=== PATIENT | male | born 1970 | race Two or more races ===

== ENCOUNTER 2016-06-21 02:04 | Inpatient (IN) | payer MEDICAID ==
[2016-06-21] VITALS (11 sets, daily range): BP systolic 110–124; BP diastolic 68–83
[~2016-06-21] VITALS: Ht 167.6 cm; Wt 63.5 kg
[2016-06-21] MEDS: 1/2NS w/KCl 20mEq 1000ml 1,000 ML IV SCH
[~2016-06-21 02:04] MED LIST: NKM
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
[2016-06-21] MEDS ORDERED: HYDROmorphone 1mg/ml Carpuject IVP ONE ×2 (02:15→05:00)
[2016-06-21 03:02] LABS: APPEARANCE,URINE CLEAR; KETONES,URINE NEGATIVE (NEGATIVE); LEUKOCYTE ESTERASE ,URINE 1+ (NEGATIVE); NITRITE,URINE NEGATIVE (NEGATIVE); PH,URINE 6.5 (4.5-8.0); PROTEIN,URINE NEGATIVE (NEGATIVE); UROBILINOGEN,URINE 1 MG/DL (0.0-1.0)
[2016-06-21 03:04] LABS: MEAN CORPUSCULAR HEMOGLOBIN 33.1 PG (27.0-31.0); MEAN CORPUSCULAR HGB CONC 32.8 G/DL (32.0-36.0); MEAN CORPUSCULAR VOLUME 101 FL (80-99); MEAN PLATELET VOLUME 11.9 FL (6.5-10.1); PLATELET COUNT 83 K/UL (150-450); RED BLOOD COUNT 3.77 M/UL (4.70-6.10); WHITE BLOOD COUNT 7.6 K/UL (4.8-10.8)
[2016-06-21 03:16] LABS: BACTERIA,URINE FEW /HPF; RBC,URINE 0-2 /HPF (0 - 0); SQUAMOUS EPITHELIAL CELL,UR FEW /LPF (NONE/OCC); WBC,URINE 0-2 /HPF (0 - 0)
[2016-06-21 03:20] LABS: ALANINE AMINOTRANSFERASE 172 U/L (3-41); ALBUMIN/GLOBULIN RATIO 1.2 (1.0-2.7); ANION GAP 17 (5-15); ASPARTATE AMINO TRANSFERASE 348 U/L (5-40); CALCIUM 9.2 mg/dL (8.6-10.2); CARBON DIOXIDE 24 mEQ/L (20-30); CHLORIDE 91 mEQ/L (98-107); CREATININE 0.7 mg/dL (0.7-1.2); GLOMERULAR FILTRATION RATE > 60 mL/min (>60); HEMOLYSIS 6; LIPASE 56 U/L (< 60); POTASSIUM 3.3 mEQ/L (3.4-4.9); SODIUM 132 mEQ/L (135-145); TOTAL PROTEIN 7.3 g/dL (6.6-8.7)
[2016-06-21 03:21] LABS: TROPONIN I < 0.30 ng/mL (<=0.30)
[2016-06-21 03:48] LABS: CKMB 5.5 ng/mL (< 6.7)
[2016-06-21 06:00] LABS: BAND NEUTROPHILS % (MANUAL) 6 % (0-8); LYMPHOCYTES % (MANUAL) 19 % (20-45); NEUTROPHILS % (MANUAL) 72 % (45-75); TOTAL CELLS COUNTED 100
[2016-06-21 06:01] LABS: BASOPHILS % (MANUAL) 0 % (0-2); EOSINOPHILS % (MANUAL) 0 % (0-3); PLATELET ESTIMATE DECREASED; PLATELET MORPHOLOGY NORMAL
--- NOTE | 2016-06-21 10:48 | Diagnostic Imaging Report ---
Indication: Chest pain Technique: One view of the chest Comparison: none Findings: There is a moderate to large right pneumothorax. There are fractures of the seventh and eighth and 9 ribs. Is extensive right chest wall and neck subcutaneous emphysema. There is some parenchymal opacity in the right lung base, probably atelectatic lung. Left lung and pleural space are clear. Heart size is normal Impression: Moderate to large right pneumothorax Right basilar pulmonary parenchymal opacity, probably atelectatic lung Multiple right rib fractures This agrees with the preliminary interpretation provided by the emergency room physician
--- NOTE | 2016-06-21 10:52 | Diagnostic Imaging Report ---
Indication: Pneumothorax, status post chest tube placement Technique: One view of the chest Comparison: 3 hours earlier Findings: Interim placement of a right-sided chest tube, tip projecting over the right pulmonary hilum. The lung is mostly reexpanded, although there is still probably some pneumothorax at the right lateral lung base. Opacity at the right lung base is again noted. The left lung and pleural space remain clear. Heart size is upper limits normal. There is increased right chest wall and supraclavicular subcutaneous emphysema. Pneumomediastinum documented on recent CT scan is not clearly evident on plain radiograph Impression: Satisfactory chest tube placement, with significant reexpansion of the right lung and decreased right pneumothorax Increasing right chest wall and supraclavicular subcutaneous emphysema Right basilar pulmonary parenchymal opacity most likely reflects residual atelectatic lung; consolidation, contusion, or reexpansion pulmonary edema also possibilities.
[2016-06-21] MEDS ORDERED: LORazepam 1mg tab ORAL PRN ×2 (11:45→23:45)
[2016-06-21] MEDS: HYDROmorphone 1mg/ml Carpuject IVP PRN ×2 (12:04→19:45)
[2016-06-21] MEDS ORDERED: 1/2NS w/KCl 20mEq 1000ml 1,000 ML IV SCH (12:30)
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
[2016-06-21 14:10] LABS: PROTHROMBIN TIME 9.7 SEC (9.30-11.50)
--- NOTE | 2016-06-21 17:12 | General Progress Note ---
Assessment/Plan Assessment/Plan GI Consult Dictated Thank you Katarzyna Toledo MD Subjective Allergies: Coded Allergies: No Known Allergies (Unverified , 06/21/16) Objective Last 24 Hour Vital Signs Date Time Temp Pulse Resp B/P Pulse Ox O2 Delivery O2 Flow Rate FiO2 06/21/16 16:17 100.0 100 20 116/74 92 Room Air 06/21/16 12:00 100.0 84 18 124/72 96 Nasal Cannula 2.0 06/21/16 08:39 99.3 89 20 121/71 92 Room Air 06/21/16 08:23 97.9 92 20 110/75 96 Nasal Cannula 2.0 06/21/16 08:02 92 20 110/75 96 Nasal Cannula 2.0 06/21/16 06:52 97.9 87 18 122/72 96 Nasal Cannula 2.0 87 06/21/16 06:08 97.7 93 18 117/68 97 Nasal Cannula 2.0 93 06/21/16 05:28 98.5 06/21/16 05:07 97.7 94 18 118/75 96 Nasal Cannula 2.0 94 06/21/16 04:06 98.5 103 17 113/70 96 Nasal Cannula 2.0 103 06/21/16 03:15 98.8 06/21/16 03:05 98.8 107 18 113/70 95 Nasal Cannula 2.0 107 06/21/16 03:03 107 18 Nasal Cannula 2.0 06/21/16 02:20 98.8 107 29 119/81 92 Room Air 06/21/16 02:01 134 16 134/91 95 Room Air Intake and Output 06/20/16 06/21/16 19:00 07:00 Intake Total 1000 ml Balance 1000 ml IV Total 1000 ml # Voids 2 Laboratory Tests 06/21/16 02:30: Urine Color Yellow, Urine Appearance Clear, Urine pH 6.5, Urine Specific [place] 1.005, Urine Protein Negative, Urine Glucose (UA) Negative, Urine Ketones Negative, Urine Occult Blood Negative, Urine Nitrite Negative, Urine Bilirubin Negative, Urine Urobilinogen 1H, Urine Leukocyte Esterase 1+H, Urine RBC 0-2H, Urine WBC 0-2, Urine Squamous Epithelial Cells Few, Urine Bacteria Few , Urine Opiates Screen Negative, Urine Barbiturates Screen Negative, Phencyclidine (PCP) Screen Negative, Urine Amphetamines Screen Negative, Urine Benzodiazepines Screen Negative, Urine Cocaine Screen Negative, Urine Marijuana (THC) Screen Negative 06/21/16 02:48: White Blood Count 7.6, Red Blood Count 3.77L, Hemoglobin 12.5L, Hematocrit 38.0L , Mean Corpuscular Volume 101H, Mean Corpuscular Hemoglobin 33.1H, Mean Corpuscular Hemoglobin Concent 32.8, Red Cell Distribution Width 12.0, Platelet Count 83L, Mean Platelet Volume 11.9H, Neutrophils (%) (Auto) , Lymphocytes (%) (Auto) , Monocytes (%) (Auto) , Eosinophils (%) (Auto) , Basophils (%) (Auto) , Differential Total Cells Counted 100, Neutrophils % (Manual) 72, Lymphocytes % ( Manual) 19L, Monocytes % (Manual) 3, Eosinophils % (Manual) 0, Basophils % ( Manual) 0, Band Neutrophils 6, Platelet Estimate DecreasedL, Platelet Morphology Normal, Red Blood Cell Morphology Normal, D-Dimer 3802H, Sodium Level 132L, Potassium Level 3.3L, Chloride Level 91L, Carbon Dioxide Level 24, Anion Gap 17H, Blood Urea Nitrogen 8, Creatinine 0.7, Estimat Glomerular Filtration Rate > 60, Glucose Level 113H, Calcium Level 9.2, Total Bilirubin 2.3H, Direct Bilirubin 1.0H, Aspartate Amino Transf (AST/SGOT) 348H, Alanine Aminotransferase (ALT/SGPT) 172H, Alkaline Phosphatase 261H, Total Creatine Kinase 1230H, Creatine Kinase MB 5.5, Creatine Kinase MB Relative Index 0.4, Troponin I < 0.30, Total Protein 7.3, Albumin 4.0, Globulin 3.3, Albumin/ Globulin Ratio 1.2, Lipase 56 06/21/16 13:40: Prothrombin Time 9.7, Prothromb Time International Ratio 1.0, Vitamin B12 Level 1506H, Folate [Pending], Hepatitis A IgM Antibody [Pending], Hepatitis B Surface Antigen [Pending], Hepatitis B Core IgM Antibody [Pending], Hepatitis C Antibody [Pending], HIV (1&2) Antibody Rapid Negative Height (Feet): 5 Height (Inches): 6.00 Weight (Pounds): 140 VIOLETTAGAYATHRI NICHOLE Jun 21, 2016 17:12
[2016-06-21 20:53] LABS: ABG PCO2 47.8 mmHg (35.0-45.0)
[2016-06-21 20:54] LABS: ABG ALLEN TEST POSITIVE; ABG BASE EXCESS 0.1
[2016-06-21] MEDS ORDERED: Heparin 5000 units/ml inj SUBQ SCH (21:00)
[2016-06-21] MEDS ORDERED: HYDROmorphone 1mg/ml Carpuject IVP PRN (23:45)
[2016-06-22] VITALS (20 sets, daily range): BP systolic 92–150; BP diastolic 40–99
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
--- NOTE | 2016-06-22 03:17 | Consultation ---
DATE OF CONSULTATION: 06/21/2016 NOTE: POOR AUDIO QUALITY HEMATOLOGY/ONCOLOGY CONSULTATION CONSULTING PHYSICIAN: Cirilo Mueller M.D. REQUESTING PHYSICIAN: Kavin Soto M.D. REASON FOR CONSULTATION: Evaluation of thrombocytopenia. IDENTIFYING DATA: Dear Dr. Kavin Soot, The patient is a pleasant 45-year-old male with unknown past medical history and currently without records. At this time presents to [facility] with chest pain, per the patient acute onset component with radiation to his back. He had a CT scan completed, which showed multiple rib fractures. In addition, the patient has elevated D-dimer as well as anemia, platelet count 83,000. Therefore, hematology service was consulted for further evaluation and treatment of thrombocytopenia as well as a component of anemia, hemoglobin 12.4 and elevated D-dimer which is above 3000. PAST MEDICAL HISTORY: None noted. PAST SURGICAL HISTORY: None noted. ALLERGIES: No known drug allergies. SOCIAL HISTORY: The patient does smoke, but no alcohol. No illicit drug use. FAMILY HISTORY: Noncontributory. REVIEW OF SYSTEMS: Constitutional: No fever, chills, or night sweats. Skin: No rashes, lumps, or itching. HEENT: No headache or vision changes. Breasts: No lumps, pain, or discharge. Pulmonary: No cough, sputum, or shortness of breath. Cardiovascular: He does have a history of chest pain. No tightness or palpitations. Gastrointestinal: No nausea, vomiting, or diarrhea. Genitourinary: No dysuria, frequency, or urgency. Musculoskeletal: No joint swelling, muscle pain, trauma. Neurological: No dizziness, fainting, seizures. PHYSICAL EXAMINATION: VITAL SIGNS: Temperature 99.3 degrees Fahrenheit, pulse 89, respiratory rate 20, blood pressure 121/71, and pulse oximetry 97% on room air. GENERAL: No acute distress. PULMONARY: Decreased breath sounds. CARDIOVASCULAR: Regular rate. No murmurs, gallops, or rubs. GASTROINTESTINAL: Soft, nontender, and nondistended. EXTREMITIES: There is 1+ edema. LABORATORY DATA: Platelet count 83,000, MCV 101, hemoglobin 12.5, and hematocrit 38. BUN , creatinine 0.7. AST 53 and ALT 172. . D-dimer 3800. IMPRESSION: 1. Elevated D-dimer concerning for liver disease given the patient with thrombocytopenia as well as elevated AST and ALT. 2. Spontaneous pneumothorax, also contributing to D-dimer elevation. 3. Thrombocytopenia likely secondary to liver cirrhosis. We will need to consider ultrasound. 4. Thrombocytopenia, rule out infection. 5. Anemia secondary to chronic disease. 6. . 7. Chest pain, rule out acute coronary syndrome. RECOMMENDATIONS: 1. Monitor counts. 2. Transfuse as needed. 3. . 4. DVT prophylaxis with heparin. 5. GI prophylaxis with . 6. We will obtain ultrasound of the abdomen to confirm if the patient has cirrhosis. 7. HIV and hepatitis panel has been ordered. 8. Thrombocytopenia workup including hepatitis panel, coagulations, ultrasound of the abdomen, folic acid and B12. 9. Discussed with staff. Thank you, Dr. Kavin Soto, for this kind referral. Please do not hesitate to contact me with any further questions. Cirilo Mueller M.D. DR: Ion JOB#: [id number] CC:
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
[2016-06-22] MEDS ORDERED: LORazepam Inj 2mg/ml 1ml IV PRN (05:00)
[2016-06-22] MEDS ORDERED: Haloperidol 5mg/ml Inj IM ONE (05:30)
[2016-06-22] MEDS ORDERED: LORazepam Inj 2mg/ml 1ml IV ONE ×3 (05:30→12:00)
[2016-06-22] MEDS: 1/2NS w/KCl 20mEq 1000ml 1,000 ML IV SCH ×2 (06:31)
--- NOTE | 2016-06-22 06:33 | Emergency Room Report ---
Physical Exam Vital Signs Date Time Temp Pulse Resp B/P Pulse Ox O2 Delivery O2 Flow Rate FiO2 06/21/16 02:01 134 16 134/91 95 Room Air 06/21/16 02:20 98.8 06/21/16 03:03 2.0 06/21/16 20:11 32 Medical Decision Making Diagnostic Impression: Primary Impression: Spontaneous pneumothorax Additional Impressions: Abnormal LFTs Multiple rib fractures involving four or more ribs ER Course Patient was admitted for spontaneous pneumothorax with multiple fractures of unknown duration. He had a chest tube placed by me. I was called to evaluate the patient because he's been very agitated. Per nursing staff his been diaphoretic, tachycardic and agitated for several hours now. Ativan 1 mg not helping. Patient complaining of not feeling well and generalized pain. Also difficulty breathing. On exam lungs have good extension. Trachea not deviated. Rhonchorous breath sound the right side. He still has subcutaneous air but much less than yesterday. Chest tube still working. I gave patient sedation with Haldol and Ativan. I asked for repeat chest x-ray. Patient was transferred to the ICU. His chest x-ray, interpreted by me, showed good inflation of the right lung. No pneumothorax. Decreased subcutaneous air. Decision-making: This patient probably had some withdrawal from his alcohol drugs. He appeared to be very agitated. Calm down with Ativan and Haldol. No evidence of worsening pneumothorax or tension pneumothorax. We'll continue with sedation. Last Vital Signs Date Time Temp Pulse Resp B/P Pulse Ox O2 Delivery O2 Flow Rate FiO2 06/22/16 04:00 176 28 131/99 99 Non-Rebreather 06/22/16 00:00 97.9 06/21/16 23:46 15.0 100 Disposition: ADMITTED INPATIENT Condition: Serious Referrals: NOT CHOSEN MASOOD/,REFERRING (PCP) ADINA RODRIGUEZ M.D. Jun 22, 2016 06:33
[2016-06-22 07:24] LABS: MEAN CORPUSCULAR HEMOGLOBIN 35.3 PG (27.0-31.0); MEAN CORPUSCULAR HGB CONC 34.9 G/DL (32.0-36.0); MEAN CORPUSCULAR VOLUME 101 FL (80-99); MEAN PLATELET VOLUME 7.1 FL (6.5-10.1); PLATELET COUNT 84 K/UL (150-450); RED BLOOD COUNT 2.95 M/UL (4.70-6.10); RED CELL DISTRIBUTION WIDTH 11.9 % (11.6-14.8); WHITE BLOOD COUNT 8.5 K/UL (4.8-10.8)
[2016-06-22 07:43] LABS: PSA TOTAL 0.2 ng/mL (< 2.0)
[2016-06-22 07:56] LABS: ALANINE AMINOTRANSFERASE 106 U/L (3-41); ALBUMIN/GLOBULIN RATIO 1.2 (1.0-2.7); ANION GAP 19 (5-15); ASPARTATE AMINO TRANSFERASE 170 U/L (5-40); CALCIUM 8.3 mg/dL (8.6-10.2); CARBON DIOXIDE 25 mEQ/L (20-30); CHLORIDE 91 mEQ/L (98-107); CHOLESTEROL 155 mg/dL (< 200); CHOLESTEROL/HDL RATIO 2.6 (3.3-4.4); CREATININE 0.7 mg/dL (0.7-1.2); GLOMERULAR FILTRATION RATE > 60 mL/min (>60); HEMOLYSIS 10; LDL CHOLESTEROL (CALC.) 79 mg/dL (60-99); MAGNESIUM 1.6 mg/dL (1.7-2.5); POTASSIUM 3.1 mEQ/L (3.4-4.9); SODIUM 135 mEQ/L (135-145)
[2016-06-22 08:02] LABS: HEMOGLOBIN A1C 4.9 % (< 6.0)
[2016-06-22 08:12] LABS: BILIRUBIN,DIRECT 1.1 mg/dL (0.1-0.3)
[2016-06-22] MEDS: Folic Acid 1 MG, Magnesium Sulfate 2,000 MG, Multivitamin - 12 Injection 10 ML in NS w/... IV SCH (08:23)
[2016-06-22] MEDS: LORazepam Inj 2mg/ml 1ml IV PRN ×8 (08:24→23:45)
[2016-06-22 08:39] LABS: ABG ALLEN TEST POSITIVE; ABG BASE EXCESS 1.4; ABG PCO2 46.4 mmHg (35.0-45.0)
[2016-06-22 10:25] LABS: BAND NEUTROPHILS % (MANUAL) 5 % (0-8); BASOPHILS % (MANUAL) 0 % (0-2); EOSINOPHILS % (MANUAL) 0 % (0-3); HYPOCHROMASIA 1+; LYMPHOCYTES % (MANUAL) 4 % (20-45); MACROCYTES 1+; NEUTROPHILS % (MANUAL) 84 % (45-75); PLATELET ESTIMATE DECREASED; PLATELET MORPHOLOGY NORMAL; TOTAL CELLS COUNTED 100
--- NOTE | 2016-06-22 12:06 | GI Progress Note ---
Assessment/Plan Problems: (1) ETOH abuse ICD Codes: F10.10 - Alcohol abuse, uncomplicated SNOMED: 75499415, 60811919 (2) Multiple rib fractures involving four or more ribs ICD Codes: S22.49XA - Multiple fractures of ribs, unspecified side, initial encounter for closed fracture SNOMED: 3683715 (3) Abnormal LFTs ICD Codes: R79.89 - Other specified abnormal findings of blood chemistry SNOMED: 149509262 Status: unchanged Status Narrative Discussed with Dr. Krueger. Assessment/Plan anemia work up fu abdominal U/S >> Hepatomegaly with fatty infiltration, Cholelithiasis fu hep panel banana bag ppi add on - ammonia level discriminant function negative >> defer glucosteroid therapy monitor LFTs monitor H&H, transfuse prn fu labs Subjective Subjective limited Objective Last 24 Hour Vital Signs Date Time Temp Pulse Resp B/P Pulse Ox O2 Delivery O2 Flow Rate FiO2 06/22/16 11:00 94 26 112/75 100 Non-Rebreather 100 06/22/16 10:00 110 25 105/68 100 Non-Rebreather 15.0 100 06/22/16 09:00 86 18 102/64 100 Non-Rebreather 15.0 100 06/22/16 08:00 97.7 113 24 108/70 99 Non-Rebreather 15.0 100 06/22/16 08:00 86 06/22/16 07:07 Non-Rebreather 15.0 100 06/22/16 07:07 99 Non-Rebreather 15.0 100 06/22/16 06:30 101 20 92/40 99 Non-Rebreather 06/22/16 06:00 97.6 150 28 150/88 99 Non-Rebreather 06/22/16 04:00 176 28 131/99 99 Non-Rebreather 06/22/16 00:00 94 06/22/16 00:00 97.9 87 18 114/73 97 Room Air 06/21/16 23:46 Non-Rebreather 15.0 100 06/21/16 23:45 96 Non-Rebreather 15.0 100 06/21/16 20:25 97.7 110 20 112/83 97 Room Air 06/21/16 20:11 Nasal Cannula 3.0 32 06/21/16 20:11 95 Nasal Cannula 3.0 32 1/2/17 16:17 100.0 100 20 116/74 92 Room Air 06/21/16 12:00 100.0 84 18 124/72 96 Nasal Cannula 2.0 Intake and Output 06/21/16 06/22/16 18:59 06:59 Intake Total 690 ml 780 ml Output Total 10 ml 10 ml Balance 680 ml 770 ml Intake Oral 240 ml 480 ml IV Total 450 ml 300 ml Chest Tube Drainage Total 10 ml 10 ml # Voids 1 2 # Bowel Movements 1 Laboratory Tests Test 06/21/16 13:40 06/21/16 20:50 06/22/16 06:20 06/22/16 08:00 Prothrombin Time 9.7 SEC (9.30-11.50) Prothromb Time International Ratio 1.0 (0.9-1.1) Vitamin B12 Level 1506 pg/mL (211-946) H Folate Pending Hepatitis A IgM Antibody Pending Hepatitis B Surface Antigen Pending Hepatitis B Core IgM Antibody Pending Hepatitis C Antibody Pending HIV (1&2) Antibody Rapid Negative (NEGATIVE) Arterial Blood pH 7.355 (7.350-7.450) 7.382 (7.350-7.450) Arterial Blood Partial Pressure CO2 47.8 mmHg (35.0-45.0) H 46.4 mmHg (35.0-45.0) H Arterial Blood Partial Pressure O2 46.1 mmHg (75.0-100.0) 59.7 mmHg (75.0-100.0) L Arterial Blood HCO3 26.1 mmol/L (22.0-26.0) H 27.0 mmol/L (22.0-26.0) H Arterial Blood Oxygen Saturation 79.6 % (92.0-98.0) L 90.4 % (92.0-98.0) L Arterial Blood Base Excess 0.1 1.4 Anatoly Test Positive Positive White Blood Count 8.5 K/UL (4.8-10.8) Red Blood Count 2.95 M/UL (4.70-6.10) L Hemoglobin 10.4 G/DL (14.2-18.0) L Hematocrit 29.9 % (42.0-52.0) L Mean Corpuscular Volume 101 FL (80-99) H Mean Corpuscular Hemoglobin 35.3 PG (27.0-31.0) H Mean Corpuscular Hemoglobin Concent 34.9 G/DL (32.0-36.0) Red Cell Distribution Width 11.9 % (11.6-14.8) Platelet Count 84 K/UL (150-450) L Mean Platelet Volume 7.1 FL (6.5-10.1) Neutrophils (%) (Auto) % (45.0-75.0) Lymphocytes (%) (Auto) % (20.0-45.0) Monocytes (%) (Auto) % (1.0-10.0) Eosinophils (%) (Auto) % (0.0-3.0) Basophils (%) (Auto) % (0.0-2.0) Differential Total Cells Counted 100 Neutrophils % (Manual) 84 % (45-75) H Lymphocytes % (Manual) 4 % (20-45) L Monocytes % (Manual) 7 % (1-10) Eosinophils % (Manual) 0 % (0-3) Basophils % (Manual) 0 % (0-2) Band Neutrophils 5 % (0-8) Platelet Estimate Decreased L Platelet Morphology Normal Hypochromasia 1+ Macrocytosis 1+ Sodium Level 135 mEQ/L (135-145) Potassium Level 3.1 mEQ/L (3.4-4.9) L Chloride Level 91 mEQ/L (98-107) L Carbon Dioxide Level 25 mEQ/L (20-30) Anion Gap 19 (5-15) H Blood Urea Nitrogen 10 mg/dL (7-23) Creatinine 0.7 mg/dL (0.7-1.2) Estimat Glomerular Filtration Rate > 60 mL/min (>60) Glucose Level 128 mg/dL (74-106) H Hemoglobin A1c 4.9 % (< 6.0) Calcium Level 8.3 mg/dL (8.6-10.2) L Magnesium Level 1.6 mg/dL (1.7-2.5) L Total Bilirubin 2.2 mg/dL (0.0-1.2) H Direct Bilirubin 1.1 mg/dL (0.1-0.3) H Aspartate Amino Transf (AST/SGOT) 170 U/L (5-40) H Alanine Aminotransferase (ALT/SGPT) 106 U/L (3-41) H Alkaline Phosphatase 181 U/L (40-129) H Total Protein 6.0 g/dL (6.6-8.7) L Albumin 3.3 g/dL (3.5-5.2) L Globulin 2.7 g/dL Albumin/Globulin Ratio 1.2 (1.0-2.7) Triglycerides Level 84 mg/dL (< 150) Cholesterol Level 155 mg/dL (< 200) LDL Cholesterol 79 mg/dL (60-99) HDL Cholesterol 59 mg/dL (> 60) Cholesterol/HDL Ratio 2.6 (3.3-4.4) L Prostate Specific Antigen 0.2 ng/mL (< 2.0) Thyroid Stimulating Hormone (TSH) 1.060 uIU/mL (0.300-4.500) Height (Feet): 5 Height (Inches): 6.00 Weight (Pounds): 140 General Appearance: alert, agitated, combative, other - on 2 point soft restraints Cardiovascular: tachycardia Respiratory/Chest: other - non rebreather Abdominal Exam: normal bowel sounds, non tender, soft, other - CT to suction Objective Procedure: US ABD Complete Indication:Abdominal pain Findings: The demonstrated part of the pancreas, aorta and IVC, both kidneys, spleen appear unremarkable. Aorta and pancreas are poorly seen. There are gallstones. Sonographic Vanegas's is negative per technologist. The liver is enlarged and echogenic. CBD is 4 mm. There is no biliary ductal dilatation identified. Doppler evaluation of the main portal vein shows patency. There is no ascites. No hydronephrosis seen. Impression: Hepatomegaly with fatty infiltration. Cholelithiasis Pancreas and aorta obscured Deborah Cordero N.P. Jun 22, 2016 12:05
--- NOTE | 2016-06-22 12:12 | Diagnostic Imaging Report ---
Indication: Abnormal breath sounds Comparison: 06/21/2016 A single view chest radiograph was obtained. Findings: Exam is limited by rotation. There is a right chest tube present. Subcutaneous emphysema noted. No definite pneumothorax appreciated. The heart appears enlarged. Impression: Stable appearance
--- NOTE | 2016-06-22 19:02 | Pulmonolgy Critical Care Note ---
Critical Care - Asmt/Plan Problems: (1) Alcohol withdrawal (2) Subcutaneous emphysema (3) Spontaneous pneumothorax (4) Multiple rib fractures involving four or more ribs Assessment & Plan: Acuity unknown, patient denies recent hx but poor historian (5) Abnormal LFTs (6) ETOH abuse (7) Tachycardia (8) D-dimer, elevated Assessment & Plan: S/P negative Duplex, VQ pending (9) Thrombocytopenia Respiratory: other - CT to C[facility], Monitor CT O/P, monitor SQ emphyema, supplemental O2, thoracic surgery consulted (Dr. 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, GI, other - Heme-onc Discussed with: nurses, consultants Critical Care - Objective Last 24 Hour Vital Signs Date Time Temp Pulse Resp B/P Pulse Ox O2 Delivery O2 Flow Rate FiO2 06/22/16 18:00 96 21 103/64 99 Non-Rebreather 100 06/22/16 17:00 112 28 109/70 97 Non-Rebreather 100 06/22/16 16:00 113 06/22/16 16:00 98.1 113 25 118/59 99 Non-Rebreather 100 06/22/16 15:00 135 32 104/70 96 Non-Rebreather 100 06/22/16 14:00 142 25 122/75 95 Non-Rebreather 100 06/22/16 13:00 75 17 102/61 100 Non-Rebreather 100 06/22/16 12:00 119 06/22/16 12:00 97.5 98 21 112/79 100 Non-Rebreather 100 06/22/16 11:00 94 26 112/75 100 Non-Rebreather 100 06/22/16 10:00 110 25 105/68 100 Non-Rebreather 15.0 100 06/22/16 09:00 86 18 102/64 100 Non-Rebreather 15.0 100 06/22/16 08:00 97.7 113 24 108/70 99 Non-Rebreather 15.0 100 06/22/16 08:00 86 06/22/16 07:07 Non-Rebreather 15.0 100 06/22/16 07:07 99 Non-Rebreather 15.0 100 06/22/16 06:30 101 20 92/40 99 Non-Rebreather 06/22/16 06:00 97.6 150 28 150/88 99 Non-Rebreather 06/22/16 04:00 176 28 131/99 99 Non-Rebreather 06/22/16 00:00 94 06/22/16 00:00 97.9 87 18 114/73 97 Room Air 06/21/16 23:46 Non-Rebreather 15.0 100 06/21/16 23:45 96 Non-Rebreather 15.0 100 06/21/16 20:25 97.7 110 20 112/83 97 Room Air 06/21/16 20:11 Nasal Cannula 3.0 32 06/21/16 20:11 95 Nasal Cannula 3.0 32 Status: somnolent Condition: improving HEENT: atraumatic, normocephalic Neck: full ROM Lungs: other - SQ emphysema R > L, + CT Heart: HR/BP stable Abdomen: soft, non-tender, active bowel sounds Extremities: no C/C/E Blood Sugars: BS controlled Critical Care - Subjective ROS Limited/Unobtainable: Yes ICU Day: 1 Interval Events: Agitated overnight, transferred to ICU, better with Ativan, was in ST earlier, now resting AFVSS, Abd U/S reviewed, NH3- normal CXR without PTX, + CT Small air leak Condition: improving IV Access: peripheral EKG Rhythm: Sinus Tachycardia FI02: 100 Sputum Amount: None Fluids: 1/[id number]@ 75, S/P Banana bag I&O: Intake and Output 06/21/16 06/22/16 19:00 07:00 Intake Total 690 ml 780 ml Output Total 10 ml 10 ml Balance 680 ml 770 ml Intake Oral 240 ml 480 ml IV Total 450 ml 300 ml Output Urine Total 0 ml Chest Tube Drainage Total 10 ml 10 ml # Voids 1 2 # Bowel Movements 1 Subjective: Resting now CXR: No PTX, + CT, + SQ emphysema Labs: Laboratory Tests Test 06/21/16 20:50 06/22/16 06:20 06/22/16 08:00 06/22/16 14:20 Arterial Blood pH 7.355 (7.350-7.450) 7.382 (7.350-7.450) Arterial Blood Partial Pressure CO2 47.8 mmHg (35.0-45.0) H 46.4 mmHg (35.0-45.0) H Arterial Blood Partial Pressure O2 46.1 mmHg (75.0-100.0) 59.7 mmHg (75.0-100.0) L Arterial Blood HCO3 26.1 mmol/L (22.0-26.0) H 27.0 mmol/L (22.0-26.0) H Arterial Blood Oxygen Saturation 79.6 % (92.0-98.0) L 90.4 % (92.0-98.0) L Arterial Blood Base Excess 0.1 1.4 Anatoly Test Positive Positive White Blood Count 8.5 K/UL (4.8-10.8) Red Blood Count 2.95 M/UL (4.70-6.10) L Hemoglobin 10.4 G/DL (14.2-18.0) L Hematocrit 29.9 % (42.0-52.0) L Mean Corpuscular Volume 101 FL (80-99) H Mean Corpuscular Hemoglobin 35.3 PG (27.0-31.0) H Mean Corpuscular Hemoglobin Concent 34.9 G/DL (32.0-36.0) Red Cell Distribution Width 11.9 % (11.6-14.8) Platelet Count 84 K/UL (150-450) L Mean Platelet Volume 7.1 FL (6.5-10.1) Neutrophils (%) (Auto) % (45.0-75.0) Lymphocytes (%) (Auto) % (20.0-45.0) Monocytes (%) (Auto) % (1.0-10.0) Eosinophils (%) (Auto) % (0.0-3.0) Basophils (%) (Auto) % (0.0-2.0) Differential Total Cells Counted 100 Neutrophils % (Manual) 84 % (45-75) H Lymphocytes % (Manual) 4 % (20-45) L Monocytes % (Manual) 7 % (1-10) Eosinophils % (Manual) 0 % (0-3) Basophils % (Manual) 0 % (0-2) Band Neutrophils 5 % (0-8) Platelet Estimate Decreased L Platelet Morphology Normal Hypochromasia 1+ Macrocytosis 1+ Sodium Level 135 mEQ/L (135-145) Potassium Level 3.1 mEQ/L (3.4-4.9) L Chloride Level 91 mEQ/L (98-107) L Carbon Dioxide Level 25 mEQ/L (20-30) Anion Gap 19 (5-15) H Blood Urea Nitrogen 10 mg/dL (7-23) Creatinine 0.7 mg/dL (0.7-1.2) Estimat Glomerular Filtration Rate > 60 mL/min (>60) Glucose Level 128 mg/dL (74-106) H Hemoglobin A1c 4.9 % (< 6.0) Calcium Level 8.3 mg/dL (8.6-10.2) L Magnesium Level 1.6 mg/dL (1.7-2.5) L Total Bilirubin 2.2 mg/dL (0.0-1.2) H Direct Bilirubin 1.1 mg/dL (0.1-0.3) H Aspartate Amino Transf (AST/SGOT) 170 U/L (5-40) H Alanine Aminotransferase (ALT/SGPT) 106 U/L (3-41) H Alkaline Phosphatase 181 U/L (40-129) H Total Protein 6.0 g/dL (6.6-8.7) L Albumin 3.3 g/dL (3.5-5.2) L Globulin 2.7 g/dL Albumin/Globulin Ratio 1.2 (1.0-2.7) Triglycerides Level 84 mg/dL (< 150) Cholesterol Level 155 mg/dL (< 200) LDL Cholesterol 79 mg/dL (60-99) HDL Cholesterol 59 mg/dL (> 60) Cholesterol/HDL Ratio 2.6 (3.3-4.4) L Prostate Specific Antigen 0.2 ng/mL (< 2.0) Thyroid Stimulating Hormone (TSH) 1.060 uIU/mL (0.300-4.500) Ammonia 32 umol/L (16-60) EUGENIO RODRÍGUEZ M.D. Jun 22, 2016 19:02
[2016-06-22] MEDS: chlordiazePOXIDE 25mg Cap ORAL SCH (21:59)
--- NOTE | 2016-06-22 22:40 | Nephrology Progress Note ---
Assessment/Plan Problem List: (1) ETOH abuse (2) Multiple rib fractures involving four or more ribs (3) Abnormal LFTs (4) Spontaneous pneumothorax (5) Subcutaneous emphysema (6) D-dimer, elevated (7) Thrombocytopenia (8) Hypokalemia Assessment: being repleted. (9) Hyponatremia Assessment: corrected. Plan GI, Pulm following. Pending CT surgery consult. cont CT and pulm hygiene. Subjective Subjective in ICU. + R CT Objective Objective Last 24 Hour Vital Signs Date Time Temp Pulse Resp B/P Pulse Ox O2 Delivery O2 Flow Rate FiO2 06/22/16 22:00 100 17 119/71 100 Non-Rebreather 15.0 100 06/22/16 21:00 98.1 80 17 98/67 100 Non-Rebreather 15.0 100 06/22/16 20:00 93 22 110/65 100 Non-Rebreather 100 06/22/16 20:00 93 06/22/16 19:03 Non-Rebreather 15.0 100 06/22/16 19:02 98 Non-Rebreather 15.0 100 06/22/16 19:00 97 22 105/68 100 Non-Rebreather 100 06/22/16 18:00 96 21 103/64 99 Non-Rebreather 100 06/22/16 17:00 112 28 109/70 97 Non-Rebreather 100 06/22/16 16:00 113 06/22/16 16:00 98.1 113 25 118/59 99 Non-Rebreather 100 06/22/16 15:00 135 32 104/70 96 Non-Rebreather 100 06/22/16 14:00 142 25 122/75 95 Non-Rebreather 100 06/22/16 13:00 75 17 102/61 100 Non-Rebreather 100 06/22/16 12:00 119 06/22/16 12:00 97.5 98 21 112/79 100 Non-Rebreather 100 06/22/16 11:00 94 26 112/75 100 Non-Rebreather 100 06/22/16 10:00 110 25 105/68 100 Non-Rebreather 15.0 100 06/22/16 09:00 86 18 102/64 100 Non-Rebreather 15.0 100 06/22/16 08:00 97.7 113 24 108/70 99 Non-Rebreather 15.0 100 06/22/16 08:00 86 06/22/16 07:07 Non-Rebreather 15.0 100 06/22/16 07:07 99 Non-Rebreather 15.0 100 06/22/16 06:30 101 20 92/40 99 Non-Rebreather 06/22/16 06:00 97.6 150 28 150/88 99 Non-Rebreather 06/22/16 04:00 176 28 131/99 99 Non-Rebreather 06/22/16 00:00 94 06/22/16 00:00 97.9 87 18 114/73 97 Room Air 06/21/16 23:46 Non-Rebreather 15.0 100 06/21/16 23:45 96 Non-Rebreather 15.0 100 Intake and Output 06/21/16 06/22/16 19:00 07:00 Intake Total 690 ml 780 ml Output Total 10 ml 10 ml Balance 680 ml 770 ml Intake Oral 240 ml 480 ml IV Total 450 ml 300 ml Output Urine Total 0 ml Chest Tube Drainage Total 10 ml 10 ml # Voids 1 2 # Bowel Movements 1 Laboratory Tests 06/22/16 06:20: White Blood Count 8.5, Red Blood Count 2.95L, Hemoglobin 10.4L, Hematocrit 29.9L , Mean Corpuscular Volume 101H, Mean Corpuscular Hemoglobin 35.3H, Mean Corpuscular Hemoglobin Concent 34.9, Red Cell Distribution Width 11.9, Platelet Count 84L, Mean Platelet Volume 7.1, Neutrophils (%) (Auto) , Lymphocytes (%) ( Auto) , Monocytes (%) (Auto) , Eosinophils (%) (Auto) , Basophils (%) (Auto) , Differential Total Cells Counted 100, Neutrophils % (Manual) 84H, Lymphocytes % (Manual) 4L, Monocytes % (Manual) 7, Eosinophils % (Manual) 0, Basophils % ( Manual) 0, Band Neutrophils 5, Platelet Estimate DecreasedL, Platelet Morphology Normal, Hypochromasia 1+, Macrocytosis 1+, Sodium Level 135, Potassium Level 3.1L, Chloride Level 91L, Carbon Dioxide Level 25, Anion Gap 19H , Blood Urea Nitrogen 10, Creatinine 0.7, Estimat Glomerular Filtration Rate > 60, Glucose Level 128H, Hemoglobin A1c 4.9, Calcium Level 8.3L, Magnesium Level 1.6L, Total Bilirubin 2.2H, Direct Bilirubin 1.1H, Aspartate Amino Transf (AST/ SGOT) 170H, Alanine Aminotransferase (ALT/SGPT) 106H, Alkaline Phosphatase 181H , Total Protein 6.0L, Albumin 3.3L, Globulin 2.7, Albumin/Globulin Ratio 1.2, Triglycerides Level 84, Cholesterol Level 155, LDL Cholesterol 79, HDL Cholesterol 59, Cholesterol/HDL Ratio 2.6L, Prostate Specific Antigen 0.2, Thyroid Stimulating Hormone (TSH) 1.060 06/22/16 08:00: Arterial Blood pH 7.382, Arterial Blood Partial Pressure CO2 46.4H, Arterial Blood Partial Pressure O2 59.7L, Arterial Blood HCO3 27.0H, Arterial Blood Oxygen Saturation 90.4L, Arterial Blood Base Excess 1.4, Anatoly Test Positive 06/22/16 14:20: Ammonia 32 Height (Feet): 5 Height (Inches): 6.00 Weight (Pounds): 140 General Appearance: no apparent distress Cardiovascular: normal rate, regular rhythm Respiratory/Chest: decreased breath sounds Abdomen: non tender, soft Extremities: trace edema CM GABRIEL Jun 22, 2016 22:40
[2016-06-23] VITALS (9 sets, daily range): BP systolic 97–120; BP diastolic 62–85
[2016-06-23] MEDS: LORazepam Inj 2mg/ml 1ml IV PRN ×6 (01:52→16:44)
[2016-06-23 04:49] LABS: BASOPHILS % (AUTO) 1.1 % (0.0-2.0); EOSINOPHILS % (AUTO) 0.5 % (0.0-3.0); LYMPHOCYTES % (AUTO) 15.7 % (20.0-45.0); MEAN CORPUSCULAR HEMOGLOBIN 33.7 PG (27.0-31.0); MEAN CORPUSCULAR HGB CONC 32.6 G/DL (32.0-36.0); MEAN CORPUSCULAR VOLUME 103 FL (80-99); MEAN PLATELET VOLUME 6.5 FL (6.5-10.1); MONOCYTES % (AUTO) 10.1 % (1.0-10.0); NEUTROPHILS % (AUTO) 72.6 % (45.0-75.0); PLATELET COUNT 118 K/UL (150-450); RED CELL DISTRIBUTION WIDTH 12.3 % (11.6-14.8); WHITE BLOOD COUNT 6.8 K/UL (4.8-10.8)
[2016-06-23 05:05] LABS: HEMOLYSIS 2; IRON 21 ug/dL (59-158); TOTAL IRON BINDING CAPACITY 113 ug/dL (250-400)
[2016-06-23 05:08] LABS: ANION GAP 14 (5-15); CALCIUM 8.6 mg/dL (8.6-10.2); CARBON DIOXIDE 27 mEQ/L (20-30); CHLORIDE 92 mEQ/L (98-107); CREATININE 0.5 mg/dL (0.7-1.2); GLOMERULAR FILTRATION RATE > 60 mL/min (>60); HEMOLYSIS 1; MAGNESIUM 2.2 mg/dL (1.7-2.5); PHOSPHORUS 2.2 mg/dL (2.5-4.8); POTASSIUM 4.5 mEQ/L (3.4-4.9); SODIUM 133 mEQ/L (135-145)
[2016-06-23 05:10] LABS: PROTHROMBIN TIME 9.9 SEC (9.30-11.50)
[2016-06-23 05:15] LABS: FERRITIN 1518 ng/mL (10-230)
[2016-06-23 07:37] LABS: FOLIC ACID 17.9 ng/mL (3.1-17.5)
[2016-06-23] MEDS: chlordiazePOXIDE 25mg Cap ORAL SCH ×2 (08:30→17:08)
--- NOTE | 2016-06-23 08:31 | Cardiology Report ---
APPROVED REPORT EKG Measurement Heart [id number] Sinus tachycardia Left axis deviation Abnormal ECG
[2016-06-23] MEDS: Folic Acid 1 MG, Magnesium Sulfate 2,000 MG, Multivitamin - 12 Injection 10 ML in NS w/... IV SCH (09:00)
[2016-06-23 09:51] LABS: TOTAL PROTEIN 6.4 g/dL (6.6-8.7)
--- NOTE | 2016-06-23 10:58 | GI Progress Note ---
Assessment/Plan Problems: (1) ETOH abuse ICD Codes: F10.10 - Alcohol abuse, uncomplicated SNOMED: 08085170, 86452766 (2) Multiple rib fractures involving four or more ribs ICD Codes: S22.49XA - Multiple fractures of ribs, unspecified side, initial encounter for closed fracture SNOMED: 3608443 (3) Abnormal LFTs ICD Codes: R79.89 - Other specified abnormal findings of blood chemistry SNOMED: 661135979 Status: unchanged Status Narrative Discussed with Dr. Krueger. Assessment/Plan fu abdominal U/S >> Hepatomegaly with fatty infiltration, Cholelithiasis hep panel negative banana bag ppi ammonia level >> wnl OB stool uncollected discriminant function negative >> defer glucosteroid therapy monitor LFTs monitor H&H, transfuse prn fu labs Subjective Subjective limited Objective Last 24 Hour Vital Signs Date Time Temp Pulse Resp B/P Pulse Ox O2 Delivery O2 Flow Rate FiO2 06/23/16 08:00 107 06/23/16 08:00 98.4 120 26 97/66 95 Non-Rebreather 14.0 06/23/16 04:00 94 06/23/16 04:00 103 25 116/64 100 Non-Rebreather 15.0 100 06/23/16 03:00 84 25 100/63 100 Non-Rebreather 15.0 100 06/23/16 02:00 105 25 109/75 100 Non-Rebreather 15.0 100 06/23/16 01:00 90 17 108/85 100 Non-Rebreather 15.0 100 06/23/16 00:00 110 06/23/16 00:00 115 17 120/81 100 Non-Rebreather 15.0 100 06/22/16 23:00 100 17 112/83 100 Non-Rebreather 15.0 100 06/22/16 22:00 100 17 119/71 100 Non-Rebreather 15.0 100 06/22/16 21:00 98.1 80 17 98/67 100 Non-Rebreather 15.0 100 06/22/16 20:00 93 22 110/65 100 Non-Rebreather 100 06/22/16 20:00 93 06/22/16 19:03 Non-Rebreather 15.0 100 06/22/16 19:02 98 Non-Rebreather 15.0 100 06/22/16 19:00 97 22 105/68 100 Non-Rebreather 100 06/22/16 18:00 96 21 103/64 99 Non-Rebreather 100 06/22/16 17:00 112 28 109/70 97 Non-Rebreather 100 06/22/16 16:00 113 06/22/16 16:00 98.1 113 25 118/59 99 Non-Rebreather 100 06/22/16 15:00 135 32 104/70 96 Non-Rebreather 100 06/22/16 14:00 142 25 122/75 95 Non-Rebreather 100 06/22/16 13:00 75 17 102/61 100 Non-Rebreather 100 06/22/16 12:00 119 06/22/16 12:00 97.5 98 21 112/79 100 Non-Rebreather 100 06/22/16 11:00 94 26 112/75 100 Non-Rebreather 100 Intake and Output 06/22/16 06/23/16 19:00 07:00 Intake Total 1351 ml 225 ml Output Total 555 ml 500 ml Balance 796 ml -275 ml Intake Oral 0 ml 0 ml IV Total 1351 ml 225 ml Output Urine Total 550 ml 500 ml Chest Tube Drainage Total 5 ml # Voids 1 Laboratory Tests Test 06/22/16 14:20 06/23/16 04:25 Ammonia 32 umol/L (16-60) White Blood Count 6.8 K/UL (4.8-10.8) Red Blood Count 3.20 M/UL (4.70-6.10) L Hemoglobin 10.8 G/DL (14.2-18.0) L Hematocrit 33.0 % (42.0-52.0) L Mean Corpuscular Volume 103 FL (80-99) H Mean Corpuscular Hemoglobin 33.7 PG (27.0-31.0) H Mean Corpuscular Hemoglobin Concent 32.6 G/DL (32.0-36.0) Red Cell Distribution Width 12.3 % (11.6-14.8) Platelet Count 118 K/UL (150-450) L Mean Platelet Volume 6.5 FL (6.5-10.1) Neutrophils (%) (Auto) 72.6 % (45.0-75.0) Lymphocytes (%) (Auto) 15.7 % (20.0-45.0) L Monocytes (%) (Auto) 10.1 % (1.0-10.0) H Eosinophils (%) (Auto) 0.5 % (0.0-3.0) Basophils (%) (Auto) 1.1 % (0.0-2.0) Reticulocyte Count 2.4 % (0.0-2.0) H Prothrombin Time 9.9 SEC (9.30-11.50) Prothromb Time International Ratio 1.0 (0.9-1.1) Activated Partial Thromboplast Time 27 SEC (23-33) Sodium Level 133 mEQ/L (135-145) L Potassium Level 4.5 mEQ/L (3.4-4.9) Chloride Level 92 mEQ/L (98-107) L Carbon Dioxide Level 27 mEQ/L (20-30) Anion Gap 14 (5-15) Blood Urea Nitrogen 4 mg/dL (7-23) L Creatinine 0.5 mg/dL (0.7-1.2) L Estimat Glomerular Filtration Rate > 60 mL/min (>60) Glucose Level 93 mg/dL (74-106) Calcium Level 8.6 mg/dL (8.6-10.2) Phosphorus Level 2.2 mg/dL (2.5-4.8) L Magnesium Level 2.2 mg/dL (1.7-2.5) Iron Level 21 ug/dL (59-158) L Total Iron Binding Capacity 113 ug/dL (250-400) L Percent Iron Saturation 19 % (15-50) Unsaturated Iron Binding 92 ug/dL (112-346) L Ferritin 1518 ng/mL (10-230) H Total Bilirubin 2.0 mg/dL (0.0-1.2) H Direct Bilirubin 1.0 mg/dL (0.1-0.3) H Aspartate Amino Transf (AST/SGOT) 251 U/L (5-40) H Alanine Aminotransferase (ALT/SGPT) 136 U/L (3-41) H Alkaline Phosphatase 221 U/L (40-129) H Total Protein 6.4 g/dL (6.6-8.7) L Albumin 3.9 g/dL (3.5-5.2) Height (Feet): 5 Height (Inches): 6.00 Weight (Pounds): 140 General Appearance: lethargic, confused Cardiovascular: tachycardia Respiratory/Chest: other - non rebreather Abdominal Exam: soft Objective Procedure: US ABD Complete Indication:Abdominal pain Findings: The demonstrated part of the pancreas, aorta and IVC, both kidneys, spleen appear unremarkable. Aorta and pancreas are poorly seen. There are gallstones. Sonographic Vanegas's is negative per technologist. The liver is enlarged and echogenic. CBD is 4 mm. There is no biliary ductal dilatation identified. Doppler evaluation of the main portal vein shows patency. There is no ascites. No hydronephrosis seen. Impression: Hepatomegaly with fatty infiltration. Cholelithiasis Pancreas and aorta obscured Deborah Cordero N.P. Jun 23, 2016 10:58
--- NOTE | 2016-06-23 11:26 | Nephrology Progress Note ---
Assessment/Plan Problem List: (1) Spontaneous pneumothorax (2) Abnormal LFTs (3) Multiple rib fractures involving four or more ribs (4) Thrombocytopenia (5) D-dimer, elevated Plan Pulmo f/u GI f/u Hematology F/U Hyponatremia - continue IVF Agitation - Continue ativan PRN Tachycardia - will notify cardio for consult Monitor neuro status Subjective ROS Limited/Unobtainable: Yes Subjective In bed, agitated Objective Objective Last 24 Hour Vital Signs Date Time Temp Pulse Resp B/P Pulse Ox O2 Delivery O2 Flow Rate FiO2 06/23/16 08:00 107 06/23/16 08:00 98.4 120 26 97/66 95 Non-Rebreather 14.0 06/23/16 04:00 94 06/23/16 04:00 103 25 116/64 100 Non-Rebreather 15.0 100 06/23/16 03:00 84 25 100/63 100 Non-Rebreather 15.0 100 06/23/16 02:00 105 25 109/75 100 Non-Rebreather 15.0 100 06/23/16 01:00 90 17 108/85 100 Non-Rebreather 15.0 100 06/23/16 00:00 110 06/23/16 00:00 115 17 120/81 100 Non-Rebreather 15.0 100 06/22/16 23:00 100 17 112/83 100 Non-Rebreather 15.0 100 06/22/16 22:00 100 17 119/71 100 Non-Rebreather 15.0 100 06/22/16 21:00 98.1 80 17 98/67 100 Non-Rebreather 15.0 100 06/22/16 20:00 93 22 110/65 100 Non-Rebreather 100 06/22/16 20:00 93 06/22/16 19:03 Non-Rebreather 15.0 100 06/22/16 19:02 98 Non-Rebreather 15.0 100 06/22/16 19:00 97 22 105/68 100 Non-Rebreather 100 06/22/16 18:00 96 21 103/64 99 Non-Rebreather 100 06/22/16 17:00 112 28 109/70 97 Non-Rebreather 100 06/22/16 16:00 113 06/22/16 16:00 98.1 113 25 118/59 99 Non-Rebreather 100 06/22/16 15:00 135 32 104/70 96 Non-Rebreather 100 06/22/16 14:00 142 25 122/75 95 Non-Rebreather 100 06/22/16 13:00 75 17 102/61 100 Non-Rebreather 100 06/22/16 12:00 119 06/22/16 12:00 97.5 98 21 112/79 100 Non-Rebreather 100 Intake and Output 06/22/16 06/23/16 19:00 07:00 Intake Total 1351 ml 225 ml Output Total 555 ml 500 ml Balance 796 ml -275 ml Intake Oral 0 ml 0 ml IV Total 1351 ml 225 ml Output Urine Total 550 ml 500 ml Chest Tube Drainage Total 5 ml # Voids 1 Laboratory Tests 06/22/16 14:20: Ammonia 32 06/23/16 04:25: White Blood Count 6.8, Red Blood Count 3.20L, Hemoglobin 10.8L, Hematocrit 33.0L , Mean Corpuscular Volume 103H, Mean Corpuscular Hemoglobin 33.7H, Mean Corpuscular Hemoglobin Concent 32.6, Red Cell Distribution Width 12.3, Platelet Count 118L, Mean Platelet Volume 6.5, Neutrophils (%) (Auto) 72.6, Lymphocytes ( %) (Auto) 15.7L, Monocytes (%) (Auto) 10.1H, Eosinophils (%) (Auto) 0.5, Basophils (%) (Auto) 1.1, Reticulocyte Count 2.4H, Prothrombin Time 9.9, Prothromb Time International Ratio 1.0, Activated Partial Thromboplast Time 27, Sodium Level 133L, Potassium Level 4.5, Chloride Level 92L, Carbon Dioxide Level 27, Anion Gap 14, Blood Urea Nitrogen 4L, Creatinine 0.5L, Estimat Glomerular Filtration Rate > 60, Glucose Level 93, Calcium Level 8.6, Phosphorus Level 2.2L, Magnesium Level 2.2, Iron Level 21L, Total Iron Binding Capacity 113L, Percent Iron Saturation 19, Unsaturated Iron Binding 92L, Ferritin 1518H, Total Bilirubin 2.0H, Direct Bilirubin 1.0H, Aspartate Amino Transf (AST/SGOT) 251H, Alanine Aminotransferase (ALT/SGPT) 136H, Alkaline Phosphatase 221H, Total Protein 6.4L, Albumin 3.9 Height (Feet): 5 Height (Inches): 6.00 Weight (Pounds): 140 General Appearance: confused, agitated EENT: normal ENT inspection, TMs normal Neck: normal alignment, supple Cardiovascular: tachycardia Respiratory/Chest: other - chest tube Abdomen: soft, no organomegaly, no mass Extremities: normal inspection, normal capillary refill Neurologic: disoriented Pilar Newman N.P. Jun 23, 2016 11:26
[2016-06-23] MEDS ORDERED: Haloperidol 5mg/ml Inj IVPB PRN (13:00)
[2016-06-23] MEDS ORDERED: 1/2NS w/KCl 20mEq 1000ml 1,000 ML IV SCH (13:00)
--- NOTE | 2016-06-23 13:13 | Pulmonology Progress Note ---
Assessment/Plan Problems: (1) Spontaneous pneumothorax (2) Liver cirrhosis (3) Alcohol withdrawal (4) Subcutaneous emphysema (5) Seizure Assessment/Plan covering for dr Moon repeat cxr thoracic called check ammonia level Haldol for agitation check ammonia level decrease IVF to 50 cc.hour, pt is eating a full diet Subjective ROS Limited/Unobtainable: No Interval Events: awake, confused, on retrains Allergies: Coded Allergies: No Known Allergies (Unverified , 06/21/16) Objective Last 24 Hour Vital Signs Date Time Temp Pulse Resp B/P Pulse Ox O2 Delivery O2 Flow Rate FiO2 06/23/16 12:00 98.4 114 24 114/76 100 Non-Rebreather 14.0 06/23/16 12:00 102 06/23/16 08:00 107 06/23/16 08:00 98.4 120 26 97/66 95 Non-Rebreather 14.0 06/23/16 04:00 94 06/23/16 04:00 103 25 116/64 100 Non-Rebreather 15.0 100 06/23/16 03:00 84 25 100/63 100 Non-Rebreather 15.0 100 06/23/16 02:00 105 25 109/75 100 Non-Rebreather 15.0 100 06/23/16 01:00 90 17 108/85 100 Non-Rebreather 15.0 100 06/23/16 00:00 110 06/23/16 00:00 115 17 120/81 100 Non-Rebreather 15.0 100 06/22/16 23:00 100 17 112/83 100 Non-Rebreather 15.0 100 06/22/16 22:00 100 17 119/71 100 Non-Rebreather 15.0 100 06/22/16 21:00 98.1 80 17 98/67 100 Non-Rebreather 15.0 100 06/22/16 20:00 93 22 110/65 100 Non-Rebreather 100 06/22/16 20:00 93 06/22/16 19:03 Non-Rebreather 15.0 100 06/22/16 19:02 98 Non-Rebreather 15.0 100 06/22/16 19:00 97 22 105/68 100 Non-Rebreather 100 06/22/16 18:00 96 21 103/64 99 Non-Rebreather 100 06/22/16 17:00 112 28 109/70 97 Non-Rebreather 100 06/22/16 16:00 113 06/22/16 16:00 98.1 113 25 118/59 99 Non-Rebreather 100 06/22/16 15:00 135 32 104/70 96 Non-Rebreather 100 06/22/16 14:00 142 25 122/75 95 Non-Rebreather 100 Intake and Output 06/22/16 06/23/16 19:00 07:00 Intake Total 1351 ml 225 ml Output Total 555 ml 500 ml Balance 796 ml -275 ml Intake Oral 0 ml 0 ml IV Total 1351 ml 225 ml Output Urine Total 550 ml 500 ml Chest Tube Drainage Total 5 ml # Voids 1 General Appearance: cachetic HEENT: normocephalic, atraumatic Respiratory/Chest: chest wall non-tender, lungs clear Cardiovascular: normal peripheral pulses, normal rate Abdomen: normal bowel sounds Extremities: no cyanosis Skin: no rash Neurologic/Psychiatric: marketing writer II-XII grossly normal Laboratory Tests 06/22/16 14:20: Ammonia 32 06/23/16 04:25: White Blood Count 6.8, Red Blood Count 3.20L, Hemoglobin 10.8L, Hematocrit 33.0L , Mean Corpuscular Volume 103H, Mean Corpuscular Hemoglobin 33.7H, Mean Corpuscular Hemoglobin Concent 32.6, Red Cell Distribution Width 12.3, Platelet Count 118L, Mean Platelet Volume 6.5, Neutrophils (%) (Auto) 72.6, Lymphocytes ( %) (Auto) 15.7L, Monocytes (%) (Auto) 10.1H, Eosinophils (%) (Auto) 0.5, Basophils (%) (Auto) 1.1, Reticulocyte Count 2.4H, Prothrombin Time 9.9, Prothromb Time International Ratio 1.0, Activated Partial Thromboplast Time 27, Sodium Level 133L, Potassium Level 4.5, Chloride Level 92L, Carbon Dioxide Level 27, Anion Gap 14, Blood Urea Nitrogen 4L, Creatinine 0.5L, Estimat Glomerular Filtration Rate > 60, Glucose Level 93, Calcium Level 8.6, Phosphorus Level 2.2L, Magnesium Level 2.2, Iron Level 21L, Total Iron Binding Capacity 113L, Percent Iron Saturation 19, Unsaturated Iron Binding 92L, Ferritin 1518H, Total Bilirubin 2.0H, Direct Bilirubin 1.0H, Aspartate Amino Transf (AST/SGOT) 251H, Alanine Aminotransferase (ALT/SGPT) 136H, Alkaline Phosphatase 221H, Total Protein 6.4L, Albumin 3.9 Current Medications Medications (Trade) Dose Ordered Sig/Evan Route PRN Reason Start Time Stop Time Status Last Admin Dose Admin Acetaminophen (Tylenol) 650 mg Q6H PRN ORAL Mild Pain/Temp > 100.5 06/22/16 01:45 07/22/16 01:44 Chlordiazepoxide (Librium) 75 mg BID ORAL 06/22/16 21:00 06/29/16 20:59 06/23/16 08:30 Dextrose (Dextrose 50%) STAT PRN IV Hypoglycemia 06/22/16 11:45 07/22/16 11:44 Folic Acid 1 mg/ Magnesium Sulfate 2000 mg/ Multivitamins 10 ml/Sodium Chloride 1,014.2 ml @ 125 mls/ hr Q24H IV 06/22/16 09:00 07/22/16 08:59 06/23/16 09:00 Haloperidol Lactate (Haldol) 5 mg Q6H PRN IVPB Agitation 06/23/16 13:00 07/23/16 12:59 UNV Hydromorphone HCl (Dilaudid) 1 mg Q4H PRN IVP Moderate Pain (Pain Scale 4-6) 06/21/16 23:45 06/28/16 23:44 06/22/16 02:08 Lactulose (Cephulac) 20 gm FOUR TIMES A DAY ORAL 06/23/16 13:00 07/23/16 12:59 UNV Lorazepam (Ativan) 1 mg Q4H PRN ORAL For Anxiety 06/21/16 23:45 06/28/16 23:44 06/22/16 00:53 Lorazepam 2 mg 2 mg Q2H PRN IV For Anxiety 06/22/16 08:41 06/29/16 08:40 06/23/16 12:15 Ondansetron HCl (Zofran) 4 mg Q6H PRN IVP Nausea & Vomiting 06/21/16 23:45 07/21/16 23:44 Pantoprazole (Protonix) 40 mg ACBREAKFAST ORAL 06/22/16 06:30 07/22/16 06:29 06/23/16 05:40 Sodium (0.45%NS w/KCl 20mEq 1000ml) 1,000 ml @ 75 mls/hr [id number] IV 06/21/16 23:30 07/21/16 23:29 06/22/16 06:31 Thiamine HCl/ Sodium Chloride (Vitamin B1/ Sodium Chloride 100ml bag) 101 ml @ 100 mls/hr Q24H IVPB 06/22/16 09:00 07/22/16 08:59 06/23/16 09:00 JONNATHAN WEBBER Jun 23, 2016 13:12
--- NOTE | 2016-06-23 15:30 | Cardiology Report ---
APPROVED REPORT EXAM: Two-dimensional and M-mode echocardiogram with Doppler and color Doppler. INDICATION SOB M-Mode DIMENSIONS IVSd0.5 (0.7-1.1cm)Left Atrium (MM)2.4 (1.6-4.0cm) LVDd4.7 (3.5-5.6cm)Aortic Root2.8 (2.0-3.7cm) PWd1.1 (0.7-1.1cm)Aortic Cusp Exc.1.8 (1.5-2.0cm) LVDs3.1 (2.5-4.0cm) PWs0.9 cm Technically difficult study due to poor acoustic windows. Patient on restrains. Normal left ventricular chamber size, systolic function and wall motion. Left ventricular ejection fraction estimated to be 60-65%. No evidence of left ventricular hypertrophy. No evidence of pericardial fat or effusion. Mild right atrial and right ventricular enlargement by 2D. Left cardiac chamber sizes are within normal limits. Focal aortic valve sclerosis with adequate cusp excursion Thickened mitral valve leaflets with normal excursion. Mitral annulus and aortic root calcification. Pulmonic valve not well visualized. Normal tricuspid valve structure. IVC is normal in size with physiologic collapse. A color flow and spectral Doppler study was performed and revealed: No aortic regurgitation. No mitral regurgitation. Left ventricular diastolic dysfunction garde 1. No tricuspid regurgitation. Tricuspid systolic velocities suggests peak right ventricular systolic pressure of 18 mmHg
--- NOTE | 2016-06-23 15:33 | Cardiac Electrophysiology PN ---
Subjective Subjective [id number] Objective Last 24 Hour Vital Signs Date Time Temp Pulse Resp B/P Pulse Ox O2 Delivery O2 Flow Rate FiO2 06/23/16 12:00 98.4 114 24 114/76 100 Non-Rebreather 14.0 06/23/16 12:00 102 06/23/16 08:00 107 06/23/16 08:00 98.4 120 26 97/66 95 Non-Rebreather 14.0 06/23/16 04:00 94 06/23/16 04:00 103 25 116/64 100 Non-Rebreather 15.0 100 06/23/16 03:00 84 25 100/63 100 Non-Rebreather 15.0 100 06/23/16 02:00 105 25 109/75 100 Non-Rebreather 15.0 100 06/23/16 01:00 90 17 108/85 100 Non-Rebreather 15.0 100 06/23/16 00:00 110 06/23/16 00:00 115 17 120/81 100 Non-Rebreather 15.0 100 06/22/16 23:00 100 17 112/83 100 Non-Rebreather 15.0 100 06/22/16 22:00 100 17 119/71 100 Non-Rebreather 15.0 100 06/22/16 21:00 98.1 80 17 98/67 100 Non-Rebreather 15.0 100 06/22/16 20:00 93 22 110/65 100 Non-Rebreather 100 06/22/16 20:00 93 06/22/16 19:03 Non-Rebreather 15.0 100 06/22/16 19:02 98 Non-Rebreather 15.0 100 06/22/16 19:00 97 22 105/68 100 Non-Rebreather 100 06/22/16 18:00 96 21 103/64 99 Non-Rebreather 100 06/22/16 17:00 112 28 109/70 97 Non-Rebreather 100 06/22/16 16:00 113 06/22/16 16:00 98.1 113 25 118/59 99 Non-Rebreather 100 Intake and Output 06/22/16 06/23/16 19:00 07:00 Intake Total 1351 ml 225 ml Output Total 555 ml 500 ml Balance 796 ml -275 ml Intake Oral 0 ml 0 ml IV Total 1351 ml 225 ml Output Urine Total 550 ml 500 ml Chest Tube Drainage Total 5 ml # Voids 1 Laboratory Tests Test 06/23/16 04:25 06/23/16 14:00 White Blood Count 6.8 K/UL (4.8-10.8) Red Blood Count 3.20 M/UL (4.70-6.10) L Hemoglobin 10.8 G/DL (14.2-18.0) L Hematocrit 33.0 % (42.0-52.0) L Mean Corpuscular Volume 103 FL (80-99) H Mean Corpuscular Hemoglobin 33.7 PG (27.0-31.0) H Mean Corpuscular Hemoglobin Concent 32.6 G/DL (32.0-36.0) Red Cell Distribution Width 12.3 % (11.6-14.8) Platelet Count 118 K/UL (150-450) L Mean Platelet Volume 6.5 FL (6.5-10.1) Neutrophils (%) (Auto) 72.6 % (45.0-75.0) Lymphocytes (%) (Auto) 15.7 % (20.0-45.0) L Monocytes (%) (Auto) 10.1 % (1.0-10.0) H Eosinophils (%) (Auto) 0.5 % (0.0-3.0) Basophils (%) (Auto) 1.1 % (0.0-2.0) Reticulocyte Count 2.4 % (0.0-2.0) H Prothrombin Time 9.9 SEC (9.30-11.50) Prothromb Time International Ratio 1.0 (0.9-1.1) Activated Partial Thromboplast Time 27 SEC (23-33) Sodium Level 133 mEQ/L (135-145) L Potassium Level 4.5 mEQ/L (3.4-4.9) Chloride Level 92 mEQ/L (98-107) L Carbon Dioxide Level 27 mEQ/L (20-30) Anion Gap 14 (5-15) Blood Urea Nitrogen 4 mg/dL (7-23) L Creatinine 0.5 mg/dL (0.7-1.2) L Estimat Glomerular Filtration Rate > 60 mL/min (>60) Glucose Level 93 mg/dL (74-106) Calcium Level 8.6 mg/dL (8.6-10.2) Phosphorus Level 2.2 mg/dL (2.5-4.8) L Magnesium Level 2.2 mg/dL (1.7-2.5) Iron Level 21 ug/dL (59-158) L Total Iron Binding Capacity 113 ug/dL (250-400) L Percent Iron Saturation 19 % (15-50) Unsaturated Iron Binding 92 ug/dL (112-346) L Ferritin 1518 ng/mL (10-230) H Total Bilirubin 2.0 mg/dL (0.0-1.2) H Direct Bilirubin 1.0 mg/dL (0.1-0.3) H Aspartate Amino Transf (AST/SGOT) 251 U/L (5-40) H Alanine Aminotransferase (ALT/SGPT) 136 U/L (3-41) H Alkaline Phosphatase 221 U/L (40-129) H Total Protein 6.4 g/dL (6.6-8.7) L Albumin 3.9 g/dL (3.5-5.2) Ammonia 47 umol/L (16-60) IRENA MELLO Jun 23, 2016 15:33
[2016-06-23] MEDS: Lactulose 20gm/30ml UDC ORAL SCH ×2 (16:43→21:35)
[2016-06-23] MEDS ORDERED: Tubing IV Secondary IV ONE (17:17)
--- NOTE | 2016-06-23 21:38 | Consultation ---
DATE OF CONSULTATION: 06/23/2016 CARDIOLOGY CONSULTATION CONSULTING PHYSICIAN: Ifeanyi Goss M.D. REFERRING PHYSICIAN: Kavin Soto M.D. REASON FOR CONSULTATION: Tachycardia and pneumothorax. HISTORY OF PRESENT ILLNESS: The patient is a 45-year-old gentleman with known past medical history, who was brought to [facility] for chest pain with radiation to his back. CT scan showed multiple rib fractures in addition to anemia and D-dimer as well as pneumothorax. The patient subsequently underwent chest tube placement and was admitted to telemetry floor. A Cardiology consultation was obtained for further evaluation and management. PAST MEDICAL HISTORY: Unknown. MEDICATIONS AT HOME: Unknown. FAMILY HISTORY: Unknown. SOCIAL HISTORY: Unknown. REVIEW OF SYSTEMS: Cannot be obtained as the patient is quite confused and agitated. PHYSICAL EXAMINATION: VITAL SIGNS: Show blood pressure of 114/76, pulse 102, and respiration is 18. HEAD AND NECK: Shows no JVD. LUNGS: Decreased breath sounds with coarse rhonchi. He has a chest tube on the right side. CARDIOVASCULAR: Shows tachycardic S1-S2 with no gallop or murmur. ABDOMEN: Soft. EXTREMITIES: Have no pitting edema. LABORATORY DATA: White count of 6.8, hemoglobin 10.9, hematocrit 33, and platelet of 180,000. His sodium 130, potassium 4.5, BUN 40, creatinine 0.5, and glucose of 93. His total bilirubin is 2. is 1. AST is 251. ALT is 136. His urine toxicology is negative. His INR is 1. D-dimer is 3800. ASSESSMENT AND PLAN: 1. Tachycardia due to shortness of breath. He has had pneumothorax. 2. Atrial fibrillation due to sinus tract. The patient had agitation of significant role. 3. Pneumothorax status post chest tube placement. Etiology is not clear. 4. Status post multiple rib fractures. 5. emphysema. The patient's echocardiogram also shows ejection fraction of 60% to 65% with no left ventricular hypertrophy and no pericardial effusion. Thank you very much, Dr. Soto, for allowing me to participate in the care of this patient. Please do not hesitate to contact me for any questions regarding my evaluation. Ifeanyi Goss M.D. DR: JAIME JOB#: [id number] CC:
[2016-06-24] VITALS: BP 123/90
[2016-06-24] MEDS ORDERED: LORazepam 1mg tab ORAL PRN (00:44)
[2016-06-24] MEDS ORDERED: LORazepam Inj 2mg/ml 1ml IV PRN (00:45)
[2016-06-24] MEDS ORDERED: 1/2NS w/KCl 20mEq 1000ml 1,000 ML IV SCH (01:00)
[2016-06-24] MEDS ORDERED: Haloperidol 5mg/ml Inj IVPB PRN (01:00)
[2016-06-24 04:00] VITALS: BP 103/58
[2016-06-24 07:06] LABS: BASOPHILS % (AUTO) 2.1 % (0.0-2.0); EOSINOPHILS % (AUTO) 0.3 % (0.0-3.0); LYMPHOCYTES % (AUTO) 16.5 % (20.0-45.0); MEAN CORPUSCULAR HEMOGLOBIN 34.2 PG (27.0-31.0); MEAN CORPUSCULAR HGB CONC 33.1 G/DL (32.0-36.0); MEAN CORPUSCULAR VOLUME 103 FL (80-99); MEAN PLATELET VOLUME 6.2 FL (6.5-10.1); MONOCYTES % (AUTO) 17.8 % (1.0-10.0); NEUTROPHILS % (AUTO) 63.4 % (45.0-75.0); PLATELET COUNT 169 K/UL (150-450); RED BLOOD COUNT 3.34 M/UL (4.70-6.10); RED CELL DISTRIBUTION WIDTH 11.9 % (11.6-14.8); WHITE BLOOD COUNT 6.4 K/UL (4.8-10.8)
[2016-06-24 07:18] LABS: ALANINE AMINOTRANSFERASE 108 U/L (3-41); ALBUMIN/GLOBULIN RATIO 0.8 (1.0-2.7); ANION GAP 11 (5-15); ASPARTATE AMINO TRANSFERASE 163 U/L (5-40); CALCIUM 8.7 mg/dL (8.6-10.2); CARBON DIOXIDE 26 mEQ/L (20-30); CHLORIDE 97 mEQ/L (98-107); CREATININE 0.6 mg/dL (0.7-1.2); GLOMERULAR FILTRATION RATE > 60 mL/min (>60); HEMOLYSIS 0; POTASSIUM 3.9 mEQ/L (3.4-4.9); SODIUM 134 mEQ/L (135-145); TOTAL PROTEIN 6.5 g/dL (6.6-8.7)
[2016-06-24 08:04] VITALS: BP 102/62
[2016-06-24] MEDS: chlordiazePOXIDE 25mg Cap ORAL SCH ×2 (10:04→18:31)
[2016-06-24] MEDS: Lactulose 20gm/30ml UDC ORAL SCH ×4 (10:04→21:51)
[2016-06-24] MEDS: Folic Acid 1 MG, Magnesium Sulfate 2,000 MG, Multivitamin - 12 Injection 10 ML in NS w/... IV SCH (10:04)
--- NOTE | 2016-06-24 11:34 | GI Progress Note ---
Assessment/Plan Problems: (1) ETOH abuse ICD Codes: F10.10 - Alcohol abuse, uncomplicated SNOMED: 25950113, 83369129 (2) Multiple rib fractures involving four or more ribs ICD Codes: S22.49XA - Multiple fractures of ribs, unspecified side, initial encounter for closed fracture SNOMED: 7045673 (3) Abnormal LFTs ICD Codes: R79.89 - Other specified abnormal findings of blood chemistry SNOMED: 265931423 Status: stable, progressing Status Narrative Discussed with Dr. Krueger. Assessment/Plan fu abdominal U/S >> Hepatomegaly with fatty infiltration, Cholelithiasis hep panel negative banana bag ppi ammonia level >> wnl OB stool uncollected discriminant function negative >> defer glucosteroid therapy monitor LFTs monitor H&H, transfuse prn fu labs Subjective Subjective limited Objective Last 24 Hour Vital Signs Date Time Temp Pulse Resp B/P Pulse Ox O2 Delivery O2 Flow Rate FiO2 06/24/16 09:55 Nasal Cannula 2.0 28 06/24/16 09:55 98 Nasal Cannula 2.0 28 06/24/16 08:04 98.6 98 20 102/62 94 Room Air 06/24/16 04:00 98.4 53 18 103/58 98 Venturi Mask 10.0 06/24/16 00:00 98.6 69 18 123/90 94 Venturi Mask 10.0 06/23/16 20:00 98.1 81 25 104/66 100 Simple Mask 06/23/16 20:00 121 06/23/16 19:00 96 Non-Rebreather 15.0 100 06/23/16 19:00 Non-Rebreather 15.0 100 06/23/16 16:00 101 06/23/16 16:00 97.2 72 20 100/62 94 Simple Mask 06/23/16 12:00 98.4 114 24 114/76 100 Non-Rebreather 14.0 06/23/16 12:00 102 Intake and Output 06/23/16 06/24/16 19:00 07:00 Intake Total 550 ml 350 ml Output Total 1650 ml 950 ml Balance -1100 ml -600 ml Intake Oral 400 ml 150 ml IV Total 150 ml 200 ml Output Urine Total 1650 ml 950 ml # Bowel Movements 1 Laboratory Tests Test 06/23/16 14:00 06/24/16 06:30 Ammonia 47 umol/L (16-60) White Blood Count 6.4 K/UL (4.8-10.8) Red Blood Count 3.34 M/UL (4.70-6.10) L Hemoglobin 11.4 G/DL (14.2-18.0) L Hematocrit 34.5 % (42.0-52.0) L Mean Corpuscular Volume 103 FL (80-99) H Mean Corpuscular Hemoglobin 34.2 PG (27.0-31.0) H Mean Corpuscular Hemoglobin Concent 33.1 G/DL (32.0-36.0) Red Cell Distribution Width 11.9 % (11.6-14.8) Platelet Count 169 K/UL (150-450) Mean Platelet Volume 6.2 FL (6.5-10.1) L Neutrophils (%) (Auto) 63.4 % (45.0-75.0) Lymphocytes (%) (Auto) 16.5 % (20.0-45.0) L Monocytes (%) (Auto) 17.8 % (1.0-10.0) H Eosinophils (%) (Auto) 0.3 % (0.0-3.0) Basophils (%) (Auto) 2.1 % (0.0-2.0) H Sodium Level 134 mEQ/L (135-145) L Potassium Level 3.9 mEQ/L (3.4-4.9) Chloride Level 97 mEQ/L (98-107) L Carbon Dioxide Level 26 mEQ/L (20-30) Anion Gap 11 (5-15) Blood Urea Nitrogen 6 mg/dL (7-23) L Creatinine 0.6 mg/dL (0.7-1.2) L Estimat Glomerular Filtration Rate > 60 mL/min (>60) Glucose Level 112 mg/dL (74-106) H Calcium Level 8.7 mg/dL (8.6-10.2) Total Bilirubin 2.0 mg/dL (0.0-1.2) H Direct Bilirubin 1.0 mg/dL (0.1-0.3) H Aspartate Amino Transf (AST/SGOT) 163 U/L (5-40) H Alanine Aminotransferase (ALT/SGPT) 108 U/L (3-41) H Alkaline Phosphatase 207 U/L (40-129) H Total Protein 6.5 g/dL (6.6-8.7) L Albumin 3.0 g/dL (3.5-5.2) L Globulin 3.5 g/dL Albumin/Globulin Ratio 0.8 (1.0-2.7) L Height (Feet): 5 Height (Inches): 6.00 Weight (Pounds): 140 General Appearance: no apparent distress, alert, other - more calm today Cardiovascular: normal rate Respiratory/Chest: normal breath sounds, no respiratory distress Abdominal Exam: normal bowel sounds, non tender, soft Objective Procedure: US ABD Complete Indication:Abdominal pain Findings: The demonstrated part of the pancreas, aorta and IVC, both kidneys, spleen appear unremarkable. Aorta and pancreas are poorly seen. There are gallstones. Sonographic Vanegas's is negative per technologist. The liver is enlarged and echogenic. CBD is 4 mm. There is no biliary ductal dilatation identified. Doppler evaluation of the main portal vein shows patency. There is no ascites. No hydronephrosis seen. Impression: Hepatomegaly with fatty infiltration. Cholelithiasis Pancreas and aorta obscured Deborah Cordero N.P. Jun 24, 2016 11:33
[2016-06-24 11:40] VITALS: BP 99/61
--- NOTE | 2016-06-24 12:02 | Diagnostic Imaging Report ---
Indications: DYSPNEA Technique: Portal AP chest Findings: Comparison: 06/22/2016 Chest tube remains within the right pleural space. No pneumothorax pleural effusion identified. Right chest wall and neck base subcutaneous emphysema has significantly decreased. Multiple right rib fractures again noted. Right lung clear. Linear and patchy opacities have developed in the left lung base. No left pleural abnormality demonstrated. Cardiomediastinal silhouette unremarkable. IMPRESSION: Right chest tube remains in place; no pneumothorax Decrease in right-sided subcutaneous emphysema Development of linear and patchy opacities left lung base may represent atelectasis, pulmonary contusion, pneumonia, or a combination multiple right rib fractures
--- NOTE | 2016-06-24 12:02 | Nephrology Progress Note ---
Assessment/Plan Problem List: (1) ETOH abuse (2) Multiple rib fractures involving four or more ribs (3) Abnormal LFTs Assessment: improving slowly (4) Spontaneous pneumothorax (5) Subcutaneous emphysema (6) D-dimer, elevated (7) Thrombocytopenia (8) Hypokalemia Assessment: being repleted. (9) Hyponatremia Assessment: corrected. Plan GI, Pulm following. Pending CT surgery consult. cont CT and pulm hygiene. d/c IVF. patient eating well. Subjective Subjective transferred to [place]. CT in place. Objective Objective Last 24 Hour Vital Signs Date Time Temp Pulse Resp B/P Pulse Ox O2 Delivery O2 Flow Rate FiO2 06/24/16 11:40 97.7 109 18 99/61 94 Simple Mask 10.0 06/24/16 09:55 Nasal Cannula 2.0 28 06/24/16 09:55 98 Nasal Cannula 2.0 28 06/24/16 08:04 98.6 98 20 102/62 94 Room Air 06/24/16 04:00 98.4 53 18 103/58 98 Venturi Mask 10.0 06/24/16 00:00 98.6 69 18 123/90 94 Venturi Mask 10.0 06/23/16 20:00 98.1 81 25 104/66 100 Simple Mask 06/23/16 20:00 121 06/23/16 19:00 96 Non-Rebreather 15.0 100 06/23/16 19:00 Non-Rebreather 15.0 100 06/23/16 16:00 101 06/23/16 16:00 97.2 72 20 100/62 94 Simple Mask Intake and Output 06/23/16 06/24/16 19:00 07:00 Intake Total 550 ml 350 ml Output Total 1650 ml 950 ml Balance -1100 ml -600 ml Intake Oral 400 ml 150 ml IV Total 150 ml 200 ml Output Urine Total 1650 ml 950 ml # Bowel Movements 1 Laboratory Tests 06/23/16 14:00: Ammonia 47 06/24/16 06:30: White Blood Count 6.4, Red Blood Count 3.34L, Hemoglobin 11.4L, Hematocrit 34.5L , Mean Corpuscular Volume 103H, Mean Corpuscular Hemoglobin 34.2H, Mean Corpuscular Hemoglobin Concent 33.1, Red Cell Distribution Width 11.9, Platelet Count 169, Mean Platelet Volume 6.2L, Neutrophils (%) (Auto) 63.4, Lymphocytes ( %) (Auto) 16.5L, Monocytes (%) (Auto) 17.8H, Eosinophils (%) (Auto) 0.3, Basophils (%) (Auto) 2.1H, Sodium Level 134L, Potassium Level 3.9, Chloride Level 97L, Carbon Dioxide Level 26, Anion Gap 11, Blood Urea Nitrogen 6L, Creatinine 0.6L, Estimat Glomerular Filtration Rate > 60, Glucose Level 112H, Calcium Level 8.7, Total Bilirubin 2.0H, Direct Bilirubin 1.0H, Aspartate Amino Transf (AST/SGOT) 163H, Alanine Aminotransferase (ALT/SGPT) 108H, Alkaline Phosphatase 207H, Total Protein 6.5L, Albumin 3.0L, Globulin 3.5, Albumin/ Globulin Ratio 0.8L Height (Feet): 5 Height (Inches): 6.00 Weight (Pounds): 140 General Appearance: no apparent distress Cardiovascular: normal rate, regular rhythm Respiratory/Chest: decreased breath sounds Abdomen: non tender, soft Extremities: trace edema Neurologic: alert CM GABRIEL Jun 24, 2016 12:02
[2016-06-24 16:00] VITALS: BP 89/54
--- NOTE | 2016-06-24 16:15 | General Progress Note ---
Assessment/Plan Assessment/Plan IMPRESSION: 1. Elevated D-dimer concerning for liver disease given the patient with thrombocytopenia as well as elevated AST and ALT. 2/2 liver disease 2. Spontaneous pneumothorax, being evaluated by pulm 3. Thrombocytopenia likely secondary to liver cirrhosis. Now improved 4. Thrombocytopenia, rule out infection. 5. Anemia secondary to chronic disease. 6. ETOH abuse 7. Chest pain, rule out acute coronary syndrome. RECOMMENDATIONS: 1. Monitor counts. 2. Transfuse as needed. 3. Hgb goal is >7.5 4. DVT prophylaxis with heparin. 5. GI prophylaxis with PPI 6. Abd US reviewed - shows cholethiasis. 7. HIV and hepatitis panel are negative 8. Discussed with staff. Thank you, Cirilo Mueller MD Subjective Constitutional: Reports: no symptoms HEENT: Reports: no symptoms Cardiovascular: Reports: no symptoms Respiratory: Reports: no symptoms Gastrointestinal/Abdominal: Reports: poor appetite Genitourinary: Reports: no symptoms Neurologic/Psychiatric: Reports: no symptoms Endocrine: Reports: no symptoms Hematologic/Lymphatic: Reports: anemia Allergies: Coded Allergies: No Known Allergies (Unverified , 06/21/16) Subjective Stable, no events, not bleeding Objective Last 24 Hour Vital Signs Date Time Temp Pulse Resp B/P Pulse Ox O2 Delivery O2 Flow Rate FiO2 06/24/16 11:40 97.7 109 18 99/61 94 Simple Mask 10.0 06/24/16 09:55 Nasal Cannula 2.0 28 06/24/16 09:55 98 Nasal Cannula 2.0 28 06/24/16 08:04 98.6 98 20 102/62 94 Room Air 06/24/16 04:00 98.4 53 18 103/58 98 Venturi Mask 10.0 06/24/16 00:00 98.6 69 18 123/90 94 Venturi Mask 10.0 06/23/16 20:00 98.1 81 25 104/66 100 Simple Mask 06/23/16 20:00 121 06/23/16 19:00 96 Non-Rebreather 15.0 100 06/23/16 19:00 Non-Rebreather 15.0 100 Intake and Output 06/23/16 06/24/16 19:00 07:00 Intake Total 550 ml 350 ml Output Total 1650 ml 950 ml Balance -1100 ml -600 ml Intake Oral 400 ml 150 ml IV Total 150 ml 200 ml Output Urine Total 1650 ml 950 ml # Bowel Movements 1 Laboratory Tests 06/24/16 06:30: White Blood Count 6.4, Red Blood Count 3.34L, Hemoglobin 11.4L, Hematocrit 34.5L , Mean Corpuscular Volume 103H, Mean Corpuscular Hemoglobin 34.2H, Mean Corpuscular Hemoglobin Concent 33.1, Red Cell Distribution Width 11.9, Platelet Count 169, Mean Platelet Volume 6.2L, Neutrophils (%) (Auto) 63.4, Lymphocytes ( %) (Auto) 16.5L, Monocytes (%) (Auto) 17.8H, Eosinophils (%) (Auto) 0.3, Basophils (%) (Auto) 2.1H, Sodium Level 134L, Potassium Level 3.9, Chloride Level 97L, Carbon Dioxide Level 26, Anion Gap 11, Blood Urea Nitrogen 6L, Creatinine 0.6L, Estimat Glomerular Filtration Rate > 60, Glucose Level 112H, Calcium Level 8.7, Total Bilirubin 2.0H, Direct Bilirubin 1.0H, Aspartate Amino Transf (AST/SGOT) 163H, Alanine Aminotransferase (ALT/SGPT) 108H, Alkaline Phosphatase 207H, Total Protein 6.5L, Albumin 3.0L, Globulin 3.5, Albumin/ Globulin Ratio 0.8L Height (Feet): 5 Height (Inches): 6.00 Weight (Pounds): 140 General Appearance: no apparent distress EENT: TMs normal Neck: normal alignment Cardiovascular: regular rhythm Respiratory/Chest: lungs clear Abdomen: normal bowel sounds Extremities: non-tender Edema: 1+ Leg (L), 1+ Leg (R) Edema: mild edema Neurologic: alert Skin: warm/dry Cirilo Mueller Jun 24, 2016 16:15
--- NOTE | 2016-06-24 16:22 | Pulmonology Progress Note ---
Assessment/Plan Problems: (1) Spontaneous pneumothorax (2) Liver cirrhosis (3) Alcohol withdrawal (4) Subcutaneous emphysema (5) Seizure Assessment/Plan covering for dr Moon repeat cxr shows no pneumothorax general surgeon called check ammonia level Haldol for agitation check ammonia level IVF to 50 cc.hour, pt is eating a full diet Subjective ROS Limited/Unobtainable: No Constitutional: Reports: no symptoms HEENT: Repors: no symptoms Respiratory: Reports: no symptoms Allergies: Coded Allergies: No Known Allergies (Unverified , 06/21/16) Objective Last 24 Hour Vital Signs Date Time Temp Pulse Resp B/P Pulse Ox O2 Delivery O2 Flow Rate FiO2 06/24/16 11:40 97.7 109 18 99/61 94 Simple Mask 10.0 06/24/16 09:55 Nasal Cannula 2.0 28 06/24/16 09:55 98 Nasal Cannula 2.0 28 06/24/16 08:04 98.6 98 20 102/62 94 Room Air 06/24/16 04:00 98.4 53 18 103/58 98 Venturi Mask 10.0 06/24/16 00:00 98.6 69 18 123/90 94 Venturi Mask 10.0 06/23/16 20:00 98.1 81 25 104/66 100 Simple Mask 06/23/16 20:00 121 06/23/16 19:00 96 Non-Rebreather 15.0 100 06/23/16 19:00 Non-Rebreather 15.0 100 Intake and Output 06/23/16 06/24/16 19:00 07:00 Intake Total 550 ml 350 ml Output Total 1650 ml 950 ml Balance -1100 ml -600 ml Intake Oral 400 ml 150 ml IV Total 150 ml 200 ml Output Urine Total 1650 ml 950 ml # Bowel Movements 1 General Appearance: cachetic HEENT: normocephalic, atraumatic Respiratory/Chest: chest wall non-tender, lungs clear Cardiovascular: normal peripheral pulses, normal rate Abdomen: normal bowel sounds, soft, non tender Extremities: no cyanosis Neurologic/Psychiatric: button buttonhole marker II-XII grossly normal Lymphatic: no neck adenopathy Laboratory Tests 06/24/16 06:30: White Blood Count 6.4, Red Blood Count 3.34L, Hemoglobin 11.4L, Hematocrit 34.5L , Mean Corpuscular Volume 103H, Mean Corpuscular Hemoglobin 34.2H, Mean Corpuscular Hemoglobin Concent 33.1, Red Cell Distribution Width 11.9, Platelet Count 169, Mean Platelet Volume 6.2L, Neutrophils (%) (Auto) 63.4, Lymphocytes ( %) (Auto) 16.5L, Monocytes (%) (Auto) 17.8H, Eosinophils (%) (Auto) 0.3, Basophils (%) (Auto) 2.1H, Sodium Level 134L, Potassium Level 3.9, Chloride Level 97L, Carbon Dioxide Level 26, Anion Gap 11, Blood Urea Nitrogen 6L, Creatinine 0.6L, Estimat Glomerular Filtration Rate > 60, Glucose Level 112H, Calcium Level 8.7, Total Bilirubin 2.0H, Direct Bilirubin 1.0H, Aspartate Amino Transf (AST/SGOT) 163H, Alanine Aminotransferase (ALT/SGPT) 108H, Alkaline Phosphatase 207H, Total Protein 6.5L, Albumin 3.0L, Globulin 3.5, Albumin/ Globulin Ratio 0.8L Current Medications Medications (Trade) Dose Ordered Sig/Evan Route PRN Reason Start Time Stop Time Status Last Admin Dose Admin Acetaminophen (Tylenol) 650 mg Q6H PRN ORAL Mild Pain/Temp > 100.5 06/24/16 00:41 07/24/16 00:40 Chlordiazepoxide (Librium) 75 mg BID ORAL 06/24/16 09:00 07/01/16 08:59 06/24/16 10:04 Dextrose (Dextrose 50%) STAT PRN IV Hypoglycemia 06/24/16 00:42 07/24/16 00:41 Folic Acid 1 mg/ Magnesium Sulfate 2000 mg/ Multivitamins 10 ml/Sodium Chloride 1,014.2 ml @ 125 mls/ hr Q24H IV 06/24/16 09:00 07/24/16 08:59 06/24/16 10:04 Haloperidol Lactate (Haldol) 5 mg Q6H PRN IVPB Agitation 06/24/16 01:00 07/24/16 00:59 Hydromorphone HCl (Dilaudid) 1 mg Q4H PRN IVP Moderate Pain (Pain Scale 4-6) 06/24/16 00:43 07/01/16 00:42 Lactulose (Cephulac) 20 gm FOUR TIMES A DAY ORAL 06/24/16 09:00 07/24/16 08:59 06/24/16 14:00 Lorazepam (Ativan 2mg/ml 1ml) 2 mg Q2H PRN IV For Anxiety 06/24/16 00:45 07/01/16 00:44 06/24/16 02:10 Lorazepam (Ativan) 1 mg Q4H PRN ORAL For Anxiety 06/24/16 00:44 07/01/16 00:43 Ondansetron HCl (Zofran) 4 mg Q6H PRN IVP Nausea & Vomiting 06/24/16 00:45 07/24/16 00:44 Pantoprazole (Protonix) 40 mg ACBREAKFAST ORAL 06/24/16 06:30 07/24/16 06:29 Thiamine HCl/ Sodium Chloride (Vitamin B1/ Sodium Chloride 100ml bag) 101 ml @ 100 mls/hr Q24H IVPB 06/24/16 09:00 07/24/16 08:59 06/24/16 14:00 JONNATHAN WEBBER Jun 24, 2016 16:22
--- NOTE | 2016-06-24 18:05 | Cardiac Electrophysiology PN ---
Assessment/Plan Assessment/Plan 1. Tachycardia due to shortness of breath. He has had pneumothorax. 2. Atrial fibrillation due to sinus tract. The patient had agitation of significant role. 3. Spontaneous Pneumothorax status post chest tube placement. 4. Status post multiple rib fractures.? cause of Pneumo 5. SQ emphysema. The patient's echocardiogram also shows ejection fraction of 60% to 65% with no left ventricular hypertrophy and no pericardial effusion. 6. Liver cirrhosis 7. ETOH withdrawal DFW Dr Coulter Subjective Subjective Confused but off restraints with chest tube in. Objective Last 24 Hour Vital Signs Date Time Temp Pulse Resp B/P Pulse Ox O2 Delivery O2 Flow Rate FiO2 06/24/16 16:00 97.7 100 20 89/54 91 Ambu-Bag 10.0 06/24/16 11:40 97.7 109 18 99/61 94 Simple Mask 10.0 06/24/16 09:55 Nasal Cannula 2.0 28 06/24/16 09:55 98 Nasal Cannula 2.0 28 06/24/16 08:04 98.6 98 20 102/62 94 Room Air 06/24/16 04:00 98.4 53 18 103/58 98 Venturi Mask 10.0 06/24/16 00:00 98.6 69 18 123/90 94 Venturi Mask 10.0 06/23/16 20:00 98.1 81 25 104/66 100 Simple Mask 06/23/16 20:00 121 06/23/16 19:00 96 Non-Rebreather 15.0 100 06/23/16 19:00 Non-Rebreather 15.0 100 Intake and Output 06/23/16 06/24/16 19:00 07:00 Intake Total 550 ml 350 ml Output Total 1650 ml 950 ml Balance -1100 ml -600 ml Intake Oral 400 ml 150 ml IV Total 150 ml 200 ml Output Urine Total 1650 ml 950 ml # Bowel Movements 1 Laboratory Tests Test 06/24/16 06:30 White Blood Count 6.4 K/UL (4.8-10.8) Red Blood Count 3.34 M/UL (4.70-6.10) L Hemoglobin 11.4 G/DL (14.2-18.0) L Hematocrit 34.5 % (42.0-52.0) L Mean Corpuscular Volume 103 FL (80-99) H Mean Corpuscular Hemoglobin 34.2 PG (27.0-31.0) H Mean Corpuscular Hemoglobin Concent 33.1 G/DL (32.0-36.0) Red Cell Distribution Width 11.9 % (11.6-14.8) Platelet Count 169 K/UL (150-450) Mean Platelet Volume 6.2 FL (6.5-10.1) L Neutrophils (%) (Auto) 63.4 % (45.0-75.0) Lymphocytes (%) (Auto) 16.5 % (20.0-45.0) L Monocytes (%) (Auto) 17.8 % (1.0-10.0) H Eosinophils (%) (Auto) 0.3 % (0.0-3.0) Basophils (%) (Auto) 2.1 % (0.0-2.0) H Sodium Level 134 mEQ/L (135-145) L Potassium Level 3.9 mEQ/L (3.4-4.9) Chloride Level 97 mEQ/L (98-107) L Carbon Dioxide Level 26 mEQ/L (20-30) Anion Gap 11 (5-15) Blood Urea Nitrogen 6 mg/dL (7-23) L Creatinine 0.6 mg/dL (0.7-1.2) L Estimat Glomerular Filtration Rate > 60 mL/min (>60) Glucose Level 112 mg/dL (74-106) H Calcium Level 8.7 mg/dL (8.6-10.2) Total Bilirubin 2.0 mg/dL (0.0-1.2) H Direct Bilirubin 1.0 mg/dL (0.1-0.3) H Aspartate Amino Transf (AST/SGOT) 163 U/L (5-40) H Alanine Aminotransferase (ALT/SGPT) 108 U/L (3-41) H Alkaline Phosphatase 207 U/L (40-129) H Total Protein 6.5 g/dL (6.6-8.7) L Albumin 3.0 g/dL (3.5-5.2) L Globulin 3.5 g/dL Albumin/Globulin Ratio 0.8 (1.0-2.7) L Objective HEAD AND NECK: Shows no JVD. LUNGS: Decreased breath sounds with coarse rhonchi. He has a chest tube on the right side. CARDIOVASCULAR: Shows tachycardic S1-S2 with no gallop or murmur. ABDOMEN: Soft. EXTREMITIES: Have no pitting edema. IRENA MELLO Jun 24, 2016 18:05
[2016-06-24 19:00] VITALS: BP 99/58
[2016-06-24] MEDS ORDERED: Sterile Water Irrig 1000ml IRRIG ONE (22:35)
[2016-06-24] MEDS ORDERED: Tubing IV Secondary IV ONE (22:35)
[2016-06-25] VITALS: BP 99/64
[2016-06-25] MEDS: HYDROmorphone 1mg/ml Carpuject IVP PRN ×2 (02:40→16:00)
[2016-06-25 04:00] VITALS: BP 102/65
[2016-06-25 06:04] LABS: BASOPHILS % (AUTO) 1.9 % (0.0-2.0); EOSINOPHILS % (AUTO) 1.4 % (0.0-3.0); LYMPHOCYTES % (AUTO) 15.4 % (20.0-45.0); MEAN CORPUSCULAR HEMOGLOBIN 33.1 PG (27.0-31.0); MEAN CORPUSCULAR VOLUME 103 FL (80-99); MEAN PLATELET VOLUME 5.9 FL (6.5-10.1); MONOCYTES % (AUTO) 16.1 % (1.0-10.0); NEUTROPHILS % (AUTO) 65.2 % (45.0-75.0); PLATELET COUNT 235 K/UL (150-450); RED BLOOD COUNT 3.13 M/UL (4.70-6.10); RED CELL DISTRIBUTION WIDTH 11.9 % (11.6-14.8); WHITE BLOOD COUNT 7.6 K/UL (4.8-10.8)
[2016-06-25 06:23] LABS: ALANINE AMINOTRANSFERASE 91 U/L (3-41); ALBUMIN/GLOBULIN RATIO 0.9 (1.0-2.7); ANION GAP 13 (5-15); ASPARTATE AMINO TRANSFERASE 96 U/L (5-40); CALCIUM 8.5 mg/dL (8.6-10.2); CARBON DIOXIDE 24 mEQ/L (20-30); CHLORIDE 102 mEQ/L (98-107); CREATININE 0.5 mg/dL (0.7-1.2); GLOMERULAR FILTRATION RATE > 60 mL/min (>60); HEMOLYSIS 0; POTASSIUM 3.9 mEQ/L (3.4-4.9); SODIUM 139 mEQ/L (135-145); TOTAL PROTEIN 6.1 g/dL (6.6-8.7)
[2016-06-25 06:53] LABS: AMMONIA 48 umol/L (16-60)
[2016-06-25 07:22] VITALS: BP 95/60
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
[2016-06-25] MEDS: Lactulose 20gm/30ml UDC ORAL SCH ×2 (08:19→18:26)
[2016-06-25] MEDS: chlordiazePOXIDE 25mg Cap ORAL SCH ×2 (08:19→18:26)
[2016-06-25] MEDS: Folic Acid 1 MG, Magnesium Sulfate 2,000 MG, Multivitamin - 12 Injection 10 ML in NS w/... IV SCH (08:19)
[2016-06-25 08:33] LABS: BILIRUBIN,DIRECT 0.6 mg/dL (0.1-0.3)
--- NOTE | 2016-06-25 09:21 | Cardiac Electrophysiology PN ---
Assessment/Plan Assessment/Plan 1. Sinus tachycardia due to shortness of breath due to pneumothorax.HR better after chest tube. The patient's echocardiogram also shows ejection fraction of 60% to 65% with no left ventricular hypertrophy and no pericardial effusion. 2. Atrial fibrillation, transient. Resolved. Now off tele. 3. Pneumothorax status post chest tube placement. 4. Status post multiple rib fractures.Likely cause of Pneumo 5. SQ emphysema. 6. Liver cirrhosis 7. ETOH withdrawal DW Dr Coulter Subjective Subjective More alert still has the chest tube in.Off tele. Objective Last 24 Hour Vital Signs Date Time Temp Pulse Resp B/P Pulse Ox O2 Delivery O2 Flow Rate FiO2 06/25/16 07:22 97.7 94 16 95/60 99 Simple Mask 06/25/16 04:00 99.1 91 18 102/65 100 Venturi Mask 10.0 06/25/16 00:00 98.1 84 18 99/64 98 Venturi Mask 10.0 06/24/16 19:00 99.0 97 20 99/58 94 Ambu-Bag 10.0 06/24/16 19:00 Non-Rebreather 15.0 100 06/24/16 19:00 96 Non-Rebreather 15.0 100 06/24/16 16:00 97.7 100 20 89/54 91 Ambu-Bag 10.0 06/24/16 11:40 97.7 109 18 99/61 94 Simple Mask 10.0 06/24/16 09:55 Nasal Cannula 2.0 28 06/24/16 09:55 98 Nasal Cannula 2.0 28 Intake and Output 06/24/16 06/25/16 18:59 06:59 Intake Total 200 ml 120 ml Balance 200 ml 120 ml Intake Oral 200 ml 120 ml # Voids 4 # Bowel Movements 1 Laboratory Tests Test 06/25/16 05:35 White Blood Count 7.6 K/UL (4.8-10.8) Red Blood Count 3.13 M/UL (4.70-6.10) L Hemoglobin 10.3 G/DL (14.2-18.0) L Hematocrit 32.3 % (42.0-52.0) L Mean Corpuscular Volume 103 FL (80-99) H Mean Corpuscular Hemoglobin 33.1 PG (27.0-31.0) H Mean Corpuscular Hemoglobin Concent 32.0 G/DL (32.0-36.0) Red Cell Distribution Width 11.9 % (11.6-14.8) Platelet Count 235 K/UL (150-450) Mean Platelet Volume 5.9 FL (6.5-10.1) L Neutrophils (%) (Auto) 65.2 % (45.0-75.0) Lymphocytes (%) (Auto) 15.4 % (20.0-45.0) L Monocytes (%) (Auto) 16.1 % (1.0-10.0) H Eosinophils (%) (Auto) 1.4 % (0.0-3.0) Basophils (%) (Auto) 1.9 % (0.0-2.0) Sodium Level 139 mEQ/L (135-145) Potassium Level 3.9 mEQ/L (3.4-4.9) Chloride Level 102 mEQ/L (98-107) Carbon Dioxide Level 24 mEQ/L (20-30) Anion Gap 13 (5-15) Blood Urea Nitrogen 8 mg/dL (7-23) Creatinine 0.5 mg/dL (0.7-1.2) L Estimat Glomerular Filtration Rate > 60 mL/min (>60) Glucose Level 108 mg/dL (74-106) H Calcium Level 8.5 mg/dL (8.6-10.2) L Total Bilirubin 1.3 mg/dL (0.0-1.2) H Direct Bilirubin 0.6 mg/dL (0.1-0.3) H Aspartate Amino Transf (AST/SGOT) 96 U/L (5-40) H Alanine Aminotransferase (ALT/SGPT) 91 U/L (3-41) H Alkaline Phosphatase 175 U/L (40-129) H Ammonia 48 umol/L (16-60) Total Protein 6.1 g/dL (6.6-8.7) L Albumin 2.9 g/dL (3.5-5.2) L Globulin 3.2 g/dL Albumin/Globulin Ratio 0.9 (1.0-2.7) L Objective HEAD AND NECK: Shows no JVD. LUNGS: Decreased breath sounds with coarse rhonchi. He has a chest tube on the right side. CARDIOVASCULAR: Shows tachycardic S1-S2 with no gallop or murmur. ABDOMEN: Soft. EXTREMITIES: Have no pitting edema. IRENA MELLO Jun 25, 2016 09:21
--- NOTE | 2016-06-25 09:44 | Diagnostic Imaging Report ---
Indication: PNEUMOTX, shortness of breath Technique: One view of the chest Comparison: 06/24/2016 Findings: Again demonstrated is a right-sided chest tube. There is less optimal on the current exam. Hazy opacities at both lung bases probably reflect crowding of the vascular structures. There is a band of atelectasis at the left lateral lung base No definite pneumothorax. There is minimal if any residual subcutaneous emphysema in the right chest wall. Right rib fractures are again demonstrated Impression: Bilateral basilar hazy opacities, probably crowding of vascular structures, but developing patchy infiltrates not completely excludable. Correlate with clinical findings and recommend followup chest radiographs as indicated Right chest tube remains in place. There is decreasing subcutaneous emphysema and no gross pneumothorax
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
--- NOTE | 2016-06-25 11:17 | GI Progress Note ---
Assessment/Plan Problems: (1) ETOH abuse ICD Codes: F10.10 - Alcohol abuse, uncomplicated SNOMED: 50866234, 94214785 (2) Multiple rib fractures involving four or more ribs ICD Codes: S22.49XA - Multiple fractures of ribs, unspecified side, initial encounter for closed fracture SNOMED: 6562459 (3) Abnormal LFTs ICD Codes: R79.89 - Other specified abnormal findings of blood chemistry SNOMED: 053072525 (4) Liver cirrhosis ICD Codes: K74.60 - Unspecified cirrhosis of liver SNOMED: 24605204 (5) Alcohol withdrawal ICD Codes: F10.239 - Alcohol dependence with withdrawal, unspecified SNOMED: 975302449 (6) Thrombocytopenia ICD Codes: D69.6 - Thrombocytopenia, unspecified SNOMED: 992501841 Status: progressing Status Narrative Discussed with Dr. Krueger. Assessment/Plan fu abdominal U/S >> Hepatomegaly with fatty infiltration, Cholelithiasis hep panel negative banana bag ppi ammonia level >> wnl OB stool uncollected discriminant function negative >> defer glucosteroid therapy monitor LFTs monitor H&H, transfuse prn fu labs Subjective Subjective limited Objective Last 24 Hour Vital Signs Date Time Temp Pulse Resp B/P Pulse Ox O2 Delivery O2 Flow Rate FiO2 06/25/16 07:22 97.7 94 16 95/60 99 Simple Mask 06/25/16 04:00 99.1 91 18 102/65 100 Venturi Mask 10.0 06/25/16 00:00 98.1 84 18 99/64 98 Venturi Mask 10.0 06/24/16 19:00 99.0 97 20 99/58 94 Ambu-Bag 10.0 06/24/16 19:00 Non-Rebreather 15.0 100 06/24/16 19:00 96 Non-Rebreather 15.0 100 06/24/16 16:00 97.7 100 20 89/54 91 Ambu-Bag 10.0 06/24/16 11:40 97.7 109 18 99/61 94 Simple Mask 10.0 Intake and Output 06/24/16 06/25/16 19:00 07:00 Intake Total 200 ml 120 ml Balance 200 ml 120 ml Intake Oral 200 ml 120 ml # Voids 4 # Bowel Movements 1 Laboratory Tests Test 06/25/16 05:35 White Blood Count 7.6 K/UL (4.8-10.8) Red Blood Count 3.13 M/UL (4.70-6.10) L Hemoglobin 10.3 G/DL (14.2-18.0) L Hematocrit 32.3 % (42.0-52.0) L Mean Corpuscular Volume 103 FL (80-99) H Mean Corpuscular Hemoglobin 33.1 PG (27.0-31.0) H Mean Corpuscular Hemoglobin Concent 32.0 G/DL (32.0-36.0) Red Cell Distribution Width 11.9 % (11.6-14.8) Platelet Count 235 K/UL (150-450) Mean Platelet Volume 5.9 FL (6.5-10.1) L Neutrophils (%) (Auto) 65.2 % (45.0-75.0) Lymphocytes (%) (Auto) 15.4 % (20.0-45.0) L Monocytes (%) (Auto) 16.1 % (1.0-10.0) H Eosinophils (%) (Auto) 1.4 % (0.0-3.0) Basophils (%) (Auto) 1.9 % (0.0-2.0) Sodium Level 139 mEQ/L (135-145) Potassium Level 3.9 mEQ/L (3.4-4.9) Chloride Level 102 mEQ/L (98-107) Carbon Dioxide Level 24 mEQ/L (20-30) Anion Gap 13 (5-15) Blood Urea Nitrogen 8 mg/dL (7-23) Creatinine 0.5 mg/dL (0.7-1.2) L Estimat Glomerular Filtration Rate > 60 mL/min (>60) Glucose Level 108 mg/dL (74-106) H Calcium Level 8.5 mg/dL (8.6-10.2) L Total Bilirubin 1.3 mg/dL (0.0-1.2) H Direct Bilirubin 0.6 mg/dL (0.1-0.3) H Aspartate Amino Transf (AST/SGOT) 96 U/L (5-40) H Alanine Aminotransferase (ALT/SGPT) 91 U/L (3-41) H Alkaline Phosphatase 175 U/L (40-129) H Ammonia 48 umol/L (16-60) Total Protein 6.1 g/dL (6.6-8.7) L Albumin 2.9 g/dL (3.5-5.2) L Globulin 3.2 g/dL Albumin/Globulin Ratio 0.9 (1.0-2.7) L Height (Feet): 5 Height (Inches): 6.00 Weight (Pounds): 140 General Appearance: no apparent distress Cardiovascular: normal rate Respiratory/Chest: other Abdominal Exam: normal bowel sounds, non tender, soft Objective Procedure: US ABD Complete Indication:Abdominal pain Findings: The demonstrated part of the pancreas, aorta and IVC, both kidneys, spleen appear unremarkable. Aorta and pancreas are poorly seen. There are gallstones. Sonographic Vanegas's is negative per technologist. The liver is enlarged and echogenic. CBD is 4 mm. There is no biliary ductal dilatation identified. Doppler evaluation of the main portal vein shows patency. There is no ascites. No hydronephrosis seen. Impression: Hepatomegaly with fatty infiltration. Cholelithiasis Pancreas and aorta obscured Deborah Cordero N.P. Jun 25, 2016 11:17
[2016-06-25 11:25] VITALS: BP 101/58
[2016-06-25 15:57] VITALS: BP 100/62
[2016-06-25 19:00] VITALS: BP 111/68
[2016-06-26] VITALS: BP 111/74
[2016-06-26] MEDS: HYDROmorphone 1mg/ml Carpuject IVP PRN ×2 (03:12→18:05)
[2016-06-26 04:00] VITALS: BP 102/60
[2016-06-26 07:52] LABS: BASOPHILS % (AUTO) 1.4 % (0.0-2.0); EOSINOPHILS % (AUTO) 0.6 % (0.0-3.0); LYMPHOCYTES % (AUTO) 11.4 % (20.0-45.0); MEAN CORPUSCULAR HEMOGLOBIN 33.8 PG (27.0-31.0); MEAN CORPUSCULAR HGB CONC 33.7 G/DL (32.0-36.0); MEAN CORPUSCULAR VOLUME 101 FL (80-99); MEAN PLATELET VOLUME 6.2 FL (6.5-10.1); MONOCYTES % (AUTO) 13.3 % (1.0-10.0); NEUTROPHILS % (AUTO) 73.3 % (45.0-75.0); PLATELET COUNT 311 K/UL (150-450); RED BLOOD COUNT 3.09 M/UL (4.70-6.10); RED CELL DISTRIBUTION WIDTH 12.2 % (11.6-14.8); WHITE BLOOD COUNT 9.3 K/UL (4.8-10.8)
[2016-06-26 07:56] VITALS: BP 98/58
[2016-06-26 08:52] LABS: ALANINE AMINOTRANSFERASE 71 U/L (3-41); ALBUMIN/GLOBULIN RATIO 0.8 (1.0-2.7); ANION GAP 14 (5-15); ASPARTATE AMINO TRANSFERASE 65 U/L (5-40); CALCIUM 8.7 mg/dL (8.6-10.2); CARBON DIOXIDE 26 mEQ/L (20-30); CHLORIDE 93 mEQ/L (98-107); CREATININE 0.5 mg/dL (0.7-1.2); GLOMERULAR FILTRATION RATE > 60 mL/min (>60); HEMOLYSIS 4; POTASSIUM 4.3 mEQ/L (3.4-4.9); SODIUM 133 mEQ/L (135-145); TOTAL PROTEIN 6.2 g/dL (6.6-8.7)
--- NOTE | 2016-06-26 09:28 | General Progress Note ---
Assessment/Plan Assessment/Plan IMPRESSION: 1. Elevated D-dimer concerning for liver disease given the patient with thrombocytopenia as well as elevated AST and ALT. 2/2 liver disease 2. Spontaneous pneumothorax, being evaluated by pulm 3. Thrombocytopenia likely secondary to liver cirrhosis. Now improved 4. Thrombocytopenia, rule out infection 5. Anemia secondary to chronic disease 6. ETOH abuse 7. Chest pain, rule out acute coronary syndrome. RECOMMENDATIONS: 1. Monitor counts. 2. Transfuse as needed. 3. Hgb goal is >7.0 4. DVT prophylaxis with heparin. 5. GI prophylaxis with PPI 6. Alcohol cessation recommended, via AA potentially 7. HIV and hepatitis panel are negative 8. Discussed with staff. Thank you, Lee Mueller MD Subjective Constitutional: Reports: no symptoms HEENT: Reports: no symptoms Cardiovascular: Reports: no symptoms Respiratory: Reports: no symptoms Genitourinary: Reports: no symptoms Neurologic/Psychiatric: Reports: no symptoms Endocrine: Reports: no symptoms Hematologic/Lymphatic: Reports: anemia Allergies: Coded Allergies: No Known Allergies (Unverified , 06/21/16) Subjective stable not bleeding, calm Objective Last 24 Hour Vital Signs Date Time Temp Pulse Resp B/P Pulse Ox O2 Delivery O2 Flow Rate FiO2 06/26/16 07:56 98.2 96 21 98/58 97 Nasal Cannula 4.0 06/26/16 04:00 99.5 96 18 102/60 96 Nasal Cannula 4.0 06/26/16 00:00 98.2 100 18 111/74 93 Nasal Cannula 4.0 06/25/16 19:00 99.7 92 18 111/68 97 Nasal Cannula 5.0 06/25/16 17:05 99.1 06/25/16 15:57 101.7 96 20 100/62 95 Nasal Cannula 5.0 06/25/16 11:25 98.1 105 20 101/58 92 Nasal Cannula 06/25/16 10:40 94 Nasal Cannula 3.0 32 06/25/16 10:40 Nasal Cannula 3.0 32 Intake and Output 06/25/16 06/26/16 19:00 07:00 Intake Total 900 ml 240 ml Output Total 400 ml 1300 ml Balance 500 ml -1060 ml Intake Oral 900 ml 240 ml Output Urine Total 400 ml 1300 ml # Voids 2 Laboratory Tests 06/26/16 05:35: White Blood Count 9.3, Red Blood Count 3.09L, Hemoglobin 10.4L, Hematocrit 31.0L , Mean Corpuscular Volume 101H, Mean Corpuscular Hemoglobin 33.8H, Mean Corpuscular Hemoglobin Concent 33.7, Red Cell Distribution Width 12.2, Platelet Count 311, Mean Platelet Volume 6.2L, Neutrophils (%) (Auto) 73.3, Lymphocytes ( %) (Auto) 11.4L, Monocytes (%) (Auto) 13.3H, Eosinophils (%) (Auto) 0.6, Basophils (%) (Auto) 1.4, Sodium Level 133L, Potassium Level 4.3, Chloride Level 93L, Carbon Dioxide Level 26, Anion Gap 14, Blood Urea Nitrogen 7, Creatinine 0.5L, Estimat Glomerular Filtration Rate > 60, Glucose Level 117H, Calcium Level 8.7, Total Bilirubin 1.0, Aspartate Amino Transf (AST/SGOT) 65H, Alanine Aminotransferase (ALT/SGPT) 71H, Alkaline Phosphatase 160H, Total Protein 6.2L, Albumin 2.9L, Globulin 3.3, Albumin/Globulin Ratio 0.8L Height (Feet): 5 Height (Inches): 6.00 Weight (Pounds): 140 General Appearance: no apparent distress EENT: TMs normal Neck: supple Cardiovascular: regular rhythm Respiratory/Chest: chest wall non-tender Abdomen: non tender Extremities: non-tender Edema: 1+ Leg (L), 1+ Leg (R) Edema: mild edema Neurologic: no motor/sensory deficits Skin: warm/dry LEE MUELLER Jun 26, 2016 09:28
[2016-06-26] MEDS: Lactulose 20gm/30ml UDC ORAL SCH ×2 (09:36→18:05)
[2016-06-26] MEDS: Folic Acid 1 MG, Magnesium Sulfate 2,000 MG, Multivitamin - 12 Injection 10 ML in NS w/... IV SCH (09:37)
[2016-06-26] MEDS: chlordiazePOXIDE 25mg Cap ORAL SCH (09:37)
--- NOTE | 2016-06-26 09:51 | Nephrology Progress Note ---
Assessment/Plan Problem List: (1) Spontaneous pneumothorax (2) Liver cirrhosis (3) Seizure (4) Hyponatremia (5) Hypokalemia (6) Alcohol withdrawal (7) ETOH abuse (8) Multiple rib fractures involving four or more ribs Plan f/u pulm recs. Gi following. start PT. Subjective Subjective CT removed yesterday. on NC. Objective Objective Last 24 Hour Vital Signs Date Time Temp Pulse Resp B/P Pulse Ox O2 Delivery O2 Flow Rate FiO2 06/26/16 07:56 98.2 96 21 98/58 97 Nasal Cannula 4.0 06/26/16 04:00 99.5 96 18 102/60 96 Nasal Cannula 4.0 06/26/16 00:00 98.2 100 18 111/74 93 Nasal Cannula 4.0 06/25/16 19:00 99.7 92 18 111/68 97 Nasal Cannula 5.0 06/25/16 17:05 99.1 06/25/16 15:57 101.7 96 20 100/62 95 Nasal Cannula 5.0 06/25/16 11:25 98.1 105 20 101/58 92 Nasal Cannula 06/25/16 10:40 94 Nasal Cannula 3.0 32 06/25/16 10:40 Nasal Cannula 3.0 32 Intake and Output 06/25/16 06/26/16 19:00 07:00 Intake Total 900 ml 240 ml Output Total 400 ml 1300 ml Balance 500 ml -1060 ml Intake Oral 900 ml 240 ml Output Urine Total 400 ml 1300 ml # Voids 2 Laboratory Tests 06/26/16 05:35: White Blood Count 9.3, Red Blood Count 3.09L, Hemoglobin 10.4L, Hematocrit 31.0L , Mean Corpuscular Volume 101H, Mean Corpuscular Hemoglobin 33.8H, Mean Corpuscular Hemoglobin Concent 33.7, Red Cell Distribution Width 12.2, Platelet Count 311, Mean Platelet Volume 6.2L, Neutrophils (%) (Auto) 73.3, Lymphocytes ( %) (Auto) 11.4L, Monocytes (%) (Auto) 13.3H, Eosinophils (%) (Auto) 0.6, Basophils (%) (Auto) 1.4, Sodium Level 133L, Potassium Level 4.3, Chloride Level 93L, Carbon Dioxide Level 26, Anion Gap 14, Blood Urea Nitrogen 7, Creatinine 0.5L, Estimat Glomerular Filtration Rate > 60, Glucose Level 117H, Calcium Level 8.7, Total Bilirubin 1.0, Aspartate Amino Transf (AST/SGOT) 65H, Alanine Aminotransferase (ALT/SGPT) 71H, Alkaline Phosphatase 160H, Total Protein 6.2L, Albumin 2.9L, Globulin 3.3, Albumin/Globulin Ratio 0.8L Height (Feet): 5 Height (Inches): 6.00 Weight (Pounds): 140 General Appearance: no apparent distress Cardiovascular: normal rate, regular rhythm Respiratory/Chest: decreased breath sounds Abdomen: non tender, no organomegaly JUANA VALLE Jun 26, 2016 09:51
[2016-06-26 11:23] VITALS: BP 108/62
--- NOTE | 2016-06-26 13:12 | Cardiac Electrophysiology PN ---
Assessment/Plan Assessment/Plan 1. Sinus tachycardia due to pneumothorax.HR better after chest tube. Echocardiogram shows ejection fraction of 60% to 65% with no left ventricular hypertrophy and no pericardial effusion. 2. Atrial fibrillation, transient. Resolved. Now off tele. 3. Pneumothorax status post chest tube placement. 4. Status post multiple rib fractures.Likely cause of Pneumo 5. SQ emphysema. 6. Liver cirrhosis 7. ETOH withdrawal DW RN Subjective Subjective Still confused and agitated at times. Sitter at bedside. Objective Last 24 Hour Vital Signs Date Time Temp Pulse Resp B/P Pulse Ox O2 Delivery O2 Flow Rate FiO2 06/26/16 11:23 100.2 105 20 108/62 Nasal Cannula 4.0 06/26/16 07:56 98.2 96 21 98/58 97 Nasal Cannula 4.0 06/26/16 04:00 99.5 96 18 102/60 96 Nasal Cannula 4.0 06/26/16 00:00 98.2 100 18 111/74 93 Nasal Cannula 4.0 06/25/16 19:00 99.7 92 18 111/68 97 Nasal Cannula 5.0 06/25/16 17:05 99.1 06/25/16 15:57 101.7 96 20 100/62 95 Nasal Cannula 5.0 Intake and Output 06/25/16 06/26/16 19:00 07:00 Intake Total 900 ml 240 ml Output Total 400 ml 1300 ml Balance 500 ml -1060 ml Intake Oral 900 ml 240 ml Output Urine Total 400 ml 1300 ml # Voids 2 Laboratory Tests Test 06/26/16 05:35 White Blood Count 9.3 K/UL (4.8-10.8) Red Blood Count 3.09 M/UL (4.70-6.10) L Hemoglobin 10.4 G/DL (14.2-18.0) L Hematocrit 31.0 % (42.0-52.0) L Mean Corpuscular Volume 101 FL (80-99) H Mean Corpuscular Hemoglobin 33.8 PG (27.0-31.0) H Mean Corpuscular Hemoglobin Concent 33.7 G/DL (32.0-36.0) Red Cell Distribution Width 12.2 % (11.6-14.8) Platelet Count 311 K/UL (150-450) Mean Platelet Volume 6.2 FL (6.5-10.1) L Neutrophils (%) (Auto) 73.3 % (45.0-75.0) Lymphocytes (%) (Auto) 11.4 % (20.0-45.0) L Monocytes (%) (Auto) 13.3 % (1.0-10.0) H Eosinophils (%) (Auto) 0.6 % (0.0-3.0) Basophils (%) (Auto) 1.4 % (0.0-2.0) Sodium Level 133 mEQ/L (135-145) L Potassium Level 4.3 mEQ/L (3.4-4.9) Chloride Level 93 mEQ/L (98-107) L Carbon Dioxide Level 26 mEQ/L (20-30) Anion Gap 14 (5-15) Blood Urea Nitrogen 7 mg/dL (7-23) Creatinine 0.5 mg/dL (0.7-1.2) L Estimat Glomerular Filtration Rate > 60 mL/min (>60) Glucose Level 117 mg/dL (74-106) H Calcium Level 8.7 mg/dL (8.6-10.2) Total Bilirubin 1.0 mg/dL (0.0-1.2) Aspartate Amino Transf (AST/SGOT) 65 U/L (5-40) H Alanine Aminotransferase (ALT/SGPT) 71 U/L (3-41) H Alkaline Phosphatase 160 U/L (40-129) H Total Protein 6.2 g/dL (6.6-8.7) L Albumin 2.9 g/dL (3.5-5.2) L Globulin 3.3 g/dL Albumin/Globulin Ratio 0.8 (1.0-2.7) L Objective HEAD AND NECK: Shows no JVD. LUNGS: Decreased breath sounds with coarse rhonchi. Chest tube on the right side. CARDIOVASCULAR: Shows tachycardic S1-S2 with no gallop or murmur. ABDOMEN: Soft. EXTREMITIES: Have no pitting edema. IRENA MELLO Jun 26, 2016 13:12
--- NOTE | 2016-06-26 13:37 | Progress Note 2 Sig ---
DATE: 06/25/2016 SUBJECTIVE: The patient is seen in the med/surg unit, in no distress. He is asleep at this time with IV ongoing. He is status post chest tube removal today. No discharge noted. MEDICATIONS: Lactulose, , Protonix, Haldol, Ativan, Zofran, and Dilaudid. OBJECTIVE: VITAL SIGNS: Blood pressure 100/62, heart rate 96, temperature 99.1 degrees, O2 saturation 95% on five liters, and respiration 20. HEAD AND NECK: Normocephalic and atraumatic. Trachea midline. LUNGS: Diminished bilaterally. CARDIOVASCULAR: Regular rate and rhythm. S1 and S2. ABDOMEN: Soft, nontender, and nondistended. EXTREMITIES: No edema. No cyanosis. No clubbing. LABORATORY DATA: CBC, white count 7.6, hemoglobin 10.3, hematocrit 32.3, and platelet count 235,000. BMP, sodium 139, potassium 3.9, chloride 102, bicarbonate 24, BUN 8, creatinine 0.5, and glucose 108. ASSESSMENT: 1. Spontaneous pneumothorax. 2. ETOH abuse. 3. Thrombocytopenia. 4. Anemia. 5. Multiple rib fractures. PLAN: Plan is to monitor counts. Monitor the patient's status. Pulmonology followup. Monitor hemoglobin and hematocrit and transfuse as needed. Hematology followup. Continue medications. Monitor the patient's response to treatments. We will monitor the patient's neurological status. We will follow up with the chest x-ray. Kavin Soto M.D. Pilar Newman DR: Milagros JOB#: [id number] CC:
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
[2016-06-26] MEDS ORDERED: DuoNeb 0.5-3(2.5)mg/3ml neb HHN PRN (15:30)
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
[2016-06-26 16:00] VITALS: BP 110/53
[2016-06-26] MEDS ORDERED: Bisacodyl EC 5mg tab ORAL PRN (17:45)
[2016-06-26 20:00] VITALS: BP 100/66
[2016-06-26] MEDS: DuoNeb 0.5-3(2.5)mg/3ml neb INH SCH (20:48)
[2016-06-27] VITALS: BP 109/60
[2016-06-27] MEDS: HYDROmorphone 1mg/ml Carpuject IVP PRN ×2 (03:18→16:45)
[2016-06-27 04:00] VITALS: BP_SYST 92
[2016-06-27] MEDS: DuoNeb 0.5-3(2.5)mg/3ml neb INH SCH ×3 (07:01→19:35)
[2016-06-27 07:33] LABS: BASOPHILS % (AUTO) 1.5 % (0.0-2.0); EOSINOPHILS % (AUTO) 0.4 % (0.0-3.0); LYMPHOCYTES % (AUTO) 8.9 % (20.0-45.0); MEAN CORPUSCULAR HEMOGLOBIN 32.6 PG (27.0-31.0); MEAN CORPUSCULAR HGB CONC 31.5 G/DL (32.0-36.0); MEAN CORPUSCULAR VOLUME 103 FL (80-99); MEAN PLATELET VOLUME 5.3 FL (6.5-10.1); MONOCYTES % (AUTO) 8.2 % (1.0-10.0); PLATELET COUNT 376 K/UL (150-450); RED BLOOD COUNT 3.13 M/UL (4.70-6.10); RED CELL DISTRIBUTION WIDTH 12.5 % (11.6-14.8); WHITE BLOOD COUNT 15.2 K/UL (4.8-10.8)
[2016-06-27 08:00] VITALS: BP 94/54
[2016-06-27 08:31] LABS: ALANINE AMINOTRANSFERASE 68 U/L (3-41); ALBUMIN/GLOBULIN RATIO 0.8 (1.0-2.7); ANION GAP 12 (5-15); ASPARTATE AMINO TRANSFERASE 63 U/L (5-40); CARBON DIOXIDE 27 mEQ/L (20-30); CHLORIDE 94 mEQ/L (98-107); CREATININE 0.5 mg/dL (0.7-1.2); GLOMERULAR FILTRATION RATE > 60 mL/min (>60); HEMOLYSIS 0; POTASSIUM 4.4 mEQ/L (3.4-4.9); SODIUM 133 mEQ/L (135-145); TOTAL PROTEIN 6.3 g/dL (6.6-8.7)
[2016-06-27] MEDS ORDERED: chlordiazePOXIDE 25mg Cap ORAL SCH (09:00)
[2016-06-27] MEDS: Lactulose 20gm/30ml UDC ORAL SCH ×2 (09:58→17:20)
--- NOTE | 2016-06-27 10:29 | Diagnostic Imaging Report ---
Indication: Chest Pain Comparison: None A single view chest radiograph was obtained. Findings: Multiple rib fractures noted on the right. Hazy right basilar opacity consistent with a pleural effusion. Pulmonary contusion not excluded. There is no pneumothorax seen. Cardiac silhouette is mildly enlarged but stable. Impression: No significant change from one day earlier
--- NOTE | 2016-06-27 10:29 | Diagnostic Imaging Report ---
Indication: Shortness of breath, status post chest tube removal Technique: One view of the chest Comparison: 7 hours earlier Findings: Interim removal of previously demonstrated right-sided chest tube. No gross pneumothorax demonstrated. Multiple right rib fractures are again evident. Right-sided pleural effusion is again demonstrated. Left basilar atelectasis is again demonstrated. Retrocardiac consolidation may also be present. Impression: No evidence of recurrent pneumothorax, post right chest tube removal Persistent small right pleural effusion Other stable findings as noted
--- NOTE | 2016-06-27 10:29 | Diagnostic Imaging Report ---
ndication: Chest pain Technique: IV administration nonionic contrast. Spiral acquisitions obtained from the lung bases to the lung apices. Multiplanar and 3-D reconstructions were generated. Total dose length product 626 mGycm. CTDIvol(s) 12, 12, 18 mGy Comparison: None Findings: There is adequate opacification of the pulmonary arteries. No intraluminal filling defects or other findings to suggest pulmonary embolus are demonstrated. No pulmonary arterial dilatation, or right ventricular dilatation. No thoracic aortic aneurysm or dissection and straight. There is classic branching anatomy of the great neck vessels. There are fractures of the posterior lateral right fifth, sixth, and seventh ribs, and fractures of the medial and posterior lateral right eighth and ninth rib. There is a nondisplaced fracture of the transverse process of T7 on the right. There is a right-sided chest tube, projecting in the anterior hemithorax, tip projected adjacent to the anterior superior mediastinum. Despite this, there is still a right pneumothorax, estimated at 20%. There is trace pleural fluid present. There is extensive right chest wall subcutaneous emphysema, extending beyond the imaging volume into the neck, right arm, and upper abdominal and lumbar subcutaneous soft tissues. There is also contiguous pneumomediastinum, and extra-pleural pneumothorax on the right. There is atelectasis of much of the right middle lobe. There may be a component of consolidation as well. Consolidation and atelectasis are also seen involving the inferior right lower lobe. There is a calcified granuloma within the left upper lobe. Left lung otherwise clear. Left pleural space is clear. The heart size is normal. Esophagus is filled with fluid. No mediastinal or hilar mass or adenopathy. The visualized thyroid is unremarkable. Included portions of the upper abdominal anatomy demonstrate that the liver demonstrates diffuse low attenuation, consistent with diffuse fatty infiltration. It also appears enlarged. Impression: Right chest tube in place. Persistent at least 20% right pneumothorax, despite this Associated right chest wall, abdomen, neck, and mediastinal emphysema Trace right pleural effusion Right lung opacities, predominantly in the right middle lobe but also the right lower lobe, probably mostly reflecting atelectatic change, but infiltrates or contusion also a possibility Multiple right rib fractures, as described Negative for acute pulmonary embolus Evidence of old granulomatous disease in the left lung Enlarged fatty liver Fluid-filled esophagus, nonspecific This agrees with the preliminary interpretation provided overnight by [facility]. The CT scanner at [facility] is accredited by the [employer] and the scans are performed using protocols designed to limit radiation exposure to as low as reasonably achievable to attain images of sufficient resolution adequate for diagnostic evaluation.
--- NOTE | 2016-06-27 10:30 | Diagnostic Imaging Report ---
Indication:Elevated Bun and Creatinine. Technique: Grayscale and duplex Doppler imaging of the kidneys performed. Comparison: None Findings: The size, contour, and echogenicity of both kidneys are within normal limits. There is no hydronephrosis. The IVC and urinary bladder are unremarkable. A both kidneys are between 10 and 11 cm in length. Impression: Negative exam
--- NOTE | 2016-06-27 10:30 | Diagnostic Imaging Report ---
Indication: History of pneumothorax and chest tube. Followup Comparison: Earlier the same day A single view chest radiograph was obtained. Findings: Right chest tube again noted. Tiny right apical pneumothorax is present. Subcutaneous air again noted along the chest wall in the right. Impression: Tiny right apical pneumothorax. No significant change.
[2016-06-27] MEDS: Folic Acid 1 MG, Magnesium Sulfate 2,000 MG, Multivitamin - 12 Injection 10 ML in NS w/... IV SCH (11:16)
--- NOTE | 2016-06-27 11:49 | Diagnostic Imaging Report ---
Indication: History of pneumothorax Comparison: 06/26/16 A single view chest radiograph was obtained. Findings: Hazy right basilar opacity persists. The fractures noted. No pneumothorax seen. Cardiac size is stable. Impression: No chart changer one-day
[2016-06-27 12:00] VITALS: BP 108/65
--- NOTE | 2016-06-27 12:21 | General Progress Note ---
Progress Note Progress Note Pain decreasing No increase in effusion , no SOB CXR same , some right base opacity and likely effusion, several ribs fractured. Nothing surgical at this time CAROLINE SAHA Jun 27, 2016 12:21
--- NOTE | 2016-06-27 12:32 | Pulmonology Progress Note ---
Assessment/Plan Assessment/Plan COVERAGE FOR dr RODRÍGUEZ ASSESSMENT spontaneous PNT, s/p CT placement and subsequent removal SQ emphysema -decreasing possible aspiration PNA alcohol w/drawal s/p multiple rib fractures ( lieky cause of spontaneous PNT) anemia active smoker PLAN OF CARE MS floor CT removed at the bedside by surgeon on 06/25 CXR fup in 6 hrs 06/25 -Bilateral basilar hazy opacities, probably crowding of vascular structures, but developing patchy infiltrates not completely excludable. No gross PNT, decreasing SQ emphysema repeated CXR 06/26 -no PNT , per surgery , if stable - no further surgical interventions required spontaneous PNT likely 2 to multiple rib fractures CXR done 06/27 ( due to fever and congestion, developing opacity on 06/26 CXR ) - Hazy right basilar opacity persists. The rib fractures noted. No pneumothorax seen. 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 ETOH taper further Librium case discussed and evaluated by supervising physician Subjective Allergies: Coded Allergies: No Known Allergies (Unverified , 06/21/16) Subjective weaned to NC, no signs of respiratory distress , leukocytosis today-15.2, afebrile now, fever yesterday afternoon CXR today with hazy opacity, no PNT CT out as of 06/25 by surgeon LFT trending down Objective Last 24 Hour Vital Signs Date Time Temp Pulse Resp B/P Pulse Ox O2 Delivery O2 Flow Rate FiO2 06/27/16 08:00 97.7 105 18 94/54 100 Nasal Cannula 4.0 06/27/16 07:11 97 18 98 Nasal Cannula 4.0 36 06/27/16 07:01 36 06/27/16 07:01 96 18 95 Nasal Cannula 4.0 36 06/27/16 07:00 Nasal Cannula 4.0 36 06/27/16 07:00 95 Nasal Cannula 4.0 36 06/27/16 04:00 99.1 100 18 92/ 93 Nasal Cannula 4.0 06/27/16 00:00 98.4 97 18 109/60 92 Nasal Cannula 4.0 06/26/16 20:48 95 Nasal Cannula 4.0 36 06/26/16 20:48 Nasal Cannula 4.0 36 06/26/16 20:35 104 18 98 Nasal Cannula 4.0 36 06/26/16 20:30 96 18 95 Nasal Cannula 4.0 36 06/26/16 20:30 95 18 Nasal Cannula 4.0 36 06/26/16 20:00 98.6 93 18 100/66 96 Room Air 06/26/16 16:00 99.1 107 20 110/53 94 Nasal Cannula 2.0 06/26/16 14:53 99.9 06/26/16 14:41 101.7 06/26/16 13:22 100.4 Intake and Output 06/26/16 06/27/16 19:00 07:00 Intake Total 450 ml 290 ml Output Total 700 ml Balance -250 ml 290 ml Intake Oral 450 ml 240 ml IV Total 50 ml Output Urine Total 700 ml # Voids 2 Objective General Appearance: WD/WN, no acute distress HEENT: normocephalic, atraumatic, anicteric, mucous membranes moist Respiratory/Chest: no respiratory distress, no accessory muscle use, few isolated rhonchi Cardiovascular: normal rate, regular rhythm - occ mild tachy 100-105, no JVD Abdomen: normal bowel sounds, soft, non tender, non distended Genitourinary: normal external genitalia Extremities: no edema, pedal pulses normal Neurologic/Psychiatric: no motor/sensory deficits, alert, responsive Musculoskeletal: normal muscle bulk Laboratory Tests 06/27/16 05:20: White Blood Count 15.2#H, Red Blood Count 3.13L, Hemoglobin 10.2L, Hematocrit 32.3L, Mean Corpuscular Volume 103H, Mean Corpuscular Hemoglobin 32.6H, Mean Corpuscular Hemoglobin Concent 31.5L, Red Cell Distribution Width 12.5, Platelet Count 376, Mean Platelet Volume 5.3L, Neutrophils (%) (Auto) 81.0H, Lymphocytes (%) (Auto) 8.9L, Monocytes (%) (Auto) 8.2, Eosinophils (%) (Auto) 0.4, Basophils (%) (Auto) 1.5, Sodium Level 133L, Potassium Level 4.4, Chloride Level 94L, Carbon Dioxide Level 27, Anion Gap 12, Blood Urea Nitrogen 8, Creatinine 0.5L, Estimat Glomerular Filtration Rate > 60, Glucose Level 105, Calcium Level 9.0, Total Bilirubin 1.0, Aspartate Amino Transf (AST/SGOT) 63H, Alanine Aminotransferase (ALT/SGPT) 68H, Alkaline Phosphatase 151H, Total Protein 6.3L, Albumin 2.8L, Globulin 3.5, Albumin/Globulin Ratio 0.8L Current Medications Medications (Trade) Dose Ordered Sig/Evan Route PRN Reason Start Time Stop Time Status Last Admin Dose Admin Acetaminophen (Tylenol) 650 mg Q6H PRN ORAL Mild Pain/Temp > 100.5 06/24/16 00:41 07/24/16 00:40 06/26/16 12:23 Albuterol/ Ipratropium (DuoNeb 0.5-3(2.5)mg/3ml) 3 ml Q4HRT PRN HHN sob 06/26/16 15:30 07/01/16 15:29 Albuterol/ Ipratropium (DuoNeb 0.5-3(2.5)mg/3ml) 3 ml TIDRT INH 06/26/16 19:00 07/01/16 18:59 06/27/16 07:01 Bisacodyl (Dulcolax) 5 mg DAILYPRN PRN ORAL Constipation 06/26/16 17:45 07/26/16 17:44 06/26/16 18:05 Cetylpyridinium Chloride 1 lozenge 1 lozenge EVERY HOUR PRN MILADY For Cough 06/26/16 08:15 07/26/16 08:14 Chlordiazepoxide (Librium) 75 mg DAILY ORAL 06/27/16 09:00 07/04/16 08:59 06/27/16 09:58 Dextrose (Dextrose 50%) STAT PRN IV Hypoglycemia 06/24/16 00:42 07/24/16 00:41 Folic Acid 1 mg/ Magnesium Sulfate 2000 mg/ Multivitamins 10 ml/Sodium Chloride 1,014.2 ml @ 125 mls/ hr Q24H IV 06/24/16 09:00 07/24/16 08:59 06/27/16 11:16 Haloperidol Lactate (Haldol) 5 mg Q6H PRN IVPB Agitation 06/24/16 01:00 07/24/16 00:59 Hydromorphone HCl (Dilaudid) 1 mg Q4H PRN IVP Moderate Pain (Pain Scale 4-6) 06/24/16 00:43 07/01/16 00:42 06/27/16 03:18 Lactulose (Cephulac) 20 gm BID ORAL 06/25/16 18:00 07/25/16 17:59 06/27/16 09:58 Lorazepam (Ativan 2mg/ml 1ml) 2 mg Q2H PRN IV For Anxiety 06/24/16 00:45 07/01/16 00:44 06/24/16 02:10 Lorazepam (Ativan) 1 mg Q4H PRN ORAL For Anxiety 06/24/16 00:44 07/01/16 00:43 Ondansetron HCl (Zofran) 4 mg Q6H PRN IVP Nausea & Vomiting 06/24/16 00:45 07/24/16 00:44 Pantoprazole (Protonix) 40 mg ACBREAKFAST ORAL 06/24/16 06:30 07/24/16 06:29 06/27/16 06:15 Piperacillin Sod/ Tazobactam Sod/ Dextrose (Zosyn/D5W 100ml) 100 ml @ 25 mls/hr EVERY 8 HOURS IVPB 06/26/16 22:00 07/01/16 21:59 06/27/16 06:15 Thiamine HCl/ Sodium Chloride (Vitamin B1/ Sodium Chloride 100ml bag) 101 ml @ 100 mls/hr Q24H IVPB 06/24/16 09:00 07/24/16 08:59 06/26/16 09:37 Florentino EstradaClifton Springs [facility] & ClinicArabella Villarreal NP Jun 27, 2016 12:32
--- NOTE | 2016-06-27 13:47 | Cardiac Electrophysiology PN ---
Assessment/Plan Assessment/Plan 1. Sinus tachycardia due to pneumothorax.HR better after chest tube. EF 60% to 65% with no left ventricular hypertrophy and no pericardial effusion. 2. Atrial fibrillation, transient. Resolved. 3. Pneumothorax status post chest tube placement. S/P removal 4. Status post multiple rib fractures.Likely cause of Pneumo 5. SQ emphysema. 6. Liver cirrhosis 7. ETOH withdrawal DW RN Subjective Subjective Feeling better since the chest tube is out. Objective Last 24 Hour Vital Signs Date Time Temp Pulse Resp B/P Pulse Ox O2 Delivery O2 Flow Rate FiO2 06/27/16 12:55 100 18 98 Nasal Cannula 4.0 36 06/27/16 12:50 102 18 96 Nasal Cannula 4.0 36 06/27/16 12:50 36 06/27/16 12:00 99.1 102 108/65 20 Nasal Cannula 4.0 06/27/16 08:00 97.7 105 18 94/54 100 Nasal Cannula 4.0 06/27/16 07:11 97 18 98 Nasal Cannula 4.0 36 06/27/16 07:01 36 06/27/16 07:01 96 18 95 Nasal Cannula 4.0 36 06/27/16 07:00 Nasal Cannula 4.0 36 06/27/16 07:00 95 Nasal Cannula 4.0 36 06/27/16 04:00 99.1 100 18 92/ 93 Nasal Cannula 4.0 06/27/16 00:00 98.4 97 18 109/60 92 Nasal Cannula 4.0 06/26/16 20:48 95 Nasal Cannula 4.0 36 06/26/16 20:48 Nasal Cannula 4.0 36 06/26/16 20:35 104 18 98 Nasal Cannula 4.0 36 06/26/16 20:30 96 18 95 Nasal Cannula 4.0 36 06/26/16 20:30 95 18 Nasal Cannula 4.0 36 06/26/16 20:00 98.6 93 18 100/66 96 Room Air 06/26/16 16:00 99.1 107 20 110/53 94 Nasal Cannula 2.0 06/26/16 14:53 99.9 06/26/16 14:41 101.7 Intake and Output 06/26/16 06/27/16 19:00 07:00 Intake Total 450 ml 290 ml Output Total 700 ml Balance -250 ml 290 ml Intake Oral 450 ml 240 ml IV Total 50 ml Output Urine Total 700 ml # Voids 2 Laboratory Tests Test 06/27/16 05:20 White Blood Count 15.2 K/UL (4.8-10.8) #H Red Blood Count 3.13 M/UL (4.70-6.10) L Hemoglobin 10.2 G/DL (14.2-18.0) L Hematocrit 32.3 % (42.0-52.0) L Mean Corpuscular Volume 103 FL (80-99) H Mean Corpuscular Hemoglobin 32.6 PG (27.0-31.0) H Mean Corpuscular Hemoglobin Concent 31.5 G/DL (32.0-36.0) L Red Cell Distribution Width 12.5 % (11.6-14.8) Platelet Count 376 K/UL (150-450) Mean Platelet Volume 5.3 FL (6.5-10.1) L Neutrophils (%) (Auto) 81.0 % (45.0-75.0) H Lymphocytes (%) (Auto) 8.9 % (20.0-45.0) L Monocytes (%) (Auto) 8.2 % (1.0-10.0) Eosinophils (%) (Auto) 0.4 % (0.0-3.0) Basophils (%) (Auto) 1.5 % (0.0-2.0) Sodium Level 133 mEQ/L (135-145) L Potassium Level 4.4 mEQ/L (3.4-4.9) Chloride Level 94 mEQ/L (98-107) L Carbon Dioxide Level 27 mEQ/L (20-30) Anion Gap 12 (5-15) Blood Urea Nitrogen 8 mg/dL (7-23) Creatinine 0.5 mg/dL (0.7-1.2) L Estimat Glomerular Filtration Rate > 60 mL/min (>60) Glucose Level 105 mg/dL (74-106) Calcium Level 9.0 mg/dL (8.6-10.2) Total Bilirubin 1.0 mg/dL (0.0-1.2) Aspartate Amino Transf (AST/SGOT) 63 U/L (5-40) H Alanine Aminotransferase (ALT/SGPT) 68 U/L (3-41) H Alkaline Phosphatase 151 U/L (40-129) H Total Protein 6.3 g/dL (6.6-8.7) L Albumin 2.8 g/dL (3.5-5.2) L Globulin 3.5 g/dL Albumin/Globulin Ratio 0.8 (1.0-2.7) L Objective HEAD AND NECK: Shows no JVD. LUNGS: Decreased breath sounds with coarse rhonchi. CARDIOVASCULAR: Regular S1-S2 with no gallop or murmur. ABDOMEN: Soft. EXTREMITIES: Have no pitting edema. IRENA MELLO Jun 27, 2016 13:47
--- NOTE | 2016-06-27 13:51 | Nephrology Progress Note ---
Assessment/Plan Problem List: (1) Spontaneous pneumothorax (2) Liver cirrhosis (3) Seizure (4) Hyponatremia (5) Hypokalemia (6) Alcohol withdrawal (7) ETOH abuse (8) Multiple rib fractures involving four or more ribs Plan f/u pulm recs. Gi following. start PT. Subjective Subjective CT removed yesterday. on NC. Objective Objective Last 24 Hour Vital Signs Date Time Temp Pulse Resp B/P Pulse Ox O2 Delivery O2 Flow Rate FiO2 06/27/16 12:55 100 18 98 Nasal Cannula 4.0 36 06/27/16 12:50 102 18 96 Nasal Cannula 4.0 36 06/27/16 12:50 36 06/27/16 12:00 99.1 102 108/65 20 Nasal Cannula 4.0 06/27/16 08:00 97.7 105 18 94/54 100 Nasal Cannula 4.0 06/27/16 07:11 97 18 98 Nasal Cannula 4.0 36 06/27/16 07:01 36 06/27/16 07:01 96 18 95 Nasal Cannula 4.0 36 06/27/16 07:00 Nasal Cannula 4.0 36 06/27/16 07:00 95 Nasal Cannula 4.0 36 06/27/16 04:00 99.1 100 18 92/ 93 Nasal Cannula 4.0 06/27/16 00:00 98.4 97 18 109/60 92 Nasal Cannula 4.0 06/26/16 20:48 95 Nasal Cannula 4.0 36 06/26/16 20:48 Nasal Cannula 4.0 36 06/26/16 20:35 104 18 98 Nasal Cannula 4.0 36 06/26/16 20:30 96 18 95 Nasal Cannula 4.0 36 06/26/16 20:30 95 18 Nasal Cannula 4.0 36 06/26/16 20:00 98.6 93 18 100/66 96 Room Air 06/26/16 16:00 99.1 107 20 110/53 94 Nasal Cannula 2.0 06/26/16 14:53 99.9 06/26/16 14:41 101.7 Intake and Output 06/26/16 06/27/16 19:00 07:00 Intake Total 450 ml 290 ml Output Total 700 ml Balance -250 ml 290 ml Intake Oral 450 ml 240 ml IV Total 50 ml Output Urine Total 700 ml # Voids 2 Laboratory Tests 06/27/16 05:20: White Blood Count 15.2#H, Red Blood Count 3.13L, Hemoglobin 10.2L, Hematocrit 32.3L, Mean Corpuscular Volume 103H, Mean Corpuscular Hemoglobin 32.6H, Mean Corpuscular Hemoglobin Concent 31.5L, Red Cell Distribution Width 12.5, Platelet Count 376, Mean Platelet Volume 5.3L, Neutrophils (%) (Auto) 81.0H, Lymphocytes (%) (Auto) 8.9L, Monocytes (%) (Auto) 8.2, Eosinophils (%) (Auto) 0.4, Basophils (%) (Auto) 1.5, Sodium Level 133L, Potassium Level 4.4, Chloride Level 94L, Carbon Dioxide Level 27, Anion Gap 12, Blood Urea Nitrogen 8, Creatinine 0.5L, Estimat Glomerular Filtration Rate > 60, Glucose Level 105, Calcium Level 9.0, Total Bilirubin 1.0, Aspartate Amino Transf (AST/SGOT) 63H, Alanine Aminotransferase (ALT/SGPT) 68H, Alkaline Phosphatase 151H, Total Protein 6.3L, Albumin 2.8L, Globulin 3.5, Albumin/Globulin Ratio 0.8L Height (Feet): 5 Height (Inches): 6.00 Weight (Pounds): 140 JUANA VALLE Jun 27, 2016 13:51
[2016-06-27 15:43] VITALS: BP 107/59
[2016-06-27 19:56] VITALS: BP 129/69
[2016-06-28] VITALS: BP 115/47
[2016-06-28 04:00] VITALS: BP 112/70
[2016-06-28] MEDS: DuoNeb 0.5-3(2.5)mg/3ml neb INH SCH ×3 (07:12→20:25)
[2016-06-28 08:23] LABS: BASOPHILS % (AUTO) 0.8 % (0.0-2.0); EOSINOPHILS % (AUTO) 0.5 % (0.0-3.0); LYMPHOCYTES % (AUTO) 10.9 % (20.0-45.0); MEAN CORPUSCULAR HEMOGLOBIN 32.5 PG (27.0-31.0); MEAN CORPUSCULAR HGB CONC 31.3 G/DL (32.0-36.0); MEAN CORPUSCULAR VOLUME 104 FL (80-99); MEAN PLATELET VOLUME 5.3 FL (6.5-10.1); MONOCYTES % (AUTO) 6.3 % (1.0-10.0); NEUTROPHILS % (AUTO) 81.5 % (45.0-75.0); PLATELET COUNT 468 K/UL (150-450); RED BLOOD COUNT 2.96 M/UL (4.70-6.10); RED CELL DISTRIBUTION WIDTH 12.6 % (11.6-14.8); WHITE BLOOD COUNT 17.1 K/UL (4.8-10.8)
[2016-06-28 08:31] VITALS: BP 110/76
[2016-06-28 08:44] LABS: ANION GAP 15 (5-15); CALCIUM 8.9 mg/dL (8.6-10.2); CARBON DIOXIDE 26 mEQ/L (20-30); CHLORIDE 93 mEQ/L (98-107); CREATININE 0.5 mg/dL (0.7-1.2); GLOMERULAR FILTRATION RATE > 60 mL/min (>60); HEMOLYSIS 11; POTASSIUM 4.2 mEQ/L (3.4-4.9); SODIUM 134 mEQ/L (135-145)
[2016-06-28] MEDS: chlordiazePOXIDE 25mg Cap ORAL SCH (09:20)
[2016-06-28] MEDS: Lactulose 20gm/30ml UDC ORAL SCH ×2 (09:20→17:44)
[2016-06-28] MEDS: Folic Acid 1 MG, Magnesium Sulfate 2,000 MG, Multivitamin - 12 Injection 10 ML in NS w/... IV SCH (09:58)
[2016-06-28 11:34] VITALS: BP 104/70
--- NOTE | 2016-06-28 11:46 | Diagnostic Imaging Report ---
Indication: Dyspnea Comparison: 06/27/16 A single view chest radiograph was obtained. Findings: No change demonstrated. No pneumothorax seen. Hazy right basilar opacity in noted. Heart is enlarged. Impression: No change from one day earlier
--- NOTE | 2016-06-28 11:49 | GI Progress Note ---
Assessment/Plan Problems: (1) ETOH abuse ICD Codes: F10.10 - Alcohol abuse, uncomplicated SNOMED: 95069317, 31094412 (2) Multiple rib fractures involving four or more ribs ICD Codes: S22.49XA - Multiple fractures of ribs, unspecified side, initial encounter for closed fracture SNOMED: 0380917 (3) Abnormal LFTs ICD Codes: R79.89 - Other specified abnormal findings of blood chemistry SNOMED: 368598725 (4) Liver cirrhosis ICD Codes: K74.60 - Unspecified cirrhosis of liver SNOMED: 75529670 (5) Alcohol withdrawal ICD Codes: F10.239 - Alcohol dependence with withdrawal, unspecified SNOMED: 424482604 (6) Thrombocytopenia ICD Codes: D69.6 - Thrombocytopenia, unspecified SNOMED: 790464744 Status: progressing Status Narrative Discussed with Dr. Krueger. Assessment/Plan fu abdominal U/S >> Hepatomegaly with fatty infiltration, Cholelithiasis hep panel negative ppi ammonia level >> wnl OB stool negative discriminant function negative >> defer glucosteroid therapy monitor LFTs monitor H&H, transfuse prn PT eval fu labs Subjective Subjective limited Objective Last 24 Hour Vital Signs Date Time Temp Pulse Resp B/P Pulse Ox O2 Delivery O2 Flow Rate FiO2 06/28/16 11:34 98.2 109 18 104/70 95 Room Air 06/28/16 08:31 98.2 80 18 110/76 96 Room Air 06/28/16 07:12 102 21 94 Venturi Mask 8.0 40 06/28/16 07:12 Venturi Mask 8.0 40 06/28/16 07:12 40 06/28/16 07:12 94 Venturi Mask 8.0 40 06/28/16 04:00 98.2 102 19 112/70 92 Venturi Mask 06/28/16 00:00 98.4 103 19 115/47 93 Venturi Mask 06/27/16 20:02 Venturi Mask 8.0 40 06/27/16 19:56 97.9 102 22 129/69 97 Nasal Cannula 2.0 06/27/16 19:10 105 18 91 Venturi Mask 8.0 40 06/27/16 19:00 92 Venturi Mask 8.0 40 06/27/16 19:00 101 18 90 Nasal Cannula 4.0 36 06/27/16 15:43 97.9 107 20 107/59 90 Room Air 06/27/16 12:55 100 18 98 Nasal Cannula 4.0 36 06/27/16 12:50 102 18 96 Nasal Cannula 4.0 36 06/27/16 12:50 36 06/27/16 12:00 99.1 102 108/65 20 Nasal Cannula 4.0 Intake and Output 06/27/16 06/28/16 19:00 07:00 Intake Total 1000 ml 220 ml Output Total 600 ml 601 ml Balance 400 ml -381 ml Intake Oral 150 ml 120 ml IV Total 850 ml 100 ml Output Urine Total 600 ml 601 ml # Bowel Movements 1 Laboratory Tests Test 06/27/16 16:15 06/28/16 07:10 Stool Occult Blood Negative (NEGATIVE) White Blood Count 17.1 K/UL (4.8-10.8) H Red Blood Count 2.96 M/UL (4.70-6.10) L Hemoglobin 9.6 G/DL (14.2-18.0) L Hematocrit 30.7 % (42.0-52.0) L Mean Corpuscular Volume 104 FL (80-99) H Mean Corpuscular Hemoglobin 32.5 PG (27.0-31.0) H Mean Corpuscular Hemoglobin Concent 31.3 G/DL (32.0-36.0) L Red Cell Distribution Width 12.6 % (11.6-14.8) Platelet Count 468 K/UL (150-450) H Mean Platelet Volume 5.3 FL (6.5-10.1) L Neutrophils (%) (Auto) 81.5 % (45.0-75.0) H Lymphocytes (%) (Auto) 10.9 % (20.0-45.0) L Monocytes (%) (Auto) 6.3 % (1.0-10.0) Eosinophils (%) (Auto) 0.5 % (0.0-3.0) Basophils (%) (Auto) 0.8 % (0.0-2.0) Sodium Level 134 mEQ/L (135-145) L Potassium Level 4.2 mEQ/L (3.4-4.9) Chloride Level 93 mEQ/L (98-107) L Carbon Dioxide Level 26 mEQ/L (20-30) Anion Gap 15 (5-15) Blood Urea Nitrogen 7 mg/dL (7-23) Creatinine 0.5 mg/dL (0.7-1.2) L Estimat Glomerular Filtration Rate > 60 mL/min (>60) Glucose Level 116 mg/dL (74-106) H Calcium Level 8.9 mg/dL (8.6-10.2) Height (Feet): 5 Height (Inches): 6.00 Weight (Pounds): 140 General Appearance: alert Cardiovascular: tachycardia Respiratory/Chest: normal breath sounds Abdominal Exam: normal bowel sounds, non tender, soft Objective Procedure: US ABD Complete Indication:Abdominal pain Findings: The demonstrated part of the pancreas, aorta and IVC, both kidneys, spleen appear unremarkable. Aorta and pancreas are poorly seen. There are gallstones. Sonographic Vanegas's is negative per technologist. The liver is enlarged and echogenic. CBD is 4 mm. There is no biliary ductal dilatation identified. Doppler evaluation of the main portal vein shows patency. There is no ascites. No hydronephrosis seen. Impression: Hepatomegaly with fatty infiltration. Cholelithiasis Pancreas and aorta obscured Deborah Cordero N.P. Jun 28, 2016 11:49
--- NOTE | 2016-06-28 12:18 | General Progress Note ---
Progress Note Progress Note Afebrile. Awake, alert. Mild pain in rt chest, denies SOB. The CXR shows a rt basilar opacity, unchanged from previous study. WBC is rising to 17.1. There is nothing to add from a surgical standpoint. Paddy Mauro MD Jun 28, 2016 12:18
--- NOTE | 2016-06-28 12:20 | General Progress Note ---
Assessment/Plan Assessment/Plan IMPRESSION: 1. Elevated D-dimer concerning for liver disease given the patient with thrombocytopenia as well as elevated AST and ALT. 2/2 liver disease 2. Spontaneous pneumothorax, being evaluated by pulm 3. Thrombocytopenia likely secondary to liver cirrhosis. Now improved 4. Thrombocytopenia, rule out infection 5. Anemia secondary to chronic disease 6. ETOH abuse 7. Chest pain, rule out acute coronary syndrome. RECOMMENDATIONS: 1. Monitor counts. 2. Transfuse as needed. 3. Hgb goal is >7.0 4. DVT prophylaxis with heparin sq 5. GI prophylaxis with PPI 6. Alcohol cessation recommended, via AA potentially 7. staff. Thank you, Cirilo Mueller MD Subjective Constitutional: Reports: no symptoms HEENT: Reports: no symptoms Cardiovascular: Reports: no symptoms Respiratory: Reports: no symptoms Gastrointestinal/Abdominal: Reports: poor appetite Genitourinary: Reports: no symptoms Neurologic/Psychiatric: Reports: no symptoms Endocrine: Reports: no symptoms Hematologic/Lymphatic: Reports: anemia Allergies: Coded Allergies: No Known Allergies (Unverified , 06/21/16) Subjective Stable, no events, not bleeding overnight Objective Last 24 Hour Vital Signs Date Time Temp Pulse Resp B/P Pulse Ox O2 Delivery O2 Flow Rate FiO2 06/28/16 11:34 98.2 109 18 104/70 95 Room Air 06/28/16 08:31 98.2 80 18 110/76 96 Room Air 06/28/16 07:12 102 21 94 Venturi Mask 8.0 40 06/28/16 07:12 Venturi Mask 8.0 40 06/28/16 07:12 40 06/28/16 07:12 94 Venturi Mask 8.0 40 06/28/16 04:00 98.2 102 19 112/70 92 Venturi Mask 06/28/16 00:00 98.4 103 19 115/47 93 Venturi Mask 06/27/16 20:02 Venturi Mask 8.0 40 06/27/16 19:56 97.9 102 22 129/69 97 Nasal Cannula 2.0 06/27/16 19:10 105 18 91 Venturi Mask 8.0 40 06/27/16 19:00 92 Venturi Mask 8.0 40 06/27/16 19:00 101 18 90 Nasal Cannula 4.0 36 06/27/16 15:43 97.9 107 20 107/59 90 Room Air 06/27/16 12:55 100 18 98 Nasal Cannula 4.0 36 06/27/16 12:50 102 18 96 Nasal Cannula 4.0 36 06/27/16 12:50 36 Intake and Output 06/27/16 06/28/16 19:00 07:00 Intake Total 1000 ml 220 ml Output Total 600 ml 601 ml Balance 400 ml -381 ml Intake Oral 150 ml 120 ml IV Total 850 ml 100 ml Output Urine Total 600 ml 601 ml # Bowel Movements 1 Laboratory Tests 06/27/16 16:15: Stool Occult Blood Negative 06/28/16 07:10: White Blood Count 17.1H, Red Blood Count 2.96L, Hemoglobin 9.6L, Hematocrit 30.7L, Mean Corpuscular Volume 104H, Mean Corpuscular Hemoglobin 32.5H, Mean Corpuscular Hemoglobin Concent 31.3L, Red Cell Distribution Width 12.6, Platelet Count 468H, Mean Platelet Volume 5.3L, Neutrophils (%) (Auto) 81.5H, Lymphocytes (%) (Auto) 10.9L, Monocytes (%) (Auto) 6.3, Eosinophils (%) (Auto) 0.5, Basophils (%) (Auto) 0.8, Sodium Level 134L, Potassium Level 4.2, Chloride Level 93L, Carbon Dioxide Level 26, Anion Gap 15, Blood Urea Nitrogen 7, Creatinine 0.5L, Estimat Glomerular Filtration Rate > 60, Glucose Level 116H, Calcium Level 8.9 Height (Feet): 5 Height (Inches): 6.00 Weight (Pounds): 140 General Appearance: no apparent distress EENT: TMs normal Neck: supple Cardiovascular: regular rhythm Respiratory/Chest: no respiratory distress Abdomen: no mass Extremities: non-tender Edema: 1+ Leg (L), 1+ Leg (R) Edema: mild edema Neurologic: no motor/sensory deficits Skin: warm/dry Cirilo Mueller Jun 28, 2016 12:20
--- NOTE | 2016-06-28 13:31 | GI Progress Note ---
Assessment/Plan Problems: (1) ETOH abuse ICD Codes: F10.10 - Alcohol abuse, uncomplicated SNOMED: 53264514, 40811289 (2) Multiple rib fractures involving four or more ribs ICD Codes: S22.49XA - Multiple fractures of ribs, unspecified side, initial encounter for closed fracture SNOMED: 7596913 (3) Abnormal LFTs ICD Codes: R79.89 - Other specified abnormal findings of blood chemistry SNOMED: 394902378 (4) Liver cirrhosis ICD Codes: K74.60 - Unspecified cirrhosis of liver SNOMED: 74102616 (5) Alcohol withdrawal ICD Codes: F10.239 - Alcohol dependence with withdrawal, unspecified SNOMED: 205616265 (6) Thrombocytopenia ICD Codes: D69.6 - Thrombocytopenia, unspecified SNOMED: 011711295 Status: progressing Status Narrative Discussed with Dr. Krueger. Assessment/Plan abdominal U/S >> Hepatomegaly with fatty infiltration, Cholelithiasis hep panel negative ppi ammonia level >> wnl OB stool uncollected discriminant function negative >> defer glucosteroid therapy monitor LFTs monitor H&H, transfuse prn PT eval fu labs Subjective Subjective limited Objective Last 24 Hour Vital Signs Date Time Temp Pulse Resp B/P Pulse Ox O2 Delivery O2 Flow Rate FiO2 06/28/16 11:34 98.2 109 18 104/70 95 Room Air 06/28/16 08:31 98.2 80 18 110/76 96 Room Air 06/28/16 07:12 102 21 94 Venturi Mask 8.0 40 06/28/16 07:12 Venturi Mask 8.0 40 06/28/16 07:12 40 06/28/16 07:12 94 Venturi Mask 8.0 40 06/28/16 04:00 98.2 102 19 112/70 92 Venturi Mask 06/28/16 00:00 98.4 103 19 115/47 93 Venturi Mask 06/27/16 20:02 Venturi Mask 8.0 40 06/27/16 19:56 97.9 102 22 129/69 97 Nasal Cannula 2.0 06/27/16 19:10 105 18 91 Venturi Mask 8.0 40 06/27/16 19:00 92 Venturi Mask 8.0 40 06/27/16 19:00 101 18 90 Nasal Cannula 4.0 36 06/27/16 15:43 97.9 107 20 107/59 90 Room Air Intake and Output 06/27/16 06/28/16 19:00 07:00 Intake Total 1000 ml 220 ml Output Total 600 ml 601 ml Balance 400 ml -381 ml Intake Oral 150 ml 120 ml IV Total 850 ml 100 ml Output Urine Total 600 ml 601 ml # Bowel Movements 1 Laboratory Tests Test 06/27/16 16:15 06/28/16 07:10 Stool Occult Blood Negative (NEGATIVE) White Blood Count 17.1 K/UL (4.8-10.8) H Red Blood Count 2.96 M/UL (4.70-6.10) L Hemoglobin 9.6 G/DL (14.2-18.0) L Hematocrit 30.7 % (42.0-52.0) L Mean Corpuscular Volume 104 FL (80-99) H Mean Corpuscular Hemoglobin 32.5 PG (27.0-31.0) H Mean Corpuscular Hemoglobin Concent 31.3 G/DL (32.0-36.0) L Red Cell Distribution Width 12.6 % (11.6-14.8) Platelet Count 468 K/UL (150-450) H Mean Platelet Volume 5.3 FL (6.5-10.1) L Neutrophils (%) (Auto) 81.5 % (45.0-75.0) H Lymphocytes (%) (Auto) 10.9 % (20.0-45.0) L Monocytes (%) (Auto) 6.3 % (1.0-10.0) Eosinophils (%) (Auto) 0.5 % (0.0-3.0) Basophils (%) (Auto) 0.8 % (0.0-2.0) Sodium Level 134 mEQ/L (135-145) L Potassium Level 4.2 mEQ/L (3.4-4.9) Chloride Level 93 mEQ/L (98-107) L Carbon Dioxide Level 26 mEQ/L (20-30) Anion Gap 15 (5-15) Blood Urea Nitrogen 7 mg/dL (7-23) Creatinine 0.5 mg/dL (0.7-1.2) L Estimat Glomerular Filtration Rate > 60 mL/min (>60) Glucose Level 116 mg/dL (74-106) H Calcium Level 8.9 mg/dL (8.6-10.2) Height (Feet): 5 Height (Inches): 6.00 Weight (Pounds): 140 General Appearance: no apparent distress, alert Cardiovascular: normal rate Respiratory/Chest: no respiratory distress Abdominal Exam: normal bowel sounds, non tender, soft Objective Procedure: US ABD Complete Indication:Abdominal pain Findings: The demonstrated part of the pancreas, aorta and IVC, both kidneys, spleen appear unremarkable. Aorta and pancreas are poorly seen. There are gallstones. Sonographic Vanegas's is negative per technologist. The liver is enlarged and echogenic. CBD is 4 mm. There is no biliary ductal dilatation identified. Doppler evaluation of the main portal vein shows patency. There is no ascites. No hydronephrosis seen. Impression: Hepatomegaly with fatty infiltration. Cholelithiasis Pancreas and aorta obscured Deborah Cordero N.P. Jun 28, 2016 13:31
[2016-06-28 14:45] LABS: ABG ALLEN TEST POSITIVE; ABG PCO2 35.7 mmHg (35.0-45.0)
--- NOTE | 2016-06-28 15:04 | Nephrology Progress Note ---
Assessment/Plan Problem List: (1) Spontaneous pneumothorax (2) Abnormal LFTs (3) Multiple rib fractures involving four or more ribs (4) Thrombocytopenia (5) D-dimer, elevated (6) Leucocytosis Plan Pulmo f/u GI f/u Hematology F/U Hyponatremia - continue IVF Monitor counts Continue abx Cardio f/u Monitor neuro status AM labs Subjective Constitutional: Denies: chills, diaphoresis, fever, malaise, no symptoms, other , weakness HEENT: Denies: blurred vision, double vision, ear discharge, ear pain, eye pain , mouth pain, mouth swelling, no symptoms, nose congestion, nose pain, other, tearing, throat pain, throat swelling Genitourinary: Denies: burning, discharge, flank pain, frequency, hematuria, incontinence, no symptoms, other, pain, urgency Neurologic/Psychiatric: Denies: anxiety, depressed, emotional problems, headache, no symptoms, numbness, other, paresthesia, pre-existing deficit, seizure, tingling, tremors, weakness Subjective In bed,in no distress, denies discomfort, Objective Objective Last 24 Hour Vital Signs Date Time Temp Pulse Resp B/P Pulse Ox O2 Delivery O2 Flow Rate FiO2 06/28/16 11:34 98.2 109 18 104/70 95 Room Air 06/28/16 08:31 98.2 80 18 110/76 96 Room Air 06/28/16 07:12 102 21 94 Venturi Mask 8.0 40 06/28/16 07:12 Venturi Mask 8.0 40 06/28/16 07:12 40 06/28/16 07:12 94 Venturi Mask 8.0 40 06/28/16 04:00 98.2 102 19 112/70 92 Venturi Mask 06/28/16 00:00 98.4 103 19 115/47 93 Venturi Mask 06/27/16 20:02 Venturi Mask 8.0 40 06/27/16 19:56 97.9 102 22 129/69 97 Nasal Cannula 2.0 06/27/16 19:10 105 18 91 Venturi Mask 8.0 40 06/27/16 19:00 92 Venturi Mask 8.0 40 06/27/16 19:00 101 18 90 Nasal Cannula 4.0 36 06/27/16 15:43 97.9 107 20 107/59 90 Room Air Intake and Output 06/27/16 06/28/16 19:00 07:00 Intake Total 1000 ml 220 ml Output Total 600 ml 601 ml Balance 400 ml -381 ml Intake Oral 150 ml 120 ml IV Total 850 ml 100 ml Output Urine Total 600 ml 601 ml # Bowel Movements 1 Laboratory Tests 06/27/16 16:15: Stool Occult Blood Negative 06/28/16 04:00: Arterial Blood pH 7.471H, Arterial Blood Partial Pressure CO2 35.7, Arterial Blood Partial Pressure O2 54.7L, Arterial Blood HCO3 25.5, Arterial Blood Oxygen Saturation 89.7L, Arterial Blood Base Excess 2.0, Anatloy Test Positive 06/28/16 07:10: White Blood Count 17.1H, Red Blood Count 2.96L, Hemoglobin 9.6L, Hematocrit 30.7L, Mean Corpuscular Volume 104H, Mean Corpuscular Hemoglobin 32.5H, Mean Corpuscular Hemoglobin Concent 31.3L, Red Cell Distribution Width 12.6, Platelet Count 468H, Mean Platelet Volume 5.3L, Neutrophils (%) (Auto) 81.5H, Lymphocytes (%) (Auto) 10.9L, Monocytes (%) (Auto) 6.3, Eosinophils (%) (Auto) 0.5, Basophils (%) (Auto) 0.8, Sodium Level 134L, Potassium Level 4.2, Chloride Level 93L, Carbon Dioxide Level 26, Anion Gap 15, Blood Urea Nitrogen 7, Creatinine 0.5L, Estimat Glomerular Filtration Rate > 60, Glucose Level 116H, Calcium Level 8.9 Height (Feet): 5 Height (Inches): 6.00 Weight (Pounds): 140 General Appearance: alert EENT: normal ENT inspection Neck: normal alignment Cardiovascular: normal rate, regular rhythm, no JVD Respiratory/Chest: lungs clear, normal breath sounds, no respiratory distress Abdomen: non tender, soft, no organomegaly Extremities: normal range of motion Neurologic: alert, oriented x 3, responsive, normal mood/affect Pilar Newman N.P. Jun 28, 2016 15:04
--- NOTE | 2016-06-28 19:04 | Pulmonology Progress Note ---
Assessment/Plan Problems: (1) Spontaneous pneumothorax Assessment & Plan: S/P CT, now removed (2) Subcutaneous emphysema Assessment & Plan: IMPROVED (3) Multiple rib fractures involving four or more ribs Assessment & Plan: Likely chronic (2/2 prior injury), no e/o flail chest (4) Pneumonia (5) Thrombocytopenia Assessment & Plan: ? 2/2 underlying liver disease/cirrhosis RESOLVED (6) Abnormal LFTs Assessment & Plan: 2/2 cirrhosis (7) Leucocytosis (8) D-dimer, elevated (9) Smokes < 1 pack of cigarettes per day (10) ETOH abuse (11) Liver cirrhosis Assessment/Plan -Optimize pulmonary hygiene/mobilize as tolerated -Titrate down O2 -CT chest -Check BNP and repeat D-dimer -Continue Abx (started 06/26), F/U Cx's -TID and PRN DUOnebs -DVT Px: Hep SQ -F/U heme and GI recs -MVI/thiamine/folate Subjective Allergies: Coded Allergies: No Known Allergies (Unverified , 06/21/16) Subjective AFVSS x ST, 2-3L O2 + SOB, + cough, no F/C, no CP Objective Last 24 Hour Vital Signs Date Time Temp Pulse Resp B/P Pulse Ox O2 Delivery O2 Flow Rate FiO2 06/28/16 14:05 106 20 97 Nasal Cannula 3.0 32 06/28/16 13:50 32 06/28/16 13:50 102 18 97 Nasal Cannula 3.0 32 06/28/16 11:34 98.2 109 18 104/70 95 Room Air 06/28/16 08:31 98.2 80 18 110/76 96 Room Air 06/28/16 07:27 110 21 95 Nasal Cannula 3.0 32 06/28/16 07:12 102 21 94 Venturi Mask 8.0 40 06/28/16 07:12 Venturi Mask 8.0 40 06/28/16 07:12 40 06/28/16 07:12 94 Venturi Mask 8.0 40 06/28/16 04:00 98.2 102 19 112/70 92 Venturi Mask 06/28/16 00:00 98.4 103 19 115/47 93 Venturi Mask 06/27/16 20:02 Venturi Mask 8.0 40 06/27/16 19:56 97.9 102 22 129/69 97 Nasal Cannula 2.0 06/27/16 19:10 105 18 91 Venturi Mask 8.0 40 06/27/16 19:00 92 Venturi Mask 8.0 40 06/27/16 19:00 101 18 90 Nasal Cannula 4.0 36 Intake and Output 06/27/16 06/28/16 19:00 07:00 Intake Total 1000 ml 220 ml Output Total 600 ml 601 ml Balance 400 ml -381 ml Intake Oral 150 ml 120 ml IV Total 850 ml 100 ml Output Urine Total 600 ml 601 ml # Bowel Movements 1 General Appearance: WD/WN, no acute distress HEENT: normocephalic, atraumatic, mucous membranes moist Respiratory/Chest: chest wall non-tender, rhonchi - scattered worse @ R base Cardiovascular: normal peripheral pulses, normal rate, regular rhythm Abdomen: normal bowel sounds, soft, non tender, no organomegaly, non distended Extremities: no cyanosis, no clubbing, no edema Microbiology Date/Time Source Procedure Growth Status 06/27/16 12:05 Sputum Expectorated Gram Stain - Final Resulted 06/27/16 12:05 Sputum Expectorated Sputum Culture Pending Resulted Laboratory Tests 06/28/16 04:00: Arterial Blood pH 7.471H, Arterial Blood Partial Pressure CO2 35.7, Arterial Blood Partial Pressure O2 54.7L, Arterial Blood HCO3 25.5, Arterial Blood Oxygen Saturation 89.7L, Arterial Blood Base Excess 2.0, Anatoly Test Positive 06/28/16 07:10: White Blood Count 17.1H, Red Blood Count 2.96L, Hemoglobin 9.6L, Hematocrit 30.7L, Mean Corpuscular Volume 104H, Mean Corpuscular Hemoglobin 32.5H, Mean Corpuscular Hemoglobin Concent 31.3L, Red Cell Distribution Width 12.6, Platelet Count 468H, Mean Platelet Volume 5.3L, Neutrophils (%) (Auto) 81.5H, Lymphocytes (%) (Auto) 10.9L, Monocytes (%) (Auto) 6.3, Eosinophils (%) (Auto) 0.5, Basophils (%) (Auto) 0.8, Sodium Level 134L, Potassium Level 4.2, Chloride Level 93L, Carbon Dioxide Level 26, Anion Gap 15, Blood Urea Nitrogen 7, Creatinine 0.5L, Estimat Glomerular Filtration Rate > 60, Glucose Level 116H, Calcium Level 8.9 Current Medications Medications (Trade) Dose Ordered Sig/Evan Route PRN Reason Start Time Stop Time Status Last Admin Dose Admin Acetaminophen (Tylenol) 650 mg Q6H PRN ORAL Mild Pain/Temp > 100.5 06/24/16 00:41 07/24/16 00:40 06/26/16 12:23 Albuterol/ Ipratropium (DuoNeb 0.5-3(2.5)mg/3ml) 3 ml Q4HRT PRN HHN sob 06/26/16 15:30 07/01/16 15:29 Albuterol/ Ipratropium (DuoNeb 0.5-3(2.5)mg/3ml) 3 ml TIDRT INH 06/26/16 19:00 07/01/16 18:59 06/28/16 13:50 Bisacodyl (Dulcolax) 5 mg DAILYPRN PRN ORAL Constipation 06/26/16 17:45 07/26/16 17:44 06/26/16 18:05 Cetylpyridinium Chloride 1 lozenge 1 lozenge EVERY HOUR PRN MILADY For Cough 06/26/16 08:15 07/26/16 08:14 Chlordiazepoxide 50 mg 50 mg DAILY ORAL 06/28/16 09:00 07/05/16 08:59 06/28/16 09:20 Dextrose (Dextrose 50%) STAT PRN IV Hypoglycemia 06/24/16 00:42 07/24/16 00:41 Folic Acid/ Magnesium Sulfate/ Multivitamins/ Sodium Chloride (Folvite/ Magnesium Sulfate/ M.v.i.-12/NS w/ KCl 20mEq) 1,014.2 ml @ 125 mls/ hr Q24H IV 06/24/16 09:00 07/24/16 08:59 06/28/16 09:58 Haloperidol Lactate (Haldol) 5 mg Q6H PRN IVPB Agitation 06/24/16 01:00 07/24/16 00:59 Hydromorphone HCl (Dilaudid) 1 mg Q4H PRN IVP Moderate Pain (Pain Scale 4-6) 06/24/16 00:43 07/01/16 00:42 06/27/16 16:45 Lactulose (Cephulac) 20 gm BID ORAL 06/25/16 18:00 07/25/16 17:59 06/28/16 17:44 Lorazepam (Ativan 2mg/ml 1ml) 2 mg Q2H PRN IV For Anxiety 06/24/16 00:45 07/01/16 00:44 06/24/16 02:10 Lorazepam (Ativan) 1 mg Q4H PRN ORAL For Anxiety 06/24/16 00:44 07/01/16 00:43 Ondansetron HCl (Zofran) 4 mg Q6H PRN IVP Nausea & Vomiting 06/24/16 00:45 07/24/16 00:44 Pantoprazole (Protonix) 40 mg ACBREAKFAST ORAL 06/24/16 06:30 07/24/16 06:29 06/28/16 06:28 Piperacillin Sod/ Tazobactam Sod/ Dextrose (Zosyn/D5W 100ml) 100 ml @ 25 mls/hr EVERY 8 HOURS IVPB 06/26/16 22:00 07/01/16 21:59 06/28/16 14:54 Thiamine HCl/ Sodium Chloride (Vitamin B1/ Sodium Chloride 100ml bag) 101 ml @ 100 mls/hr Q24H IVPB 06/28/16 12:30 07/28/16 12:29 06/28/16 13:25 EUGENIO RODRÍGUEZ M.D. Jun 28, 2016 19:04
[2016-06-28] MEDS: HYDROmorphone 1mg/ml Carpuject IVP PRN (20:16)
[2016-06-28] MEDS: Heparin 5000 units/ml inj SUBQ SCH (20:17)
[2016-06-28 20:30] VITALS: BP 100/61
[2016-06-29] VITALS (7 sets, daily range): BP systolic 95–116; BP diastolic 59–78
[2016-06-29 07:33] LABS: EOSINOPHILS % (AUTO) 0.5 % (0.0-3.0); LYMPHOCYTES % (AUTO) 10.3 % (20.0-45.0); MEAN CORPUSCULAR HEMOGLOBIN 32.5 PG (27.0-31.0); MEAN CORPUSCULAR HGB CONC 31.3 G/DL (32.0-36.0); MEAN CORPUSCULAR VOLUME 104 FL (80-99); MEAN PLATELET VOLUME 5.4 FL (6.5-10.1); MONOCYTES % (AUTO) 5.8 % (1.0-10.0); NEUTROPHILS % (AUTO) 82.4 % (45.0-75.0); PLATELET COUNT 542 K/UL (150-450); RED BLOOD COUNT 2.96 M/UL (4.70-6.10); RED CELL DISTRIBUTION WIDTH 12.5 % (11.6-14.8); WHITE BLOOD COUNT 13.6 K/UL (4.8-10.8)
[2016-06-29 08:13] LABS: ALANINE AMINOTRANSFERASE 94 U/L (3-41); ALBUMIN/GLOBULIN RATIO 0.6 (1.0-2.7); ANION GAP 15 (5-15); ASPARTATE AMINO TRANSFERASE 96 U/L (5-40); CALCIUM 9.4 mg/dL (8.6-10.2); CARBON DIOXIDE 27 mEQ/L (20-30); CHLORIDE 95 mEQ/L (98-107); CREATININE 0.6 mg/dL (0.7-1.2); GLOMERULAR FILTRATION RATE > 60 mL/min (>60); HEMOLYSIS 5; POTASSIUM 4.1 mEQ/L (3.4-4.9); SODIUM 137 mEQ/L (135-145); TOTAL PROTEIN 6.6 g/dL (6.6-8.7)
[2016-06-29] MEDS: DuoNeb 0.5-3(2.5)mg/3ml neb INH SCH ×3 (08:51→19:28)
--- NOTE | 2016-06-29 09:34 | Pulmonology Progress Note ---
Assessment/Plan Problems: (1) Spontaneous pneumothorax Assessment & Plan: S/P CT, now removed (2) Subcutaneous emphysema Assessment & Plan: IMPROVED (3) Multiple rib fractures involving four or more ribs Assessment & Plan: Likely chronic (2/2 prior injury), no e/o flail chest (4) Pneumonia (5) Thrombocytopenia Assessment & Plan: ? 2/2 underlying liver disease/cirrhosis RESOLVED (6) Abnormal LFTs Assessment & Plan: 2/2 cirrhosis (7) Leucocytosis (8) D-dimer, elevated (9) Smokes < 1 pack of cigarettes per day (10) ETOH abuse (11) Liver cirrhosis Assessment/Plan -Optimize pulmonary hygiene/mobilize as tolerated -Titrate down O2 -CT chest (non-contrast) -Check Duplex given increasing D-dimer, if negative will get VQ -Continue Abx (started 06/26), F/U Cx's - repeat FFWU sent 06/28/09 -TID and PRN DUOnebs -DVT Px: Hep SQ -F/U heme and GI recs -MVI/thiamine/folate Subjective Allergies: Coded Allergies: No Known Allergies (Unverified , 06/21/16) Subjective Tm 101.7, WCt better No CP/SOB/F/C, O2 needs stable Objective Last 24 Hour Vital Signs Date Time Temp Pulse Resp B/P Pulse Ox O2 Delivery O2 Flow Rate FiO2 06/29/16 08:50 96 Venturi Mask 8.0 40 06/29/16 08:50 85 18 99 Venturi Mask 8.0 40 06/29/16 08:50 Venturi Mask 8.0 40 06/29/16 08:50 95 18 98 Venturi Mask 8.0 40 06/29/16 08:00 98.6 95 06/29/16 08:00 98.6 95 20 101/62 96 Room Air 06/29/16 05:28 98.2 06/29/16 04:00 101.7 102 18 110/78 92 Room Air 06/29/16 00:00 99.0 70 19 95/59 93 Venturi Mask 06/28/16 20:30 98.8 103 18 100/61 94 Venturi Mask 06/28/16 19:45 108 20 98 Venturi Mask 8.0 40 06/28/16 19:30 104 20 87 Venturi Mask 8.0 40 06/28/16 19:30 Venturi Mask 8.0 40 06/28/16 19:30 96 Venturi Mask 8.0 40 06/28/16 14:05 106 20 97 Nasal Cannula 3.0 32 06/28/16 13:50 32 06/28/16 13:50 102 18 97 Nasal Cannula 3.0 32 06/28/16 11:34 98.2 109 18 104/70 95 Room Air Intake and Output 06/28/16 06/29/16 19:00 07:00 Intake Total 901 ml 605 ml Output Total 350 ml 650 ml Balance 551 ml -45 ml Intake Oral 300 ml 480 ml IV Total 601 ml 125 ml Output Urine Total 350 ml 650 ml # Voids 1 # Bowel Movements 2 2 General Appearance: no acute distress, cachetic HEENT: normocephalic, atraumatic, anicteric, mucous membranes moist Respiratory/Chest: chest wall non-tender, lungs clear, normal breath sounds, no respiratory distress Cardiovascular: normal peripheral pulses, normal rate, regular rhythm Abdomen: normal bowel sounds, soft, non tender, no organomegaly, non distended , no mass Extremities: no cyanosis, no clubbing, no edema Microbiology Date/Time Source Procedure Growth Status 06/27/16 12:05 Sputum Expectorated Gram Stain - Final Complete 06/27/16 12:05 Sputum Culture - Final Jessenia Albicans Usual Respiratory Clarissa Complete Laboratory Tests 06/28/16 20:10: D-Dimer 5712H, Pro-B-Type Natriuretic Peptide 43 06/29/16 06:05: White Blood Count 13.6H, Red Blood Count 2.96L, Hemoglobin 9.6L, Hematocrit 30.6L, Mean Corpuscular Volume 104H, Mean Corpuscular Hemoglobin 32.5H, Mean Corpuscular Hemoglobin Concent 31.3L, Red Cell Distribution Width 12.5, Platelet Count 542H, Mean Platelet Volume 5.4L, Neutrophils (%) (Auto) 82.4H, Lymphocytes (%) (Auto) 10.3L, Monocytes (%) (Auto) 5.8, Eosinophils (%) (Auto) 0.5, Basophils (%) (Auto) 1.0, Sodium Level 137, Potassium Level 4.1, Chloride Level 95L, Carbon Dioxide Level 27, Anion Gap 15, Blood Urea Nitrogen 9, Creatinine 0.6L, Estimat Glomerular Filtration Rate > 60, Glucose Level 102, Calcium Level 9.4, Total Bilirubin 0.8, Aspartate Amino Transf (AST/SGOT) 96H, Alanine Aminotransferase (ALT/SGPT) 94H, Alkaline Phosphatase 205H, Total Protein 6.6, Albumin 2.7L, Globulin 3.9, Albumin/Globulin Ratio 0.6L Current Medications Medications (Trade) Dose Ordered Sig/Evan Route PRN Reason Start Time Stop Time Status Last Admin Dose Admin Acetaminophen (Tylenol) 650 mg Q6H PRN ORAL Mild Pain/Temp > 100.5 06/24/16 00:41 07/24/16 00:40 06/29/16 04:29 Albuterol/ Ipratropium (DuoNeb 0.5-3(2.5)mg/3ml) 3 ml Q4HRT PRN HHN sob 06/26/16 15:30 07/01/16 15:29 Albuterol/ Ipratropium (DuoNeb 0.5-3(2.5)mg/3ml) 3 ml TIDRT INH 06/26/16 19:00 07/01/16 18:59 06/29/16 08:51 Bisacodyl (Dulcolax) 5 mg DAILYPRN PRN ORAL Constipation 06/26/16 17:45 07/26/16 17:44 06/26/16 18:05 Cetylpyridinium Chloride 1 lozenge 1 lozenge EVERY HOUR PRN MILADY For Cough 06/26/16 08:15 07/26/16 08:14 Chlordiazepoxide 50 mg 50 mg DAILY ORAL 06/28/16 09:00 07/05/16 08:59 06/28/16 09:20 Dextrose (Dextrose 50%) STAT PRN IV Hypoglycemia 06/24/16 00:42 07/24/16 00:41 Folic Acid/ Magnesium Sulfate/ Multivitamins/ Sodium Chloride (Folvite/ Magnesium Sulfate/ M.v.i.-12/NS w/ KCl 20mEq) 1,014.2 ml @ 125 mls/ hr Q24H IV 06/24/16 09:00 07/24/16 08:59 06/28/16 09:58 Haloperidol Lactate (Haldol) 5 mg Q6H PRN IVPB Agitation 06/24/16 01:00 07/24/16 00:59 Heparin Sodium (Porcine) (Heparin 5000 units/ml) 5,000 units EVERY 12 HOURS SUBQ 06/28/16 21:00 07/28/16 20:59 06/28/16 20:17 Hydromorphone HCl (Dilaudid) 1 mg Q4H PRN IVP Moderate Pain (Pain Scale 4-6) 06/24/16 00:43 07/01/16 00:42 06/28/16 20:16 Lactulose (Cephulac) 20 gm BID ORAL 06/25/16 18:00 07/25/16 17:59 06/28/16 17:44 Lorazepam (Ativan 2mg/ml 1ml) 2 mg Q2H PRN IV For Anxiety 06/24/16 00:45 07/01/16 00:44 06/24/16 02:10 Lorazepam (Ativan) 1 mg Q4H PRN ORAL For Anxiety 06/24/16 00:44 07/01/16 00:43 Ondansetron HCl (Zofran) 4 mg Q6H PRN IVP Nausea & Vomiting 06/24/16 00:45 07/24/16 00:44 Pantoprazole (Protonix) 40 mg ACBREAKFAST ORAL 06/24/16 06:30 07/24/16 06:29 06/29/16 06:15 Piperacillin Sod/ Tazobactam Sod/ Dextrose (Zosyn/D5W 100ml) 100 ml @ 25 mls/hr EVERY 8 HOURS IVPB 06/26/16 22:00 07/01/16 21:59 06/29/16 05:26 Thiamine HCl/ Sodium Chloride (Vitamin B1/ Sodium Chloride 100ml bag) 101 ml @ 100 mls/hr Q24H IVPB 06/28/16 12:30 07/28/16 12:29 06/28/16 13:25 EUGENIO RODRÍGUEZ M.D. Jun 29, 2016 09:34
--- NOTE | 2016-06-29 09:39 | Diagnostic Imaging Report ---
Indications: Shortness of breath, pneumothorax, pneumonia, thrombocytopenia, rib fractures Technique: Continuous helical CT imaging of the thorax and upper abdomen was performed with automatic exposure control on a Siemens sensation [address] scanner. Axial, coronal, sagittal images were reconstructed at 5 mm slice thickness. No IV contrast was administered secondary to requesting physician's order, despite no contraindications listed in either submitted clinical data or tech note.. CTDI volume(s): 12.3 mGy Total DLP: 400 mGy-cm Findings: Comparison: Thoracic CT angiogram 06/21/2016 Lack of IV contrast limits evaluation. Right pneumothorax, pneumomediastinum, extensive subcutaneous emphysema have resolved. Right chest tube has been removed. Mild soft tissue swelling and increased attenuation are present in the subcutaneous soft tissues of the right chest wall in region of prior tube site. Extensive parenchymal consolidation has developed in both pulmonary lower lobes with air bronchograms. Associated parenchymal volume loss is present, right greater than left. Subcentimeter pleural-based calcified nodules again noted in the posterior segment of left upper lobe. Right pleural effusion has substantially increased in size now appears loculated. And small left pleural effusion has developed. Heart remains normal in size. No pericardial abnormality. Thoracic esophagus remains mildly distended and fluid-filled to the level of esophagogastric junction. Some fluid also suggested within the distal thoracic esophagus. Scattered arterial mural calcifications again noted. Vascular patency currently indeterminate. 2 cm circumscribed focus of low attenuation now noted in the anterior mediastinal retrosternal fat. No enlarged mediastinal or hilar lymph nodes detected. No new chest wall soft tissue abnormalities demonstrated. Stomach is distended and fluid-filled. Imaged upper abdominal anatomy otherwise unremarkable. Multiple displaced right rib fractures again noted. IMPRESSION: Resolution of right pneumothorax, pneumomediastinum, subcutaneous emphysema with interval removal of right chest tube Development of large loculated right pleural effusion, small nonloculated left pleural effusion. Development of bilateral pulmonary lower lobe parenchymal consolidation--atelectasis versus pneumonia Calcified granuloma left upper lobe Persistent esophageal findings as described. Patient is potentially at risk for aspiration. Stable right rib fractures This correlates with Dr. Vieira's preliminary report.
[2016-06-29] MEDS: Lactulose 20gm/30ml UDC ORAL SCH ×2 (09:42→18:56)
[2016-06-29] MEDS: Heparin 5000 units/ml inj SUBQ SCH ×2 (09:43→21:45)
[2016-06-29] MEDS: chlordiazePOXIDE 25mg Cap ORAL SCH (09:43)
--- NOTE | 2016-06-29 10:56 | GI Progress Note ---
Assessment/Plan Problems: (1) ETOH abuse ICD Codes: F10.10 - Alcohol abuse, uncomplicated SNOMED: 67247026, 97246415 (2) Multiple rib fractures involving four or more ribs ICD Codes: S22.49XA - Multiple fractures of ribs, unspecified side, initial encounter for closed fracture SNOMED: 4195691 (3) Abnormal LFTs ICD Codes: R79.89 - Other specified abnormal findings of blood chemistry SNOMED: 740819847 (4) Liver cirrhosis ICD Codes: K74.60 - Unspecified cirrhosis of liver SNOMED: 98345598 (5) Alcohol withdrawal ICD Codes: F10.239 - Alcohol dependence with withdrawal, unspecified SNOMED: 106052741 (6) Thrombocytopenia ICD Codes: D69.6 - Thrombocytopenia, unspecified SNOMED: 065256943 Status: unchanged Status Narrative Discussed with Dr. Krueger. Assessment/Plan fu abdominal U/S >> Hepatomegaly with fatty infiltration, Cholelithiasis hep panel negative ppi ammonia level >> wnl OB stool negative discriminant function negative >> defer glucosteroid therapy monitor LFTs monitor H&H, transfuse prn PT eval fu labs Subjective Subjective limited Objective Last 24 Hour Vital Signs Date Time Temp Pulse Resp B/P Pulse Ox O2 Delivery O2 Flow Rate FiO2 06/29/16 08:50 96 Venturi Mask 8.0 40 06/29/16 08:50 85 18 99 Venturi Mask 8.0 40 06/29/16 08:50 Venturi Mask 8.0 40 06/29/16 08:50 95 18 98 Venturi Mask 8.0 40 06/29/16 08:00 98.6 95 06/29/16 08:00 98.6 95 20 101/62 96 Room Air 06/29/16 05:28 98.2 06/29/16 04:00 101.7 102 18 110/78 92 Room Air 06/29/16 00:00 99.0 70 19 95/59 93 Venturi Mask 06/28/16 20:30 98.8 103 18 100/61 94 Venturi Mask 06/28/16 19:45 108 20 98 Venturi Mask 8.0 40 06/28/16 19:30 104 20 87 Venturi Mask 8.0 40 06/28/16 19:30 Venturi Mask 8.0 40 06/28/16 19:30 96 Venturi Mask 8.0 40 06/28/16 14:05 106 20 97 Nasal Cannula 3.0 32 06/28/16 13:50 32 06/28/16 13:50 102 18 97 Nasal Cannula 3.0 32 06/28/16 11:34 98.2 109 18 104/70 95 Room Air Intake and Output 06/28/16 06/29/16 19:00 07:00 Intake Total 901 ml 605 ml Output Total 350 ml 650 ml Balance 551 ml -45 ml Intake Oral 300 ml 480 ml IV Total 601 ml 125 ml Output Urine Total 350 ml 650 ml # Voids 1 # Bowel Movements 2 2 Laboratory Tests Test 06/28/16 20:10 06/29/16 06:05 D-Dimer 5712 ng/mL (<500) H Pro-B-Type Natriuretic Peptide 43 pg/mL (0-125) White Blood Count 13.6 K/UL (4.8-10.8) H Red Blood Count 2.96 M/UL (4.70-6.10) L Hemoglobin 9.6 G/DL (14.2-18.0) L Hematocrit 30.6 % (42.0-52.0) L Mean Corpuscular Volume 104 FL (80-99) H Mean Corpuscular Hemoglobin 32.5 PG (27.0-31.0) H Mean Corpuscular Hemoglobin Concent 31.3 G/DL (32.0-36.0) L Red Cell Distribution Width 12.5 % (11.6-14.8) Platelet Count 542 K/UL (150-450) H Mean Platelet Volume 5.4 FL (6.5-10.1) L Neutrophils (%) (Auto) 82.4 % (45.0-75.0) H Lymphocytes (%) (Auto) 10.3 % (20.0-45.0) L Monocytes (%) (Auto) 5.8 % (1.0-10.0) Eosinophils (%) (Auto) 0.5 % (0.0-3.0) Basophils (%) (Auto) 1.0 % (0.0-2.0) Sodium Level 137 mEQ/L (135-145) Potassium Level 4.1 mEQ/L (3.4-4.9) Chloride Level 95 mEQ/L (98-107) L Carbon Dioxide Level 27 mEQ/L (20-30) Anion Gap 15 (5-15) Blood Urea Nitrogen 9 mg/dL (7-23) Creatinine 0.6 mg/dL (0.7-1.2) L Estimat Glomerular Filtration Rate > 60 mL/min (>60) Glucose Level 102 mg/dL (74-106) Calcium Level 9.4 mg/dL (8.6-10.2) Total Bilirubin 0.8 mg/dL (0.0-1.2) Aspartate Amino Transf (AST/SGOT) 96 U/L (5-40) H Alanine Aminotransferase (ALT/SGPT) 94 U/L (3-41) H Alkaline Phosphatase 205 U/L (40-129) H Total Protein 6.6 g/dL (6.6-8.7) Albumin 2.7 g/dL (3.5-5.2) L Globulin 3.9 g/dL Albumin/Globulin Ratio 0.6 (1.0-2.7) L Height (Feet): 5 Height (Inches): 6.00 Weight (Pounds): 140 General Appearance: no apparent distress, alert Cardiovascular: normal rate Respiratory/Chest: other - venturi Abdominal Exam: normal bowel sounds, non tender, soft Objective Procedure: US ABD Complete Indication:Abdominal pain Findings: The demonstrated part of the pancreas, aorta and IVC, both kidneys, spleen appear unremarkable. Aorta and pancreas are poorly seen. There are gallstones. Sonographic Vanegas's is negative per technologist. The liver is enlarged and echogenic. CBD is 4 mm. There is no biliary ductal dilatation identified. Doppler evaluation of the main portal vein shows patency. There is no ascites. No hydronephrosis seen. Impression: Hepatomegaly with fatty infiltration. Cholelithiasis Pancreas and aorta obscured Deborah Cordero N.P. Jun 29, 2016 10:56
--- NOTE | 2016-06-29 11:14 | General Surgery Progress Note ---
General Surgery-Progress Note Subjective Additional Comments patient seen and examined at bedside. doing well. no acute events. Objective Last 24 Hour Vital Signs Date Time Temp Pulse Resp B/P Pulse Ox O2 Delivery O2 Flow Rate FiO2 06/29/16 08:50 96 Venturi Mask 8.0 40 06/29/16 08:50 85 18 99 Venturi Mask 8.0 40 06/29/16 08:50 Venturi Mask 8.0 40 06/29/16 08:50 95 18 98 Venturi Mask 8.0 40 06/29/16 08:00 98.6 95 06/29/16 08:00 98.6 95 20 101/62 96 Room Air 06/29/16 05:28 98.2 06/29/16 04:00 101.7 102 18 110/78 92 Room Air 06/29/16 00:00 99.0 70 19 95/59 93 Venturi Mask 06/28/16 20:30 98.8 103 18 100/61 94 Venturi Mask 06/28/16 19:45 108 20 98 Venturi Mask 8.0 40 06/28/16 19:30 104 20 87 Venturi Mask 8.0 40 06/28/16 19:30 Venturi Mask 8.0 40 06/28/16 19:30 96 Venturi Mask 8.0 40 06/28/16 14:05 106 20 97 Nasal Cannula 3.0 32 06/28/16 13:50 32 06/28/16 13:50 102 18 97 Nasal Cannula 3.0 32 06/28/16 11:34 98.2 109 18 104/70 95 Room Air I&O Intake and Output 06/28/16 06/29/16 19:00 07:00 Intake Total 901 ml 605 ml Output Total 350 ml 650 ml Balance 551 ml -45 ml Intake Oral 300 ml 480 ml IV Total 601 ml 125 ml Output Urine Total 350 ml 650 ml # Voids 1 # Bowel Movements 2 2 Dressing: dry Wound: clean Drains: none Cardiovascular: RSR - sunis tachy Respiratory: decreased breath sounds Abdomen: soft, non-tender Extremities: no tenderness Laboratory Tests Test 06/28/16 20:10 06/29/16 06:05 D-Dimer 5712 ng/mL (<500) H Pro-B-Type Natriuretic Peptide 43 pg/mL (0-125) White Blood Count 13.6 K/UL (4.8-10.8) H Red Blood Count 2.96 M/UL (4.70-6.10) L Hemoglobin 9.6 G/DL (14.2-18.0) L Hematocrit 30.6 % (42.0-52.0) L Mean Corpuscular Volume 104 FL (80-99) H Mean Corpuscular Hemoglobin 32.5 PG (27.0-31.0) H Mean Corpuscular Hemoglobin Concent 31.3 G/DL (32.0-36.0) L Red Cell Distribution Width 12.5 % (11.6-14.8) Platelet Count 542 K/UL (150-450) H Mean Platelet Volume 5.4 FL (6.5-10.1) L Neutrophils (%) (Auto) 82.4 % (45.0-75.0) H Lymphocytes (%) (Auto) 10.3 % (20.0-45.0) L Monocytes (%) (Auto) 5.8 % (1.0-10.0) Eosinophils (%) (Auto) 0.5 % (0.0-3.0) Basophils (%) (Auto) 1.0 % (0.0-2.0) Sodium Level 137 mEQ/L (135-145) Potassium Level 4.1 mEQ/L (3.4-4.9) Chloride Level 95 mEQ/L (98-107) L Carbon Dioxide Level 27 mEQ/L (20-30) Anion Gap 15 (5-15) Blood Urea Nitrogen 9 mg/dL (7-23) Creatinine 0.6 mg/dL (0.7-1.2) L Estimat Glomerular Filtration Rate > 60 mL/min (>60) Glucose Level 102 mg/dL (74-106) Calcium Level 9.4 mg/dL (8.6-10.2) Total Bilirubin 0.8 mg/dL (0.0-1.2) Aspartate Amino Transf (AST/SGOT) 96 U/L (5-40) H Alanine Aminotransferase (ALT/SGPT) 94 U/L (3-41) H Alkaline Phosphatase 205 U/L (40-129) H Total Protein 6.6 g/dL (6.6-8.7) Albumin 2.7 g/dL (3.5-5.2) L Globulin 3.9 g/dL Albumin/Globulin Ratio 0.6 (1.0-2.7) L Plan Problems: (1) Spontaneous pneumothorax Assessment & Plan: 45 year old male with ptx. had chest tube placed in ED. improved and had chest tube removed after resolution of ptx and when minimal output. since has developed a right sided loculated effusion and potential pneumonia. febrile overnight tmax 101.7. leukocytosis trending down. CT chest performed yesterday demonstrated new right sided effusion and RLL consolidation without pneumothorax. No further general surgery management necessary. pending CT surgery input. (2) Multiple rib fractures involving four or more ribs Osvaldo Branham MD Jun 29, 2016 11:14
[2016-06-29] MEDS: Folic Acid 1 MG, Magnesium Sulfate 2,000 MG, Multivitamin - 12 Injection 10 ML in NS w/... IV SCH (11:27)
[2016-06-29 11:53] LABS: APPEARANCE,URINE CLEAR; KETONES,URINE NEGATIVE (NEGATIVE); LEUKOCYTE ESTERASE ,URINE 1+ (NEGATIVE); NITRITE,URINE NEGATIVE (NEGATIVE); PH,URINE 6.5 (4.5-8.0); PROTEIN,URINE 1+ (NEGATIVE); UROBILINOGEN,URINE 4 MG/DL (0.0-1.0)
--- NOTE | 2016-06-29 12:06 | Nephrology Progress Note ---
Assessment/Plan Problem List: (1) ETOH abuse (2) Multiple rib fractures involving four or more ribs (3) Abnormal LFTs Assessment: improving slowly (4) Spontaneous pneumothorax Assessment: resolved. (5) Subcutaneous emphysema (6) D-dimer, elevated (7) Thrombocytopenia (8) Hypokalemia Assessment: being repleted. (9) Hyponatremia Assessment: corrected. (10) Leucocytosis (11) Pneumonia (12) Liver cirrhosis Plan GI and Pulm following. ID consult called with Dr. Sanchez. Currently on empiric Zosyn. May need thoracentesis? Subjective Subjective spiking temp this am. Objective Objective Last 24 Hour Vital Signs Date Time Temp Pulse Resp B/P Pulse Ox O2 Delivery O2 Flow Rate FiO2 06/29/16 08:50 96 Venturi Mask 8.0 40 06/29/16 08:50 85 18 99 Venturi Mask 8.0 40 06/29/16 08:50 Venturi Mask 8.0 40 06/29/16 08:50 95 18 98 Venturi Mask 8.0 40 06/29/16 08:00 98.6 95 06/29/16 08:00 98.6 95 20 101/62 96 Room Air 06/29/16 05:28 98.2 06/29/16 04:00 101.7 102 18 110/78 92 Room Air 06/29/16 00:00 99.0 70 19 95/59 93 Venturi Mask 06/28/16 20:30 98.8 103 18 100/61 94 Venturi Mask 06/28/16 19:45 108 20 98 Venturi Mask 8.0 40 06/28/16 19:30 104 20 87 Venturi Mask 8.0 40 06/28/16 19:30 Venturi Mask 8.0 40 06/28/16 19:30 96 Venturi Mask 8.0 40 06/28/16 14:05 106 20 97 Nasal Cannula 3.0 32 06/28/16 13:50 32 06/28/16 13:50 102 18 97 Nasal Cannula 3.0 32 Intake and Output 06/28/16 06/29/16 19:00 07:00 Intake Total 901 ml 605 ml Output Total 350 ml 650 ml Balance 551 ml -45 ml Intake Oral 300 ml 480 ml IV Total 601 ml 125 ml Output Urine Total 350 ml 650 ml # Voids 1 # Bowel Movements 2 2 Laboratory Tests 06/28/16 20:10: D-Dimer 5712H, Pro-B-Type Natriuretic Peptide 43 06/29/16 06:05: White Blood Count 13.6H, Red Blood Count 2.96L, Hemoglobin 9.6L, Hematocrit 30.6L, Mean Corpuscular Volume 104H, Mean Corpuscular Hemoglobin 32.5H, Mean Corpuscular Hemoglobin Concent 31.3L, Red Cell Distribution Width 12.5, Platelet Count 542H, Mean Platelet Volume 5.4L, Neutrophils (%) (Auto) 82.4H, Lymphocytes (%) (Auto) 10.3L, Monocytes (%) (Auto) 5.8, Eosinophils (%) (Auto) 0.5, Basophils (%) (Auto) 1.0, Sodium Level 137, Potassium Level 4.1, Chloride Level 95L, Carbon Dioxide Level 27, Anion Gap 15, Blood Urea Nitrogen 9, Creatinine 0.6L, Estimat Glomerular Filtration Rate > 60, Glucose Level 102, Calcium Level 9.4, Total Bilirubin 0.8, Aspartate Amino Transf (AST/SGOT) 96H, Alanine Aminotransferase (ALT/SGPT) 94H, Alkaline Phosphatase 205H, Total Protein 6.6, Albumin 2.7L, Globulin 3.9, Albumin/Globulin Ratio 0.6L 06/29/16 11:33: Urine Color Yellow, Urine Appearance Clear, Urine pH 6.5, Urine Specific [place] 1.010, Urine Protein 1+H, Urine Glucose (UA) Negative, Urine Ketones Negative, Urine Occult Blood Negative, Urine Nitrite Negative, Urine Bilirubin Negative, Urine Urobilinogen 4H, Urine Leukocyte Esterase 1+H, Urine RBC [ Pending], Urine WBC [Pending], Urine Squamous Epithelial Cells [Pending], Urine Bacteria [Pending] Height (Feet): 5 Height (Inches): 6.00 Weight (Pounds): 140 General Appearance: no apparent distress Cardiovascular: normal rate, regular rhythm Respiratory/Chest: decreased breath sounds Abdomen: non tender, soft Extremities: non-pitting Neurologic: alert CM GABRIEL Jun 29, 2016 12:06
[2016-06-29 12:10] LABS: RBC,URINE 0-2 /HPF (0 - 0)
[2016-06-29 12:11] LABS: BACTERIA,URINE FEW /HPF; SQUAMOUS EPITHELIAL CELL,UR FEW /LPF (NONE/OCC)
--- NOTE | 2016-06-29 15:08 | Nephrology Progress Note ---
Assessment/Plan Problem List: (1) Spontaneous pneumothorax (2) Abnormal LFTs (3) Multiple rib fractures involving four or more ribs (4) Thrombocytopenia (5) D-dimer, elevated (6) Leucocytosis Plan Fever resolved, will monitor temp, Abx per ID Pulmo f/u Surgery f/u - per rec GI f/u Hematology F/U Hyponatremia - resolved Monitor H&H, transfuse as needed Cardio f/u Monitor neuro status AM labs Subjective Constitutional: Denies: chills, diaphoresis, fever, malaise, no symptoms, other , weakness HEENT: Denies: blurred vision, double vision, ear discharge, ear pain, eye pain , mouth pain, mouth swelling, no symptoms, nose congestion, nose pain, other, tearing, throat pain, throat swelling Genitourinary: Denies: burning, discharge, flank pain, frequency, hematuria, incontinence, no symptoms, other, pain, urgency Neurologic/Psychiatric: Denies: anxiety, depressed, emotional problems, headache, no symptoms, numbness, other, paresthesia, pre-existing deficit, seizure, tingling, tremors, weakness Subjective In bed, in no distress, denies SOB, denies discomfort Objective Objective Last 24 Hour Vital Signs Date Time Temp Pulse Resp B/P Pulse Ox O2 Delivery O2 Flow Rate FiO2 06/29/16 13:42 90 18 98 Venturi Mask 8.0 40 06/29/16 13:42 80 18 98 Venturi Mask 8.0 40 06/29/16 12:00 98.0 88 20 100/62 97 Room Air 06/29/16 08:50 96 Venturi Mask 8.0 40 06/29/16 08:50 85 18 99 Venturi Mask 8.0 40 06/29/16 08:50 Venturi Mask 8.0 40 06/29/16 08:50 95 18 98 Venturi Mask 8.0 40 06/29/16 08:00 98.6 95 06/29/16 08:00 98.6 95 20 101/62 96 Room Air 06/29/16 05:28 98.2 06/29/16 04:00 101.7 102 18 110/78 92 Room Air 06/29/16 00:00 99.0 70 19 95/59 93 Venturi Mask 06/28/16 20:30 98.8 103 18 100/61 94 Venturi Mask 06/28/16 19:45 108 20 98 Venturi Mask 8.0 40 06/28/16 19:30 104 20 87 Venturi Mask 8.0 40 06/28/16 19:30 Venturi Mask 8.0 40 06/28/16 19:30 96 Venturi Mask 8.0 40 Intake and Output 06/28/16 06/29/16 19:00 07:00 Intake Total 901 ml 605 ml Output Total 350 ml 650 ml Balance 551 ml -45 ml Intake Oral 300 ml 480 ml IV Total 601 ml 125 ml Output Urine Total 350 ml 650 ml # Voids 1 # Bowel Movements 2 2 Laboratory Tests 06/28/16 20:10: D-Dimer 5712H, Pro-B-Type Natriuretic Peptide 43 06/29/16 06:05: White Blood Count 13.6H, Red Blood Count 2.96L, Hemoglobin 9.6L, Hematocrit 30.6L, Mean Corpuscular Volume 104H, Mean Corpuscular Hemoglobin 32.5H, Mean Corpuscular Hemoglobin Concent 31.3L, Red Cell Distribution Width 12.5, Platelet Count 542H, Mean Platelet Volume 5.4L, Neutrophils (%) (Auto) 82.4H, Lymphocytes (%) (Auto) 10.3L, Monocytes (%) (Auto) 5.8, Eosinophils (%) (Auto) 0.5, Basophils (%) (Auto) 1.0, Sodium Level 137, Potassium Level 4.1, Chloride Level 95L, Carbon Dioxide Level 27, Anion Gap 15, Blood Urea Nitrogen 9, Creatinine 0.6L, Estimat Glomerular Filtration Rate > 60, Glucose Level 102, Calcium Level 9.4, Total Bilirubin 0.8, Aspartate Amino Transf (AST/SGOT) 96H, Alanine Aminotransferase (ALT/SGPT) 94H, Alkaline Phosphatase 205H, Total Protein 6.6, Albumin 2.7L, Globulin 3.9, Albumin/Globulin Ratio 0.6L 06/29/16 11:33: Urine Color Yellow, Urine Appearance Clear, Urine pH 6.5, Urine Specific [place] 1.010, Urine Protein 1+H, Urine Glucose (UA) Negative, Urine Ketones Negative, Urine Occult Blood Negative, Urine Nitrite Negative, Urine Bilirubin Negative, Urine Urobilinogen 4H, Urine Leukocyte Esterase 1+H, Urine RBC 0-2H, Urine WBC 2-4, Urine Squamous Epithelial Cells Few, Urine Bacteria Few Height (Feet): 5 Height (Inches): 6.00 Weight (Pounds): 140 General Appearance: no apparent distress, alert EENT: PERRL/EOMI, normal ENT inspection Neck: normal alignment, supple, normal inspection Cardiovascular: normal rate, regular rhythm, no JVD Respiratory/Chest: no respiratory distress, decreased breath sounds Abdomen: non tender, soft, no organomegaly, no mass Extremities: normal range of motion Neurologic: alert, oriented x 3, responsive, normal mood/affect Pilar Newman N.P. Jun 29, 2016 15:08
--- NOTE | 2016-06-29 16:24 | Consultation ---
Consult Note Consult Note ID CONSULT: Norma# [id number] Assessment/Plan ASSESSMENT: 45 y/o male with: // Probable HAP r/o empyema, hematoma - SCx NRF, C.albicans=colonizers, repeat SCx pending - CT Chest 06/28: Development of large loculated right pleural effusion, small nonloculated left pleural effusion. Development of bilateral pulmonary lower lobe parenchymal consolidation--atelectasis vs pneumonia // Leukocytosis - improved // Fever - intermittent // SP PTX - chest tube removed - CT Chest 06/28: Resolution of right pneumothorax, pneumomediastinum, subcutaneous emphysema with interval removal of right chest tube // Multiple displaced right rib fractures // Elevated LFTs, m/l EtOH hepatitis - US: hepatomegaly with fatty infiltration, cholelithiasis - negative: hepatitis panel // Thrombocytosis // EtOH, tobacco abuse // Negative HIV // NKDA // Full Code PLAN: - continue zosyn d# 3, add IV vancomycin d# 1 - thoracentesis right r/o empyema, hematoma - f/u repeat cultures - monitor CBC, temperatures - monitor BMP - monitor CXR Thanks! Will follow EMILY BOTELLO Jun 29, 2016 16:23
--- NOTE | 2016-06-29 18:25 | Cardiac Electrophysiology PN ---
Assessment/Plan Assessment/Plan 1. Sinus tachycardia due to pneumothorax.Resolved after chest tube. EF 60% to 65 % with no left ventricular hypertrophy and no pericardial effusion. 2. Atrial fibrillation, transient. Resolved. 3. Pneumothorax status post chest tube placement. S/P removal 4. Status post multiple rib fractures.Likely cause of Pneumo 5. SQ emphysema. 6. Liver cirrhosis 7. ETOH withdrawal. On Banana bag DW RN Subjective Subjective More alert. Sitter still at bedside.No chest pain Objective Last 24 Hour Vital Signs Date Time Temp Pulse Resp B/P Pulse Ox O2 Delivery O2 Flow Rate FiO2 06/29/16 16:00 98.3 92 18 113/71 98 Room Air 06/29/16 13:42 90 18 98 Venturi Mask 8.0 40 06/29/16 13:42 80 18 98 Venturi Mask 8.0 40 06/29/16 12:00 98.0 88 20 100/62 97 Room Air 06/29/16 08:50 96 Venturi Mask 8.0 40 06/29/16 08:50 85 18 99 Venturi Mask 8.0 40 06/29/16 08:50 Venturi Mask 8.0 40 06/29/16 08:50 95 18 98 Venturi Mask 8.0 40 06/29/16 08:00 98.6 95 06/29/16 08:00 98.6 95 20 101/62 96 Room Air 06/29/16 05:28 98.2 06/29/16 04:00 101.7 102 18 110/78 92 Room Air 06/29/16 00:00 99.0 70 19 95/59 93 Venturi Mask 06/28/16 20:30 98.8 103 18 100/61 94 Venturi Mask 06/28/16 19:45 108 20 98 Venturi Mask 8.0 40 06/28/16 19:30 104 20 87 Venturi Mask 8.0 40 06/28/16 19:30 Venturi Mask 8.0 40 06/28/16 19:30 96 Venturi Mask 8.0 40 Intake and Output 06/28/16 06/29/16 19:00 07:00 Intake Total 901 ml 605 ml Output Total 350 ml 650 ml Balance 551 ml -45 ml Intake Oral 300 ml 480 ml IV Total 601 ml 125 ml Output Urine Total 350 ml 650 ml # Voids 1 # Bowel Movements 2 2 Laboratory Tests Test 06/28/16 20:10 06/29/16 06:05 06/29/16 11:33 D-Dimer 5712 ng/mL (<500) H Pro-B-Type Natriuretic Peptide 43 pg/mL (0-125) White Blood Count 13.6 K/UL (4.8-10.8) H Red Blood Count 2.96 M/UL (4.70-6.10) L Hemoglobin 9.6 G/DL (14.2-18.0) L Hematocrit 30.6 % (42.0-52.0) L Mean Corpuscular Volume 104 FL (80-99) H Mean Corpuscular Hemoglobin 32.5 PG (27.0-31.0) H Mean Corpuscular Hemoglobin Concent 31.3 G/DL (32.0-36.0) L Red Cell Distribution Width 12.5 % (11.6-14.8) Platelet Count 542 K/UL (150-450) H Mean Platelet Volume 5.4 FL (6.5-10.1) L Neutrophils (%) (Auto) 82.4 % (45.0-75.0) H Lymphocytes (%) (Auto) 10.3 % (20.0-45.0) L Monocytes (%) (Auto) 5.8 % (1.0-10.0) Eosinophils (%) (Auto) 0.5 % (0.0-3.0) Basophils (%) (Auto) 1.0 % (0.0-2.0) Sodium Level 137 mEQ/L (135-145) Potassium Level 4.1 mEQ/L (3.4-4.9) Chloride Level 95 mEQ/L (98-107) L Carbon Dioxide Level 27 mEQ/L (20-30) Anion Gap 15 (5-15) Blood Urea Nitrogen 9 mg/dL (7-23) Creatinine 0.6 mg/dL (0.7-1.2) L Estimat Glomerular Filtration Rate > 60 mL/min (>60) Glucose Level 102 mg/dL (74-106) Calcium Level 9.4 mg/dL (8.6-10.2) Total Bilirubin 0.8 mg/dL (0.0-1.2) Aspartate Amino Transf (AST/SGOT) 96 U/L (5-40) H Alanine Aminotransferase (ALT/SGPT) 94 U/L (3-41) H Alkaline Phosphatase 205 U/L (40-129) H Total Protein 6.6 g/dL (6.6-8.7) Albumin 2.7 g/dL (3.5-5.2) L Globulin 3.9 g/dL Albumin/Globulin Ratio 0.6 (1.0-2.7) L Urine Color Yellow Urine Appearance Clear Urine pH 6.5 (4.5-8.0) Urine Specific [place] 1.010 (1.005-1.035) Urine Protein 1+ (NEGATIVE) H Urine Glucose (UA) Negative (NEGATIVE) Urine Ketones Negative (NEGATIVE) Urine Occult Blood Negative (NEGATIVE) Urine Nitrite Negative (NEGATIVE) Urine Bilirubin Negative (NEGATIVE) Urine Urobilinogen 4 MG/DL (0.0-1.0) H Urine Leukocyte Esterase 1+ (NEGATIVE) H Urine RBC 0-2 /HPF (0 - 0) H Urine WBC 2-4 /HPF (0 - 0) Urine Squamous Epithelial Cells Few /LPF (NONE/OCC) Urine Bacteria Few /HPF (NONE) Microbiology Date/Time Source Procedure Growth Status 06/27/16 12:05 Sputum Expectorated Gram Stain - Final Complete 06/27/16 12:05 Sputum Culture - Final Jessenia Albicans Usual Respiratory Clarissa Complete Objective HEAD AND NECK: no JVD. LUNGS: Decreased breath sounds with coarse rhonchi. CARDIOVASCULAR: Regular S1-S2 with no gallop or murmur. ABDOMEN: Soft. EXTREMITIES: no pitting edema. IRENA MELLO Jun 29, 2016 18:25
[2016-06-29] MEDS: Vancomycin 1250mg/D5W 250ml IVPB SCH ×2 (18:56)
--- NOTE | 2016-06-29 22:18 | Consultation ---
DATE OF CONSULTATION: 06/29/2016 CONSULTING PHYSICIAN: Mick Lua M.D. REQUESTING PHYSICIAN: Kavin Soto M.D. REASON FOR CONSULTATION: Fever. HISTORY OF PRESENT ILLNESS: This is a 45-year-old male, admitted on 06/21/2016 with chest pain. Chest x-ray showed multiple right-sided rib fractures and pneumothorax. The chest tube was placed and subsequently, it has been removed with resolution of pneumothorax. Hospital course has been complicated by acute leukocytosis and intermittent fevers as well as elevated liver function tests and thrombocytosis. Repeat CT of the chest yesterday showed resolution of the pneumothorax and development of a large loculated right pleural effusion and small non-loculated left pleural effusion as well as bilateral pulmonary lower lobe parenchymal consolidation. On admission, sputum culture grew normal respiratory duane and Jessenia albicans and repeat blood cultures and sputum cultures are pending. He is currently on Zosyn day #3 and ID now consulted to assist in management. PAST MEDICAL HISTORY: None. PAST SURGICAL HISTORY: Chest tube placement. MEDICATIONS: 1. Zosyn day #3. 2. Subcutaneous heparin. 3. Thiamine. 4. Librium. 5. Lactulose. 6. Protonix. ALLERGIES: No known drug allergies. SOCIAL HISTORY: History of alcohol and tobacco abuse. FAMILY HISTORY: Noncontributory. REVIEW OF SYSTEMS: As per history of present illness. Ten systems reviewed. All pertinent positives and negatives noted. PHYSICAL EXAMINATION: GENERAL: He is in no apparent distress. Nontoxic appearing. VITAL SIGNS: Maximum temperature 101.7 degrees, blood pressure 100/62, heart rate in the 80s, respiratory rate 20, and saturating 98% on a Venti mask. HEENT: No thrush. CARDIOVASCULAR: Regular rate and rhythm. No murmurs. PULMONARY: Decreased breath sounds on the right. ABDOMEN: Bowel sounds present. Soft, nondistended, and nontender. EXTREMITIES: No edema. SKIN: No rash. LABORATORY DATA: White blood cell count 13.6 decreased from 17.1 with left shift, hemoglobin 9.6, and platelets 542,000. Sodium 137, potassium 4.1, chloride 95, bicarbonate 27, BUN 9, and creatinine 0.6. AST 96, ALT 94, and alkaline phosphatase 205. Total bilirubin 0.8. Albumin 2.7. Urine drug screen negative. Urinalysis negative. MICROBIOLOGY: 1. On 06/28/2016, sputum culture pending. 2. On 06/29/2016, blood culture pending. 3. On 06/27/2016, sputum culture, 1+ normal respiratory [place] and Jessenia albicans. IMAGING: Reviewed. ASSESSMENT: 1. Probable hospital-acquired pneumonia, rule out empyema and hematoma. Sputum culture is growing normal respiratory [place]ane and Jessenia albicans, which are colonizers. Repeat sputum culture is pending. CT of the chest yesterday showed development of a large loculated right pleural effusion and small non-loculated left pleural effusion and development of bilateral pulmonary lower lobe parenchymal consolidation. 2. Leukocytosis, improved. 3. Fever, intermittent. 4. Status post pneumothorax. Chest tube has now been removed and pneumothorax has resolved on repeat CT of the chest as of yesterday. 5. Multiple displaced right rib fractures. 6. Elevated liver function tests, most likely alcoholic hepatitis. Ultrasound shows hepatomegaly and fatty infiltration and cholelithiasis. Hepatitis panel is negative. 7. Thrombocytosis. 8. Alcohol and tobacco abuse. 9. Negative human immunodeficiency virus. 10. No known drug allergies. 11. Full Code. PLAN: 1. Continue Zosyn day #3 and add IV vancomycin day #1. 2. Thoracentesis, rule out empyema and hematoma. 3. Follow up repeat cultures. 4. Monitor CBC and temperatures. 5. Monitor BMP. 6. Monitor chest x-ray. Thank you. We will follow. Mick Lua M.D. DR: MALU JOB#: [id number] CC: Leticia Kirk M.D. Arash Alborzi, M.D
--- NOTE | 2016-06-29 22:43 | Diagnostic Imaging Report ---
APPROVED REPORT CPT Code: 04733 Present Symptoms Shortness of breath BILATERAL: Imaging reveals a patent deep venous system bilaterally. There is no evidence of thrombus within the femoral, popliteal or tibial segments. The greater saphenous veins are also within normal limits. Doppler indicates normal spontaneous flow within these segments.
[2016-06-30 03:55] VITALS: BP 93/62
[2016-06-30] MEDS: Vancomycin 1250mg/D5W 250ml IVPB SCH ×4 (05:08→20:59)
[2016-06-30 07:11] LABS: BASOPHILS % (AUTO) 1.1 % (0.0-2.0); EOSINOPHILS % (AUTO) 0.5 % (0.0-3.0); LYMPHOCYTES % (AUTO) 10.2 % (20.0-45.0); MEAN CORPUSCULAR HEMOGLOBIN 32.5 PG (27.0-31.0); MEAN CORPUSCULAR HGB CONC 31.2 G/DL (32.0-36.0); MEAN CORPUSCULAR VOLUME 104 FL (80-99); MEAN PLATELET VOLUME 5.4 FL (6.5-10.1); MONOCYTES % (AUTO) 5.7 % (1.0-10.0); NEUTROPHILS % (AUTO) 82.6 % (45.0-75.0); PLATELET COUNT 614 K/UL (150-450); RED BLOOD COUNT 2.88 M/UL (4.70-6.10)
[2016-06-30 07:20] LABS: ALANINE AMINOTRANSFERASE 83 U/L (3-41); ALBUMIN/GLOBULIN RATIO 0.6 (1.0-2.7); ANION GAP 13 (5-15); ASPARTATE AMINO TRANSFERASE 67 U/L (5-40); CALCIUM 8.4 mg/dL (8.6-10.2); CARBON DIOXIDE 25 mEQ/L (20-30); CHLORIDE 99 mEQ/L (98-107); CREATININE 0.5 mg/dL (0.7-1.2); GLOMERULAR FILTRATION RATE > 60 mL/min (>60); HEMOLYSIS 0; POTASSIUM 3.7 mEQ/L (3.4-4.9); SODIUM 137 mEQ/L (135-145); TOTAL PROTEIN 6.2 g/dL (6.6-8.7)
[2016-06-30 08:00] VITALS: BP 105/67
[2016-06-30] MEDS: Lactulose 20gm/30ml UDC ORAL SCH ×2 (08:43→17:45)
[2016-06-30] MEDS: chlordiazePOXIDE 25mg Cap ORAL SCH (08:44)
[2016-06-30] MEDS: Heparin 5000 units/ml inj SUBQ SCH ×2 (08:44→20:59)
[2016-06-30] MEDS: Folic Acid 1 MG, Magnesium Sulfate 2,000 MG, Multivitamin - 12 Injection 10 ML in NS w/... IV SCH (10:00)
--- NOTE | 2016-06-30 10:12 | Cardiac Electrophysiology PN ---
Assessment/Plan Assessment/Plan 1. Sinus tachycardia due to pneumothorax that resolved after chest tube insertion. EF 60% to 65% with no left ventricular hypertrophy and no pericardial effusion. 2. Atrial fibrillation, transient. Resolved. Not hyperthyroid. 3. Pneumothorax status post chest tube placement and then removal 4. Status post multiple rib fractures.Likely cause of Pneumo 5. SQ emphysema. 6. Liver cirrhosis 7. ETOH withdrawal. On Banana bag DW RN Subjective Subjective Alert in NAD. Sitter at bedside.No chest pain or SOB. Off tele. Objective Last 24 Hour Vital Signs Date Time Temp Pulse Resp B/P Pulse Ox O2 Delivery O2 Flow Rate FiO2 06/30/16 08:00 98.2 88 18 105/67 Simple Mask 9.0 06/30/16 06:00 98.2 06/30/16 03:55 98.2 87 18 93/62 94 Venturi Mask 4.0 06/29/16 23:55 97.3 93 18 102/64 96 Venturi Mask 06/29/16 19:31 97 18 96 Venturi Mask 8.0 40 06/29/16 19:30 98 18 96 Venturi Mask 8.0 40 06/29/16 19:30 Venturi Mask 8.0 40 06/29/16 19:29 95 Venturi Mask 8.0 40 06/29/16 19:00 100.2 92 18 116/78 98 Nasal Cannula 9.0 06/29/16 16:00 98.3 92 18 113/71 98 Room Air 06/29/16 13:42 90 18 98 Venturi Mask 8.0 40 06/29/16 13:42 80 18 98 Venturi Mask 8.0 40 06/29/16 12:00 98.0 88 20 100/62 97 Room Air Intake and Output 06/29/16 06/30/16 19:00 07:00 Intake Total 660 ml 1177 ml Output Total 350 ml Balance 310 ml 1177 ml Intake Oral 660 ml 660 ml IV Total 517 ml Output Urine Total 350 ml # Voids 5 # Bowel Movements 6 5 Laboratory Tests Test 06/29/16 11:33 06/30/16 06:20 Urine Color Yellow Urine Appearance Clear Urine pH 6.5 (4.5-8.0) Urine Specific [place] 1.010 (1.005-1.035) Urine Protein 1+ (NEGATIVE) H Urine Glucose (UA) Negative (NEGATIVE) Urine Ketones Negative (NEGATIVE) Urine Occult Blood Negative (NEGATIVE) Urine Nitrite Negative (NEGATIVE) Urine Bilirubin Negative (NEGATIVE) Urine Urobilinogen 4 MG/DL (0.0-1.0) H Urine Leukocyte Esterase 1+ (NEGATIVE) H Urine RBC 0-2 /HPF (0 - 0) H Urine WBC 2-4 /HPF (0 - 0) Urine Squamous Epithelial Cells Few /LPF (NONE/OCC) Urine Bacteria Few /HPF (NONE) White Blood Count 16.0 K/UL (4.8-10.8) H Red Blood Count 2.88 M/UL (4.70-6.10) L Hemoglobin 9.3 G/DL (14.2-18.0) L Hematocrit 30.0 % (42.0-52.0) L Mean Corpuscular Volume 104 FL (80-99) H Mean Corpuscular Hemoglobin 32.5 PG (27.0-31.0) H Mean Corpuscular Hemoglobin Concent 31.2 G/DL (32.0-36.0) L Red Cell Distribution Width 13.0 % (11.6-14.8) Platelet Count 614 K/UL (150-450) H Mean Platelet Volume 5.4 FL (6.5-10.1) L Neutrophils (%) (Auto) 82.6 % (45.0-75.0) H Lymphocytes (%) (Auto) 10.2 % (20.0-45.0) L Monocytes (%) (Auto) 5.7 % (1.0-10.0) Eosinophils (%) (Auto) 0.5 % (0.0-3.0) Basophils (%) (Auto) 1.1 % (0.0-2.0) Sodium Level 137 mEQ/L (135-145) Potassium Level 3.7 mEQ/L (3.4-4.9) Chloride Level 99 mEQ/L (98-107) Carbon Dioxide Level 25 mEQ/L (20-30) Anion Gap 13 (5-15) Blood Urea Nitrogen 6 mg/dL (7-23) L Creatinine 0.5 mg/dL (0.7-1.2) L Estimat Glomerular Filtration Rate > 60 mL/min (>60) Glucose Level 122 mg/dL (74-106) H Calcium Level 8.4 mg/dL (8.6-10.2) L Total Bilirubin 0.7 mg/dL (0.0-1.2) Aspartate Amino Transf (AST/SGOT) 67 U/L (5-40) H Alanine Aminotransferase (ALT/SGPT) 83 U/L (3-41) H Alkaline Phosphatase 205 U/L (40-129) H Total Protein 6.2 g/dL (6.6-8.7) L Albumin 2.5 g/dL (3.5-5.2) L Globulin 3.7 g/dL Albumin/Globulin Ratio 0.6 (1.0-2.7) L Microbiology Date/Time Source Procedure Growth Status 06/29/16 19:30 Sputum Induced Gram Stain Pending Resulted 06/29/16 19:30 Sputum Induced Sputum Culture - Preliminary NO GROWTH Resulted 06/27/16 12:05 Sputum Expectorated Gram Stain - Final Complete 06/27/16 12:05 Sputum Culture - Final Jessenia Albicans Usual Respiratory Clarissa Complete Objective HEAD AND NECK: no JVD. LUNGS: Decreased breath sounds with coarse rhonchi on Right. CARDIOVASCULAR: Regular S1-S2 with no gallop or murmur. ABDOMEN: Soft. EXTREMITIES: no pitting edema. IRENA MELLO Jun 30, 2016 10:12
[2016-06-30 12:00] VITALS: BP 113/67
--- NOTE | 2016-06-30 12:03 | GI Progress Note ---
Assessment/Plan Problems: (1) ETOH abuse ICD Codes: F10.10 - Alcohol abuse, uncomplicated SNOMED: 74507298, 70776943 (2) Multiple rib fractures involving four or more ribs ICD Codes: S22.49XA - Multiple fractures of ribs, unspecified side, initial encounter for closed fracture SNOMED: 2673712 (3) Abnormal LFTs ICD Codes: R79.89 - Other specified abnormal findings of blood chemistry SNOMED: 546776383 (4) Liver cirrhosis ICD Codes: K74.60 - Unspecified cirrhosis of liver SNOMED: 89710432 (5) Alcohol withdrawal ICD Codes: F10.239 - Alcohol dependence with withdrawal, unspecified SNOMED: 716545434 (6) Thrombocytopenia ICD Codes: D69.6 - Thrombocytopenia, unspecified SNOMED: 404520463 Status: stable Status Narrative Discussed with Dr. Krueger. Assessment/Plan symptomatic GI treatment abdominal U/S >> Hepatomegaly with fatty infiltration, Cholelithiasis hep panel negative ppi ammonia level >> wnl OB stool negative discriminant function negative >> defer glucosteroid therapy monitor LFTs monitor H&H, transfuse prn PT eval fu labs Subjective Gastrointestinal/Abdominal: Reports: no symptoms Subjective feels better Objective Last 24 Hour Vital Signs Date Time Temp Pulse Resp B/P Pulse Ox O2 Delivery O2 Flow Rate FiO2 06/30/16 08:00 98.2 88 18 105/67 Simple Mask 9.0 06/30/16 06:00 98.2 06/30/16 03:55 98.2 87 18 93/62 94 Venturi Mask 4.0 06/29/16 23:55 97.3 93 18 102/64 96 Venturi Mask 06/29/16 19:31 97 18 96 Venturi Mask 8.0 40 06/29/16 19:30 98 18 96 Venturi Mask 8.0 40 06/29/16 19:30 Venturi Mask 8.0 40 06/29/16 19:29 95 Venturi Mask 8.0 40 06/29/16 19:00 100.2 92 18 116/78 98 Nasal Cannula 9.0 06/29/16 16:00 98.3 92 18 113/71 98 Room Air 06/29/16 13:42 90 18 98 Venturi Mask 8.0 40 06/29/16 13:42 80 18 98 Venturi Mask 8.0 40 Intake and Output 1/10/17 1/11/17 19:00 07:00 Intake Total 660 ml 1177 ml Output Total 350 ml Balance 310 ml 1177 ml Intake Oral 660 ml 660 ml IV Total 517 ml Output Urine Total 350 ml # Voids 5 # Bowel Movements 6 5 Laboratory Tests Test 06/30/16 06:20 White Blood Count 16.0 K/UL (4.8-10.8) H Red Blood Count 2.88 M/UL (4.70-6.10) L Hemoglobin 9.3 G/DL (14.2-18.0) L Hematocrit 30.0 % (42.0-52.0) L Mean Corpuscular Volume 104 FL (80-99) H Mean Corpuscular Hemoglobin 32.5 PG (27.0-31.0) H Mean Corpuscular Hemoglobin Concent 31.2 G/DL (32.0-36.0) L Red Cell Distribution Width 13.0 % (11.6-14.8) Platelet Count 614 K/UL (150-450) H Mean Platelet Volume 5.4 FL (6.5-10.1) L Neutrophils (%) (Auto) 82.6 % (45.0-75.0) H Lymphocytes (%) (Auto) 10.2 % (20.0-45.0) L Monocytes (%) (Auto) 5.7 % (1.0-10.0) Eosinophils (%) (Auto) 0.5 % (0.0-3.0) Basophils (%) (Auto) 1.1 % (0.0-2.0) Sodium Level 137 mEQ/L (135-145) Potassium Level 3.7 mEQ/L (3.4-4.9) Chloride Level 99 mEQ/L (98-107) Carbon Dioxide Level 25 mEQ/L (20-30) Anion Gap 13 (5-15) Blood Urea Nitrogen 6 mg/dL (7-23) L Creatinine 0.5 mg/dL (0.7-1.2) L Estimat Glomerular Filtration Rate > 60 mL/min (>60) Glucose Level 122 mg/dL (74-106) H Calcium Level 8.4 mg/dL (8.6-10.2) L Total Bilirubin 0.7 mg/dL (0.0-1.2) Aspartate Amino Transf (AST/SGOT) 67 U/L (5-40) H Alanine Aminotransferase (ALT/SGPT) 83 U/L (3-41) H Alkaline Phosphatase 205 U/L (40-129) H Total Protein 6.2 g/dL (6.6-8.7) L Albumin 2.5 g/dL (3.5-5.2) L Globulin 3.7 g/dL Albumin/Globulin Ratio 0.6 (1.0-2.7) L Microbiology Date/Time Source Procedure Growth Status 06/29/16 19:30 Sputum Induced Gram Stain - Final Resulted 06/29/16 19:30 Sputum Induced Sputum Culture - Preliminary NO GROWTH Resulted Height (Feet): 5 Height (Inches): 6.00 Weight (Pounds): 140 General Appearance: no apparent distress, alert Cardiovascular: normal rate Respiratory/Chest: normal breath sounds Abdominal Exam: normal bowel sounds, non tender, soft Extremities: normal range of motion Objective Procedure: US ABD Complete Indication:Abdominal pain Findings: The demonstrated part of the pancreas, aorta and IVC, both kidneys, spleen appear unremarkable. Aorta and pancreas are poorly seen. There are gallstones. Sonographic Vanegas's is negative per technologist. The liver is enlarged and echogenic. CBD is 4 mm. There is no biliary ductal dilatation identified. Doppler evaluation of the main portal vein shows patency. There is no ascites. No hydronephrosis seen. Impression: Hepatomegaly with fatty infiltration. Cholelithiasis Pancreas and aorta obscured Deborah Cordero N.P. Jun 30, 2016 12:03
--- NOTE | 2016-06-30 12:09 | Nephrology Progress Note ---
Assessment/Plan Problem List: (1) Spontaneous pneumothorax (2) Abnormal LFTs (3) Multiple rib fractures involving four or more ribs (4) D-dimer, elevated Plan Thoracentesis- will monitor condition Pulmo f/u Surgery f/u - per rec GI f/u Hematology F/U Hyponatremia - resolved Monitor H&H, transfuse as needed Cardio f/u Monitor neuro status AM labs Subjective Constitutional: Denies: chills, diaphoresis, fever, malaise, no symptoms, other , weakness HEENT: Denies: blurred vision, double vision, ear discharge, ear pain, eye pain , mouth pain, mouth swelling, no symptoms, nose congestion, nose pain, other, tearing, throat pain, throat swelling Genitourinary: Denies: burning, discharge, flank pain, frequency, hematuria, incontinence, no symptoms, other, pain, urgency Neurologic/Psychiatric: Denies: anxiety, depressed, emotional problems, headache, no symptoms, numbness, other, paresthesia, pre-existing deficit, seizure, tingling, tremors, weakness Subjective Being taken down for thoracentesis, denies distress. Objective Objective Last 24 Hour Vital Signs Date Time Temp Pulse Resp B/P Pulse Ox O2 Delivery O2 Flow Rate FiO2 06/30/16 08:00 98.2 88 18 105/67 Simple Mask 9.0 06/30/16 06:00 98.2 06/30/16 03:55 98.2 87 18 93/62 94 Venturi Mask 4.0 06/29/16 23:55 97.3 93 18 102/64 96 Venturi Mask 06/29/16 19:31 97 18 96 Venturi Mask 8.0 40 06/29/16 19:30 98 18 96 Venturi Mask 8.0 40 06/29/16 19:30 Venturi Mask 8.0 40 06/29/16 19:29 95 Venturi Mask 8.0 40 06/29/16 19:00 100.2 92 18 116/78 98 Nasal Cannula 9.0 06/29/16 16:00 98.3 92 18 113/71 98 Room Air 06/29/16 13:42 90 18 98 Venturi Mask 8.0 40 06/29/16 13:42 80 18 98 Venturi Mask 8.0 40 Intake and Output 06/29/16 06/30/16 19:00 07:00 Intake Total 660 ml 1177 ml Output Total 350 ml Balance 310 ml 1177 ml Intake Oral 660 ml 660 ml IV Total 517 ml Output Urine Total 350 ml # Voids 5 # Bowel Movements 6 5 Laboratory Tests 06/30/16 06:20: White Blood Count 16.0H, Red Blood Count 2.88L, Hemoglobin 9.3L, Hematocrit 30.0L, Mean Corpuscular Volume 104H, Mean Corpuscular Hemoglobin 32.5H, Mean Corpuscular Hemoglobin Concent 31.2L, Red Cell Distribution Width 13.0, Platelet Count 614H, Mean Platelet Volume 5.4L, Neutrophils (%) (Auto) 82.6H, Lymphocytes (%) (Auto) 10.2L, Monocytes (%) (Auto) 5.7, Eosinophils (%) (Auto) 0.5, Basophils (%) (Auto) 1.1, Sodium Level 137, Potassium Level 3.7, Chloride Level 99, Carbon Dioxide Level 25, Anion Gap 13, Blood Urea Nitrogen 6L, Creatinine 0.5L, Estimat Glomerular Filtration Rate > 60, Glucose Level 122H, Calcium Level 8.4L, Total Bilirubin 0.7, Aspartate Amino Transf (AST/SGOT) 67H, Alanine Aminotransferase (ALT/SGPT) 83H, Alkaline Phosphatase 205H, Total Protein 6.2L, Albumin 2.5L, Globulin 3.7, Albumin/Globulin Ratio 0.6L Height (Feet): 5 Height (Inches): 6.00 Weight (Pounds): 140 General Appearance: no apparent distress EENT: normal ENT inspection Neck: normal alignment Cardiovascular: normal rate, regular rhythm, no JVD Respiratory/Chest: no respiratory distress, decreased breath sounds Abdomen: non tender, soft, no organomegaly Extremities: normal range of motion, normal inspection, no calf tenderness, normal capillary refill Neurologic: alert, oriented x 3, responsive, normal mood/affect Pilar Newman N.P. Jun 30, 2016 12:09
--- NOTE | 2016-06-30 12:34 | General Progress Note ---
Progress Note Progress Note Afebrile, tremulous, denies any trauma to cause rib fractures and pneumothorax. Now has right lower chest loculated pleural effusion on CAT scan of the chest. Lungs: decreased right breath base sounds. Impression: s/p right lateral rib fractures, pneumothorax, now with sizeable right pleural effusion. Plan: right thoracentesis today. May need thoracic surgery evaluation if effusion returns, which would require Video assisted thoracic surgery and pleurodesis. CAROLINE SAHA Jun 30, 2016 12:34
[2016-06-30] MEDS: DuoNeb 0.5-3(2.5)mg/3ml neb INH SCH ×2 (13:00→20:08)
--- NOTE | 2016-06-30 13:46 | Pulmonology Progress Note ---
Assessment/Plan Problems: (1) Loculated pleural effusion (2) Pneumonia Assessment & Plan: L base infiltrate, likely aspiration + loculated R sided effusion (3) Spontaneous pneumothorax Assessment & Plan: S/P CT, now removed RESOLVED (4) Subcutaneous emphysema Assessment & Plan: RESOLVED (5) Multiple rib fractures involving four or more ribs Assessment & Plan: Likely chronic (2/2 prior injury), no e/o flail chest (6) Thrombocytopenia Assessment & Plan: ? 2/2 underlying liver disease/cirrhosis RESOLVED (7) Abnormal LFTs Assessment & Plan: 2/2 cirrhosis (8) Leucocytosis (9) D-dimer, elevated (10) Smokes < 1 pack of cigarettes per day (11) ETOH abuse (12) Liver cirrhosis Assessment/Plan -Optimize pulmonary hygiene/mobilize as tolerated -Titrate down O2 -STAT THORACENTESIS -F/U surgery recs, will likely need thoracic evaluation, ? VATS -F/U Duplex given increasing D-dimer, if negative will get VQ -Continue Abx per ID, F/U Cx's -TID and PRN DUOnebs -DVT Px: Hep SQ -F/U heme and GI recs -MVI/thiamine/folate Subjective Allergies: Coded Allergies: No Known Allergies (Unverified , 06/21/16) Subjective Tm 100.2, WCt 16, CT with R base infiltrate and L sided loculated effusion, PTX resolved and no SQ gas No CP/SOB/F/C, O2 needs stable Objective Last 24 Hour Vital Signs Date Time Temp Pulse Resp B/P Pulse Ox O2 Delivery O2 Flow Rate FiO2 06/30/16 12:00 98.0 88 18 113/67 Simple Mask 9.0 06/30/16 08:00 98.2 88 18 105/67 Simple Mask 9.0 06/30/16 06:00 98.2 06/30/16 03:55 98.2 87 18 93/62 94 Venturi Mask 4.0 06/29/16 23:55 97.3 93 18 102/64 96 Venturi Mask 06/29/16 19:31 97 18 96 Venturi Mask 8.0 40 06/29/16 19:30 98 18 96 Venturi Mask 8.0 40 06/29/16 19:30 Venturi Mask 8.0 40 06/29/16 19:29 95 Venturi Mask 8.0 40 06/29/16 19:00 100.2 92 18 116/78 98 Nasal Cannula 9.0 06/29/16 16:00 98.3 92 18 113/71 98 Room Air Intake and Output 06/29/16 06/30/16 19:00 07:00 Intake Total 660 ml 1177 ml Output Total 350 ml Balance 310 ml 1177 ml Intake Oral 660 ml 660 ml IV Total 517 ml Output Urine Total 350 ml # Voids 5 # Bowel Movements 6 5 General Appearance: no acute distress, cachetic HEENT: normocephalic, atraumatic, mucous membranes moist Respiratory/Chest: rhonchi - at basese Cardiovascular: normal peripheral pulses, normal rate, regular rhythm Abdomen: normal bowel sounds, soft, non tender, no organomegaly, non distended Extremities: no cyanosis, no clubbing, no edema Microbiology Date/Time Source Procedure Growth Status 06/29/16 19:30 Sputum Induced Gram Stain - Final Resulted 06/29/16 19:30 Sputum Induced Sputum Culture - Preliminary NO GROWTH Resulted Laboratory Tests 06/30/16 06:20: White Blood Count 16.0H, Red Blood Count 2.88L, Hemoglobin 9.3L, Hematocrit 30.0L, Mean Corpuscular Volume 104H, Mean Corpuscular Hemoglobin 32.5H, Mean Corpuscular Hemoglobin Concent 31.2L, Red Cell Distribution Width 13.0, Platelet Count 614H, Mean Platelet Volume 5.4L, Neutrophils (%) (Auto) 82.6H, Lymphocytes (%) (Auto) 10.2L, Monocytes (%) (Auto) 5.7, Eosinophils (%) (Auto) 0.5, Basophils (%) (Auto) 1.1, Sodium Level 137, Potassium Level 3.7, Chloride Level 99, Carbon Dioxide Level 25, Anion Gap 13, Blood Urea Nitrogen 6L, Creatinine 0.5L, Estimat Glomerular Filtration Rate > 60, Glucose Level 122H, Calcium Level 8.4L, Total Bilirubin 0.7, Aspartate Amino Transf (AST/SGOT) 67H, Alanine Aminotransferase (ALT/SGPT) 83H, Alkaline Phosphatase 205H, Total Protein 6.2L, Albumin 2.5L, Globulin 3.7, Albumin/Globulin Ratio 0.6L Current Medications Medications (Trade) Dose Ordered Sig/Evan Route PRN Reason Start Time Stop Time Status Last Admin Dose Admin Acetaminophen (Tylenol) 650 mg Q6H PRN ORAL Mild Pain/Temp > 100.5 06/24/16 00:41 07/24/16 00:40 06/29/16 04:29 Albuterol/ Ipratropium (DuoNeb 0.5-3(2.5)mg/3ml) 3 ml Q4HRT PRN HHN sob 06/26/16 15:30 07/01/16 15:29 Albuterol/ Ipratropium (DuoNeb 0.5-3(2.5)mg/3ml) 3 ml TIDRT INH 06/26/16 19:00 07/01/16 18:59 06/29/16 19:28 Bisacodyl (Dulcolax) 5 mg DAILYPRN PRN ORAL Constipation 06/26/16 17:45 07/26/16 17:44 06/26/16 18:05 Cetylpyridinium Chloride 1 lozenge 1 lozenge EVERY HOUR PRN MILADY For Cough 06/26/16 08:15 07/26/16 08:14 Chlordiazepoxide (Librium) 50 mg DAILY ORAL 06/28/16 09:00 07/05/16 08:59 06/30/16 08:44 Dextrose (Dextrose 50%) STAT PRN IV Hypoglycemia 06/24/16 00:42 07/24/16 00:41 Folic Acid/ Magnesium Sulfate/ Multivitamins/ Sodium Chloride (Folvite/ Magnesium Sulfate/ M.v.i.-12/NS w/ KCl 20mEq) 1,014.2 ml @ 125 mls/ hr Q24H IV 06/24/16 09:00 07/24/16 08:59 06/30/16 10:00 Haloperidol Lactate (Haldol) 5 mg Q6H PRN IVPB Agitation 06/24/16 01:00 07/24/16 00:59 Heparin Sodium (Porcine) (Heparin 5000 units/ml) 5,000 units EVERY 12 HOURS SUBQ 06/28/16 21:00 07/28/16 20:59 06/30/16 08:44 Hydromorphone HCl (Dilaudid) 1 mg Q4H PRN IVP Moderate Pain (Pain Scale 4-6) 06/24/16 00:43 07/01/16 00:42 06/28/16 20:16 Lactulose (Cephulac) 20 gm BID ORAL 06/25/16 18:00 07/25/16 17:59 06/30/16 08:43 Lorazepam (Ativan 2mg/ml 1ml) 2 mg Q2H PRN IV For Anxiety 06/24/16 00:45 07/01/16 00:44 06/24/16 02:10 Lorazepam (Ativan) 1 mg Q4H PRN ORAL For Anxiety 06/24/16 00:44 07/01/16 00:43 Ondansetron HCl (Zofran) 4 mg Q6H PRN IVP Nausea & Vomiting 06/24/16 00:45 07/24/16 00:44 Pantoprazole (Protonix) 40 mg ACBREAKFAST ORAL 06/24/16 06:30 07/24/16 06:29 06/30/16 06:01 Piperacillin Sod/ Tazobactam Sod/ Dextrose (Zosyn/D5W 100ml) 100 ml @ 25 mls/hr EVERY 8 HOURS IVPB 06/26/16 22:00 07/01/16 21:59 06/30/16 06:26 Thiamine HCl/ Sodium Chloride (Vitamin B1/ Sodium Chloride 100ml bag) 101 ml @ 100 mls/hr Q24H IVPB 06/30/16 09:00 07/30/16 08:59 06/30/16 09:59 Vancomycin HCl 1.25 gm/Dextrose 250 ml @ 166.667 mls/hr Q12HR@0600,1800 IVPB 06/29/16 18:00 07/04/16 17:59 06/30/16 05:08 Vancomycin HCl 1 ea 1 ea DAILY PRN MISC Per rx protocol 06/29/16 16:15 07/29/16 16:14 EUGENIO RODRÍGUEZ M.D. Jun 30, 2016 13:45
[2016-06-30 15:00] VITALS: BP 106/72
--- NOTE | 2016-06-30 15:51 | Infectious Diseases Prog Note ---
Assessment/Plan Assessment/Plan ASSESSMENT: 45 y/o male with: // Probable HAP r/o empyema, hematoma - SCx NRF, C.albicans=colonizers, repeat SCx NGTD - SP thoracentesis 06/30 - labs pending - CT Chest 06/28: Development of large loculated right pleural effusion, small nonloculated left pleural effusion. Development of bilateral pulmonary lower lobe parenchymal consolidation--atelectasis vs pneumonia // Leukocytosis - worse today // Fever - afebrile overnight // SP PTX - chest tube removed - CT Chest 06/28: Resolution of right pneumothorax, pneumomediastinum, subcutaneous emphysema with interval removal of right chest tube // Multiple displaced right rib fractures // Elevated LFTs, m/l EtOH hepatitis - US: hepatomegaly with fatty infiltration, cholelithiasis - negative: hepatitis panel // Thrombocytosis // EtOH, tobacco abuse // Negative HIV // NKDA // Full Code PLAN: - continue zosyn d# 4, IV vancomycin d# 2 pending pleural fluid studies - f/u thoracentesis labs - f/u repeat cultures - monitor CBC, temperatures - monitor BMP - monitor CXR Subjective Allergies: Coded Allergies: No Known Allergies (Unverified , 06/21/16) Subjective afebrile overnight SP thoracentesis - labs pending Objective Vital Signs Last 24 Hour Vital Signs Date Time Temp Pulse Resp B/P Pulse Ox O2 Delivery O2 Flow Rate FiO2 06/30/16 15:00 98.1 114 19 106/72 91 Room Air 06/30/16 13:00 Venturi Mask 8.0 40 06/30/16 13:00 Venturi Mask 06/30/16 12:00 98.0 88 18 113/67 Simple Mask 9.0 06/30/16 08:00 98.2 88 18 105/67 Simple Mask 9.0 06/30/16 07:00 96 Venturi Mask 8.0 40 06/30/16 07:00 88 18 97 Venturi Mask 8.0 40 06/30/16 06:00 98.2 06/30/16 03:55 98.2 87 18 93/62 94 Venturi Mask 4.0 06/29/16 23:55 97.3 93 18 102/64 96 Venturi Mask 06/29/16 19:31 97 18 96 Venturi Mask 8.0 40 06/29/16 19:30 98 18 96 Venturi Mask 8.0 40 06/29/16 19:30 Venturi Mask 8.0 40 06/29/16 19:29 95 Venturi Mask 8.0 40 06/29/16 19:00 100.2 92 18 116/78 98 Nasal Cannula 9.0 06/29/16 16:00 98.3 92 18 113/71 98 Room Air Height (Feet): 5 Height (Inches): 6.00 Weight (Pounds): 140 General Appearance: no acute distress Respiratory/Chest: no respiratory distress, decreased breath sounds Cardiovascular: normal rate, regular rhythm Abdomen: normal bowel sounds, soft, non tender, non distended Microbiology Date/Time Source Procedure Growth Status 06/29/16 19:30 Sputum Induced Gram Stain - Final Resulted 06/29/16 19:30 Sputum Induced Sputum Culture - Preliminary NO GROWTH Resulted Laboratory Tests Test 06/30/16 06:20 White Blood Count 16.0 K/UL (4.8-10.8) H Red Blood Count 2.88 M/UL (4.70-6.10) L Hemoglobin 9.3 G/DL (14.2-18.0) L Hematocrit 30.0 % (42.0-52.0) L Mean Corpuscular Volume 104 FL (80-99) H Mean Corpuscular Hemoglobin 32.5 PG (27.0-31.0) H Mean Corpuscular Hemoglobin Concent 31.2 G/DL (32.0-36.0) L Red Cell Distribution Width 13.0 % (11.6-14.8) Platelet Count 614 K/UL (150-450) H Mean Platelet Volume 5.4 FL (6.5-10.1) L Neutrophils (%) (Auto) 82.6 % (45.0-75.0) H Lymphocytes (%) (Auto) 10.2 % (20.0-45.0) L Monocytes (%) (Auto) 5.7 % (1.0-10.0) Eosinophils (%) (Auto) 0.5 % (0.0-3.0) Basophils (%) (Auto) 1.1 % (0.0-2.0) Sodium Level 137 mEQ/L (135-145) Potassium Level 3.7 mEQ/L (3.4-4.9) Chloride Level 99 mEQ/L (98-107) Carbon Dioxide Level 25 mEQ/L (20-30) Anion Gap 13 (5-15) Blood Urea Nitrogen 6 mg/dL (7-23) L Creatinine 0.5 mg/dL (0.7-1.2) L Estimat Glomerular Filtration Rate > 60 mL/min (>60) Glucose Level 122 mg/dL (74-106) H Calcium Level 8.4 mg/dL (8.6-10.2) L Total Bilirubin 0.7 mg/dL (0.0-1.2) Aspartate Amino Transf (AST/SGOT) 67 U/L (5-40) H Alanine Aminotransferase (ALT/SGPT) 83 U/L (3-41) H Alkaline Phosphatase 205 U/L (40-129) H Total Protein 6.2 g/dL (6.6-8.7) L Albumin 2.5 g/dL (3.5-5.2) L Globulin 3.7 g/dL Albumin/Globulin Ratio 0.6 (1.0-2.7) L Current Medications Medications (Trade) Dose Ordered Sig/Evan Route PRN Reason Start Time Stop Time Status Last Admin Dose Admin Acetaminophen (Tylenol) 650 mg Q6H PRN ORAL Mild Pain/Temp > 100.5 06/24/16 00:41 07/24/16 00:40 06/29/16 04:29 Albuterol/ Ipratropium (DuoNeb 0.5-3(2.5)mg/3ml) 3 ml Q4HRT PRN HHN sob 06/26/16 15:30 07/01/16 15:29 Albuterol/ Ipratropium (DuoNeb 0.5-3(2.5)mg/3ml) 3 ml TIDRT INH 06/26/16 19:00 07/01/16 18:59 06/29/16 19:28 Bisacodyl (Dulcolax) 5 mg DAILYPRN PRN ORAL Constipation 06/26/16 17:45 07/26/16 17:44 06/26/16 18:05 Cetylpyridinium Chloride 1 lozenge 1 lozenge EVERY HOUR PRN MILADY For Cough 06/26/16 08:15 07/26/16 08:14 Chlordiazepoxide (Librium) 50 mg DAILY ORAL 06/28/16 09:00 07/05/16 08:59 06/30/16 08:44 Dextrose (Dextrose 50%) STAT PRN IV Hypoglycemia 06/24/16 00:42 07/24/16 00:41 Folic Acid/ Magnesium Sulfate/ Multivitamins/ Sodium Chloride (Folvite/ Magnesium Sulfate/ M.v.i.-12/NS w/ KCl 20mEq) 1,014.2 ml @ 125 mls/ hr Q24H IV 06/24/16 09:00 07/24/16 08:59 06/30/16 10:00 Haloperidol Lactate (Haldol) 5 mg Q6H PRN IVPB Agitation 06/24/16 01:00 07/24/16 00:59 Heparin Sodium (Porcine) (Heparin 5000 units/ml) 5,000 units EVERY 12 HOURS SUBQ 06/28/16 21:00 07/28/16 20:59 06/30/16 08:44 Hydromorphone HCl (Dilaudid) 1 mg Q4H PRN IVP Moderate Pain (Pain Scale 4-6) 06/24/16 00:43 07/01/16 00:42 06/28/16 20:16 Lactulose (Cephulac) 20 gm BID ORAL 06/25/16 18:00 07/25/16 17:59 06/30/16 08:43 Lorazepam (Ativan 2mg/ml 1ml) 2 mg Q2H PRN IV For Anxiety 06/24/16 00:45 07/01/16 00:44 06/24/16 02:10 Lorazepam (Ativan) 1 mg Q4H PRN ORAL For Anxiety 06/24/16 00:44 07/01/16 00:43 Ondansetron HCl (Zofran) 4 mg Q6H PRN IVP Nausea & Vomiting 06/24/16 00:45 07/24/16 00:44 Pantoprazole (Protonix) 40 mg ACBREAKFAST ORAL 06/24/16 06:30 07/24/16 06:29 06/30/16 06:01 Piperacillin Sod/ Tazobactam Sod/ Dextrose (Zosyn/D5W 100ml) 100 ml @ 25 mls/hr EVERY 8 HOURS IVPB 1/7/17 22:00 07/01/16 21:59 06/30/16 06:26 Thiamine HCl/ Sodium Chloride (Vitamin B1/ Sodium Chloride 100ml bag) 101 ml @ 100 mls/hr Q24H IVPB 06/30/16 09:00 07/30/16 08:59 06/30/16 09:59 Vancomycin HCl 1.25 gm/Dextrose 250 ml @ 166.667 mls/hr Q12HR@0600,1800 IVPB 06/29/16 18:00 07/04/16 17:59 06/30/16 05:08 Vancomycin HCl 1 ea 1 ea DAILY PRN MISC Per rx protocol 06/29/16 16:15 07/29/16 16:14 EMILY BOTELLO Jun 30, 2016 15:51
[2016-06-30] MEDS: HYDROmorphone 1mg/ml Carpuject IVP PRN (17:45)
[2016-06-30 19:00] VITALS: BP 94/58
[2016-06-30 22:09] LABS: APPEARANCE, BODY FLUID HAZY; BD FL SOURCE PLEURAL; BD FL VOLUME 24 mL; BODY FLUID NUCLEATED CELLS 1510 /CUMM
[2016-06-30 22:10] LABS: BODY FLUID RBC 1550 /CUMM; MONONUCLEAR WBC 3 %; POLYMORPHONUCLEAR WBC 95 %
[2016-07-01] VITALS: BP 111/74
[2016-07-01 04:00] VITALS: BP 125/81
[2016-07-01] MEDS: DuoNeb 0.5-3(2.5)mg/3ml neb INH SCH ×2 (07:11→13:33)
[2016-07-01 07:29] LABS: ALANINE AMINOTRANSFERASE 68 U/L (3-41); ALBUMIN/GLOBULIN RATIO 0.7 (1.0-2.7); ANION GAP 17 (5-15); ASPARTATE AMINO TRANSFERASE 51 U/L (5-40); CALCIUM 8.9 mg/dL (8.6-10.2); CARBON DIOXIDE 25 mEQ/L (20-30); CHLORIDE 96 mEQ/L (98-107); CREATININE 0.8 mg/dL (0.7-1.2); GLOMERULAR FILTRATION RATE > 60 mL/min (>60); HEMOLYSIS 3; POTASSIUM 3.5 mEQ/L (3.4-4.9); SODIUM 138 mEQ/L (135-145)
[2016-07-01 07:31] LABS: BASOPHILS % (AUTO) 0.9 % (0.0-2.0); EOSINOPHILS % (AUTO) 0.2 % (0.0-3.0); LYMPHOCYTES % (AUTO) 11.1 % (20.0-45.0); MEAN CORPUSCULAR HEMOGLOBIN 32.6 PG (27.0-31.0); MEAN CORPUSCULAR HGB CONC 33.1 G/DL (32.0-36.0); MEAN CORPUSCULAR VOLUME 99 FL (80-99); MEAN PLATELET VOLUME 5.5 FL (6.5-10.1); MONOCYTES % (AUTO) 5.7 % (1.0-10.0); NEUTROPHILS % (AUTO) 82.1 % (45.0-75.0); PLATELET COUNT 678 K/UL (150-450); RED BLOOD COUNT 2.93 M/UL (4.70-6.10); RED CELL DISTRIBUTION WIDTH 12.7 % (11.6-14.8); WHITE BLOOD COUNT 15.6 K/UL (4.8-10.8)
[2016-07-01 08:00] VITALS: BP 100/62
[2016-07-01] MEDS: Vancomycin 1250mg/D5W 250ml IVPB SCH ×4 (09:26→19:53)
[2016-07-01] MEDS: Folic Acid 1 MG, Magnesium Sulfate 2,000 MG, Multivitamin - 12 Injection 10 ML in NS w/... IV SCH (09:27)
[2016-07-01] MEDS: chlordiazePOXIDE 25mg Cap ORAL SCH (09:28)
[2016-07-01] MEDS: Lactulose 20gm/30ml UDC ORAL SCH ×2 (09:28→18:26)
[2016-07-01] MEDS: Heparin 5000 units/ml inj SUBQ SCH ×2 (09:35→22:06)
[2016-07-01 11:49] VITALS: BP 120/81
--- NOTE | 2016-07-01 14:17 | GI Progress Note ---
Assessment/Plan Problems: (1) ETOH abuse ICD Codes: F10.10 - Alcohol abuse, uncomplicated SNOMED: 32588768, 77440586 (2) Multiple rib fractures involving four or more ribs ICD Codes: S22.49XA - Multiple fractures of ribs, unspecified side, initial encounter for closed fracture SNOMED: 8608764 (3) Abnormal LFTs ICD Codes: R79.89 - Other specified abnormal findings of blood chemistry SNOMED: 881714990 (4) Liver cirrhosis ICD Codes: K74.60 - Unspecified cirrhosis of liver SNOMED: 85597890 (5) Alcohol withdrawal ICD Codes: F10.239 - Alcohol dependence with withdrawal, unspecified SNOMED: 057710318 (6) Thrombocytopenia ICD Codes: D69.6 - Thrombocytopenia, unspecified SNOMED: 794374810 Status: progressing Status Narrative Discussed with Dr. Krueger. Assessment/Plan cdiff negative symptomatic GI treatment abdominal U/S >> Hepatomegaly with fatty infiltration, Cholelithiasis hep panel negative ppi ammonia level >> wnl OB stool negative discriminant function negative >> defer glucosteroid therapy monitor LFTs monitor H&H, transfuse prn PT eval fu labs Subjective Gastrointestinal/Abdominal: Reports: no symptoms Subjective feels good. confused >> states he has court date tomorrow, but cannot recall actual date. Objective Last 24 Hour Vital Signs Date Time Temp Pulse Resp B/P Pulse Ox O2 Delivery O2 Flow Rate FiO2 07/01/16 13:43 97 18 96 Room Air 07/01/16 13:32 95 18 93 Room Air 07/01/16 11:49 100.0 94 18 120/81 94 Room Air 94 07/01/16 08:00 98.4 108 18 100/62 98 Room Air 07/01/16 07:21 96 18 96 Room Air 21 07/01/16 07:11 92 Room Air 07/01/16 07:11 87 20 92 Room Air 21 07/01/16 07:10 Room Air 07/01/16 04:00 99.0 93 16 125/81 92 Room Air 07/01/16 00:00 98.4 86 16 111/74 92 Room Air 06/30/16 20:31 94 18 95 Room Air 21 06/30/16 20:11 93 Room Air 06/30/16 20:11 Room Air 06/30/16 20:10 92 20 93 Room Air 21 06/30/16 19:00 98.4 86 16 94/58 92 Room Air 06/30/16 15:00 98.1 114 19 106/72 91 Room Air Intake and Output 06/30/16 07/01/16 19:00 07:00 Intake Total 826 ml 265 ml Output Total 700 ml Balance 126 ml 265 ml Intake Oral 350 ml 240 ml IV Total 476 ml 25 ml Output Urine Total 500 ml Other 200 ml # Voids 5 # Bowel Movements 2 Laboratory Tests Test 06/30/16 18:30 07/01/16 05:25 Body Fluid Source Pending Body Fluid Volume Pending Body Fluid Appearance Hazy Body Fluid RBC 1550 /CUMM Body Fluid Total Nucleated Cells 1510 /CUMM Body Fluid Polynuclear WBCs (%) 95 % Body Fluid Mononuclear WBCs (%) 3 % Body Fluid Mesothelial Cells (%) 2 % Body Fluid Total Protein Pending Body Fluid Lactate Dehydrogenase Pending White Blood Count 15.6 K/UL (4.8-10.8) H Red Blood Count 2.93 M/UL (4.70-6.10) L Hemoglobin 9.6 G/DL (14.2-18.0) L Hematocrit 28.9 % (42.0-52.0) L Mean Corpuscular Volume 99 FL (80-99) Mean Corpuscular Hemoglobin 32.6 PG (27.0-31.0) H Mean Corpuscular Hemoglobin Concent 33.1 G/DL (32.0-36.0) Red Cell Distribution Width 12.7 % (11.6-14.8) Platelet Count 678 K/UL (150-450) H Mean Platelet Volume 5.5 FL (6.5-10.1) L Neutrophils (%) (Auto) 82.1 % (45.0-75.0) H Lymphocytes (%) (Auto) 11.1 % (20.0-45.0) L Monocytes (%) (Auto) 5.7 % (1.0-10.0) Eosinophils (%) (Auto) 0.2 % (0.0-3.0) Basophils (%) (Auto) 0.9 % (0.0-2.0) Sodium Level 138 mEQ/L (135-145) Potassium Level 3.5 mEQ/L (3.4-4.9) Chloride Level 96 mEQ/L (98-107) L Carbon Dioxide Level 25 mEQ/L (20-30) Anion Gap 17 (5-15) H Blood Urea Nitrogen 11 mg/dL (7-23) Creatinine 0.8 mg/dL (0.7-1.2) # Estimat Glomerular Filtration Rate > 60 mL/min (>60) Glucose Level 99 mg/dL (74-106) Calcium Level 8.9 mg/dL (8.6-10.2) Total Bilirubin 0.7 mg/dL (0.0-1.2) Aspartate Amino Transf (AST/SGOT) 51 U/L (5-40) H Alanine Aminotransferase (ALT/SGPT) 68 U/L (3-41) H Alkaline Phosphatase 197 U/L (40-129) H Lactate Dehydrogenase 200 U/L (135-230) Total Protein 6.0 g/dL (6.6-8.7) L Albumin 2.6 g/dL (3.5-5.2) L Globulin 3.4 g/dL Albumin/Globulin Ratio 0.7 (1.0-2.7) L Vancomycin Level Trough 14.0 ug/mL (5.0-12.0) H Height (Feet): 5 Height (Inches): 6.00 Weight (Pounds): 140 General Appearance: alert, confused Cardiovascular: normal rate Respiratory/Chest: normal breath sounds, no respiratory distress Abdominal Exam: normal bowel sounds, non tender, soft Extremities: normal range of motion Objective Procedure: US ABD Complete Indication:Abdominal pain Findings: The demonstrated part of the pancreas, aorta and IVC, both kidneys, spleen appear unremarkable. Aorta and pancreas are poorly seen. There are gallstones. Sonographic Vanegas's is negative per technologist. The liver is enlarged and echogenic. CBD is 4 mm. There is no biliary ductal dilatation identified. Doppler evaluation of the main portal vein shows patency. There is no ascites. No hydronephrosis seen. Impression: Hepatomegaly with fatty infiltration. Cholelithiasis Pancreas and aorta obscured Deborah Cordero N.P. Jul 01, 2016 14:17
--- NOTE | 2016-07-01 15:05 | Infectious Diseases Prog Note ---
Assessment/Plan Assessment/Plan ASSESSMENT: 45 y/o male with: // Probable HAP r/o empyema, hematoma - SCx NRF, C.albicans=colonizers, repeat SCx NGTD - SP thoracentesis 06/30 - Cx pending - CT Chest 06/28: Development of large loculated right pleural effusion, small nonloculated left pleural effusion. Development of bilateral pulmonary lower lobe parenchymal consolidation--atelectasis vs pneumonia // Leukocytosis - improved // Fever - intermittent low grade // SP PTX - chest tube removed - CT Chest 06/28: Resolution of right pneumothorax, pneumomediastinum, subcutaneous emphysema with interval removal of right chest tube // Multiple displaced right rib fractures // Elevated LFTs, m/l EtOH hepatitis - US: hepatomegaly with fatty infiltration, cholelithiasis - negative: hepatitis panel // Thrombocytosis // EtOH, tobacco abuse // Negative HIV // NKDA // Full Code PLAN: - continue zosyn d# 5, IV vancomycin d# 3 pending pleural fluid cultures - consider CT surgery eval - f/u repeat cultures - monitor CBC, temperatures - monitor BMP - monitor CXR Subjective Allergies: Coded Allergies: No Known Allergies (Unverified , 06/21/16) Subjective intermittent low grade fevers Objective Vital Signs Last 24 Hour Vital Signs Date Time Temp Pulse Resp B/P Pulse Ox O2 Delivery O2 Flow Rate FiO2 07/01/16 13:43 97 18 96 Room Air 21 07/01/16 13:32 95 18 93 Room Air 21 07/01/16 11:49 100.0 94 18 120/81 94 Room Air 94 07/01/16 08:00 98.4 108 18 100/62 98 Room Air 07/01/16 07:21 96 18 96 Room Air 21 07/01/16 07:11 92 Room Air 07/01/16 07:11 87 20 92 Room Air 21 07/01/16 07:10 Room Air 07/01/16 04:00 99.0 93 16 125/81 92 Room Air 07/01/16 00:00 98.4 86 16 111/74 92 Room Air 06/30/16 20:31 94 18 95 Room Air 21 06/30/16 20:11 93 Room Air 06/30/16 20:11 Room Air 06/30/16 20:10 92 20 93 Room Air 21 06/30/16 19:00 98.4 86 16 94/58 92 Room Air Height (Feet): 5 Height (Inches): 6.00 Weight (Pounds): 140 General Appearance: no acute distress Respiratory/Chest: no respiratory distress, decreased breath sounds Cardiovascular: normal rate, regular rhythm Abdomen: normal bowel sounds, soft, non tender, non distended Microbiology Date/Time Source Procedure Growth Status 06/29/16 06:05 Blood Blood Culture - Preliminary NO GROWTH AFTER 24 HOURS Resulted 06/29/16 06:00 Blood Blood Culture - Preliminary NO GROWTH AFTER 24 HOURS Resulted 06/29/16 18:30 Other Fluid Gram Stain - Final Resulted 06/29/16 18:30 Other Fluid Body Fluid Culture Pending Resulted 06/29/16 19:30 Sputum Induced Gram Stain - Final Complete 06/29/16 19:30 Sputum Culture - Final Jessenia Albicans Usual Upper Respiratory Clarissa Complete 06/30/16 05:52 Stool Clostridium difficile Toxin Assay - Final Complete Laboratory Tests Test 06/30/16 18:30 07/01/16 05:25 Body Fluid Source Pending Body Fluid Volume Pending Body Fluid Appearance Hazy Body Fluid RBC 1550 /CUMM Body Fluid Total Nucleated Cells 1510 /CUMM Body Fluid Polynuclear WBCs (%) 95 % Body Fluid Mononuclear WBCs (%) 3 % Body Fluid Mesothelial Cells (%) 2 % Body Fluid Total Protein Pending Body Fluid Lactate Dehydrogenase Pending White Blood Count 15.6 K/UL (4.8-10.8) H Red Blood Count 2.93 M/UL (4.70-6.10) L Hemoglobin 9.6 G/DL (14.2-18.0) L Hematocrit 28.9 % (42.0-52.0) L Mean Corpuscular Volume 99 FL (80-99) Mean Corpuscular Hemoglobin 32.6 PG (27.0-31.0) H Mean Corpuscular Hemoglobin Concent 33.1 G/DL (32.0-36.0) Red Cell Distribution Width 12.7 % (11.6-14.8) Platelet Count 678 K/UL (150-450) H Mean Platelet Volume 5.5 FL (6.5-10.1) L Neutrophils (%) (Auto) 82.1 % (45.0-75.0) H Lymphocytes (%) (Auto) 11.1 % (20.0-45.0) L Monocytes (%) (Auto) 5.7 % (1.0-10.0) Eosinophils (%) (Auto) 0.2 % (0.0-3.0) Basophils (%) (Auto) 0.9 % (0.0-2.0) Sodium Level 138 mEQ/L (135-145) Potassium Level 3.5 mEQ/L (3.4-4.9) Chloride Level 96 mEQ/L (98-107) L Carbon Dioxide Level 25 mEQ/L (20-30) Anion Gap 17 (5-15) H Blood Urea Nitrogen 11 mg/dL (7-23) Creatinine 0.8 mg/dL (0.7-1.2) # Estimat Glomerular Filtration Rate > 60 mL/min (>60) Glucose Level 99 mg/dL (74-106) Calcium Level 8.9 mg/dL (8.6-10.2) Total Bilirubin 0.7 mg/dL (0.0-1.2) Aspartate Amino Transf (AST/SGOT) 51 U/L (5-40) H Alanine Aminotransferase (ALT/SGPT) 68 U/L (3-41) H Alkaline Phosphatase 197 U/L (40-129) H Lactate Dehydrogenase 200 U/L (135-230) Total Protein 6.0 g/dL (6.6-8.7) L Albumin 2.6 g/dL (3.5-5.2) L Globulin 3.4 g/dL Albumin/Globulin Ratio 0.7 (1.0-2.7) L Vancomycin Level Trough 14.0 ug/mL (5.0-12.0) H Current Medications Medications (Trade) Dose Ordered Sig/Evan Route PRN Reason Start Time Stop Time Status Last Admin Dose Admin Acetaminophen (Tylenol) 650 mg Q6H PRN ORAL Mild Pain/Temp > 100.5 06/24/16 00:41 07/24/16 00:40 06/29/16 04:29 Albuterol/ Ipratropium (DuoNeb 0.5-3(2.5)mg/3ml) 3 ml Q4HRT PRN HHN sob 06/26/16 15:30 07/01/16 15:29 Albuterol/ Ipratropium (DuoNeb 0.5-3(2.5)mg/3ml) 3 ml TIDRT INH 06/26/16 19:00 07/01/16 18:59 07/01/16 13:33 Bisacodyl (Dulcolax) 5 mg DAILYPRN PRN ORAL Constipation 06/26/16 17:45 07/26/16 17:44 06/26/16 18:05 Cetylpyridinium Chloride 1 lozenge 1 lozenge EVERY HOUR PRN MILADY For Cough 06/26/16 08:15 07/26/16 08:14 Chlordiazepoxide (Librium) 50 mg DAILY ORAL 06/28/16 09:00 07/05/16 08:59 07/01/16 09:28 Dextrose (Dextrose 50%) STAT PRN IV Hypoglycemia 06/24/16 00:42 07/24/16 00:41 Folic Acid/ Magnesium Sulfate/ Multivitamins/ Sodium Chloride (Folvite/ Magnesium Sulfate/ M.v.i.-12/NS w/ KCl 20mEq) 1,014.2 ml @ 125 mls/ hr Q24H IV 06/24/16 09:00 07/24/16 08:59 07/01/16 09:27 Haloperidol Lactate (Haldol) 5 mg Q6H PRN IVPB Agitation 06/24/16 01:00 07/24/16 00:59 Heparin Sodium (Porcine) (Heparin 5000 units/ml) 5,000 units EVERY 12 HOURS SUBQ 06/28/16 21:00 07/28/16 20:59 07/01/16 09:35 Lactulose (Cephulac) 20 gm BID ORAL 06/25/16 18:00 07/25/16 17:59 07/01/16 09:28 Ondansetron HCl (Zofran) 4 mg Q6H PRN IVP Nausea & Vomiting 06/24/16 00:45 07/24/16 00:44 Pantoprazole (Protonix) 40 mg ACBREAKFAST ORAL 06/24/16 06:30 07/24/16 06:29 07/01/16 05:42 Piperacillin Sod/ Tazobactam Sod/ Dextrose (Zosyn/D5W 100ml) 100 ml @ 25 mls/hr EVERY 8 HOURS IVPB 06/26/16 22:00 07/04/16 21:59 07/01/16 13:50 Thiamine HCl/ Sodium Chloride (Vitamin B1/ Sodium Chloride 100ml bag) 101 ml @ 100 mls/hr Q24H IVPB 06/30/16 09:00 07/30/16 08:59 07/01/16 09:28 Vancomycin HCl 1.25 gm/Dextrose 250 ml @ 166.667 mls/hr Q12HR@0600,1800 IVPB 06/29/16 18:00 07/04/16 17:59 07/01/16 09:26 Vancomycin HCl 1 ea 1 ea DAILY PRN MISC Per rx protocol 06/29/16 16:15 07/29/16 16:14 EMILY BOTELLO Jul 01, 2016 15:05
[2016-07-01 15:57] VITALS: BP 112/69
--- NOTE | 2016-07-01 18:32 | Cardiac Electrophysiology PN ---
Assessment/Plan Assessment/Plan 1. Sinus tachycardia due to pneumothorax. Resolved after chest tube insertion. EF 60% to 65% with no left ventricular hypertrophy and no pericardial effusion. 2. Atrial fibrillation, transient. Resolved. Not hyperthyroid. 3. Pneumothorax status post chest tube placement and then removal 4. Status post multiple rib fractures.Likely cause of Pneumo 5. SQ emphysema. 6. Liver cirrhosis 7. ETOH withdrawal. On Banana bag DW RN Subjective Subjective Pleasantly confused in NAD. Sitter at bedside.No chest pain or SOB. Off tele. Objective Last 24 Hour Vital Signs Date Time Temp Pulse Resp B/P Pulse Ox O2 Delivery O2 Flow Rate FiO2 07/01/16 15:57 98.8 98 18 112/69 93 Room Air 07/01/16 13:43 97 18 96 Room Air 21 07/01/16 13:32 95 18 93 Room Air 21 07/01/16 11:49 100.0 94 18 120/81 94 Room Air 94 07/01/16 08:00 98.4 108 18 100/62 98 Room Air 07/01/16 07:21 96 18 96 Room Air 21 07/01/16 07:11 92 Room Air 07/01/16 07:11 87 20 92 Room Air 21 07/01/16 07:10 Room Air 07/01/16 04:00 99.0 93 16 125/81 92 Room Air 07/01/16 00:00 98.4 86 16 111/74 92 Room Air 06/30/16 20:31 94 18 95 Room Air 21 06/30/16 20:11 93 Room Air 06/30/16 20:11 Room Air 06/30/16 20:10 92 20 93 Room Air 21 06/30/16 19:00 98.4 86 16 94/58 92 Room Air Intake and Output 06/30/16 07/01/16 19:00 07:00 Intake Total 826 ml 265 ml Output Total 700 ml Balance 126 ml 265 ml Intake Oral 350 ml 240 ml IV Total 476 ml 25 ml Output Urine Total 500 ml Other 200 ml # Voids 5 # Bowel Movements 2 Laboratory Tests Test 06/30/16 18:30 07/01/16 05:25 Body Fluid Source Pending Body Fluid Volume Pending Body Fluid Appearance Hazy Body Fluid RBC 1550 /CUMM Body Fluid Total Nucleated Cells 1510 /CUMM Body Fluid Polynuclear WBCs (%) 95 % Body Fluid Mononuclear WBCs (%) 3 % Body Fluid Mesothelial Cells (%) 2 % Body Fluid Total Protein Pending Body Fluid Lactate Dehydrogenase Pending White Blood Count 15.6 K/UL (4.8-10.8) H Red Blood Count 2.93 M/UL (4.70-6.10) L Hemoglobin 9.6 G/DL (14.2-18.0) L Hematocrit 28.9 % (42.0-52.0) L Mean Corpuscular Volume 99 FL (80-99) Mean Corpuscular Hemoglobin 32.6 PG (27.0-31.0) H Mean Corpuscular Hemoglobin Concent 33.1 G/DL (32.0-36.0) Red Cell Distribution Width 12.7 % (11.6-14.8) Platelet Count 678 K/UL (150-450) H Mean Platelet Volume 5.5 FL (6.5-10.1) L Neutrophils (%) (Auto) 82.1 % (45.0-75.0) H Lymphocytes (%) (Auto) 11.1 % (20.0-45.0) L Monocytes (%) (Auto) 5.7 % (1.0-10.0) Eosinophils (%) (Auto) 0.2 % (0.0-3.0) Basophils (%) (Auto) 0.9 % (0.0-2.0) Sodium Level 138 mEQ/L (135-145) Potassium Level 3.5 mEQ/L (3.4-4.9) Chloride Level 96 mEQ/L (98-107) L Carbon Dioxide Level 25 mEQ/L (20-30) Anion Gap 17 (5-15) H Blood Urea Nitrogen 11 mg/dL (7-23) Creatinine 0.8 mg/dL (0.7-1.2) # Estimat Glomerular Filtration Rate > 60 mL/min (>60) Glucose Level 99 mg/dL (74-106) Calcium Level 8.9 mg/dL (8.6-10.2) Total Bilirubin 0.7 mg/dL (0.0-1.2) Aspartate Amino Transf (AST/SGOT) 51 U/L (5-40) H Alanine Aminotransferase (ALT/SGPT) 68 U/L (3-41) H Alkaline Phosphatase 197 U/L (40-129) H Lactate Dehydrogenase 200 U/L (135-230) Total Protein 6.0 g/dL (6.6-8.7) L Albumin 2.6 g/dL (3.5-5.2) L Globulin 3.4 g/dL Albumin/Globulin Ratio 0.7 (1.0-2.7) L Vancomycin Level Trough 14.0 ug/mL (5.0-12.0) H Microbiology Date/Time Source Procedure Growth Status 06/29/16 06:05 Blood Blood Culture - Preliminary NO GROWTH AFTER 24 HOURS Resulted 06/29/16 06:00 Blood Blood Culture - Preliminary NO GROWTH AFTER 24 HOURS Resulted 06/29/16 18:30 Other Fluid Gram Stain - Final Resulted 06/29/16 18:30 Other Fluid Body Fluid Culture Pending Resulted 06/29/16 19:30 Sputum Induced Gram Stain - Final Complete 06/29/16 19:30 Sputum Culture - Final Jessenia Albicans Usual Upper Respiratory Clarissa Complete 06/30/16 05:52 Stool Clostridium difficile Toxin Assay - Final Complete Objective HEAD AND NECK: no JVD. LUNGS: Decreased breath sounds with coarse rhonchi on Right. CARDIOVASCULAR: Regular S1-S2 with no gallop or murmur. ABDOMEN: Soft. EXTREMITIES: no pitting edema. IRENA MELLO Jul 01, 2016 18:32
--- NOTE | 2016-07-01 18:38 | Pulmonology Progress Note ---
Assessment/Plan Problems: (1) Loculated pleural effusion (2) Pneumonia Assessment & Plan: L base infiltrate, likely aspiration + loculated R sided effusion (3) Spontaneous pneumothorax Assessment & Plan: S/P CT, now removed RESOLVED (4) Subcutaneous emphysema Assessment & Plan: RESOLVED (5) Multiple rib fractures involving four or more ribs Assessment & Plan: Likely chronic (2/2 prior injury), no e/o flail chest (6) Thrombocytopenia Assessment & Plan: ? 2/2 underlying liver disease/cirrhosis RESOLVED (7) Abnormal LFTs Assessment & Plan: 2/2 cirrhosis (8) Leucocytosis (9) D-dimer, elevated (10) Smokes < 1 pack of cigarettes per day (11) ETOH abuse (12) Liver cirrhosis Assessment/Plan -Optimize pulmonary hygiene/mobilize as tolerated -PRN O2 -F/U PLEURAL FLUID STUDIES -F/U surgery recs, needs thoracic evaluation, ? VATS -F/U VQ -Continue Abx per ID, F/U Cx's -TID and PRN DUOnebs -DVT Px: Hep SQ -F/U heme and GI recs -MVI/thiamine/folate Subjective Allergies: Coded Allergies: No Known Allergies (Unverified , 06/21/16) Subjective Tm 100, WCt slightly improved S/P 200 cc thora, studies pending VSS, on RA now, + CW pain, no SOB + cough with clear phlegm, no rhin/manpreet Objective Last 24 Hour Vital Signs Date Time Temp Pulse Resp B/P Pulse Ox O2 Delivery O2 Flow Rate FiO2 07/01/16 15:57 98.8 98 18 112/69 93 Room Air 07/01/16 13:43 97 18 96 Room Air 21 07/01/16 13:32 95 18 93 Room Air 07/01/16 11:49 100.0 94 18 120/81 94 Room Air 94 07/01/16 08:00 98.4 108 18 100/62 98 Room Air 07/01/16 07:21 96 18 96 Room Air 21 07/01/16 07:11 92 Room Air 07/01/16 07:11 87 20 92 Room Air 21 07/01/16 07:10 Room Air 07/01/16 04:00 99.0 93 16 125/81 92 Room Air 07/01/16 00:00 98.4 86 16 111/74 92 Room Air 06/30/16 20:31 94 18 95 Room Air 21 06/30/16 20:11 93 Room Air 06/30/16 20:11 Room Air 06/30/16 20:10 92 20 93 Room Air 21 06/30/16 19:00 98.4 86 16 94/58 92 Room Air Intake and Output 06/30/16 07/01/16 19:00 07:00 Intake Total 826 ml 265 ml Output Total 700 ml Balance 126 ml 265 ml Intake Oral 350 ml 240 ml IV Total 476 ml 25 ml Output Urine Total 500 ml Other 200 ml # Voids 5 # Bowel Movements 2 General Appearance: no acute distress, cachetic HEENT: normocephalic, atraumatic, anicteric, mucous membranes moist Respiratory/Chest: chest wall non-tender, lungs clear, normal breath sounds Cardiovascular: normal peripheral pulses, normal rate, regular rhythm Abdomen: normal bowel sounds, soft, non tender, no organomegaly, non distended Extremities: no cyanosis, no clubbing, no edema Microbiology Date/Time Source Procedure Growth Status 06/29/16 06:05 Blood Blood Culture - Preliminary NO GROWTH AFTER 24 HOURS Resulted 06/29/16 06:00 Blood Blood Culture - Preliminary NO GROWTH AFTER 24 HOURS Resulted 06/29/16 18:30 Other Fluid Gram Stain - Final Resulted 06/29/16 18:30 Other Fluid Body Fluid Culture Pending Resulted 06/29/16 19:30 Sputum Induced Gram Stain - Final Complete 06/29/16 19:30 Sputum Culture - Final Jessenia Albicans Usual Upper Respiratory Clarissa Complete 06/30/16 05:52 Stool Clostridium difficile Toxin Assay - Final Complete Laboratory Tests 07/01/16 05:25: White Blood Count 15.6H, Red Blood Count 2.93L, Hemoglobin 9.6L, Hematocrit 28.9L, Mean Corpuscular Volume 99, Mean Corpuscular Hemoglobin 32.6H, Mean Corpuscular Hemoglobin Concent 33.1, Red Cell Distribution Width 12.7, Platelet Count 678H, Mean Platelet Volume 5.5L, Neutrophils (%) (Auto) 82.1H, Lymphocytes (%) (Auto) 11.1L, Monocytes (%) (Auto) 5.7, Eosinophils (%) (Auto) 0.2, Basophils (%) (Auto) 0.9, Sodium Level 138, Potassium Level 3.5, Chloride Level 96L, Carbon Dioxide Level 25, Anion Gap 17H, Blood Urea Nitrogen 11, Creatinine 0.8#, Estimat Glomerular Filtration Rate > 60, Glucose Level 99, Calcium Level 8.9, Total Bilirubin 0.7, Aspartate Amino Transf (AST/SGOT) 51H, Alanine Aminotransferase (ALT/SGPT) 68H, Alkaline Phosphatase 197H, Lactate Dehydrogenase 200, Total Protein 6.0L, Albumin 2.6L, Globulin 3.4, Albumin/ Globulin Ratio 0.7L, Vancomycin Level Trough 14.0H Current Medications Medications (Trade) Dose Ordered Sig/Evan Route PRN Reason Start Time Stop Time Status Last Admin Dose Admin Acetaminophen (Tylenol) 650 mg Q6H PRN ORAL Mild Pain/Temp > 100.5 06/24/16 00:41 07/24/16 00:40 06/29/16 04:29 Albuterol/ Ipratropium (DuoNeb 0.5-3(2.5)mg/3ml) 3 ml TIDRT INH 06/26/16 19:00 07/01/16 18:59 07/01/16 13:33 Bisacodyl (Dulcolax) 5 mg DAILYPRN PRN ORAL Constipation 06/26/16 17:45 07/26/16 17:44 06/26/16 18:05 Cetylpyridinium Chloride (Cepacol) 1 lozenge EVERY HOUR PRN MILADY For Cough 06/26/16 08:15 07/26/16 08:14 Chlordiazepoxide (Librium) 50 mg DAILY ORAL 06/28/16 09:00 07/05/16 08:59 07/01/16 09:28 Dextrose (Dextrose 50%) STAT PRN IV Hypoglycemia 06/24/16 00:42 07/24/16 00:41 Folic Acid/ Magnesium Sulfate/ Multivitamins/ Sodium Chloride (Folvite/ Magnesium Sulfate/ M.v.i.-12/NS w/ KCl 20mEq) 1,014.2 ml @ 125 mls/ hr Q24H IV 06/24/16 09:00 07/24/16 08:59 07/01/16 09:27 Haloperidol Lactate (Haldol) 5 mg Q6H PRN IVPB Agitation 06/24/16 01:00 07/24/16 00:59 Future Hold Heparin Sodium (Porcine) (Heparin 5000 units/ml) 5,000 units EVERY 12 HOURS SUBQ 06/28/16 21:00 07/28/16 20:59 07/01/16 09:35 Lactulose (Cephulac) 20 gm BID ORAL 06/25/16 18:00 07/25/16 17:59 07/01/16 18:26 Ondansetron HCl (Zofran) 4 mg Q6H PRN IVP Nausea & Vomiting 06/24/16 00:45 07/24/16 00:44 Pantoprazole (Protonix) 40 mg ACBREAKFAST ORAL 06/24/16 06:30 07/24/16 06:29 07/01/16 05:42 Piperacillin Sod/ Tazobactam Sod 3.375 gm/Dextrose 100 ml @ 25 mls/hr EVERY 8 HOURS IVPB 07/01/16 22:00 07/06/16 21:59 Thiamine HCl 100 mg/Sodium Chloride 101 ml @ 100 mls/hr Q24H IVPB 06/30/16 09:00 07/30/16 08:59 07/01/16 09:28 Vancomycin HCl 1 ea 1 ea DAILY PRN MISC Per rx protocol 06/29/16 16:15 07/29/16 16:14 Vancomycin HCl/ Dextrose (Vancomycin/D5W 250ml) 250 ml @ 166.667 mls/hr Q12HR@0600,1800 IVPB 07/01/16 18:00 07/06/16 17:59 EUGENIO RODRÍGUEZ M.D. Jul 01, 2016 18:38
[2016-07-01 20:29] VITALS: BP 108/70
[2016-07-01] MEDS: HYDROmorphone 1mg/ml Carpuject IVP PRN (22:05)
[2016-07-02] VITALS: BP 103/70
[2016-07-02 04:00] VITALS: BP 94/65
[2016-07-02] MEDS: Vancomycin 1250mg/D5W 250ml IVPB SCH ×2 (05:04)
[2016-07-02] MEDS: HYDROmorphone 1mg/ml Carpuject IVP PRN ×2 (05:25→17:42)
[2016-07-02 06:31] LABS: LYMPHOCYTES % (AUTO) 7.4 % (20.0-45.0); MEAN CORPUSCULAR HEMOGLOBIN 32.4 PG (27.0-31.0); MEAN CORPUSCULAR HGB CONC 32.1 G/DL (32.0-36.0); MEAN CORPUSCULAR VOLUME 101 FL (80-99); MEAN PLATELET VOLUME 5.5 FL (6.5-10.1); MONOCYTES % (AUTO) 7.1 % (1.0-10.0); NEUTROPHILS % (AUTO) 84.4 % (45.0-75.0); PLATELET COUNT 777 K/UL (150-450); RED BLOOD COUNT 2.73 M/UL (4.70-6.10); RED CELL DISTRIBUTION WIDTH 13.3 % (11.6-14.8); WHITE BLOOD COUNT 17.8 K/UL (4.8-10.8)
[2016-07-02] MEDS ORDERED: Zosyn 3.375gm inj ONE (06:43)
[2016-07-02 06:46] LABS: ALBUMIN/GLOBULIN RATIO 0.6 (1.0-2.7); CALCIUM 8.3 mg/dL (8.6-10.2); CREATININE 1.8 mg/dL (0.7-1.2); GLOMERULAR FILTRATION RATE 41.4 mL/min (>60); POTASSIUM 3.8 mEQ/L (3.4-4.9)
[2016-07-02 07:36] LABS: COMMENT,BODY FLUID PATHOLOGIST COMMENT
[2016-07-02 08:15] VITALS: BP 108/55
--- NOTE | 2016-07-02 08:33 | Nephrology Progress Note ---
Assessment/Plan Problem List: (1) ETOH abuse (2) Multiple rib fractures involving four or more ribs (3) Abnormal LFTs Assessment: improving slowly (4) Spontaneous pneumothorax Assessment: resolved. (5) Subcutaneous emphysema (6) D-dimer, elevated (7) Thrombocytopenia (8) Hypokalemia Assessment: being repleted. (9) Hyponatremia Assessment: corrected. (10) Leucocytosis (11) Pneumonia (12) Liver cirrhosis Plan GI and Pulm following. Dr. Sanchez/Dr Lua following. Abx per ID rec. CT surg eval. Subjective Subjective late entry for 07/01 - fever better. Objective Objective Last 24 Hour Vital Signs Date Time Temp Pulse Resp B/P Pulse Ox O2 Delivery O2 Flow Rate FiO2 07/02/16 08:15 97.5 103 19 108/55 95 Nasal Cannula 07/02/16 04:00 97.9 86 18 94/65 92 Room Air 07/02/16 00:00 98.2 94 18 103/70 97 Room Air 07/01/16 22:35 97.0 07/01/16 20:29 97.0 100 20 108/70 100 Room Air 07/01/16 20:09 95 Room Air 07/01/16 20:09 Room Air 07/01/16 15:57 98.8 98 18 112/69 93 Room Air 07/01/16 13:43 97 18 96 Room Air 21 07/01/16 13:32 95 18 93 Room Air 21 07/01/16 11:49 100.0 94 18 120/81 94 Room Air 94 Intake and Output 07/01/16 07/02/16 19:00 07:00 Intake Total 240 ml 406.667 ml Balance 240 ml 406.667 ml Intake Oral 240 ml 240 ml IV Total 166.667 ml # Voids 1 6 # Bowel Movements 1 1 Laboratory Tests 07/02/16 06:00: White Blood Count 17.8H, Red Blood Count 2.73L, Hemoglobin 8.9L, Hematocrit 27.6L, Mean Corpuscular Volume 101H, Mean Corpuscular Hemoglobin 32.4H, Mean Corpuscular Hemoglobin Concent 32.1, Red Cell Distribution Width 13.3, Platelet Count 777H, Mean Platelet Volume 5.5L, Neutrophils (%) (Auto) 84.4H, Lymphocytes (%) (Auto) 7.4L, Monocytes (%) (Auto) 7.1, Eosinophils (%) (Auto) 0.0, Basophils (%) (Auto) 1.0, Sodium Level 139, Potassium Level 3.8, Chloride Level 100, Carbon Dioxide Level 26, Anion Gap 13, Blood Urea Nitrogen 15, Creatinine 1.8#H, Estimat Glomerular Filtration Rate 41.4, Glucose Level 121H, Calcium Level 8.3L, Total Bilirubin 0.8, Aspartate Amino Transf (AST/SGOT) 41H, Alanine Aminotransferase (ALT/SGPT) 53H, Alkaline Phosphatase 186H, Total Protein 6.0L, Albumin 2.3L, Globulin 3.7, Albumin/Globulin Ratio 0.6L Height (Feet): 5 Height (Inches): 6.00 Weight (Pounds): 140 General Appearance: no apparent distress Cardiovascular: normal rate, regular rhythm Respiratory/Chest: decreased breath sounds Abdomen: non tender, soft Extremities: non-pitting CM GABRIEL Jul 02, 2016 08:33
[2016-07-02] MEDS: Lactulose 20gm/30ml UDC ORAL SCH ×2 (08:34→17:36)
[2016-07-02] MEDS: chlordiazePOXIDE 25mg Cap ORAL SCH (08:34)
[2016-07-02] MEDS: Folic Acid 1 MG, Magnesium Sulfate 2,000 MG, Multivitamin - 12 Injection 10 ML in NS w/... IV SCH (08:35)
[2016-07-02] MEDS: Heparin 5000 units/ml inj SUBQ SCH ×2 (08:40→21:22)
--- NOTE | 2016-07-02 11:17 | General Progress Note ---
Assessment/Plan Assessment/Plan IMPRESSION: 1. Elevated D-dimer 2/2 liver disease 2/2 liver disease, etoh use 2. Spontaneous pneumothorax, being followedby pulm 3. Thrombocytopenia hx now better 4. Thrombocytosis 2/2 reactive process from anemia 5. Anemia secondary to chronic disease 6. ETOH abuse 7. Chest pain, rule out acute coronary syndrome. RECOMMENDATIONS: 1. Monitor counts. 2. Transfuse as needed. 3. Hgb goal is >7.0 4. DVT prophylaxis with heparin sq 5. GI prophylaxis with PPI 6. Alcohol cessation recommended 7. staff. Thank you, Cirilo Mueller MD Subjective Constitutional: Reports: no symptoms HEENT: Reports: no symptoms Cardiovascular: Reports: no symptoms Respiratory: Reports: no symptoms Gastrointestinal/Abdominal: Reports: no symptoms Genitourinary: Reports: no symptoms Neurologic/Psychiatric: Reports: no symptoms Endocrine: Reports: no symptoms Hematologic/Lymphatic: Reports: anemia Allergies: Coded Allergies: No Known Allergies (Unverified , 06/21/16) Subjective Stable, no events, not bleeding, no fevers Objective Last 24 Hour Vital Signs Date Time Temp Pulse Resp B/P Pulse Ox O2 Delivery O2 Flow Rate FiO2 07/02/16 08:15 97.5 103 19 108/55 95 Nasal Cannula 07/02/16 04:00 97.9 86 18 94/65 92 Room Air 07/02/16 00:00 98.2 94 18 103/70 97 Room Air 07/01/16 22:35 97.0 07/01/16 20:29 97.0 100 20 108/70 100 Room Air 07/01/16 20:09 95 Room Air 07/01/16 20:09 Room Air 07/01/16 15:57 98.8 98 18 112/69 93 Room Air 07/01/16 13:43 97 18 96 Room Air 21 07/01/16 13:32 95 18 93 Room Air 21 07/01/16 11:49 100.0 94 18 120/81 94 Room Air 94 Intake and Output 07/01/16 07/02/16 19:00 07:00 Intake Total 240 ml 406.667 ml Balance 240 ml 406.667 ml Intake Oral 240 ml 240 ml IV Total 166.667 ml # Voids 1 6 # Bowel Movements 1 1 Laboratory Tests 07/02/16 06:00: White Blood Count 17.8H, Red Blood Count 2.73L, Hemoglobin 8.9L, Hematocrit 27.6L, Mean Corpuscular Volume 101H, Mean Corpuscular Hemoglobin 32.4H, Mean Corpuscular Hemoglobin Concent 32.1, Red Cell Distribution Width 13.3, Platelet Count 777H, Mean Platelet Volume 5.5L, Neutrophils (%) (Auto) 84.4H, Lymphocytes (%) (Auto) 7.4L, Monocytes (%) (Auto) 7.1, Eosinophils (%) (Auto) 0.0, Basophils (%) (Auto) 1.0, Sodium Level 139, Potassium Level 3.8, Chloride Level 100, Carbon Dioxide Level 26, Anion Gap 13, Blood Urea Nitrogen 15, Creatinine 1.8#H, Estimat Glomerular Filtration Rate 41.4, Glucose Level 121H, Calcium Level 8.3L, Total Bilirubin 0.8, Aspartate Amino Transf (AST/SGOT) 41H, Alanine Aminotransferase (ALT/SGPT) 53H, Alkaline Phosphatase 186H, Total Protein 6.0L, Albumin 2.3L, Globulin 3.7, Albumin/Globulin Ratio 0.6L Height (Feet): 5 Height (Inches): 6.00 Weight (Pounds): 140 General Appearance: no apparent distress EENT: TMs normal Neck: supple Cardiovascular: regular rhythm Respiratory/Chest: lungs clear Abdomen: soft Extremities: non-tender Edema: no edema noted Arm (L), no edema noted Arm (R), no edema noted Leg (L), no edema noted Leg (R) Edema: mild edema Neurologic: no motor/sensory deficits Skin: warm/dry Cirilo Mueller Jul 02, 2016 11:17
[2016-07-02 11:36] VITALS: BP 103/68
--- NOTE | 2016-07-02 11:36 | Cardiac Electrophysiology PN ---
Assessment/Plan Assessment/Plan 1. Sinus tachycardia due to pneumothorax. Resolved after chest tube insertion. EF 60% to 65% with no left ventricular hypertrophy and no pericardial effusion. 2. Atrial fibrillation, transient. Resolved. Not hyperthyroid. 3. Pneumothorax status post chest tube placement and then removal 4. Status post multiple rib fractures. 5. SQ emphysema. 6. Liver cirrhosis 7. ETOH withdrawal. On Banana bag. CANDICE RN Subjective Subjective Alert in NAD with sitter at bedside.Right chest wall pain better. Objective Last 24 Hour Vital Signs Date Time Temp Pulse Resp B/P Pulse Ox O2 Delivery O2 Flow Rate FiO2 07/02/16 08:15 97.5 103 19 108/55 95 Nasal Cannula 07/02/16 04:00 97.9 86 18 94/65 92 Room Air 07/02/16 00:00 98.2 94 18 103/70 97 Room Air 07/01/16 22:35 97.0 07/01/16 20:29 97.0 100 20 108/70 100 Room Air 07/01/16 20:09 95 Room Air 07/01/16 20:09 Room Air 07/01/16 15:57 98.8 98 18 112/69 93 Room Air 07/01/16 13:43 97 18 96 Room Air 21 07/01/16 13:32 95 18 93 Room Air 21 07/01/16 11:49 100.0 94 18 120/81 94 Room Air 94 Intake and Output 07/01/16 07/02/16 19:00 07:00 Intake Total 240 ml 406.667 ml Balance 240 ml 406.667 ml Intake Oral 240 ml 240 ml IV Total 166.667 ml # Voids 1 6 # Bowel Movements 1 1 Laboratory Tests Test 07/02/16 06:00 White Blood Count 17.8 K/UL (4.8-10.8) H Red Blood Count 2.73 M/UL (4.70-6.10) L Hemoglobin 8.9 G/DL (14.2-18.0) L Hematocrit 27.6 % (42.0-52.0) L Mean Corpuscular Volume 101 FL (80-99) H Mean Corpuscular Hemoglobin 32.4 PG (27.0-31.0) H Mean Corpuscular Hemoglobin Concent 32.1 G/DL (32.0-36.0) Red Cell Distribution Width 13.3 % (11.6-14.8) Platelet Count 777 K/UL (150-450) H Mean Platelet Volume 5.5 FL (6.5-10.1) L Neutrophils (%) (Auto) 84.4 % (45.0-75.0) H Lymphocytes (%) (Auto) 7.4 % (20.0-45.0) L Monocytes (%) (Auto) 7.1 % (1.0-10.0) Eosinophils (%) (Auto) 0.0 % (0.0-3.0) Basophils (%) (Auto) 1.0 % (0.0-2.0) Sodium Level 139 mEQ/L (135-145) Potassium Level 3.8 mEQ/L (3.4-4.9) Chloride Level 100 mEQ/L (98-107) Carbon Dioxide Level 26 mEQ/L (20-30) Anion Gap 13 (5-15) Blood Urea Nitrogen 15 mg/dL (7-23) Creatinine 1.8 mg/dL (0.7-1.2) #H Estimat Glomerular Filtration Rate 41.4 mL/min (>60) Glucose Level 121 mg/dL (74-106) H Calcium Level 8.3 mg/dL (8.6-10.2) L Total Bilirubin 0.8 mg/dL (0.0-1.2) Aspartate Amino Transf (AST/SGOT) 41 U/L (5-40) H Alanine Aminotransferase (ALT/SGPT) 53 U/L (3-41) H Alkaline Phosphatase 186 U/L (40-129) H Total Protein 6.0 g/dL (6.6-8.7) L Albumin 2.3 g/dL (3.5-5.2) L Globulin 3.7 g/dL Albumin/Globulin Ratio 0.6 (1.0-2.7) L Microbiology Date/Time Source Procedure Growth Status 06/29/16 18:30 Other Fluid Gram Stain - Final Resulted 06/29/16 18:30 Other Fluid Body Fluid Culture - Preliminary NO GROWTH Resulted 06/29/16 19:30 Sputum Induced Gram Stain - Final Complete 06/29/16 19:30 Sputum Culture - Final Jessenia Albicans Usual Upper Respiratory Clarissa Complete 06/30/16 05:52 Stool Clostridium difficile Toxin Assay - Final Complete Objective HEAD AND NECK: no JVD. LUNGS: Decreased breath sounds with coarse rhonchi on Right. CARDIOVASCULAR: Regular S1-S2 with no gallop or murmur. ABDOMEN: Soft. EXTREMITIES: no pitting edema. IRENA MELLO Jul 02, 2016 11:36
--- NOTE | 2016-07-02 13:21 | GI Progress Note ---
Assessment/Plan Problems: (1) ETOH abuse ICD Codes: F10.10 - Alcohol abuse, uncomplicated SNOMED: 41613542, 70911378 (2) Multiple rib fractures involving four or more ribs ICD Codes: S22.49XA - Multiple fractures of ribs, unspecified side, initial encounter for closed fracture SNOMED: 7780041 (3) Abnormal LFTs ICD Codes: R79.89 - Other specified abnormal findings of blood chemistry SNOMED: 289854451 (4) Liver cirrhosis ICD Codes: K74.60 - Unspecified cirrhosis of liver SNOMED: 92839179 (5) Alcohol withdrawal ICD Codes: F10.239 - Alcohol dependence with withdrawal, unspecified SNOMED: 967447502 (6) Thrombocytopenia ICD Codes: D69.6 - Thrombocytopenia, unspecified SNOMED: 148256202 Status: stable Status Narrative Discussed with Dr. Krueger. Assessment/Plan cdiff negative abdominal U/S >> Hepatomegaly with fatty infiltration, Cholelithiasis hep panel negative ammonia level >> wnl OB stool negative discriminant function negative >> defer glucosteroid therapy ------ ok for DC per GI standpoint symptomatic GI treatment ppi monitor LFTs monitor H&H, transfuse prn PT eval fu labs Subjective Subjective denies any GI symptoms confused >> states he has court date tomorrow, but cannot recall actual date. wishes to go home Objective Last 24 Hour Vital Signs Date Time Temp Pulse Resp B/P Pulse Ox O2 Delivery O2 Flow Rate FiO2 07/02/16 11:36 98.7 91 19 103/68 97 Room Air 07/02/16 08:15 97.5 103 19 108/55 95 Nasal Cannula 07/02/16 04:00 97.9 86 18 94/65 92 Room Air 07/02/16 00:00 98.2 94 18 103/70 97 Room Air 07/01/16 22:35 97.0 07/01/16 20:29 97.0 100 20 108/70 100 Room Air 07/01/16 20:09 95 Room Air 07/01/16 20:09 Room Air 07/01/16 15:57 98.8 98 18 112/69 93 Room Air 07/01/16 13:43 97 18 96 Room Air 21 07/01/16 13:32 95 18 93 Room Air 21 Intake and Output 07/01/16 07/02/16 19:00 07:00 Intake Total 240 ml 406.667 ml Balance 240 ml 406.667 ml Intake Oral 240 ml 240 ml IV Total 166.667 ml # Voids 1 6 # Bowel Movements 1 1 Laboratory Tests Test 07/02/16 06:00 White Blood Count 17.8 K/UL (4.8-10.8) H Red Blood Count 2.73 M/UL (4.70-6.10) L Hemoglobin 8.9 G/DL (14.2-18.0) L Hematocrit 27.6 % (42.0-52.0) L Mean Corpuscular Volume 101 FL (80-99) H Mean Corpuscular Hemoglobin 32.4 PG (27.0-31.0) H Mean Corpuscular Hemoglobin Concent 32.1 G/DL (32.0-36.0) Red Cell Distribution Width 13.3 % (11.6-14.8) Platelet Count 777 K/UL (150-450) H Mean Platelet Volume 5.5 FL (6.5-10.1) L Neutrophils (%) (Auto) 84.4 % (45.0-75.0) H Lymphocytes (%) (Auto) 7.4 % (20.0-45.0) L Monocytes (%) (Auto) 7.1 % (1.0-10.0) Eosinophils (%) (Auto) 0.0 % (0.0-3.0) Basophils (%) (Auto) 1.0 % (0.0-2.0) Sodium Level 139 mEQ/L (135-145) Potassium Level 3.8 mEQ/L (3.4-4.9) Chloride Level 100 mEQ/L (98-107) Carbon Dioxide Level 26 mEQ/L (20-30) Anion Gap 13 (5-15) Blood Urea Nitrogen 15 mg/dL (7-23) Creatinine 1.8 mg/dL (0.7-1.2) #H Estimat Glomerular Filtration Rate 41.4 mL/min (>60) Glucose Level 121 mg/dL (74-106) H Calcium Level 8.3 mg/dL (8.6-10.2) L Total Bilirubin 0.8 mg/dL (0.0-1.2) Aspartate Amino Transf (AST/SGOT) 41 U/L (5-40) H Alanine Aminotransferase (ALT/SGPT) 53 U/L (3-41) H Alkaline Phosphatase 186 U/L (40-129) H Total Protein 6.0 g/dL (6.6-8.7) L Albumin 2.3 g/dL (3.5-5.2) L Globulin 3.7 g/dL Albumin/Globulin Ratio 0.6 (1.0-2.7) L Height (Feet): 5 Height (Inches): 6.00 Weight (Pounds): 140 General Appearance: no apparent distress, alert Cardiovascular: normal rate Respiratory/Chest: normal breath sounds, no respiratory distress Abdominal Exam: normal bowel sounds, non tender, soft Extremities: normal range of motion Objective Procedure: US ABD Complete Indication:Abdominal pain Findings: The demonstrated part of the pancreas, aorta and IVC, both kidneys, spleen appear unremarkable. Aorta and pancreas are poorly seen. There are gallstones. Sonographic Vanegas's is negative per technologist. The liver is enlarged and echogenic. CBD is 4 mm. There is no biliary ductal dilatation identified. Doppler evaluation of the main portal vein shows patency. There is no ascites. No hydronephrosis seen. Impression: Hepatomegaly with fatty infiltration. Cholelithiasis Pancreas and aorta obscured Deborah Cordero N.P. Jul 02, 2016 13:21
--- NOTE | 2016-07-02 13:35 | Infectious Diseases Prog Note ---
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 Development of bilateral pulmonary lower lobe parenchymal consolidation--atelectasis vs pneumonia // Leukocytosis - persistent, stable // Fever - intermittent low grade // SP PTX - chest tube removed - CT Chest 06/28: Resolution of right pneumothorax, pneumomediastinum, subcutaneous emphysema with interval removal of right chest tube // Multiple displaced right rib fractures // Elevated LFTs, m/l EtOH hepatitis - US: hepatomegaly with fatty infiltration, cholelithiasis - negative: hepatitis panel // Thrombocytosis // EtOH, tobacco abuse // Negative HIV // NKDA // Full Code PLAN: - continue zosyn d# 6 / 10, IV vancomycin d# 4 - CT surgery eval - f/u final cultures - monitor CBC, temperatures - monitor BMP - monitor CXR Subjective Allergies: Coded Allergies: No Known Allergies (Unverified , 06/21/16) Subjective intermittent low grade fevers awaiting CTS eval Objective Vital Signs Last 24 Hour Vital Signs Date Time Temp Pulse Resp B/P Pulse Ox O2 Delivery O2 Flow Rate FiO2 07/02/16 11:36 98.7 91 19 103/68 97 Room Air 07/02/16 08:15 97.5 103 19 108/55 95 Nasal Cannula 07/02/16 04:00 97.9 86 18 94/65 92 Room Air 07/02/16 00:00 98.2 94 18 103/70 97 Room Air 07/01/16 22:35 97.0 07/01/16 20:29 97.0 100 20 108/70 100 Room Air 07/01/16 20:09 95 Room Air 07/01/16 20:09 Room Air 07/01/16 15:57 98.8 98 18 112/69 93 Room Air 07/01/16 13:43 97 18 96 Room Air 21 Height (Feet): 5 Height (Inches): 6.00 Weight (Pounds): 140 General Appearance: no acute distress Respiratory/Chest: no respiratory distress, decreased breath sounds Cardiovascular: normal rate, regular rhythm Abdomen: normal bowel sounds, soft, non tender, non distended Microbiology Date/Time Source Procedure Growth Status 06/29/16 18:30 Other Fluid Gram Stain - Final Resulted 06/29/16 18:30 Other Fluid Body Fluid Culture - Preliminary NO GROWTH Resulted 06/29/16 19:30 Sputum Induced Gram Stain - Final Complete 06/29/16 19:30 Sputum Culture - Final Jessenia Albicans Usual Upper Respiratory Clarissa Complete 06/30/16 05:52 Stool Clostridium difficile Toxin Assay - Final Complete Laboratory Tests Test 07/02/16 06:00 White Blood Count 17.8 K/UL (4.8-10.8) H Red Blood Count 2.73 M/UL (4.70-6.10) L Hemoglobin 8.9 G/DL (14.2-18.0) L Hematocrit 27.6 % (42.0-52.0) L Mean Corpuscular Volume 101 FL (80-99) H Mean Corpuscular Hemoglobin 32.4 PG (27.0-31.0) H Mean Corpuscular Hemoglobin Concent 32.1 G/DL (32.0-36.0) Red Cell Distribution Width 13.3 % (11.6-14.8) Platelet Count 777 K/UL (150-450) H Mean Platelet Volume 5.5 FL (6.5-10.1) L Neutrophils (%) (Auto) 84.4 % (45.0-75.0) H Lymphocytes (%) (Auto) 7.4 % (20.0-45.0) L Monocytes (%) (Auto) 7.1 % (1.0-10.0) Eosinophils (%) (Auto) 0.0 % (0.0-3.0) Basophils (%) (Auto) 1.0 % (0.0-2.0) Sodium Level 139 mEQ/L (135-145) Potassium Level 3.8 mEQ/L (3.4-4.9) Chloride Level 100 mEQ/L (98-107) Carbon Dioxide Level 26 mEQ/L (20-30) Anion Gap 13 (5-15) Blood Urea Nitrogen 15 mg/dL (7-23) Creatinine 1.8 mg/dL (0.7-1.2) #H Estimat Glomerular Filtration Rate 41.4 mL/min (>60) Glucose Level 121 mg/dL (74-106) H Calcium Level 8.3 mg/dL (8.6-10.2) L Total Bilirubin 0.8 mg/dL (0.0-1.2) Aspartate Amino Transf (AST/SGOT) 41 U/L (5-40) H Alanine Aminotransferase (ALT/SGPT) 53 U/L (3-41) H Alkaline Phosphatase 186 U/L (40-129) H Total Protein 6.0 g/dL (6.6-8.7) L Albumin 2.3 g/dL (3.5-5.2) L Globulin 3.7 g/dL Albumin/Globulin Ratio 0.6 (1.0-2.7) L Current Medications Medications (Trade) Dose Ordered Sig/Evan Route PRN Reason Start Time Stop Time Status Last Admin Dose Admin Acetaminophen (Tylenol) 650 mg Q6H PRN ORAL Mild Pain/Temp > 100.5 06/24/16 00:41 07/24/16 00:40 06/29/16 04:29 Bisacodyl (Dulcolax) 5 mg DAILYPRN PRN ORAL Constipation 06/26/16 17:45 07/26/16 17:44 06/26/16 18:05 Cetylpyridinium Chloride (Cepacol) 1 lozenge EVERY HOUR PRN MILADY For Cough 06/26/16 08:15 07/26/16 08:14 Chlordiazepoxide (Librium) 50 mg DAILY ORAL 06/28/16 09:00 07/05/16 08:59 07/02/16 08:34 Dextrose (Dextrose 50%) STAT PRN IV Hypoglycemia 06/24/16 00:42 07/24/16 00:41 Folic Acid/ Magnesium Sulfate/ Multivitamins/ Sodium Chloride (Folvite/ Magnesium Sulfate/ M.v.i.-12/NS w/ KCl 20mEq) 1,014.2 ml @ 125 mls/ hr Q24H IV 06/24/16 09:00 07/24/16 08:59 07/02/16 08:35 Haloperidol Lactate (Haldol) 5 mg Q6H PRN IVPB Agitation 06/24/16 01:00 07/24/16 00:59 Future Hold Heparin Sodium (Porcine) (Heparin 5000 units/ml) 5,000 units EVERY 12 HOURS SUBQ 06/28/16 21:00 2/8/17 20:59 07/02/16 08:40 Hydromorphone HCl (Dilaudid) 1 mg Q4H PRN IVP Severe Pain (Pain Scale 7-10) 07/01/16 21:45 07/08/16 21:44 07/02/16 05:25 Lactulose (Cephulac) 20 gm BID ORAL 06/25/16 18:00 07/25/16 17:59 07/02/16 08:34 Ondansetron HCl (Zofran) 4 mg Q6H PRN IVP Nausea & Vomiting 06/24/16 00:45 07/24/16 00:44 Pantoprazole (Protonix) 40 mg ACBREAKFAST ORAL 06/24/16 06:30 07/24/16 06:29 07/02/16 06:13 Piperacillin Sod/ Tazobactam Sod 3.375 gm/Dextrose 100 ml @ 25 mls/hr EVERY 8 HOURS IVPB 07/01/16 22:00 07/06/16 21:59 07/02/16 08:35 Thiamine HCl 100 mg/Sodium Chloride 101 ml @ 100 mls/hr Q24H IVPB 06/30/16 09:00 07/30/16 08:59 07/02/16 08:35 Vancomycin HCl 1 ea 1 ea DAILY PRN MISC Per rx protocol 06/29/16 16:15 07/29/16 16:14 Vancomycin HCl/ Dextrose (Vancomycin/D5W 250ml) 250 ml @ 166.667 mls/hr Q12HR@0600,1800 IVPB 07/01/16 18:00 07/06/16 17:59 07/02/16 05:04 EMILY BOTELLO Jul 02, 2016 13:35
--- NOTE | 2016-07-02 15:41 | Pulmonology Progress Note ---
Assessment/Plan Problems: (1) Loculated pleural effusion (2) Pneumonia Assessment & Plan: L base infiltrate, likely aspiration + loculated R sided effusion (3) Spontaneous pneumothorax Assessment & Plan: S/P CT, now removed RESOLVED (4) Subcutaneous emphysema Assessment & Plan: RESOLVED (5) Multiple rib fractures involving four or more ribs Assessment & Plan: Likely chronic (2/2 prior injury), no e/o flail chest (6) Thrombocytopenia Assessment & Plan: ? 2/2 underlying liver disease/cirrhosis RESOLVED (7) Abnormal LFTs Assessment & Plan: 2/2 cirrhosis (8) Leucocytosis (9) D-dimer, elevated (10) Smokes < 1 pack of cigarettes per day (11) ETOH abuse (12) Liver cirrhosis (13) JEFF (acute kidney injury) Assessment/Plan -Optimize pulmonary hygiene/mobilize as tolerated -PRN O2 -F/U PLEURAL FLUID STUDIES - I HAVE CALLED THE LAB SEVERAL TIMES -F/U surgery recs, needs thoracic evaluation, ? VATS - AWAITING REPEAT THORACIC SURGERY EVALUATION -F/U VQ SCAN -Continue Abx per ID, F/U Cx's -TID and PRN DUOnebs -DVT Px: Hep SQ -F/U heme and GI recs -MVI/thiamine/folate -JEFF per renal Subjective Allergies: Coded Allergies: No Known Allergies (Unverified , 06/21/16) Subjective Tm 100, VSS Wct 17, CR 1.8 Pleura fluid LDH and protein not back !!!!!! Feels great, no cough/SOB, no F/C, 100% on RA, no CP Objective Last 24 Hour Vital Signs Date Time Temp Pulse Resp B/P Pulse Ox O2 Delivery O2 Flow Rate FiO2 07/02/16 11:36 98.7 91 19 103/68 97 Room Air 07/02/16 08:15 97.5 103 19 108/55 95 Nasal Cannula 07/02/16 04:00 97.9 86 18 94/65 92 Room Air 07/02/16 00:00 98.2 94 18 103/70 97 Room Air 07/01/16 22:35 97.0 07/01/16 20:29 97.0 100 20 108/70 100 Room Air 07/01/16 20:09 95 Room Air 07/01/16 20:09 Room Air 07/01/16 15:57 98.8 98 18 112/69 93 Room Air Intake and Output 07/01/16 07/02/16 19:00 07:00 Intake Total 240 ml 406.667 ml Balance 240 ml 406.667 ml Intake Oral 240 ml 240 ml IV Total 166.667 ml # Voids 1 6 # Bowel Movements 1 1 General Appearance: WD/WN, no acute distress HEENT: normocephalic, atraumatic, mucous membranes moist Respiratory/Chest: chest wall non-tender, lungs clear, normal breath sounds, no respiratory distress, no accessory muscle use Cardiovascular: normal peripheral pulses, normal rate, regular rhythm Abdomen: normal bowel sounds, soft, non tender, no organomegaly, non distended , no mass Extremities: no cyanosis, no clubbing, no edema Microbiology Date/Time Source Procedure Growth Status 06/29/16 18:30 Other Fluid Gram Stain - Final Resulted 06/29/16 18:30 Other Fluid Body Fluid Culture - Preliminary NO GROWTH Resulted 06/29/16 19:30 Sputum Induced Gram Stain - Final Complete 06/29/16 19:30 Sputum Culture - Final Jessenia Albicans Usual Upper Respiratory Clarissa Complete 06/30/16 05:52 Stool Clostridium difficile Toxin Assay - Final Complete Laboratory Tests 07/02/16 06:00: White Blood Count 17.8H, Red Blood Count 2.73L, Hemoglobin 8.9L, Hematocrit 27.6L, Mean Corpuscular Volume 101H, Mean Corpuscular Hemoglobin 32.4H, Mean Corpuscular Hemoglobin Concent 32.1, Red Cell Distribution Width 13.3, Platelet Count 777H, Mean Platelet Volume 5.5L, Neutrophils (%) (Auto) 84.4H, Lymphocytes (%) (Auto) 7.4L, Monocytes (%) (Auto) 7.1, Eosinophils (%) (Auto) 0.0, Basophils (%) (Auto) 1.0, Sodium Level 139, Potassium Level 3.8, Chloride Level 100, Carbon Dioxide Level 26, Anion Gap 13, Blood Urea Nitrogen 15, Creatinine 1.8#H, Estimat Glomerular Filtration Rate 41.4, Glucose Level 121H, Calcium Level 8.3L, Total Bilirubin 0.8, Aspartate Amino Transf (AST/SGOT) 41H, Alanine Aminotransferase (ALT/SGPT) 53H, Alkaline Phosphatase 186H, Total Protein 6.0L, Albumin 2.3L, Globulin 3.7, Albumin/Globulin Ratio 0.6L Current Medications Medications (Trade) Dose Ordered Sig/Evan Route PRN Reason Start Time Stop Time Status Last Admin Dose Admin Acetaminophen (Tylenol) 650 mg Q6H PRN ORAL Mild Pain/Temp > 100.5 06/24/16 00:41 07/24/16 00:40 06/29/16 04:29 Bisacodyl (Dulcolax) 5 mg DAILYPRN PRN ORAL Constipation 06/26/16 17:45 07/26/16 17:44 06/26/16 18:05 Cetylpyridinium Chloride (Cepacol) 1 lozenge EVERY HOUR PRN MILADY For Cough 06/26/16 08:15 07/26/16 08:14 Chlordiazepoxide (Librium) 50 mg DAILY ORAL 06/28/16 09:00 07/05/16 08:59 07/02/16 08:34 Dextrose (Dextrose 50%) STAT PRN IV Hypoglycemia 06/24/16 00:42 07/24/16 00:41 Folic Acid/ Magnesium Sulfate/ Multivitamins/ Sodium Chloride (Folvite/ Magnesium Sulfate/ M.v.i.-12/NS w/ KCl 20mEq) 1,014.2 ml @ 125 mls/ hr Q24H IV 06/24/16 09:00 07/24/16 08:59 07/02/16 08:35 Haloperidol Lactate (Haldol) 5 mg Q6H PRN IVPB Agitation 06/24/16 01:00 07/24/16 00:59 Future Hold Heparin Sodium (Porcine) (Heparin 5000 units/ml) 5,000 units EVERY 12 HOURS SUBQ 06/28/16 21:00 07/28/16 20:59 07/02/16 08:40 Hydromorphone HCl (Dilaudid) 1 mg Q4H PRN IVP Severe Pain (Pain Scale 7-10) 07/01/16 21:45 07/08/16 21:44 07/02/16 05:25 Lactulose (Cephulac) 20 gm BID ORAL 06/25/16 18:00 07/25/16 17:59 07/02/16 08:34 Ondansetron HCl (Zofran) 4 mg Q6H PRN IVP Nausea & Vomiting 06/24/16 00:45 07/24/16 00:44 Pantoprazole (Protonix) 40 mg ACBREAKFAST ORAL 06/24/16 06:30 07/24/16 06:29 07/02/16 06:13 Piperacillin Sod/ Tazobactam Sod 3.375 gm/Dextrose 100 ml @ 25 mls/hr EVERY 8 HOURS IVPB 07/01/16 22:00 07/06/16 21:59 07/02/16 08:35 Thiamine HCl 100 mg/Sodium Chloride 101 ml @ 100 mls/hr Q24H IVPB 06/30/16 09:00 07/30/16 08:59 07/02/16 08:35 Vancomycin HCl 1 ea 1 ea DAILY PRN MISC Per rx protocol 06/29/16 16:15 07/29/16 16:14 Vancomycin HCl/ Dextrose (Vancomycin/D5W 250ml) 250 ml @ 166.667 mls/hr Q12HR@0600,1800 IVPB 07/01/16 18:00 07/06/16 17:59 07/02/16 05:04 EUGENIO RODRÍGUEZ M.D. Jul 02, 2016 15:41
--- NOTE | 2016-07-02 15:58 | Diagnostic Imaging Report ---
Indication: Chest pain Technique: A ventilation/perfusion scan was performed. Ventilation was performed utilizing 42 mCi of technetium 99m DTPA. Perfusion was performed with 5.6 mCi of technetium 99m-MAA injected intravenously. Lungs were then projected in 8 different projections. Findings: There is significant amount of retained ventilatory agent within the central airway. There are no perfusion or ventilation defects of significance identified. Impression: Low probability for pulmonary embolus
[2016-07-02 16:00] VITALS: BP 116/70
--- NOTE | 2016-07-02 18:00 | Nephrology Progress Note ---
Assessment/Plan Problem List: (1) Spontaneous pneumothorax (2) Abnormal LFTs (3) Multiple rib fractures involving four or more ribs (4) D-dimer, elevated Plan Pulmo f/u- continue neb 02 as needed F/U with Surgery recs GI f/u Hematology F/U Monitor H&H, transfuse as needed Cardio f/u Monitor BUN/cr Monitor neuro status Optimize pulmonary hygiene/mobilize as tolerated Continue Abx per ID DVT prophylaxis: Hep SQ Cont pain management AM labs Subjective Constitutional: Denies: chills, diaphoresis, fever, malaise, no symptoms, other , weakness HEENT: Denies: blurred vision, double vision, ear discharge, ear pain, eye pain , mouth pain, mouth swelling, no symptoms, nose congestion, nose pain, other, tearing, throat pain, throat swelling Genitourinary: Denies: burning, discharge, flank pain, frequency, hematuria, incontinence, no symptoms, other, pain, urgency Neurologic/Psychiatric: Denies: anxiety, depressed, emotional problems, headache, no symptoms, numbness, other, paresthesia, pre-existing deficit, seizure, tingling, tremors, weakness Subjective In bed, having dinner, states that he feels good. Objective Objective Last 24 Hour Vital Signs Date Time Temp Pulse Resp B/P Pulse Ox O2 Delivery O2 Flow Rate FiO2 07/02/16 16:00 98.6 90 20 116/70 90 Room Air 07/02/16 11:36 98.7 91 19 103/68 97 Room Air 07/02/16 08:15 97.5 103 19 108/55 95 Nasal Cannula 07/02/16 04:00 97.9 86 18 94/65 92 Room Air 07/02/16 00:00 98.2 94 18 103/70 97 Room Air 07/01/16 22:35 97.0 07/01/16 20:29 97.0 100 20 108/70 100 Room Air 07/01/16 20:09 95 Room Air 07/01/16 20:09 Room Air Intake and Output 07/01/16 07/02/16 19:00 07:00 Intake Total 240 ml 406.667 ml Balance 240 ml 406.667 ml Intake Oral 240 ml 240 ml IV Total 166.667 ml # Voids 1 6 # Bowel Movements 1 1 Laboratory Tests 07/02/16 06:00: White Blood Count 17.8H, Red Blood Count 2.73L, Hemoglobin 8.9L, Hematocrit 27.6L, Mean Corpuscular Volume 101H, Mean Corpuscular Hemoglobin 32.4H, Mean Corpuscular Hemoglobin Concent 32.1, Red Cell Distribution Width 13.3, Platelet Count 777H, Mean Platelet Volume 5.5L, Neutrophils (%) (Auto) 84.4H, Lymphocytes (%) (Auto) 7.4L, Monocytes (%) (Auto) 7.1, Eosinophils (%) (Auto) 0.0, Basophils (%) (Auto) 1.0, Sodium Level 139, Potassium Level 3.8, Chloride Level 100, Carbon Dioxide Level 26, Anion Gap 13, Blood Urea Nitrogen 15, Creatinine 1.8#H, Estimat Glomerular Filtration Rate 41.4, Glucose Level 121H, Calcium Level 8.3L, Total Bilirubin 0.8, Aspartate Amino Transf (AST/SGOT) 41H, Alanine Aminotransferase (ALT/SGPT) 53H, Alkaline Phosphatase 186H, Total Protein 6.0L, Albumin 2.3L, Globulin 3.7, Albumin/Globulin Ratio 0.6L 07/02/16 16:30: Random Vancomycin Level 27.3 Height (Feet): 5 Height (Inches): 6.00 Weight (Pounds): 140 General Appearance: no apparent distress, alert EENT: normal ENT inspection Neck: normal alignment, supple Cardiovascular: normal rate, regular rhythm Respiratory/Chest: no respiratory distress, decreased breath sounds Abdomen: non tender, soft, no organomegaly Extremities: normal range of motion, non-tender, normal inspection, no calf tenderness, normal capillary refill Neurologic: alert, oriented x 3, responsive, normal mood/affect Pilar Newman N.P. Jul 02, 2016 18:00
[2016-07-02] MEDS ORDERED: Tubing IV Secondary IV ONE (18:21)
[2016-07-02] MEDS ORDERED: D5 1/2NS 1000ml IV ONE (18:21)
[2016-07-02 19:00] VITALS: BP 102/62
[2016-07-03] VITALS: BP 112/74
[2016-07-03] MEDS: HYDROmorphone 1mg/ml Carpuject IVP PRN ×4 (00:50→19:33)
[2016-07-03 04:00] VITALS: BP 99/66
--- NOTE | 2016-07-03 07:10 | General Progress Note ---
Progress Note Progress Note pt followed for right pneumothorax possibly spontaneous. hx off rib fx from previous trauma.. Chest tube placed by ED, was removed by us several days ago .His hospital course prolonged by a right sided effusion. thoracic surgery consult had been requested but apparently not yet seen. pt comfortable VSS wound right axilla healing well. Labs Test 06/30/16 18:30 07/01/16 05:25 07/02/16 06:00 07/02/16 16:30 Body Fluid Source Pleural Body Fluid Volume 24 mL Body Fluid Appearance Hazy Body Fluid RBC 1550 /CUMM Body Fluid Total Nucleated Cells 1510 /CUMM Body Fluid Polynuclear WBCs (%) 95 % Body Fluid Mononuclear WBCs (%) 3 % Body Fluid Mesothelial Cells (%) 2 % Body Fluid Total Protein 3.9 g/dL (.) Body Fluid Comment Pathologist comment White Blood Count 15.6 K/UL (4.8-10.8) 17.8 K/UL (4.8-10.8) Red Blood Count 2.93 M/UL (4.70-6.10) 2.73 M/UL (4.70-6.10) Hemoglobin 9.6 G/DL (14.2-18.0) 8.9 G/DL (14.2-18.0) Hematocrit 28.9 % (42.0-52.0) 27.6 % (42.0-52.0) Mean Corpuscular Volume 99 FL (80-99) 101 FL (80-99) Mean Corpuscular Hemoglobin 32.6 PG (27.0-31.0) 32.4 PG (27.0-31.0) Mean Corpuscular Hemoglobin Concent 33.1 G/DL (32.0-36.0) 32.1 G/DL (32.0-36.0) Red Cell Distribution Width 12.7 % (11.6-14.8) 13.3 % (11.6-14.8) Platelet Count 678 K/UL (150-450) 777 K/UL (150-450) Mean Platelet Volume 5.5 FL (6.5-10.1) 5.5 FL (6.5-10.1) Neutrophils (%) (Auto) 82.1 % (45.0-75.0) 84.4 % (45.0-75.0) Lymphocytes (%) (Auto) 11.1 % (20.0-45.0) 7.4 % (20.0-45.0) Monocytes (%) (Auto) 5.7 % (1.0-10.0) 7.1 % (1.0-10.0) Eosinophils (%) (Auto) 0.2 % (0.0-3.0) 0.0 % (0.0-3.0) Basophils (%) (Auto) 0.9 % (0.0-2.0) 1.0 % (0.0-2.0) Sodium Level 138 mEQ/L (135-145) 139 mEQ/L (135-145) Potassium Level 3.5 mEQ/L (3.4-4.9) 3.8 mEQ/L (3.4-4.9) Chloride Level 96 mEQ/L (98-107) 100 mEQ/L (98-107) Carbon Dioxide Level 25 mEQ/L (20-30) 26 mEQ/L (20-30) Anion Gap 17 (5-15) 13 (5-15) Blood Urea Nitrogen 11 mg/dL (7-23) 15 mg/dL (7-23) Creatinine 0.8 mg/dL (0.7-1.2) 1.8 mg/dL (0.7-1.2) Estimat Glomerular Filtration Rate > 60 mL/min (>60) 41.4 mL/min (>60) Glucose Level 99 mg/dL (74-106) 121 mg/dL (74-106) Calcium Level 8.9 mg/dL (8.6-10.2) 8.3 mg/dL (8.6-10.2) Total Bilirubin 0.7 mg/dL (0.0-1.2) 0.8 mg/dL (0.0-1.2) Aspartate Amino Transf (AST/SGOT) 51 U/L (5-40) 41 U/L (5-40) Alanine Aminotransferase (ALT/SGPT) 68 U/L (3-41) 53 U/L (3-41) Will get followup CXR Alkaline Phosphatase 197 U/L (40-129) 186 U/L (40-129) Lactate Dehydrogenase 200 U/L (135-230) Total Protein 6.0 g/dL (6.6-8.7) 6.0 g/dL (6.6-8.7) Albumin 2.6 g/dL (3.5-5.2) 2.3 g/dL (3.5-5.2) Globulin 3.4 g/dL 3.7 g/dL Albumin/Globulin Ratio 0.7 (1.0-2.7) 0.6 (1.0-2.7) Vancomycin Level Trough 14.0 ug/mL (5.0-12.0) Random Vancomycin Level 27.3 ug/mL Test 07/03/16 06:10 Will get followup cxr REINALDO HOOPER Jul 03, 2016 07:10
[2016-07-03 07:16] LABS: MEAN CORPUSCULAR HEMOGLOBIN 32.8 PG (27.0-31.0); MEAN CORPUSCULAR HGB CONC 32.4 G/DL (32.0-36.0); MEAN CORPUSCULAR VOLUME 101 FL (80-99); MEAN PLATELET VOLUME 5.3 FL (6.5-10.1); PLATELET COUNT 746 K/UL (150-450); RED CELL DISTRIBUTION WIDTH 13.5 % (11.6-14.8); WHITE BLOOD COUNT 17.9 K/UL (4.8-10.8)
[2016-07-03 07:28] LABS: ALBUMIN/GLOBULIN RATIO 0.7 (1.0-2.7); CALCIUM 8.2 mg/dL (8.6-10.2); CREATININE 2.7 mg/dL (0.7-1.2); GLOMERULAR FILTRATION RATE 25.9 mL/min (>60); POTASSIUM 4.1 mEQ/L (3.4-4.9); TOTAL PROTEIN 5.7 g/dL (6.6-8.7)
[2016-07-03 08:04] VITALS: BP 99/62
--- NOTE | 2016-07-03 08:29 | Diagnostic Imaging Report ---
Indications: Pleural effusion Technique: Ultrasound used to localize optimal puncture site. Sterile prepping and draping of the right lower chest performed. Local anesthesia with 1% lidocaine. Dermatotomy made. Puncture of the pleural space using thoracentesis needle. Stylet removed. Catheter placed to vacuum bottle suction. Fluid was aspirated. Patient tolerated procedure well, without immediate complication. The pleural effusion is multiloculated. Findings: Followup sonography demonstrates moderate residual loculated pleural fluid. Followup chest x-ray is pending. Impression: Successful ultrasound-guided right thoracentesis, yielding 200 cc of fluid
[2016-07-03] MEDS: Lactulose 20gm/30ml UDC ORAL SCH ×2 (09:48→17:13)
[2016-07-03] MEDS: chlordiazePOXIDE 25mg Cap ORAL SCH (09:48)
[2016-07-03] MEDS: Folic Acid 1 MG, Magnesium Sulfate 2,000 MG, Multivitamin - 12 Injection 10 ML in NS w/... IV SCH (09:48)
[2016-07-03] MEDS: Heparin 5000 units/ml inj SUBQ SCH ×2 (09:57→21:34)
[2016-07-03 10:52] LABS: BAND NEUTROPHILS % (MANUAL) 0 % (0-8); BASOPHILS % (MANUAL) 0 % (0-2); EOSINOPHILS % (MANUAL) 0 % (0-3); LYMPHOCYTES % (MANUAL) 3 % (20-45); MACROCYTES 1+; NEUTROPHILS % (MANUAL) 93 % (45-75); NUCLEATED RED BLOOD CELLS 1 /100 WBC; PLATELET ESTIMATE INCREASED; TOTAL CELLS COUNTED 100
[2016-07-03 10:53] LABS: ANISOCYTOSIS 1+; HYPOCHROMASIA 2+; PLATELET MORPHOLOGY NORMAL; SPHEROCYTES 1+
[2016-07-03 11:51] VITALS: BP 111/69
--- NOTE | 2016-07-03 13:06 | Nephrology Progress Note ---
Assessment/Plan Problem List: (1) Spontaneous pneumothorax (2) Abnormal LFTs (3) Multiple rib fractures involving four or more ribs (4) D-dimer, elevated (5) Thrombocytosis Plan Pulmo f/u- continue neb 02 as needed F/U with Surgery recs GI f/u Hematology F/U Monitor H&H, transfuse as needed Cardio f/u Monitor BUN/cr - Adequate urine output, creatinine elevated Monitor neuro status Optimize pulmonary hygiene/mobilize as tolerated Continue Abx per ID DVT prophylaxis: Hep SQ Cont pain management AM labs Subjective Constitutional: Denies: chills, diaphoresis, fever, malaise, no symptoms, other , weakness HEENT: Denies: blurred vision, double vision, ear discharge, ear pain, eye pain , mouth pain, mouth swelling, no symptoms, nose congestion, nose pain, other, tearing, throat pain, throat swelling Genitourinary: Denies: burning, discharge, flank pain, frequency, hematuria, incontinence, no symptoms, other, pain, urgency Neurologic/Psychiatric: Denies: anxiety, depressed, emotional problems, headache, no symptoms, numbness, other, paresthesia, pre-existing deficit, seizure, tingling, tremors, weakness Subjective In bed, in no distress, denies discomfort Objective Objective Last 24 Hour Vital Signs Date Time Temp Pulse Resp B/P Pulse Ox O2 Delivery O2 Flow Rate FiO2 07/03/16 11:51 98.8 91 16 111/69 93 07/03/16 09:20 Room Air 21 07/03/16 09:20 97 Room Air 07/03/16 08:04 98.2 57 15 99/62 95 Nasal Cannula 07/03/16 04:00 97.5 80 18 99/66 92 Room Air 07/03/16 00:00 99.0 107 18 112/74 95 Room Air 07/02/16 19:00 Room Air 07/02/16 19:00 97.5 83 20 102/62 90 Room Air 07/02/16 19:00 96 Room Air 07/02/16 18:12 98.6 07/02/16 16:00 98.6 90 20 116/70 90 Room Air Intake and Output 07/02/16 07/03/16 19:00 07:00 Intake Total 1996.667 ml 1834.2 ml Balance 1996.667 ml 1834.2 ml Intake Oral 680 ml 1620 ml IV Total 1317.667 ml 214.2 ml # Voids 4 6 # Bowel Movements 2 Laboratory Tests 07/02/16 16:30: Random Vancomycin Level 27.3 07/03/16 06:10: White Blood Count 17.9H, Red Blood Count 2.60L, Hemoglobin 8.5L, Hematocrit 26.3L, Mean Corpuscular Volume 101H, Mean Corpuscular Hemoglobin 32.8H, Mean Corpuscular Hemoglobin Concent 32.4, Red Cell Distribution Width 13.5, Platelet Count 746H, Mean Platelet Volume 5.3L, Neutrophils (%) (Auto) , Lymphocytes (%) (Auto) , Monocytes (%) (Auto) , Eosinophils (%) (Auto) , Basophils (%) (Auto) , Differential Total Cells Counted 100, Neutrophils % (Manual) 93H, Lymphocytes % (Manual) 3L, Monocytes % (Manual) 4, Eosinophils % (Manual) 0, Basophils % ( Manual) 0, Band Neutrophils 0, Nucleated Red Blood Cells 1, Platelet Estimate IncreasedH, Platelet Morphology Normal, Hypochromasia 2+, Anisocytosis 1+, Macrocytosis 1+, Spherocytes 1+, Sodium Level 138, Potassium Level 4.1, Chloride Level 100, Carbon Dioxide Level 23, Anion Gap 15, Blood Urea Nitrogen 22, Creatinine 2.7H, Estimat Glomerular Filtration Rate 25.9, Glucose Level 107H , Calcium Level 8.2L, Total Bilirubin 0.5, Aspartate Amino Transf (AST/SGOT) 27 , Alanine Aminotransferase (ALT/SGPT) 40, Alkaline Phosphatase 171H, Total Protein 5.7L, Albumin 2.4L, Globulin 3.3, Albumin/Globulin Ratio 0.7L Height (Feet): 5 Height (Inches): 6.00 Weight (Pounds): 140 General Appearance: no apparent distress, alert EENT: normal ENT inspection Neck: normal alignment, supple, normal inspection Cardiovascular: normal rate, regular rhythm Respiratory/Chest: no respiratory distress, decreased breath sounds Abdomen: non tender, soft, no organomegaly Extremities: normal range of motion, non-tender, normal inspection Neurologic: alert, oriented x 3, responsive, normal mood/affect Pilar Newman N.P. Jul 03, 2016 13:06
--- NOTE | 2016-07-03 13:08 | Cardiac Electrophysiology PN ---
Assessment/Plan Assessment/Plan 1. Sinus tachycardia due to pneumothorax. Resolved after chest tube insertion and removal. EF 60% to 65% with no left ventricular hypertrophy and no pericardial effusion. 2. Atrial fibrillation, transient. Resolved. Not hyperthyroid. 3. Pneumothorax status post chest tube placement and then removal 4. Status post multiple rib fractures. 5. SQ emphysema. 6. Liver cirrhosis 7. ETOH withdrawal. On Banana bag. DW RN Subjective Subjective Alert in NAD and right chest wall pain at site of chest tube removal better. Objective Last 24 Hour Vital Signs Date Time Temp Pulse Resp B/P Pulse Ox O2 Delivery O2 Flow Rate FiO2 07/03/16 11:51 98.8 91 16 111/69 93 07/03/16 09:20 Room Air 21 07/03/16 09:20 97 Room Air 07/03/16 08:04 98.2 57 15 99/62 95 Nasal Cannula 07/03/16 04:00 97.5 80 18 99/66 92 Room Air 07/03/16 00:00 99.0 107 18 112/74 95 Room Air 07/02/16 19:00 Room Air 07/02/16 19:00 97.5 83 20 102/62 90 Room Air 07/02/16 19:00 96 Room Air 07/02/16 18:12 98.6 07/02/16 16:00 98.6 90 20 116/70 90 Room Air Intake and Output 07/02/16 07/03/16 19:00 07:00 Intake Total 1997.667 ml 1834.2 ml Balance 1997.667 ml 1834.2 ml Intake Oral 680 ml 1620 ml IV Total 1317.667 ml 214.2 ml # Voids 4 6 # Bowel Movements 2 Laboratory Tests Test 07/02/16 16:30 07/03/16 06:10 Random Vancomycin Level 27.3 ug/mL White Blood Count 17.9 K/UL (4.8-10.8) H Red Blood Count 2.60 M/UL (4.70-6.10) L Hemoglobin 8.5 G/DL (14.2-18.0) L Hematocrit 26.3 % (42.0-52.0) L Mean Corpuscular Volume 101 FL (80-99) H Mean Corpuscular Hemoglobin 32.8 PG (27.0-31.0) H Mean Corpuscular Hemoglobin Concent 32.4 G/DL (32.0-36.0) Red Cell Distribution Width 13.5 % (11.6-14.8) Platelet Count 746 K/UL (150-450) H Mean Platelet Volume 5.3 FL (6.5-10.1) L Neutrophils (%) (Auto) % (45.0-75.0) Lymphocytes (%) (Auto) % (20.0-45.0) Monocytes (%) (Auto) % (1.0-10.0) Eosinophils (%) (Auto) % (0.0-3.0) Basophils (%) (Auto) % (0.0-2.0) Differential Total Cells Counted 100 Neutrophils % (Manual) 93 % (45-75) H Lymphocytes % (Manual) 3 % (20-45) L Monocytes % (Manual) 4 % (1-10) Eosinophils % (Manual) 0 % (0-3) Basophils % (Manual) 0 % (0-2) Band Neutrophils 0 % (0-8) Nucleated Red Blood Cells 1 /100 WBC Platelet Estimate Increased H Platelet Morphology Normal Hypochromasia 2+ Anisocytosis 1+ Macrocytosis 1+ Spherocytes 1+ Sodium Level 138 mEQ/L (135-145) Potassium Level 4.1 mEQ/L (3.4-4.9) Chloride Level 100 mEQ/L (98-107) Carbon Dioxide Level 23 mEQ/L (20-30) Anion Gap 15 (5-15) Blood Urea Nitrogen 22 mg/dL (7-23) Creatinine 2.7 mg/dL (0.7-1.2) H Estimat Glomerular Filtration Rate 25.9 mL/min (>60) Glucose Level 107 mg/dL (74-106) H Calcium Level 8.2 mg/dL (8.6-10.2) L Total Bilirubin 0.5 mg/dL (0.0-1.2) Aspartate Amino Transf (AST/SGOT) 27 U/L (5-40) Alanine Aminotransferase (ALT/SGPT) 40 U/L (3-41) Alkaline Phosphatase 171 U/L (40-129) H Total Protein 5.7 g/dL (6.6-8.7) L Albumin 2.4 g/dL (3.5-5.2) L Globulin 3.3 g/dL Albumin/Globulin Ratio 0.7 (1.0-2.7) L Objective HEAD AND NECK: no JVD. LUNGS: Decreased breath sounds with coarse rhonchi on Right. CARDIOVASCULAR: Regular S1-S2 with no gallop or murmur. ABDOMEN: Soft. EXTREMITIES: no pitting edema. IRENA MELLO Jul 03, 2016 13:08
[2016-07-03 16:28] VITALS: BP 115/62
--- NOTE | 2016-07-03 16:38 | Pulmonology Progress Note ---
Assessment/Plan Assessment/Plan (1) Loculated pleural effusion (2) Pneumonia Assessment & Plan: L base infiltrate, likely aspiration + loculated R sided effusion (3) Spontaneous pneumothorax Assessment & Plan: S/P CT, now removed RESOLVED (4) Subcutaneous emphysema Assessment & Plan: RESOLVED (5) Multiple rib fractures involving four or more ribs Assessment & Plan: Likely chronic (2/2 prior injury), no e/o flail chest (6) Thrombocytopenia Assessment & Plan: ? 2/2 underlying liver disease/cirrhosis RESOLVED (7) Abnormal LFTs Assessment & Plan: 2/2 cirrhosis (8) Leucocytosis (9) D-dimer, elevated (10) Smokes < 1 pack of cigarettes per day (11) ETOH abuse (12) Liver cirrhosis (13) JEFF (acute kidney injury) Assessment/Plan -Optimize pulmonary hygiene/mobilize as tolerated -PRN O2 -F/U PLEURAL FLUID STUDIES - I HAVE CALLED THE LAB SEVERAL TIMES -F/U surgery recs, needs thoracic evaluation, ? VATS - AWAITING REPEAT THORACIC SURGERY EVALUATION -F/U VQ SCAN -Continue Abx per ID, F/U Cx's -TID and PRN DUOnebs -DVT Px: Hep SQ -F/U heme and GI recs -MVI/thiamine/folate -JEFF per renal Subjective Constitutional: Reports: no symptoms Respiratory: Reports: productive cough, shortness of breath Cardiovascular: Reports: chest pain Genitourinary: Reports: no symptoms Psychiatric: Reports: no symptoms Allergies: Coded Allergies: No Known Allergies (Unverified , 06/21/16) Subjective complains of cough phlegm and right sided posterior chest pain no nv ambulating wtih assistance on RA Objective Last 24 Hour Vital Signs Date Time Temp Pulse Resp B/P Pulse Ox O2 Delivery O2 Flow Rate FiO2 07/03/16 16:28 98.1 98 16 115/62 95 Room Air 07/03/16 14:34 98.8 07/03/16 11:51 98.8 91 16 111/69 93 07/03/16 09:20 Room Air 21 07/03/16 09:20 97 Room Air 07/03/16 08:04 98.2 57 15 99/62 95 Nasal Cannula 07/03/16 04:00 97.5 80 18 99/66 92 Room Air 07/03/16 00:00 99.0 107 18 112/74 95 Room Air 07/02/16 19:00 Room Air 07/02/16 19:00 97.5 83 20 102/62 90 Room Air 07/02/16 19:00 96 Room Air Intake and Output 07/02/16 07/03/16 19:00 07:00 Intake Total 1997.667 ml 1834.2 ml Balance 1997.667 ml 1834.2 ml Intake Oral 680 ml 1620 ml IV Total 1317.667 ml 214.2 ml # Voids 4 6 # Bowel Movements 2 General Appearance: WD/WN HEENT: atraumatic Respiratory/Chest: rhonchi Cardiovascular: regular rhythm, regularly irregular Abdomen: no organomegaly, non distended Extremities: no clubbing Skin: no lesions Neurologic/Psychiatric: abnormal gait, alert, oriented x 3 VQ LP Laboratory Tests 07/03/16 06:10: White Blood Count 17.9H, Red Blood Count 2.60L, Hemoglobin 8.5L, Hematocrit 26.3L, Mean Corpuscular Volume 101H, Mean Corpuscular Hemoglobin 32.8H, Mean Corpuscular Hemoglobin Concent 32.4, Red Cell Distribution Width 13.5, Platelet Count 746H, Mean Platelet Volume 5.3L, Neutrophils (%) (Auto) , Lymphocytes (%) (Auto) , Monocytes (%) (Auto) , Eosinophils (%) (Auto) , Basophils (%) (Auto) , Differential Total Cells Counted 100, Neutrophils % (Manual) 93H, Lymphocytes % (Manual) 3L, Monocytes % (Manual) 4, Eosinophils % (Manual) 0, Basophils % ( Manual) 0, Band Neutrophils 0, Nucleated Red Blood Cells 1, Platelet Estimate IncreasedH, Platelet Morphology Normal, Hypochromasia 2+, Anisocytosis 1+, Macrocytosis 1+, Spherocytes 1+, Sodium Level 138, Potassium Level 4.1, Chloride Level 100, Carbon Dioxide Level 23, Anion Gap 15, Blood Urea Nitrogen 22, Creatinine 2.7H, Estimat Glomerular Filtration Rate 25.9, Glucose Level 107H , Calcium Level 8.2L, Total Bilirubin 0.5, Aspartate Amino Transf (AST/SGOT) 27 , Alanine Aminotransferase (ALT/SGPT) 40, Alkaline Phosphatase 171H, Total Protein 5.7L, Albumin 2.4L, Globulin 3.3, Albumin/Globulin Ratio 0.7L 07/03/16 16:29: Random Vancomycin Level [Pending] Current Medications Medications (Trade) Dose Ordered Sig/Evan Route PRN Reason Start Time Stop Time Status Last Admin Dose Admin Acetaminophen (Tylenol) 650 mg Q6H PRN ORAL Mild Pain/Temp > 100.5 06/24/16 00:41 07/24/16 00:40 06/29/16 04:29 Bisacodyl (Dulcolax) 5 mg DAILYPRN PRN ORAL Constipation 06/26/16 17:45 07/26/16 17:44 06/26/16 18:05 Cetylpyridinium Chloride (Cepacol) 1 lozenge EVERY HOUR PRN MILADY For Cough 06/26/16 08:15 07/26/16 08:14 07/03/16 09:49 Chlordiazepoxide (Librium) 50 mg DAILY ORAL 06/28/16 09:00 07/05/16 08:59 07/03/16 09:48 Dextrose (Dextrose 50%) STAT PRN IV Hypoglycemia 06/24/16 00:42 07/24/16 00:41 Folic Acid/ Magnesium Sulfate/ Multivitamins/ Sodium Chloride (Folvite/ Magnesium Sulfate/ M.v.i.-12/NS w/ KCl 20mEq) 1,014.2 ml @ 125 mls/ hr Q24H IV 06/24/16 09:00 07/24/16 08:59 07/03/16 09:48 Haloperidol Lactate (Haldol) 5 mg Q6H PRN IVPB Agitation 06/24/16 01:00 07/24/16 00:59 Future Hold Heparin Sodium (Porcine) (Heparin 5000 units/ml) 5,000 units EVERY 12 HOURS SUBQ 06/28/16 21:00 07/28/16 20:59 07/03/16 09:57 Hydromorphone HCl (Dilaudid) 1 mg Q4H PRN IVP Severe Pain (Pain Scale 7-10) 07/01/16 21:45 07/08/16 21:44 07/03/16 14:04 Lactulose (Cephulac) 20 gm BID ORAL 06/25/16 18:00 07/25/16 17:59 07/03/16 09:48 Ondansetron HCl (Zofran) 4 mg Q6H PRN IVP Nausea & Vomiting 06/24/16 00:45 07/24/16 00:44 Pantoprazole (Protonix) 40 mg ACBREAKFAST ORAL 06/24/16 06:30 07/24/16 06:29 07/03/16 05:47 Piperacillin Sod/ Tazobactam Sod/ Dextrose (Zosyn/D5W 100ml) 100 ml @ 25 mls/hr EVERY 8 HOURS IVPB 07/01/16 22:00 07/06/16 21:59 07/03/16 14:04 Thiamine HCl 100 mg/Sodium Chloride 101 ml @ 100 mls/hr Q24H IVPB 06/30/16 09:00 07/30/16 08:59 07/03/16 09:48 Vancomycin HCl 1 ea 1 ea DAILY PRN MISC Per rx protocol 06/29/16 16:15 07/29/16 16:14 CHRISTOPHE FLEMING DO Jul 03, 2016 16:38
[2016-07-03 20:00] VITALS: BP 119/76
[2016-07-03] MEDS ORDERED: Vancomycin 1250mg/D5W 250ml IVPB ONE ×2 (20:00)
[2016-07-04] VITALS: BP 106/66
[2016-07-04] MEDS: HYDROmorphone 1mg/ml Carpuject IVP PRN ×6 (00:04→22:24)
[2016-07-04 04:00] VITALS: BP 93/60
[2016-07-04 07:47] VITALS: BP 105/67
--- NOTE | 2016-07-04 08:59 | General Progress Note ---
Progress Note Progress Note Pt is sp right pneumothorax with placement of chest tube by ED and removal by us. Etiology appears to have been trauma as he has multiple rib fx on that side but pt is unable to explain what trauma may have caused this. Pts subsequent imaging studies showed pleural effusions and loculated fluid on right. Thoracic surgery consult had been requested but apparently not yet done. CXR yest still shows hazy right basilar opacity (offical radiology reading still pending) Labs Test 07/02/16 16:30 07/03/16 06:10 07/03/16 16:29 Random Vancomycin Level 27.3 ug/mL 16.0 ug/mL White Blood Count 17.9 K/UL (4.8-10.8) Red Blood Count 2.60 M/UL (4.70-6.10) Hemoglobin 8.5 G/DL (14.2-18.0) Hematocrit 26.3 % (42.0-52.0) Mean Corpuscular Volume 101 FL (80-99) Mean Corpuscular Hemoglobin 32.8 PG (27.0-31.0) Mean Corpuscular Hemoglobin Concent 32.4 G/DL (32.0-36.0) Red Cell Distribution Width 13.5 % (11.6-14.8) Platelet Count 746 K/UL (150-450) Mean Platelet Volume 5.3 FL (6.5-10.1) Neutrophils (%) (Auto) % (45.0-75.0) Lymphocytes (%) (Auto) % (20.0-45.0) Monocytes (%) (Auto) % (1.0-10.0) Eosinophils (%) (Auto) % (0.0-3.0) Basophils (%) (Auto) % (0.0-2.0) Differential Total Cells Counted 100 Neutrophils % (Manual) 93 % (45-75) Lymphocytes % (Manual) 3 % (20-45) Monocytes % (Manual) 4 % (1-10) Eosinophils % (Manual) 0 % (0-3) Basophils % (Manual) 0 % (0-2) Band Neutrophils 0 % (0-8) Nucleated Red Blood Cells 1 /100 WBC Platelet Estimate Increased Platelet Morphology Normal Hypochromasia 2+ Anisocytosis 1+ Macrocytosis 1+ Spherocytes 1+ Sodium Level 138 mEQ/L (135-145) Potassium Level 4.1 mEQ/L (3.4-4.9) Chloride Level 100 mEQ/L (98-107) Carbon Dioxide Level 23 mEQ/L (20-30) Anion Gap 15 (5-15) Blood Urea Nitrogen 22 mg/dL (7-23) Creatinine 2.7 mg/dL (0.7-1.2) Estimat Glomerular Filtration Rate 25.9 mL/min (>60) Glucose Level 107 mg/dL (74-106) Calcium Level 8.2 mg/dL (8.6-10.2) Total Bilirubin 0.5 mg/dL (0.0-1.2) Aspartate Amino Transf (AST/SGOT) 27 U/L (5-40) Alanine Aminotransferase (ALT/SGPT) 40 U/L (3-41) Alkaline Phosphatase 171 U/L (40-129) Total Protein 5.7 g/dL (6.6-8.7) Albumin 2.4 g/dL (3.5-5.2) Globulin 3.3 g/dL Albumin/Globulin Ratio 0.7 (1.0-2.7) Surgically stable Will get FU CXR tomorrow REINALDO HOOPER Jul 04, 2016 08:59
[2016-07-04] MEDS: Folic Acid 1 MG, Magnesium Sulfate 2,000 MG, Multivitamin - 12 Injection 10 ML in NS w/... IV SCH (09:16)
[2016-07-04] MEDS: Lactulose 20gm/30ml UDC ORAL SCH ×2 (09:16→18:08)
[2016-07-04] MEDS: chlordiazePOXIDE 25mg Cap ORAL SCH (09:16)
[2016-07-04] MEDS: Heparin 5000 units/ml inj SUBQ SCH ×2 (09:19→21:08)
--- NOTE | 2016-07-04 10:07 | Nephrology Progress Note ---
Assessment/Plan Problem List: (1) Spontaneous pneumothorax (2) Abnormal LFTs (3) Multiple rib fractures involving four or more ribs (4) D-dimer, elevated (5) Thrombocytosis Plan Pulmo f/u- continue neb 02 as needed F/U with Surgery recs GI f/u Hematology F/U Monitor H&H, transfuse as needed Cardio f/u Monitor BUN/cr - Adequate urine output, creatinine elevated -24hr creatinine clearance Monitor neuro status Optimize pulmonary hygiene/mobilize as tolerated Continue Abx per ID DVT prophylaxis: Hep SQ Cont pain management AM labs Subjective Constitutional: Denies: chills, diaphoresis, fever, malaise, no symptoms, other , weakness HEENT: Denies: blurred vision, double vision, ear discharge, ear pain, eye pain , mouth pain, mouth swelling, no symptoms, nose congestion, nose pain, other, tearing, throat pain, throat swelling Genitourinary: Denies: burning, discharge, flank pain, frequency, hematuria, incontinence, no symptoms, other, pain, urgency Neurologic/Psychiatric: Denies: anxiety, depressed, emotional problems, headache, no symptoms, numbness, other, paresthesia, pre-existing deficit, seizure, tingling, tremors, weakness Subjective In bed, in no distress, denies discomfort Objective Objective Last 24 Hour Vital Signs Date Time Temp Pulse Resp B/P Pulse Ox O2 Delivery O2 Flow Rate FiO2 07/04/16 07:51 Room Air 07/04/16 07:50 92 Room Air 07/04/16 07:47 97.7 86 18 105/67 96 Room Air 07/04/16 04:00 98.1 98 18 93/60 95 Room Air 07/04/16 01:27 97.9 07/04/16 00:00 100.8 91 18 106/66 95 Room Air 07/03/16 20:03 100.0 07/03/16 20:00 100.0 97 19 119/76 93 Room Air 07/03/16 19:05 Room Air 21 07/03/16 19:02 96 Room Air 07/03/16 16:28 98.1 98 16 115/62 95 Room Air 07/03/16 11:51 98.8 91 16 111/69 93 Intake and Output 07/03/16 07/04/16 19:00 07:00 Intake Total 2376 ml 1044.2 ml Balance 2376 ml 1044.2 ml Intake Oral 1300 ml 630 ml IV Total 1076 ml 414.2 ml # Voids 3 5 Laboratory Tests 07/03/16 16:29: Random Vancomycin Level 16.0 Height (Feet): 5 Height (Inches): 6.00 Weight (Pounds): 140 General Appearance: no apparent distress, alert EENT: normal ENT inspection Neck: normal alignment, supple Cardiovascular: normal rate, regular rhythm Respiratory/Chest: normal breath sounds, no respiratory distress, decreased breath sounds Abdomen: non tender, soft, no organomegaly, no mass Extremities: normal range of motion, non-tender Neurologic: alert, oriented x 3, responsive, normal mood/affect Pilar Newman N.P. Jul 04, 2016 10:07
--- NOTE | 2016-07-04 10:11 | Infectious Diseases Prog Note ---
Assessment/Plan Assessment/Plan ASSESSMENT: 45 y/o male with: // Probable HAP r/o empyema, hematoma - SCx NRF, C.albicans=colonizers - SP thoracentesis 06/30 - Cx(-) - CT Chest 06/28: Development of large loculated right pleural effusion, small nonloculated left pleural effusion. Development of bilateral pulmonary lower lobe parenchymal consolidation--atelectasis vs pneumonia // Leukocytosis - persistent, stable // Fever - intermittent low grade // SP PTX - chest tube removed - CT Chest 06/28: Resolution of right pneumothorax, pneumomediastinum, subcutaneous emphysema with interval removal of right chest tube // Multiple displaced right rib fractures // Elevated LFTs, m/l EtOH hepatitis - US: hepatomegaly with fatty infiltration, cholelithiasis - negative: hepatitis panel // Thrombocytosis // EtOH, tobacco abuse // Negative HIV // NKDA // Full Code PLAN: - continue zosyn d# 8 / 10, IV vancomycin d# 6 - CT surgery eval - f/u final cultures - monitor CBC, temperatures - monitor BMP - monitor CXR Subjective Allergies: Coded Allergies: No Known Allergies (Unverified , 06/21/16) Subjective intermittent low grade fevers awaiting CTS eval Objective Vital Signs Last 24 Hour Vital Signs Date Time Temp Pulse Resp B/P Pulse Ox O2 Delivery O2 Flow Rate FiO2 07/04/16 07:51 Room Air 07/04/16 07:50 92 Room Air 07/04/16 07:47 97.7 86 18 105/67 96 Room Air 07/04/16 04:00 98.1 98 18 93/60 95 Room Air 07/04/16 01:27 97.9 07/04/16 00:00 100.8 91 18 106/66 95 Room Air 07/03/16 20:03 100.0 07/03/16 20:00 100.0 97 19 119/76 93 Room Air 07/03/16 19:05 Room Air 21 07/03/16 19:02 96 Room Air 07/03/16 16:28 98.1 98 16 115/62 95 Room Air 07/03/16 11:51 98.8 91 16 111/69 93 Height (Feet): 5 Height (Inches): 6.00 Weight (Pounds): 140 General Appearance: no acute distress Respiratory/Chest: no respiratory distress, decreased breath sounds Cardiovascular: normal rate, regular rhythm Abdomen: normal bowel sounds, soft, non tender, non distended Laboratory Tests Test 07/03/16 16:29 Random Vancomycin Level 16.0 ug/mL Current Medications Medications (Trade) Dose Ordered Sig/Evan Route PRN Reason Start Time Stop Time Status Last Admin Dose Admin Acetaminophen (Tylenol) 650 mg Q6H PRN ORAL Mild Pain/Temp > 100.5 06/24/16 00:41 07/24/16 00:40 07/04/16 00:28 Bisacodyl (Dulcolax) 5 mg DAILYPRN PRN ORAL Constipation 06/26/16 17:45 07/26/16 17:44 06/26/16 18:05 Cetylpyridinium Chloride (Cepacol) 1 lozenge EVERY HOUR PRN MILADY For Cough 06/26/16 08:15 07/26/16 08:14 07/03/16 17:13 Chlordiazepoxide (Librium) 50 mg DAILY ORAL 06/28/16 09:00 07/05/16 08:59 07/04/16 09:16 Dextrose (Dextrose 50%) STAT PRN IV Hypoglycemia 06/24/16 00:42 07/24/16 00:41 Folic Acid/ Magnesium Sulfate/ Multivitamins/ Sodium Chloride (Folvite/ Magnesium Sulfate/ M.v.i.-12/NS w/ KCl 20mEq) 1,014.2 ml @ 125 mls/ hr Q24H IV 06/24/16 09:00 07/24/16 08:59 07/04/16 09:16 Haloperidol Lactate (Haldol) 5 mg Q6H PRN IVPB Agitation 06/24/16 01:00 07/24/16 00:59 Future Hold Heparin Sodium (Porcine) (Heparin 5000 units/ml) 5,000 units EVERY 12 HOURS SUBQ 06/28/16 21:00 07/28/16 20:59 07/04/16 09:19 Hydromorphone HCl (Dilaudid) 1 mg Q4H PRN IVP Severe Pain (Pain Scale 7-10) 07/01/16 21:45 07/08/16 21:44 07/04/16 04:20 Lactulose (Cephulac) 20 gm BID ORAL 06/25/16 18:00 07/25/16 17:59 07/04/16 09:16 Ondansetron HCl (Zofran) 4 mg Q6H PRN IVP Nausea & Vomiting 06/24/16 00:45 07/24/16 00:44 Pantoprazole (Protonix) 40 mg ACBREAKFAST ORAL 06/24/16 06:30 07/24/16 06:29 07/04/16 06:15 Piperacillin Sod/ Tazobactam Sod/ Dextrose (Zosyn/D5W 100ml) 100 ml @ 25 mls/hr EVERY 8 HOURS IVPB 07/01/16 22:00 07/06/16 21:59 07/04/16 06:15 Thiamine HCl 100 mg/Sodium Chloride 101 ml @ 100 mls/hr Q24H IVPB 06/30/16 09:00 07/30/16 08:59 07/04/16 09:17 Vancomycin HCl 1 ea 1 ea DAILY PRN MISC Per rx protocol 06/29/16 16:15 07/29/16 16:14 EMILY BOTELLO Jul 04, 2016 10:11
--- NOTE | 2016-07-04 10:39 | Diagnostic Imaging Report ---
Indications: Chest pain, pneumothorax Technique: PA and lateral chest Findings: Comparison: 06/30/16 Hazy opacity persists over the right lung base with blunting of the right costophrenic angle. This corresponds to a large circumscribed pleural-based opacity on lateral view. Linear density persists in the left lung base. No pneumothorax identified. Cardiomediastinal silhouette stable. Multiple rightward fractures again noted. IMPRESSION: Stable right pleural effusion with suggestion of loculation Stable subsegmental atelectasis left lung base No evidence of pneumothorax, unchanged Stable right rib fractures
[2016-07-04 12:00] VITALS: BP 123/80
[2016-07-04 16:07] VITALS: BP 113/68
[2016-07-04 20:00] VITALS: BP 111/69
[2016-07-05] VITALS: BP 102/59
[2016-07-05] MEDS: HYDROmorphone 1mg/ml Carpuject IVP PRN ×2 (02:38→08:28)
[2016-07-05 04:00] VITALS: BP 111/70
[2016-07-05 07:48] LABS: BASOPHILS % (AUTO) 1.2 % (0.0-2.0); EOSINOPHILS % (AUTO) 0.1 % (0.0-3.0); LYMPHOCYTES % (AUTO) 10.6 % (20.0-45.0); MEAN CORPUSCULAR HGB CONC 31.4 G/DL (32.0-36.0); MEAN CORPUSCULAR VOLUME 102 FL (80-99); MEAN PLATELET VOLUME 5.2 FL (6.5-10.1); MONOCYTES % (AUTO) 5.9 % (1.0-10.0); NEUTROPHILS % (AUTO) 82.3 % (45.0-75.0); PLATELET COUNT 778 K/UL (150-450); RED BLOOD COUNT 2.52 M/UL (4.70-6.10); RED CELL DISTRIBUTION WIDTH 14.4 % (11.6-14.8); WHITE BLOOD COUNT 14.1 K/UL (4.8-10.8)
[2016-07-05 07:59] LABS: ALBUMIN/GLOBULIN RATIO 0.6 (1.0-2.7); CALCIUM 8.5 mg/dL (8.6-10.2); CREATININE 2.7 mg/dL (0.7-1.2); GLOMERULAR FILTRATION RATE 25.9 mL/min (>60); POTASSIUM 4.9 mEQ/L (3.4-4.9); TOTAL PROTEIN 6.4 g/dL (6.6-8.7)
[2016-07-05] MEDS: Lactulose 20gm/30ml UDC ORAL SCH ×2 (08:27→18:40)
[2016-07-05] MEDS: Folic Acid 1 MG, Magnesium Sulfate 2,000 MG, Multivitamin - 12 Injection 10 ML in NS w/... IV SCH (08:28)
[2016-07-05] MEDS: Heparin 5000 units/ml inj SUBQ SCH (08:29)
[2016-07-05 08:50] VITALS: BP 113/74
--- NOTE | 2016-07-05 10:21 | GI Progress Note ---
Assessment/Plan Problems: (1) ETOH abuse ICD Codes: F10.10 - Alcohol abuse, uncomplicated SNOMED: 71541561, 44482177 (2) Multiple rib fractures involving four or more ribs ICD Codes: S22.49XA - Multiple fractures of ribs, unspecified side, initial encounter for closed fracture SNOMED: 0646376 (3) Abnormal LFTs ICD Codes: R79.89 - Other specified abnormal findings of blood chemistry SNOMED: 166809792 (4) Liver cirrhosis ICD Codes: K74.60 - Unspecified cirrhosis of liver SNOMED: 78878329 (5) Alcohol withdrawal ICD Codes: F10.239 - Alcohol dependence with withdrawal, unspecified SNOMED: 466128679 (6) Thrombocytopenia ICD Codes: D69.6 - Thrombocytopenia, unspecified SNOMED: 146726764 Status: stable, progressing Status Narrative Discussed with Dr. Krueger. Assessment/Plan cdiff negative abdominal U/S >> Hepatomegaly with fatty infiltration, Cholelithiasis hep panel negative ammonia level >> wnl OB stool negative discriminant function negative >> defer glucosteroid therapy ------ ok for DC per GI standpoint symptomatic GI treatment ppi monitor LFTs monitor H&H, transfuse prn PT eval fu labs Subjective Subjective denies any GI symptoms wishes to go home Objective Last 24 Hour Vital Signs Date Time Temp Pulse Resp B/P Pulse Ox O2 Delivery O2 Flow Rate FiO2 07/05/16 08:50 99.0 73 18 113/74 95 Room Air 07/05/16 04:20 97.9 07/05/16 04:00 101.5 93 18 111/70 94 Room Air 07/05/16 00:00 98.8 87 18 102/59 95 Room Air 07/04/16 22:51 98.4 07/04/16 20:00 98.4 80 18 111/69 96 Room Air 07/04/16 19:30 Room Air 21 07/04/16 19:30 93 Room Air 21 07/04/16 16:07 99.5 84 18 113/68 94 Room Air 07/04/16 12:00 99.3 80 18 123/80 95 Room Air Intake and Output 07/04/16 07/05/16 19:00 07:00 Intake Total 1376 ml 1125 ml Output Total 2100 ml Balance 1376 ml -975 ml Intake Oral 650 ml 400 ml IV Total 726 ml 725 ml Output Urine Total 2100 ml # Voids 1 2 # Bowel Movements 4 1 Laboratory Tests Test 07/05/16 05:15 White Blood Count 14.1 K/UL (4.8-10.8) H Red Blood Count 2.52 M/UL (4.70-6.10) L Hemoglobin 8.0 G/DL (14.2-18.0) L Hematocrit 25.6 % (42.0-52.0) L Mean Corpuscular Volume 102 FL (80-99) H Mean Corpuscular Hemoglobin 32.0 PG (27.0-31.0) H Mean Corpuscular Hemoglobin Concent 31.4 G/DL (32.0-36.0) L Red Cell Distribution Width 14.4 % (11.6-14.8) Platelet Count 778 K/UL (150-450) H Mean Platelet Volume 5.2 FL (6.5-10.1) L Neutrophils (%) (Auto) 82.3 % (45.0-75.0) H Lymphocytes (%) (Auto) 10.6 % (20.0-45.0) L Monocytes (%) (Auto) 5.9 % (1.0-10.0) Eosinophils (%) (Auto) 0.1 % (0.0-3.0) Basophils (%) (Auto) 1.2 % (0.0-2.0) Sodium Level 138 mEQ/L (135-145) Potassium Level 4.9 mEQ/L (3.4-4.9) Chloride Level 100 mEQ/L (98-107) Carbon Dioxide Level 23 mEQ/L (20-30) Anion Gap 15 (5-15) Blood Urea Nitrogen 18 mg/dL (7-23) Creatinine 2.7 mg/dL (0.7-1.2) H Estimat Glomerular Filtration Rate 25.9 mL/min (>60) Glucose Level 89 mg/dL (74-106) Calcium Level 8.5 mg/dL (8.6-10.2) L Total Bilirubin 0.3 mg/dL (0.0-1.2) Aspartate Amino Transf (AST/SGOT) 21 U/L (5-40) Alanine Aminotransferase (ALT/SGPT) 25 U/L (3-41) Alkaline Phosphatase 157 U/L (40-129) H Total Protein 6.4 g/dL (6.6-8.7) L Albumin 2.5 g/dL (3.5-5.2) L Globulin 3.9 g/dL Albumin/Globulin Ratio 0.6 (1.0-2.7) L Random Vancomycin Level 19.1 ug/mL Height (Feet): 5 Height (Inches): 6.00 Weight (Pounds): 140 General Appearance: no apparent distress, alert Cardiovascular: normal rate Respiratory/Chest: normal breath sounds, no respiratory distress Abdominal Exam: normal bowel sounds, non tender, soft Extremities: normal range of motion Objective Procedure: US ABD Complete Indication:Abdominal pain Findings: The demonstrated part of the pancreas, aorta and IVC, both kidneys, spleen appear unremarkable. Aorta and pancreas are poorly seen. There are gallstones. Sonographic Vanegas's is negative per technologist. The liver is enlarged and echogenic. CBD is 4 mm. There is no biliary ductal dilatation identified. Doppler evaluation of the main portal vein shows patency. There is no ascites. No hydronephrosis seen. Impression: Hepatomegaly with fatty infiltration. Cholelithiasis Pancreas and aorta obscured Deborah Cordero N.P. Jul 05, 2016 10:21
--- NOTE | 2016-07-05 10:42 | General Surgery Progress Note ---
General Surgery-Progress Note Subjective Reason for Consult right rib fx and ptx Symptoms: improved Additional Comments patient seen and examined. doing well. mild right sided pain. tolerating oral diet. no respiratory distress but does cough Objective Last 24 Hour Vital Signs Date Time Temp Pulse Resp B/P Pulse Ox O2 Delivery O2 Flow Rate FiO2 07/05/16 08:50 99.0 73 18 113/74 95 Room Air 07/05/16 04:20 97.9 07/05/16 04:00 101.5 93 18 111/70 94 Room Air 07/05/16 00:00 98.8 87 18 102/59 95 Room Air 07/04/16 22:51 98.4 07/04/16 20:00 98.4 80 18 111/69 96 Room Air 07/04/16 19:30 Room Air 21 07/04/16 19:30 93 Room Air 21 07/04/16 16:07 99.5 84 18 113/68 94 Room Air 07/04/16 12:00 99.3 80 18 123/80 95 Room Air I&O Intake and Output 07/04/16 07/05/16 19:00 07:00 Intake Total 1376 ml 1125 ml Output Total 2100 ml Balance 1376 ml -975 ml Intake Oral 650 ml 400 ml IV Total 726 ml 725 ml Output Urine Total 2100 ml # Voids 1 2 # Bowel Movements 4 1 Wound: clean Drains: none Cardiovascular: RSR Respiratory: decreased breath sounds Abdomen: soft, non-tender Extremities: no edema Laboratory Tests Test 07/05/16 05:15 White Blood Count 14.1 K/UL (4.8-10.8) H Red Blood Count 2.52 M/UL (4.70-6.10) L Hemoglobin 8.0 G/DL (14.2-18.0) L Hematocrit 25.6 % (42.0-52.0) L Mean Corpuscular Volume 102 FL (80-99) H Mean Corpuscular Hemoglobin 32.0 PG (27.0-31.0) H Mean Corpuscular Hemoglobin Concent 31.4 G/DL (32.0-36.0) L Red Cell Distribution Width 14.4 % (11.6-14.8) Platelet Count 778 K/UL (150-450) H Mean Platelet Volume 5.2 FL (6.5-10.1) L Neutrophils (%) (Auto) 82.3 % (45.0-75.0) H Lymphocytes (%) (Auto) 10.6 % (20.0-45.0) L Monocytes (%) (Auto) 5.9 % (1.0-10.0) Eosinophils (%) (Auto) 0.1 % (0.0-3.0) Basophils (%) (Auto) 1.2 % (0.0-2.0) Sodium Level 138 mEQ/L (135-145) Potassium Level 4.9 mEQ/L (3.4-4.9) Chloride Level 100 mEQ/L (98-107) Carbon Dioxide Level 23 mEQ/L (20-30) Anion Gap 15 (5-15) Blood Urea Nitrogen 18 mg/dL (7-23) Creatinine 2.7 mg/dL (0.7-1.2) H Estimat Glomerular Filtration Rate 25.9 mL/min (>60) Glucose Level 89 mg/dL (74-106) Calcium Level 8.5 mg/dL (8.6-10.2) L Total Bilirubin 0.3 mg/dL (0.0-1.2) Aspartate Amino Transf (AST/SGOT) 21 U/L (5-40) Alanine Aminotransferase (ALT/SGPT) 25 U/L (3-41) Alkaline Phosphatase 157 U/L (40-129) H Total Protein 6.4 g/dL (6.6-8.7) L Albumin 2.5 g/dL (3.5-5.2) L Globulin 3.9 g/dL Albumin/Globulin Ratio 0.6 (1.0-2.7) L Random Vancomycin Level 19.1 ug/mL Plan Problems: (1) Spontaneous pneumothorax Assessment & Plan: 45 year old male with ptx. had chest tube placed in ED. improved and had chest tube removed after resolution of ptx and when minimal output. since has developed a right sided loculated effusion and potential pneumonia. CT chest performed and demonstrated new right sided effusion and RLL consolidation without pneumothorax. CXR with similar findings. could potentially have a right empyema which may require thoracic surgery intervention. still pending CT surgery consultation. no general surgery intervention currently necessary. (2) Multiple rib fractures involving four or more ribs Osvaldo Branham MD Jul 05, 2016 10:42
--- NOTE | 2016-07-05 12:02 | Cardiac Electrophysiology PN ---
Assessment/Plan Assessment/Plan 1. Sinus tachycardia due to pneumothorax. Resolved after chest tube insertion and removal. EF 60% to 65% with no left ventricular hypertrophy and no pericardial effusion. 2. Atrial fibrillation, transient. Resolved. Not hyperthyroid. 3. Pneumothorax status post chest tube placement and then removal 4. Status post multiple rib fractures. 5. SQ emphysema. 6. Liver cirrhosis 7. ETOH withdrawal. On Banana bag. 8. Recurrent fever. CXR and Chest CT pending. CT surgery eval pending CANDICE RN and Dr Soto. Subjective Subjective Alert in NAD . Still has right chest wall pain. Confused with sitter at bedside. Had fever 101.5 today Objective Last 24 Hour Vital Signs Date Time Temp Pulse Resp B/P Pulse Ox O2 Delivery O2 Flow Rate FiO2 07/05/16 08:50 99.0 73 18 113/74 95 Room Air 07/05/16 04:20 97.9 07/05/16 04:00 101.5 93 18 111/70 94 Room Air 07/05/16 00:00 98.8 87 18 102/59 95 Room Air 07/04/16 22:51 98.4 07/04/16 20:00 98.4 80 18 111/69 96 Room Air 07/04/16 19:30 Room Air 21 07/04/16 19:30 93 Room Air 21 07/04/16 16:07 99.5 84 18 113/68 94 Room Air 07/04/16 12:00 99.3 80 18 123/80 95 Room Air Intake and Output 07/04/16 07/05/16 18:59 06:59 Intake Total 1376 ml 1125 ml Output Total 2100 ml Balance 1376 ml -975 ml Intake Oral 650 ml 400 ml IV Total 726 ml 725 ml Output Urine Total 2100 ml # Voids 1 2 # Bowel Movements 4 1 Laboratory Tests Test 07/05/16 05:15 White Blood Count 14.1 K/UL (4.8-10.8) H Red Blood Count 2.52 M/UL (4.70-6.10) L Hemoglobin 8.0 G/DL (14.2-18.0) L Hematocrit 25.6 % (42.0-52.0) L Mean Corpuscular Volume 102 FL (80-99) H Mean Corpuscular Hemoglobin 32.0 PG (27.0-31.0) H Mean Corpuscular Hemoglobin Concent 31.4 G/DL (32.0-36.0) L Red Cell Distribution Width 14.4 % (11.6-14.8) Platelet Count 778 K/UL (150-450) H Mean Platelet Volume 5.2 FL (6.5-10.1) L Neutrophils (%) (Auto) 82.3 % (45.0-75.0) H Lymphocytes (%) (Auto) 10.6 % (20.0-45.0) L Monocytes (%) (Auto) 5.9 % (1.0-10.0) Eosinophils (%) (Auto) 0.1 % (0.0-3.0) Basophils (%) (Auto) 1.2 % (0.0-2.0) Sodium Level 138 mEQ/L (135-145) Potassium Level 4.9 mEQ/L (3.4-4.9) Chloride Level 100 mEQ/L (98-107) Carbon Dioxide Level 23 mEQ/L (20-30) Anion Gap 15 (5-15) Blood Urea Nitrogen 18 mg/dL (7-23) Creatinine 2.7 mg/dL (0.7-1.2) H Estimat Glomerular Filtration Rate 25.9 mL/min (>60) Glucose Level 89 mg/dL (74-106) Calcium Level 8.5 mg/dL (8.6-10.2) L Total Bilirubin 0.3 mg/dL (0.0-1.2) Aspartate Amino Transf (AST/SGOT) 21 U/L (5-40) Alanine Aminotransferase (ALT/SGPT) 25 U/L (3-41) Alkaline Phosphatase 157 U/L (40-129) H Total Protein 6.4 g/dL (6.6-8.7) L Albumin 2.5 g/dL (3.5-5.2) L Globulin 3.9 g/dL Albumin/Globulin Ratio 0.6 (1.0-2.7) L Random Vancomycin Level 19.1 ug/mL Objective HEAD AND NECK: no JVD. LUNGS: Decreased breath sounds with coarse rhonchi on Right. CARDIOVASCULAR: Regular S1-S2 with no gallop or murmur. ABDOMEN: Soft. EXTREMITIES: no pitting edema. IRENA MELLO Jul 05, 2016 12:02
--- NOTE | 2016-07-05 12:23 | Nephrology Progress Note ---
Assessment/Plan Problem List: (1) Spontaneous pneumothorax (2) Abnormal LFTs (3) Multiple rib fractures involving four or more ribs (4) D-dimer, elevated (5) Thrombocytosis Plan R/O Empyema CT without contrast Thoracic surgeon consult - Dr Gross F/U with Surgery recs Fever resolved - monitor Continue Abx per ID Pulmo f/u- continue neb 02 as needed GI f/u Hematology F/U Monitor H&H, transfuse as needed Cardio f/u Monitor BUN/cr - Adequate urine output, creatinine elevated -24hr creatinine clearance Monitor neuro status Optimize pulmonary hygiene/mobilize as tolerated DVT prophylaxis: Hep SQ Cont pain management AM labs Subjective Constitutional: Reports: chills HEENT: Denies: blurred vision, double vision, ear discharge, ear pain, eye pain , mouth pain, mouth swelling, no symptoms, nose congestion, nose pain, other, tearing, throat pain, throat swelling Genitourinary: Denies: burning, discharge, flank pain, frequency, hematuria, incontinence, no symptoms, other, pain, urgency Neurologic/Psychiatric: Denies: anxiety, depressed, emotional problems, headache, no symptoms, numbness, other, paresthesia, pre-existing deficit, seizure, tingling, tremors, weakness Subjective In bed, in no distress, denies discomfort at this time Objective Objective Last 24 Hour Vital Signs Date Time Temp Pulse Resp B/P Pulse Ox O2 Delivery O2 Flow Rate FiO2 07/05/16 08:50 99.0 73 18 113/74 95 Room Air 07/05/16 04:20 97.9 07/05/16 04:00 101.5 93 18 111/70 94 Room Air 07/05/16 00:00 98.8 87 18 102/59 95 Room Air 07/04/16 22:51 98.4 07/04/16 20:00 98.4 80 18 111/69 96 Room Air 07/04/16 19:30 Room Air 21 07/04/16 19:30 93 Room Air 21 07/04/16 16:07 99.5 84 18 113/68 94 Room Air Intake and Output 07/04/16 07/05/16 19:00 07:00 Intake Total 1376 ml 1125 ml Output Total 2100 ml Balance 1376 ml -975 ml Intake Oral 650 ml 400 ml IV Total 726 ml 725 ml Output Urine Total 2100 ml # Voids 1 2 # Bowel Movements 4 1 Laboratory Tests 07/05/16 05:15: White Blood Count 14.1H, Red Blood Count 2.52L, Hemoglobin 8.0L, Hematocrit 25.6L, Mean Corpuscular Volume 102H, Mean Corpuscular Hemoglobin 32.0H, Mean Corpuscular Hemoglobin Concent 31.4L, Red Cell Distribution Width 14.4, Platelet Count 778H, Mean Platelet Volume 5.2L, Neutrophils (%) (Auto) 82.3H, Lymphocytes (%) (Auto) 10.6L, Monocytes (%) (Auto) 5.9, Eosinophils (%) (Auto) 0.1, Basophils (%) (Auto) 1.2, Sodium Level 138, Potassium Level 4.9, Chloride Level 100, Carbon Dioxide Level 23, Anion Gap 15, Blood Urea Nitrogen 18, Creatinine 2.7H, Estimat Glomerular Filtration Rate 25.9, Glucose Level 89, Calcium Level 8.5L, Total Bilirubin 0.3, Aspartate Amino Transf (AST/SGOT) 21, Alanine Aminotransferase (ALT/SGPT) 25, Alkaline Phosphatase 157H, Total Protein 6.4L, Albumin 2.5L, Globulin 3.9, Albumin/Globulin Ratio 0.6L, Random Vancomycin Level 19.1 Height (Feet): 5 Height (Inches): 6.00 Weight (Pounds): 140 General Appearance: no apparent distress, alert EENT: normal ENT inspection Neck: normal alignment, supple, normal inspection Cardiovascular: normal rate, regular rhythm Respiratory/Chest: normal breath sounds, decreased breath sounds Abdomen: non tender, soft, no organomegaly Extremities: normal range of motion, non-tender, normal inspection, no calf tenderness, normal capillary refill Neurologic: alert, oriented x 3, responsive, normal mood/affect Pilar Newman N.P. Jul 05, 2016 12:23
[2016-07-05 12:33] VITALS: BP 117/99
--- NOTE | 2016-07-05 15:30 | Diagnostic Imaging Report ---
Indications: Diffuse chest pain, status post right tube thoracostomy for pneumothorax, resolved, persistent parenchymal consolidation and right pleural effusion on serial chest radiographs Technique: Continuous helical CT imaging of the thorax and upper abdomen was performed with automatic exposure control on a Siemens sensation [address] scanner. Axial images were reconstructed at 5 mm slice thickness and interval. Coronal images were reconstructed at 5 mm slice thickness. No IV contrast was administered secondary to requesting physician's order, despite no contraindications listed in either submitted clinical data or tech note.. CTDI volume(s): 15 mGy Total DLP: 469 mGy-cm Findings: Comparison: 06/28/2016 Again, lack of IV contrast limits evaluation. Loculated right pleural effusion persists, smaller, but now contains multiple gas bubbles throughout. No evidence of pneumothorax otherwise. Small left pleural effusion persists, also mildly increased. Parenchymal consolidation persists in both lung bases with air bronchograms, mildly improved. Subcentimeter calcified nodule again noted in posterior segment left upper lobe. Heart remains normal in size. No obvious pericardial abnormality. Thoracic aorta and central pulmonary arteries remain nondilated. Vascular patency indeterminate. Again, no obviously enlarged mediastinal or hilar lymph nodes detected. Distention and fluid/food content of the esophagus resolved. Multiple lower right rib fractures again noted, now with some periosteal callus formation. Overlying soft tissues remain mildly swollen. Separate focal swelling and increased attenuation in right lateral chest wall soft tissues at site of previous chest tube unchanged. No new chest wall soft tissue abnormalities are demonstrated. Imaged upper abdominal anatomy remains unremarkable in appearance. IMPRESSION: Persistent loculated right pleural effusion, smaller, now with multiple gas bubbles implying multiloculation and possible infection. Thoracic surgery consultation recommended. Persistent pulmonary bibasal atelectasis versus pneumonia, slightly improved Interval partial healing of right rib fractures No other interval change
[2016-07-05 16:00] VITALS: BP 126/78
--- NOTE | 2016-07-05 16:31 | Infectious Diseases Prog Note ---
Assessment/Plan Assessment/Plan ASSESSMENT: 45 y/o male with: // Probable HAP r/o empyema, hematoma - SCx NRF, C.albicans=colonizers - SP thoracentesis 06/30 - Cx(-) - Repeat CT Chest 07/05: Persistent loculated right pleural effusion, smaller , now with multiple gas bubbles implying multiloculation and possible infection. Thoracic surgery consultation recommended. // Leukocytosis - persistent, improved // Fever - persistent // SP PTX - chest tube removed // Multiple displaced right rib fractures // Elevated LFTs, m/l EtOH hepatitis - US: hepatomegaly with fatty infiltration, cholelithiasis - negative: hepatitis panel // Thrombocytosis // EtOH, tobacco abuse // Negative HIV // NKDA // Full Code PLAN: - continue zosyn d# 9, IV vancomycin d# 7 ( ABX d# ) - failing medical management - need source control, CT surgery eval for VATS - monitor CBC, temperatures - monitor BMP - monitor CXR Subjective Allergies: Coded Allergies: No Known Allergies (Unverified , 06/21/16) Subjective persistent low grade fevers repeat CT noted awaiting CTS eval Objective Vital Signs Last 24 Hour Vital Signs Date Time Temp Pulse Resp B/P Pulse Ox O2 Delivery O2 Flow Rate FiO2 07/05/16 16:00 101.7 87 18 126/78 94 Room Air 07/05/16 12:33 98.2 99 18 117/99 94 Room Air 07/05/16 08:58 99.0 07/05/16 08:50 99.0 73 18 113/74 95 Room Air 07/05/16 04:20 97.9 07/05/16 04:00 101.5 93 18 111/70 94 Room Air 07/05/16 00:00 98.8 87 18 102/59 95 Room Air 07/04/16 20:00 98.4 80 18 111/69 96 Room Air 07/04/16 19:30 Room Air 21 07/04/16 19:30 93 Room Air 21 Height (Feet): 5 Height (Inches): 6.00 Weight (Pounds): 140 General Appearance: no acute distress Respiratory/Chest: no respiratory distress, decreased breath sounds Cardiovascular: normal rate, regular rhythm Abdomen: normal bowel sounds, soft, non tender, non distended Laboratory Tests Test 07/05/16 05:15 White Blood Count 14.1 K/UL (4.8-10.8) H Red Blood Count 2.52 M/UL (4.70-6.10) L Hemoglobin 8.0 G/DL (14.2-18.0) L Hematocrit 25.6 % (42.0-52.0) L Mean Corpuscular Volume 102 FL (80-99) H Mean Corpuscular Hemoglobin 32.0 PG (27.0-31.0) H Mean Corpuscular Hemoglobin Concent 31.4 G/DL (32.0-36.0) L Red Cell Distribution Width 14.4 % (11.6-14.8) Platelet Count 778 K/UL (150-450) H Mean Platelet Volume 5.2 FL (6.5-10.1) L Neutrophils (%) (Auto) 82.3 % (45.0-75.0) H Lymphocytes (%) (Auto) 10.6 % (20.0-45.0) L Monocytes (%) (Auto) 5.9 % (1.0-10.0) Eosinophils (%) (Auto) 0.1 % (0.0-3.0) Basophils (%) (Auto) 1.2 % (0.0-2.0) Sodium Level 138 mEQ/L (135-145) Potassium Level 4.9 mEQ/L (3.4-4.9) Chloride Level 100 mEQ/L (98-107) Carbon Dioxide Level 23 mEQ/L (20-30) Anion Gap 15 (5-15) Blood Urea Nitrogen 18 mg/dL (7-23) Creatinine 2.7 mg/dL (0.7-1.2) H Estimat Glomerular Filtration Rate 25.9 mL/min (>60) Glucose Level 89 mg/dL (74-106) Calcium Level 8.5 mg/dL (8.6-10.2) L Total Bilirubin 0.3 mg/dL (0.0-1.2) Aspartate Amino Transf (AST/SGOT) 21 U/L (5-40) Alanine Aminotransferase (ALT/SGPT) 25 U/L (3-41) Alkaline Phosphatase 157 U/L (40-129) H Total Protein 6.4 g/dL (6.6-8.7) L Albumin 2.5 g/dL (3.5-5.2) L Globulin 3.9 g/dL Albumin/Globulin Ratio 0.6 (1.0-2.7) L Random Vancomycin Level 19.1 ug/mL Current Medications Medications (Trade) Dose Ordered Sig/Evan Route PRN Reason Start Time Stop Time Status Last Admin Dose Admin Acetaminophen (Tylenol) 650 mg Q6H PRN ORAL Mild Pain/Temp > 100.5 06/24/16 00:41 07/24/16 00:40 07/05/16 03:21 Bisacodyl (Dulcolax) 5 mg DAILYPRN PRN ORAL Constipation 06/26/16 17:45 07/26/16 17:44 06/26/16 18:05 Cetylpyridinium Chloride (Cepacol) 1 lozenge EVERY HOUR PRN MILADY For Cough 06/26/16 08:15 07/26/16 08:14 07/03/16 17:13 Dextrose (Dextrose 50%) STAT PRN IV Hypoglycemia 06/24/16 00:42 07/24/16 00:41 Folic Acid/ Magnesium Sulfate/ Multivitamins/ Sodium Chloride (Folvite/ Magnesium Sulfate/ M.v.i.-12/NS w/ KCl 20mEq) 1,014.2 ml @ 125 mls/ hr Q24H IV 06/24/16 09:00 07/24/16 08:59 07/05/16 08:28 Haloperidol Lactate (Haldol) 5 mg Q6H PRN IVPB Agitation 06/24/16 01:00 07/24/16 00:59 Future Hold Heparin Sodium (Porcine) (Heparin 5000 units/ml) 5,000 units EVERY 12 HOURS SUBQ 06/28/16 21:00 07/28/16 20:59 07/05/16 08:29 Hydromorphone HCl (Dilaudid) 1 mg Q4H PRN IVP Severe Pain (Pain Scale 7-10) 07/01/16 21:45 07/08/16 21:44 07/05/16 08:28 Lactulose (Cephulac) 20 gm BID ORAL 06/25/16 18:00 07/25/16 17:59 07/05/16 08:27 Ondansetron HCl (Zofran) 4 mg Q6H PRN IVP Nausea & Vomiting 06/24/16 00:45 07/24/16 00:44 Pantoprazole (Protonix) 40 mg ACBREAKFAST ORAL 06/24/16 06:30 07/24/16 06:29 07/05/16 06:34 Piperacillin Sod/ Tazobactam Sod/ Dextrose (Zosyn/D5W 100ml) 100 ml @ 25 mls/hr EVERY 8 HOURS IVPB 07/01/16 22:00 07/06/16 21:59 07/05/16 14:28 Thiamine HCl 100 mg/Sodium Chloride 101 ml @ 100 mls/hr Q24H IVPB 06/30/16 09:00 07/30/16 08:59 07/05/16 10:15 Vancomycin HCl 1 ea 1 ea DAILY PRN MISC Per rx protocol 06/29/16 16:15 07/29/16 16:14 EMILY BOTELLO Jul 05, 2016 16:31
[2016-07-05] MEDS ORDERED: Vancomycin 1250mg/D5W 250ml IVPB SCH ×2 (18:00)
[2016-07-05 18:07] LABS: CREATININE 2.7 mg/dL (0.7-1.2); GLOMERULAR FILTRATION RATE 25.9 mL/min (>60)
[2016-07-05 18:23] LABS: CREATININE CLEARANCE,URINE 27 mL/min (71-151)
[2016-07-05] MEDS ORDERED: NS 550ML IV ONE (18:44)
[2016-07-05] MEDS ORDERED: Tubing IV Secondary IV ONE (18:44)
--- NOTE | 2016-07-05 18:52 | Pulmonology Progress Note ---
Assessment/Plan Problems: (1) Loculated pleural effusion Assessment & Plan: Loculated R sided effusion, smaller on F/U CT, pleural fluid Cx negative NEEDS TO BE SEEN BY THORACIC SURGERY PEEWEE, WILL LIKELY REQUIRE VATS, IN THE INTERIM WILL ASK IR TO PLACE A STAT CHEST TUBE (2) Pneumonia Assessment & Plan: L base infiltrate, likely aspiration + loculated R sided effusion (3) Spontaneous pneumothorax Assessment & Plan: S/P CT, now removed RESOLVED (4) Subcutaneous emphysema Assessment & Plan: RESOLVED (5) Multiple rib fractures involving four or more ribs Assessment & Plan: Likely chronic (2/2 prior injury), no e/o flail chest (6) Thrombocytopenia Assessment & Plan: ? 2/2 underlying liver disease/cirrhosis RESOLVED (7) Abnormal LFTs Assessment & Plan: 2/2 cirrhosis (8) Leucocytosis (9) D-dimer, elevated (10) Smokes < 1 pack of cigarettes per day (11) ETOH abuse (12) Liver cirrhosis (13) JEFF (acute kidney injury) Assessment & Plan: PROGRESSIVE, BEING WORKED UP BY RENAL Assessment/Plan -Optimize pulmonary hygiene/mobilize as tolerated -PRN O2 -PLEURAL FLUID CX NEGATIVE BUT UNCLEAR WHY LDH, PROTEIN, GLU STILL PENDING - I HAVE CALLED THE LAB SEVERAL TIMES -F/U surgery recs, needs thoracic evaluation, ? VATS - NEEDS TO BE SEEN BY THORACIC SURGERY PEEWEE - IN THE INTERIM WILL ASK IR TO PLACE A STAT CHEST TUBE -Continue Abx per ID -TID and PRN DUOnebs -DVT Px: Hep SQ -F/U heme and GI recs -MVI/thiamine/folate -JEFF per renal Subjective Allergies: Coded Allergies: No Known Allergies (Unverified , 06/21/16) Subjective Weekend events reviewed Tm 100.7, VSS Wct 14, CR 2.7 Pleura fluid LDH and protein not back, Cx was negative Remains Asx and wants to leave AMA Has not been seen by thoracic surgery Objective Last 24 Hour Vital Signs Date Time Temp Pulse Resp B/P Pulse Ox O2 Delivery O2 Flow Rate FiO2 07/05/16 16:00 101.7 87 18 126/78 94 Room Air 07/05/16 12:33 98.2 99 18 117/99 94 Room Air 07/05/16 08:58 99.0 07/05/16 08:50 99.0 73 18 113/74 95 Room Air 07/05/16 04:20 97.9 07/05/16 04:00 101.5 93 18 111/70 94 Room Air 07/05/16 00:00 98.8 87 18 102/59 95 Room Air 07/04/16 20:00 98.4 80 18 111/69 96 Room Air 07/04/16 19:30 Room Air 21 07/04/16 19:30 93 Room Air 21 Intake and Output 07/04/16 07/05/16 18:59 06:59 Intake Total 1376 ml 1125 ml Output Total 2100 ml Balance 1376 ml -975 ml Intake Oral 650 ml 400 ml IV Total 726 ml 725 ml Output Urine Total 2100 ml # Voids 1 2 # Bowel Movements 4 1 General Appearance: WD/WN, no acute distress HEENT: normocephalic, atraumatic, anicteric, mucous membranes moist Respiratory/Chest: chest wall non-tender, lungs clear, normal breath sounds, no respiratory distress, no accessory muscle use Cardiovascular: normal peripheral pulses, normal rate, regular rhythm Abdomen: normal bowel sounds, soft, non tender, no organomegaly, non distended , no mass Extremities: no cyanosis, no clubbing, no edema Laboratory Tests 07/05/16 05:15: White Blood Count 14.1H, Red Blood Count 2.52L, Hemoglobin 8.0L, Hematocrit 25.6L, Mean Corpuscular Volume 102H, Mean Corpuscular Hemoglobin 32.0H, Mean Corpuscular Hemoglobin Concent 31.4L, Red Cell Distribution Width 14.4, Platelet Count 778H, Mean Platelet Volume 5.2L, Neutrophils (%) (Auto) 82.3H, Lymphocytes (%) (Auto) 10.6L, Monocytes (%) (Auto) 5.9, Eosinophils (%) (Auto) 0.1, Basophils (%) (Auto) 1.2, Sodium Level 138, Potassium Level 4.9, Chloride Level 100, Carbon Dioxide Level 23, Anion Gap 15, Blood Urea Nitrogen 18, Creatinine 2.7H, Estimat Glomerular Filtration Rate 25.9, Glucose Level 89, Calcium Level 8.5L, Total Bilirubin 0.3, Aspartate Amino Transf (AST/SGOT) 21, Alanine Aminotransferase (ALT/SGPT) 25, Alkaline Phosphatase 157H, Total Protein 6.4L, Albumin 2.5L, Globulin 3.9, Albumin/Globulin Ratio 0.6L, Random Vancomycin Level 19.1 07/05/16 16:00: Creatinine 2.7H, Estimat Glomerular Filtration Rate 25.9, Urine Collection Time 24, Urine Total Volume 3750, Urine Creatinine 28, Urine Creatinine 24 Hour 1050 , Patient Height Inches (Creat Clear) 66, Patient Weight Pounds (Creat Clear) 140, Creatinine Clearance 27L Current Medications Medications (Trade) Dose Ordered Sig/Evan Route PRN Reason Start Time Stop Time Status Last Admin Dose Admin Acetaminophen (Tylenol) 650 mg Q6H PRN ORAL Mild Pain/Temp > 100.5 06/24/16 00:41 07/24/16 00:40 07/05/16 03:21 Bisacodyl (Dulcolax) 5 mg DAILYPRN PRN ORAL Constipation 06/26/16 17:45 07/26/16 17:44 06/26/16 18:05 Cetylpyridinium Chloride (Cepacol) 1 lozenge EVERY HOUR PRN MILADY For Cough 06/26/16 08:15 07/26/16 08:14 07/03/16 17:13 Dextrose (Dextrose 50%) STAT PRN IV Hypoglycemia 06/24/16 00:42 07/24/16 00:41 Folic Acid/ Magnesium Sulfate/ Multivitamins/ Sodium Chloride (Folvite/ Magnesium Sulfate/ M.v.i.-12/NS w/ KCl 20mEq) 1,014.2 ml @ 125 mls/ hr Q24H IV 06/24/16 09:00 07/24/16 08:59 07/05/16 08:28 Haloperidol Lactate (Haldol) 5 mg Q6H PRN IVPB Agitation 06/24/16 01:00 07/24/16 00:59 Future Hold Heparin Sodium (Porcine) (Heparin 5000 units/ml) 5,000 units EVERY 12 HOURS SUBQ 06/28/16 21:00 07/28/16 20:59 07/05/16 08:29 Hydromorphone HCl 1 mg 1 mg Q4H PRN IVP Severe Pain (Pain Scale 7-10) 07/01/16 21:45 07/08/16 21:44 07/05/16 08:28 Lactulose (Cephulac) 20 gm BID ORAL 06/25/16 18:00 07/25/16 17:59 07/05/16 08:27 Ondansetron HCl (Zofran) 4 mg Q6H PRN IVP Nausea & Vomiting 06/24/16 00:45 07/24/16 00:44 Pantoprazole (Protonix) 40 mg ACBREAKFAST ORAL 06/24/16 06:30 07/24/16 06:29 07/05/16 06:34 Piperacillin Sod/ Tazobactam Sod/ Dextrose (Zosyn/D5W 100ml) 100 ml @ 25 mls/hr EVERY 8 HOURS IVPB 07/01/16 22:00 07/12/16 21:59 07/05/16 14:28 Thiamine HCl 100 mg/Sodium Chloride 101 ml @ 100 mls/hr Q24H IVPB 06/30/16 09:00 07/30/16 08:59 07/05/16 10:15 Vancomycin HCl 1 ea 1 ea DAILY PRN MISC Per rx protocol 06/29/16 16:15 07/29/16 16:14 Vancomycin HCl/ Dextrose (Vancomycin/D5W 250ml) 275 ml @ 183.333 mls/hr Q48H IVPB 07/05/16 18:00 07/10/16 17:59 EUGENIO RODRÍGUEZ M.D. Jul 05, 2016 18:52
--- NOTE | 2016-07-06 13:51 | Discharge Summary ---
Discharge Summary Hospital Course Date of Admission Jun 21, 2016 at 03:50 Date of Discharge Jul 05, 2016 at 18:45 Admitting Diagnosis SPONTANEOUS PNEUMOTHORAX ROBYN Stewart is a 45 year old male who was admitted on Jun 21, 2016 at 03:50 for Spontaneous Pneumothorax Hospital Course dc summary dictated #[id number] Discharge Discharge Disposition Patient signed AMA Discharge Diagnoses: Discharge Instructions Discharge Instructions Special Instructions I have been assigned to complete a D/C Summary on this account. I was not involved in the patient management Arabella Good NP ([place]) Jul 06, 2016 13:51
--- NOTE | 2016-07-06 15:58 | Diagnostic Imaging Report ---
Indications: Shortness of breath, recent history of pneumothorax, followup Technique: Portable AP chest Findings: Comparison: 07/03/16 Right lower lobe consolidative opacity and adjacent pleural effusion, left lung base subsegmental atelectasis persists, unchanged. Cardiomediastinal silhouette stable. Multiple right rib fractures again noted. No pneumothorax identified. IMPRESSION: No change from 2 days prior
--- NOTE | 2016-07-07 05:37 | Discharge Summary 2 SIG ---
DATE OF ADMISSION: 06/21/2016 DATE OF DISCHARGE: 07/05/2016 REASON FOR ADMISSION: 45-year-old male presented to emergency room with chief complaint of chest pain. While driving, he developed sudden severe right-sided chest pain radiating to his back. He also felt nauseous and had abdominal pain. He described pain as 10/10, movement made it worse. He called paramedics. He was given aspirin and nitroglycerin by paramedics without much relief. He never had this problem before. In the emergency room, chest x-ray was done which revealed moderate to large right pneumothorax, multiple right rib fracture. Chest tube was inserted by the emergency department doctor. Subsequently, CTA of the chest and thorax was done, which confirmed right chest tube in place , persistent at least 20% right pneumothorax despite chest tube, associated right chest wall, abdomen, neck and mediastinal emphysema, right lung opacity predominantly in the right middle lobe and right lower lobe most likely reflecting atelectatic changes, but infiltrate or contusion also can be possibility. CTA was negative for acute PE and it confirmed again multiply right rib fractures. HOSPITAL COURSE: patient admitted for further management, Chest tube was closely monitored. The patient started on empiric antibiotics. Infectious Disease doctor followed the patient in terms of recommendations for antibiotic therapy. Sputum culture revealed Jessenia. Blood culture were negative. Repeated sputum culture also revealed Jessenia. Stool for C. difficile was negative. The patient undergone thoracentesis on 06/29/2016, which yielded 200 mL of the pleural fluid. The pleural fluid culture was negative. General surgeon evaluated the patient and chest tube was removed at the bedside by surgeon on 06/25/2016. Chest x-ray in six hours revealed crowding of vascular structure, but no gross pneumothorax and decreasing subcutaneous emphysema. Repeated chest x-ray next morning on 06/26/2016 revealed no pneumothorax; per surgery earlier evaluation, patient stable, no further surgical intervention required if negative CXR in am after removal of chest tube. Spontaneous pneumothorax was likely related to multiple rib fractures. Ammonia level initially was high. The patient was placed on lactulose. Ammonia trending down. Lactulose frequency decreased to b.i.d. LFT trending down. Hepatitis panel negative. Abdominal ultrasound findings consistent with cholelithiasis and fatty liver. Hemoglobin and hematocrit were closely monitored. The vocational examiner followed. Thrombocytopenia resolved ,likely secondary to underlying liver disease/cirrhosis. Iron panel revealed low iron and high ferritin. Folic acid and thiamine started. Hemoglobin and hematocrit at the baseline. No trend down. GI prophylaxis provided. The patient counseled on abstinence from the alcohol . Initially Librium given for possible withdrawal , which subsequently tapered and discontinued. Renal parameters not improved with IV hydration. [employer] followed. Renal parameters , intake and output, electrolytes all were closely monitored. Renal ultrasound was ordered, not done. D Spontaneous pneumothorax resolved. Subcutaneous emphysema resolved. However, repeated CT of the chest done on 07/05/2016 which revealed persistent loculated right pleural effusion smaller, conpared with previous CT chest, but with multiply gas bubbles implying multi loculation and possible infection/empyema. Thoracic surgery consult was requested. since the patient most likely would need VATS. Meantime treating engineer ordered stat to place chest tube by interventional radiologist. The patient with recurrent fever and still with leukocytosis, on date of signing against medical advise - 14.1. He also had fever earlier that day of 101.7. Patient did not want to stay in the hospital any longer , and he decided to sign against medical advice. The patient was awake, alert, oriented x3, and able to make his own decisions. Supervising physician was notified. The patient was informed about the risks and consequences of signing against medical advice by nursing staff. However, the patient insisted on signing against medical advice. The patient signed the form and left without waiting for the doctor to call back. The patient was strongly encouraged to follow up with the primary medical doctor and counseled on abstinence from alcohol and illicit street drugs prior to departure. FINAL DIAGNOSES: 1. Loculated right pleural effusion , possible empyema. 2. Hospital associated pneumonia/left base infiltrate, possible aspiration. 3. Status post thoracentesis, pleural fluid culture negative. 4. Spontaneous pneumothorax/resolved. 5. Subcutaneous emphysema/resolved. 6. Multiply rib fracture, likely chronic secondary to prior injury , no evidence of pneumothorax. 7. Thrombocytopenia, resolved, likely secondary to underlying liver disease/cirrhosis 8. Elevated liver function test, trending down, secondary to cirrhosis. 9.Active smoker 10. Alcohol abuse. 11. Liver cirrhosis. 12. Elevated D-dimer. 13. Acute kidney injury. 14. Fatty liver. The patient counseled on smoking cessation as w Kavin Soto M.D. I have been assigned to dictate discharge summary on this account and I was not involved in the patient's management. Arabella Harrellminh NJason DR: Mary Jo JOB#: [id number] CC: NANY
[2016-07-09 08:37] LABS: BD FL SOURCE PLEURAL; BD FL VOLUME 24 mL; LDH, BODY FLUID 1252 U/L
--- NOTE | 2016-07-10 17:31 | Diagnostic Imaging Report ---
APPROVED REPORT CPT Code: 18067 Present Symptoms Comments: R/O DVT BILATERAL: Imaging reveals a patent deep venous system bilaterally. There is no evidence of thrombus within the femoral, popliteal or tibial segments. The greater saphenous veins are also within normal limits. Doppler indicates normal spontaneous flow within these segments.
--- NOTE | 2016-08-06 14:45 | Diagnostic Imaging Report ---
Indication: Status post thoracentesis Comparison: 06/28/16 A single view chest radiograph was obtained. Findings: No pneumothorax demonstrated. Right basilar opacity again noted. Multiple rib fractures noted on the right. Cardiac silhouette is stable. Impression: No pneumothorax following thoracentesis
== END 2016-07-05 18:45 | disposition left against medical advice (07) | DRG 143 ==
LOC: EDBD 02:04 → EMR 02:16 → 3E 03:50 → EDBEDREQ 08:08 → 3E 10:08 → 2E 23:04 → ICU 06-22 06:01 → 2W 06-23 05:16 → 4E 06-24 00:35
PROC: 0W9930Z Drainage of Right Pleural Cavity with Drainage Device, Percutaneous Approach (ICD-10-PCS; 2016-06-21)
PROC: 0W993ZZ Drainage of Right Pleural Cavity, Percutaneous Approach (ICD-10-PCS; principal; 2016-06-29)
DX: J93.83 Other pneumothorax (principal); J18.9 Pneumonia, unspecified organism; N17.9 Acute kidney failure, unspecified; D69.6 Thrombocytopenia, unspecified; J98.2 Interstitial emphysema; J90 Pleural effusion, not elsewhere classified; E87.1 Hypo-osmolality and hyponatremia; K74.60 Unspecified cirrhosis of liver; F17.200 Nicotine dependence, unspecified, uncomplicated; F10.10 Alcohol abuse, uncomplicated; K76.0 Fatty (change of) liver, not elsewhere classified; S22.41XG Multiple fractures of ribs, right side, subsequent encounter for fracture with delayed healing; V29.9XXD Motorcycle rider (driver) (passenger) injured in unspecified traffic accident, subsequent encounter; D63.8 Anemia in other chronic diseases classified elsewhere; R00.0 Tachycardia, unspecified; I48.91 Unspecified atrial fibrillation; F10.239 Alcohol dependence with withdrawal, unspecified; R45.1 Restlessness and agitation; Y95 Nosocomial condition; R56.9 Unspecified convulsions; E87.6 Hypokalemia
CPT/HCPCS: 36415; 36600; 71010; 71020; 71250; 71275; 76700; 76775; 76942; 78579; 78580; 80048; 80053; 80061; 80076; 80202; 80300; 81003; 82140; 82248; 82270; 82550; 82553; 82575; 82607; 82728; 82746; 82803; 82962; 83036; 83540; 83550; 83615; 83690; 83735; 83880; 84100; 84153; 84443; 84484; 85007; 85025; 85044; 85060; 85379; 85610; 85730; 86703; 86705; 86709; 86803; 86850; 86900; 86901; 86920; 87040; 87070; 87205; 87340; 87493; 89051; 93005; 93306; 93970; 94640; 94664; 94760; A9503; J2405; J7620; J8499